=== PATIENT | male | born 1930 | race Caucasian/White ===

== ENCOUNTER 2018-03-14 07:44 | Inpatient (IN) | payer MEDICARE, BC ==
--- NOTE | 2018-03-14 07:56 | ED ---
Shortness of Breath - HPI Summary HPI Summary: Patient is a 88 y/o M presenting to ED via ambulance with complaints of SOB. PMHx of CHF, EMS reports that patient has been "feeling generally unwell" for a couple of weeks, with exacerbation of SOB last night. Upon arrival, patient had difficulty speaking secondary to SOB, patient was reported to be ~70% o2 sat on RA. EMS placed patient on bipap which improved o2 saturation to around 95%. EMS also reports pitting BLE edema, BP of ~200 systolic, rales in lungs. They also reported PMHx of diabetes, BG was ~300. In the room, patient states he is feeling much improved on bipap. Pt speaking full sentences. pt denies fever, chills. Pt denies chest pain. No nausea. Pt states he is on blood thinners but unsure what kind. (records support Coumadin in 2016). PMHx of CVA, [place] is denied. Patient is on a water pill, states he is not on home o2. He also notes that he has been coughing. lives with - bring meds to be reviewed . - History of Current Complaint Hx Obtained From: Patient, EMS, Medical Records - admitted 2016 Onset/Duration: Lasting Days - SOB exacerbation last night, Lasting Weeks - "generally feeling unwell", Still Present, Worse Since - SOB exacerbation last night Timing: Constant Current Severity: None - pain denied Aggrevating Factors: Nothing Alleviating Factors: EMS Tx, Oxygen Associated Signs & Symptoms: Edema - BLE - Allergy/Home Medications Allergies/Adverse Reactions: Allergies Allergy/AdvReac Type Severity Reaction Status Date / Time MS Cephalexin [From Keflex] Allergy Nausea And Verified 03/14/18 08:28 Vomiting MS Codeine [Codeine] Allergy Nausea And Verified 03/14/18 08:28 Vomiting PMH/Surg Hx/FS Hx/Imm Hx Previously Healthy: No Endocrine/Hematology History: Reports: Hx Anticoagulant Therapy, Hx Diabetes Cardiovascular History: Reports: Hx Hypercholesterolemia, Hx Hypertension, Hx Peripheral Vascular Disease, Other Cardiovascular Problems/Disorders - IDDM II Denies: Hx Valvular Heart Disease Respiratory History: Reports: Hx Seasonal Allergies, Hx Sleep Apnea Denies: Hx Pneumonia, Other Respiratory Problems/Disorders GI History: Reports: Hx Gastroesophageal Reflux Disease, Hx Irritable Bowel, Hx Ulcer, Other GI Disorders - polyps History: Reports: Hx Benign Prostatic Hyperplasia - Prostate CA, Other Problems/Disorders - CKD Stage 3 Musculoskeletal History: Reports: Hx Arthritis - HANDS, SHOULDERS, KNEES, ANKLES , Hx Gout - R hand Denies: Other Musculoskeletal History Sensory History: Reports: Hx Cataracts, Hx Contacts or Glasses Denies: Hx Hearing Aid Opthamlomology History: Reports: Hx Cataracts, Hx Contacts or Glasses Neurological History: Denies: Other Neuro Impairments/Disorders Psychiatric History: Reports: Hx Depression - Cancer History Cancer Type, Location and Year: prostate Hx Chemotherapy: No Hx Radiation Therapy: No - Surgical History Surgery Procedure, Year, and Place: prostatectomy, 1991, [facility]. TUMOR FROM BACK, 1987, [facility]. APPENDECTOMY, [facility]. 194. Lipoma off the neck Hx Anesthesia Reactions: No - Immunization History Date of Tetanus Vaccine: 2014 Date of Influenza Vaccine: 2014 Infectious Disease History: Denies: Hx Clostridium Difficile, Hx Hepatitis, Hx Human Immunodeficiency Virus (HIV), Hx of Known/Suspected MRSA, Hx Shingles, Hx Tuberculosis, Hx Known/ Suspected VRE, Hx Known/Suspected VRSA, History Other Infectious Disease - Family History Known Family History: Positive: Non-Contributory Family History: No FHx anesthesia reaction - Social History Lives: With Family Alcohol Amount: 2 bottles of beer or mix drink Substance Use Type: Reports: None Hx Tobacco Use: Yes Smoking Status (MU): Former Smoker Type: Cigarettes Amount Used/How Often: 2 PACKS A DAY Length of Time of Smoking/Using Tobacco: 20 Review of Systems Positive: Fatigue Positive: Shortness Of Breath, Cough, Other - leg edema Positive: Edema - BLE edema All Other Systems Reviewed And Are Negative: Yes Physical Exam - Summary Physical Exam Summary: Vital Signs Reviewed: Yes A+Ox3, on cpap - speaking full sentences Eyes: Conjunctiva Clear, WILLIE. EOM intact and full ENT: Hearing grossly normal TM x 2 clear, mmoist, uvula midline, no exudate, no erythema Neck: Positive: Supple Respiratory: Positive: scattered wheeze, decreased BS at bases Cardiovascular: irregular, distant second to wheeze, + edema b/l LE abd soft + BS nt/nd no guarding, no distension Musculoskeletal Exam: moved ext x 4 Neurological: Positive: Alert, appropriate Psychological: Positive: Normal Response To Family Skin: Positive: scabs to abdomen - no concern for cellulitis of these Triage Information Reviewed: Yes Diagnostics - Laboratory Result Diagrams: 03/14/18 07:55 03/14/18 07:55 Lab Statement: Any lab studies that have been ordered have been reviewed, and results considered in the medical decision making process. - Radiology CXR Radiology Interpretation Completed By: Radiologist Summary of Radiographic Findings: IMPRESSION: NO ACTIVE CARDIOPULMONARY DISEASE IS NOTED. THIS REPORT WAS REVIEWED BY ED PHYSICIAN. - EKG 0756 Cardiac Rate: Other Rate - afib with rate of 103 BPM EKG Rhythm: Atrial Fibrillation Summary of EKG Findings: EKG showed afib with rate of 103 BPM, no acute ST-T wave changes, no STEMI. Re-Evaluation - Re-Evaluation First Eval Re-Evaluation Time: 08:02 Comment: Review of medical records revealed that patient was on Warfarin in 2016. Second Eval Re-Evaluation Time: 08:16 Change: Improved Comment: Kate, daughter is present, notes has been coughing for a few weeks, productive of greenish-yellow sputum. Patient is on Zpack, started four days ago. Fever is denied at this time, reports infection at anthony a few weeks ago which was treated and improved. Patient is 100 o2 sat. Does not have inhaler, neublizer at home. No chest pain reported. No vomiting. Daughter reports decreased appetite. He reports improvement in breathing. Daughter reports he is on Eliquis for Afib, has been taking his water pill regularly. Had CA tumor removed from back, prostate surgery. Allergies discussed. Supposed to go to doctor today for catheter for urinary incontinence. This is reported to have gone on for quite some time. He reports no significant irritation of skin at groinal area. Patient did not take insulin this morning. Patient has been 68 years. Will continue to reassess Anticipate admission - pt aware and in agreement Third Eval Re-Evaluation Time: 08:44 Comment: Went into evaluate patient's lower extremities further. Fourth Eval Re-Evaluation Time: 08:58 Comment: Legs with bilateral edema, mild erythema anterior shins R>L no drainage suspect venous statis change. CXR reviewed. labs reviewed. Will d/ w Dr. Cuellar - regarding admission Course/Dx - Course Course Of Treatment: Patient's a 88 year old gentleman with a history of congestive heart failure, hypertension, diabetes. Patient presents to urgent emergency department by EMS. Patient reports feeling fatigued over the last few weeks particularly in the morning. Patient with increasing shortness of breath since last night. Patient was found by EMS with sats the 70s. Patient with pitting edema to lower legs bilaterally. Patient was placed on BiPAP by EMS. Patient now speaking full sentences stating he feels better. On exam patient's vitals revealed sats 98%. Patient's blood pressure had been elevated by EMS but is improved markedly still slightly elevated. Patient's blood sugar was high when checked by EMS and the 300s. Patient denies any chest pain. Patient with scattered rales and decreased breath sounds at the bases. We will check labs, chest x-ray, EKG which reveals A. fib, flu swab. Likely we'll give patient some Lasix. Anticipate patient will likely be related. Patient's daughter and jonh. Patient's MU score was 7. This was related to respiratory rate as well as heart rate. Patient is afebrile. We'll check a lactic as well as blood cultures. At this time no clear infection. We'll wait for chest x-ray and urine. We'll start antibiotics immediately if positive or concern for infection after further eval. - Diagnoses Provider Diagnoses: CHF (congestive heart failure), Hypoxia - Physician Notifications Discussed Care of Patient With: Jessica Cuellar Time Discussed With Above Provider: 09:09 Instructed by Provider To: Admit As Inpatient - Patient's case was discussed with Dr. Cuellar at 0909, Dr. Cuellar accepts for admission. Discharge - Sign-Out/Discharge Documenting (check all that apply): Patient Departure - admit - Discharge Plan Condition: Stable Disposition: ADMITTED TO [facility] Referrals: Yassine Kimball DO [Primary Care Provider] - - Billing Disposition and Condition Condition: STABLE Disposition: Admitted to [facility] - Attestation Statements Document Initiated by Scribe: Yes Documenting Scribe: HAILEY SERRANO Provider For Whom Padmini is Documenting (Include Credential): KEILY POWELL MD Scribe Attestation: HAILEY Zamora , scribed for KEILY POWELL MD on 03/14/18 at 0913. Scribe Documentation Reviewed: Yes Provider Attestation: The documentation as recorded by the HAILEY hathaway accurately reflects the service I personally performed and the decisions made by me, KEILY POWELL MD Status of Scribe Document: Viewed
[2018-03-14] MEDS ORDERED: Albuterol/Ipratropium NEB.SOL* Albuterol 2.5 MG/Ipratropium 0.5 MG 3 ML INH ONE (08:11)
[2018-03-14] MEDS ORDERED: Albuterol 2.5 MG/3 ML NEB.SOL* (0.083%) INH ONE (08:14)
[2018-03-14] MEDS ORDERED: Ipratropium 0.5MG/2.5ML NEB* 0.5 MG/2.5 ML NEB.SOLN ONE (08:14)
[2018-03-14 08:18] LABS: ABS Basophils 0.1 10^3/ul (0-0.2); ABS Eosinophils 0.1 10^3/ul (0-0.6); ABS Lymphocytes 0.8 10^3/ul (1.0-4.8); ABS Monocytes 0.9 10^3/ul (0-0.8); ABS Neutrophils 6.4 10^3/ul (1.5-7.7); ABS Nucleated RBC 0 10^3/ul; Eosinophil % 1.4 %; Hematocrit 29 % (42-52); Hemoglobin 8.4 g/dl (14.0-18.0); Lymphocyte % 9.2 %; Mean Corpuscular HGB Conc 29 g/dl (31-36); Mean Corpuscular Hemoglobin 21 pg (27-31); Mean Corpuscular Volume 71 fL (80-94); Mean Platelet Volume 7.8 fL (7.4-10.4); Nucleated Red Blood Cells % 0; Platelet Count 392 10^3/ul (150-450); Red Blood Count 4.04 10^6/ul (4.00-5.40); Red Cell Distribution Width 19 % (10.5-15); White Blood Count 8.2 10^3/ul (3.5-10.8)
[2018-03-14 08:30] LABS: Albumin 3.1 g/dL (3.2-5.2); Albumin/Globulin Ratio 0.9 (1-3); Calcium 8.9 mg/dL (8.6-10.3); EGFR Non-African American 38.1 (>60); Globulin 3.5 g/dL (2-4); Potassium 4.9 mmol/L (3.5-5.0); Total Bilirubin 1.1 mg/dL (0.2-1.0); Total Protein 6.6 g/dL (6.4-8.9)
[2018-03-14 09:00] LABS: INR 1.4 (0.77-1.02)
[2018-03-14] MEDS ORDERED: Al Hydrox/Mg Hydrox/Simet LIQ* 30 ML UDC PO PRN (09:12)
[2018-03-14] MEDS ORDERED: Acetaminophen TAB* 325 MG PO PRN (09:12)
[2018-03-14] MEDS ORDERED: Insulin NPH(*) 1 UNITS UNIT SUBCUT ONE (12:07)
[2018-03-14] MEDS ORDERED: methylPREDNISolone SOD 40 MG* 1 ML VIAL IV ONE (12:09)
[2018-03-14] MEDS ORDERED: Furosemide IV* 10 MG/ML VIAL (40 MG) IV ONE (12:09)
[2018-03-14] MEDS ORDERED: Docusate CAP* 100 MG PO PRN (12:10)
[2018-03-14] MEDS ORDERED: Perflutren Lipid Microsphere* 3 ML VIAL ONE (14:43)
[2018-03-14] MEDS ORDERED: Lidocaine 2% JELLY* 6 ML JELLY TOPICAL ONE (14:49)
[2018-03-14] MEDS ORDERED: Dextrose 50% Syringe 50 ML* 25 GM/50 ML SYRINGE IV PUSH PRN ×3 (15:02→22:56)
[2018-03-14] MEDS: Apixaban* 2.5 MG TAB PO SCH ×2 (15:12→20:36)
[2018-03-14] MEDS: Insulin LISPRO* 1 UNITS UNIT SUBCUT SCH ×3 (15:44→23:05)
[2018-03-14] MEDS: Nystatin TOP POWDER* 15 GM BTL TOPICAL SCH ×2 (15:45→23:04)
[2018-03-14] MEDS: Mupirocin 2% OINT* TUBE TOPICAL SCH ×2 (15:45→20:37)
--- NOTE | 2018-03-14 15:57 | ECHO ---
Patient: KEISHA LYONS [facility] Rec#: [id number] : 1930 Date: 03/14/2018 Age: 88y Height: 177.8 cm / 70.0 in Weight: 138.35 kg / 304.9 lbs Sex: M BSA: 2.5 Room#: 110 Admit Date#: 03/14/2018 Type: Inpatient Referring: JOSEE HIDALGO Reading: Yogi Bennett MD Resource Technician: Brigette Carey,RDCS,RDMS CC: Yassine Titus Transthoracic Echocardiogram Indication: CHF BP: 127/100 Rhythm: A-Fib Findings History: CHF, CVA, AFIB, HTN, HLD, DM, PVD, former smoker. Technical Comments: The study is technically difficult. Left Ventricle: The left ventricular chamber size is normal. Mild concentric left ventricular hypertrophy is observed. The left ventricle appears hyperdynamic. The estimated ejection fraction is greater than 65%. The assessment of diastolic function is non-diagnostic. Left Atrium: The left atrium is mild to moderately dilated. Right Ventricle: The right ventricular cavity size is normal. The right ventricular global systolic function is low normal. Right Atrium: The right atrium is mild to moderately dilated. Aortic Valve: The aortic valve leaflets are mildly thickened. There is a trace of aortic regurgitation. There is no evidence of aortic stenosis. Mitral Valve: The mitral valve leaflets appear normal. There is no evidence of mitral regurgitation. There is no evidence of mitral stenosis. Tricuspid Valve: The tricuspid valve leaflets are normal. There is mild tricuspid regurgitation. There is evidence of mild to moderate pulmonary hypertension. Pulmonic Valve: The pulmonic valve structure is not well visualized. There is no evidence of pulmonic regurgitation. Pericardium: There is no significant pericardial effusion. Aorta: The aortic root appears normal. There is no dilatation of the aortic arch. Pulmonary Artery: The main pulmonary artery is not well visualized. Venous: The inferior vena cava appears normal in size. There is a greater than 50% respiratory change in the inferior vena cava dimension. Contrast: Definity was used to optimize study. A total of 3 ml was used. Summary: There was not any prior study for comparison. Conclusions Mild concentric left ventricular hypertrophy is observed. The left ventricle appears hyperdynamic. The estimated ejection fraction is greater than 65%. The right ventricular global systolic function is low normal. There is a trace of aortic regurgitation. There is no evidence of aortic stenosis. There is no evidence of mitral regurgitation. There is mild tricuspid regurgitation. There is evidence of mild to moderate pulmonary hypertension. There is no significant pericardial effusion. Measurements Name Value Normal Range RVIDd (AP) 2D 3 cm (0.9 - 2.6) RVDdMajor (2D) 3.7 cm (2.2 - 4.4) RAd ISD 4CH 6.9 cm (3.4 - 4.9) RA (A4C)W 4.3 cm (2.9 - 4.6) IVSd (2D) 1.3 cm (0.6 - 1) LVPWd (2D) 1.1 cm (0.6 - 1) LVIDd (2D) 4.1 cm (3.6 - 5.4) LVIDs (2D) 3.1 cm - LV FS (2D) 25 % (25 - 45) Aortic Annulus 2 cm (1.4 - 2.6) Ao root diameter (2D) 3 cm (2.1 - 3.5) Ascending Ao 2.5 cm (2.1 - 3.4) Aortic arch 3.3 cm (1.8 - 3.4) LA dimension (AP) 2D 4.1 cm (2.3 - 3.8) LAd ISD 4CH 6.9 cm (2.9 - 5.3) LA ISD 4CH W 5.1 cm (2.5 - 4.5) Name Value Normal Range LA ESV SP 4CH (A/L) 93.88 ml - LA ESV SP 2CH (A/L) 85.62 ml - LA ESV BP (A/L) 91.24 ml - LA ESV BP (A/L) index 36.5 ml/m2 - LA ESV SP 4CH (MOD) 90.32 ml - LA ESV SP 2CH (MOD) 82.29 ml - Name Value Normal Range MV E-wave Vmax 1.6 m/sec - MV deceleration time 187 msec - LV lateral e' Vmax 0.08 m/sec - LV E:e' lateral ratio 20 ratio - Name Value Normal Range AV Vmax 1.2 m/sec - AV peak gradient 6 mmHg - LVOT Vmax 1 m/sec - LVOT peak gradient 4 mmHg - ELIGIO Vmax 1.3 m/sec - Name Value Normal Range MV Vmax 1.8 m/sec - MV VTI 38 cm - MV peak gradient 13 mmHg - MV mean gradient 4.8 mmHg - MV PHT 83 msec - MVA (PHT) 2.7 cm2 - Name Value Normal Range TR Vmax 3 m/sec - TR peak gradient 36 mmHg - RAP 8 mmHg - RVSP 44 mmHg - IVC diameter 1.9 cm - Name Value Normal Range PV Vmax 0.7 m/sec - PV peak gradient 1.72 mmHg -
[2018-03-14 16:03] LABS: Urine Appearance Clear; Urine Bacteria 1+ (Absent); Urine Bilirubin Negative (Negative); Urine Blood 2+ (Negative); Urine Color Yellow; Urine Glucose 3+(>=500 mg/dL) (Negative); Urine Ketones Negative (Negative); Urine Nitrite Positive (Negative); Urine Protein Negative (Negative); Urine Red Blood Cell 2+(6-10/hpf) (Absent); Urine Specific Gravity 1.008 (1.010-1.030); Urine Urobilinogen Negative (Negative); Urine White Blood Cell Trace(0-5/hpf) (Absent)
--- NOTE | 2018-03-14 17:04 | HP ---
CC: Dr. Kimball * HISTORY AND PHYSICAL: DATE OF ADMISSION: 03/14/18 PROVIDER: Marie Hidalgo NP. ATTENDING PHYSICIAN: Dr. Cuellar * (dictated by Marie Hidalgo NP). PRIMARY CARE PHYSICIAN: Dr. Kimball. CHIEF COMPLAINT: Shortness of breath and hypoxia. HISTORY OF PRESENT ILLNESS: Mr. Chavez is an 88-year-old male with a past medical history significant for CHF; hypertension; diabetes; AFib, on Eliquis; and CKD stage 3, who presented to the the ED after feeling generally unwell for a few weeks as well as having a productive cough. The patient denied any fever , chills, chest pain, nausea, or vomiting. The patient has been feeling unwell for a month; however, last night he had increased shortness of breath and he decided to come to the ED. When EMS arrived, they found him to be hypoxic, satting 70% on room air with a BP of greater than 200 systolically and rales. The patient was started on BiPAP and his oxygen saturation improved with that. In the ED, he was afebrile. He was less hypertensive, less tachypneic, and satting well on BiPAP with 40% FiO2. Of note, on physical exam, he demonstrated bilateral pitting edema, up to his knees, which he reports has been worsening. He also reports orthopnea with a need to use more pillows at night in order to breathe comfortably. His labs were notable for no leukocytosis and no elevated lactic acid and negative troponins; however, he did have BNP of 365 and ABG with pH of 7.27 and PCO2 of 65 as well as glucose of 419. The patient is a diabetic and reports not taking any of his medications today. Also of note, the patient's spoke to their doctor when she was having a visit last week, and he prescribed Z-Shayne for the patient based on her description of his symptoms and a discussion with the patient on the phone and he started taking the Z-Shayne last Tuesday which is 03/08/18. Also of note, the patient was recently treated for an infection on his right anthony, involved area is still erythematous. The patient and his report that it is far improved. The patient had a chest x-ray which showed no active cardiopulmonary disease. At the time of my exam, the patient denies shortness of breath on BiPAP. He denied chest pain or palpitations, dizziness, lightheadedness, abdominal pain, or dysuria. He does endorse some numbness and tingling in his feet which he says is similar to his baseline neuropathy. He denies nausea, vomiting, and abdominal pain. The hospitalist team was asked to admit this patient for acute hypoxic respiratory failure secondary to CAP versus acute heart failure exacerbation versus COPD exacerbation. He was admitted to the ICU for BiPAP. PAST MEDICAL HISTORY: 1. CHF. 2. Hypertension. 3. AFib, on Eliquis. 4. Diabetes, on insulin. 5. CKD stage 3. PAST SURGICAL HISTORY: 1. Prostatectomy in 1991. 2. Tumor removed from his back in 1987. 3. Appendectomy in 1945. 4. Lipoma removal off of his neck. HOME MEDICATIONS: 1. Nystatin topical powder 1 application topical t.i.d. 2. Multivitamin 1 tab p.o. daily. 3. Metoprolol succinate XL tab 100 mg p.o. b.i.d. 4. Lantus 60 units subcutaneously q.p.m. 5. Acetaminophen 500 mg p.o. q.i.d. p.r.n. 6. Simvastatin 20 mg p.o. daily. 7. Lispro 30 units at breakfast and lunch, then 15 units with dinner. 8. Bactroban 2% ointment 1 application topical t.i.d. 9. Eliquis 2.5 mg p.o. b.i.d. 10. Furosemide 40 mg daily. 11. Colace 1 tab daily p.r.n. ALLERGIES: CEPHALEXIN and CODEINE. FAMILY HISTORY: The patient's sister has had an [place]. He has no history of diabetes or cancer in his family. SOCIAL HISTORY: The patient is not a current smoker; however, he did smoke 3 packs of cigarettes a day for 30 years but quit about 40 years ago. The patient endorses infrequent alcohol use about once a month. The patient denies illicit drug use. The patient would like to be full code and his medical decision maker is his Sue. REVIEW OF SYSTEMS: I performed a 14-point review of systems. All the pertinent positives and negatives are mentioned in the history of present illness. The remaining review of systems is negative. PHYSICAL EXAMINATION GENERAL: The patient is alert, pleasant, and appears to be in no acute distress while on BiPAP. VITAL SIGNS: Temperature 97.6, heart rate 94, respiratory rate 29, O2 sat 93% on BiPAP, blood pressure 158/58. HEENT: Normocephalic, atraumatic. Pupils are equal, round, and reactive to light and accommodation. EOMs are intact. NECK: Supple. No lymphadenopathy noted. RESPIRATORY: The patient does have wheezes audible bilaterally posteriorly as well as some soft rales. No accessory muscle use and normal work of breathing. CARDIAC: Irregularly irregular. S1 and S2 present. No murmurs, rubs, or gallops heard. ABDOMEN: Soft, nontender, nondistended. There are hypoactive bowel sounds. EXTREMITIES: There is 2+ pitting edema bilaterally as well as chronic venous stasis changes and some erythema on the anterior aspect of both ankles, right worse than left. No drainage. The patient also does have a skin tear on his left great toe that occurred during the bed transfer and will be addressed. MUSCULOSKELETAL: No clubbing or cyanosis noted. NEURO: The patient is alert and oriented x3. PSYCH: The patient is calm and cooperative. SKIN: There are no rashes or abnormalities seen. DIAGNOSTIC STUDIES/LAB DATA: Sodium 137, potassium 4.9, chloride 100, carbon dioxide 31, anion gap 6, BUN 24, creatinine 1.71, glucose 419, lactic acid 1.5, calcium 8.9, magnesium 2.0, total bili 1.10, AST 13, ALT 9, alk phos 93, total CK 57, CK-MB 4.2, troponin 0.01 twice. BNP 365. Total protein 6.6, albumin 3.1 , globulin 3.5. Albumin to globulin ratio 0.9. White blood cell count 8.2, RBC 4.04, hemoglobin 8.4, hematocrit 29, MCV 71, MCH 21, MCHC 29, RDW 19, platelet count 392. INR 1.4. ABG; pH 7.27, PCO2 is 65, PO2 169, bicarb 26.7, O2 sat 99.3. Serology flu A and B negative. Reports: Chest x-ray with no active cardiopulmonary disease. EKG with AFib with a rate of [address] changes. ASSESSMENT: Mr. Chavez is an 88-year-old male with past medical history significant for congestive heart failure; hypertension; diabetes; atrial fibrillation, on Eliquis; chronic kidney disease stage 3; and history of tobacco abuse who presented to the ED with shortness of breath and will be admitted to the hospitalist service for acute hypoxic respiratory failure. PLAN: 1. Acute hypoxic respiratory failure. Differentials include pneumonia versus CHF exacerbation versus COPD exacerbation. The patient was initially hypoxic to the 70s on room air and was then placed on BiPAP. He has been sating in the 90s on BiPAP and in his ABG. As the patient has had a cough for a month, was treated with a Z-SHAYNE since last week, has no infiltrate on his chest x-ray, is afebrile and no leukocytosis, I feel that further antibiotic therapy is not warranted at the moment. I suspect that the patient perhaps did have a pneumonia which was adequately treated with antibiotics; however, this could have triggered a CHF exacerbation as well as a COPD exacerbation. The patient does not have a documented history of COPD; however, he is a former smoker who used to smoke 3 packs a day for 30 years. He did have an ABG, which showed respiratory acidosis with PCO2 of 65 and wheezing on exam, so I will treat him with steroids. I will give him 1 dose of IV steroids followed by a 40 mg of prednisone p.o. daily. The patient's presentation of increasing shortness of breath accompanied by increasing lower extremity edema and worsening orthopnea places CHF exacerbation high on the differential. I will give him 60 mg of IV Lasix today and reevaluate the need for further Lasix tomorrow. I will also order an echo to evaluate his systolic function as I do not see one in the computer and his records suggest that he is due for one. 2. History of congestive heart failure. We will continue the patient's metoprolol. As stated above, I will give him 60 mg of IV Lasix today and can reevaluate the need for further IV Lasix tomorrow. The patient does take 40 mg of Lasix p.o. daily. I will also follow up on the echo to evaluate his systolic function. 3. Paroxysmal atrial fibrillation. Continue rate control with metoprolol b.i.d. Continue anticoagulation with Eliquis b.i.d. 4. Diabetes with hyperglycemia. The patient was hyperglycemic up to 444. I have given him 10 units of NPH. I will continue fingersticks q.6 hours as the patient is n.p.o. for the BiPAP. I will continue his home Lantus at 60 units this evening. The patient does normally take lispro at mealtime 30 units for breakfast and lunch and 15 units with dinner. I will hold this for the time being as the patient is currently n.p.o., however, can resume once he is eating again. 5. Chronic kidney disease stage 3. The patient's creatinine of 1.71 appears to be his baseline compared to previous visits. 6. Anemia, microcytic, hypochromic. The patient has an H and H of 8.4 and 29. No signs of active bleeding; however, I will order an iron panel to follow up. 7. Lower extremity wounds. The patient was treated for cellulitis previously and these wounds appear to be healing; however, I would like to keep a close eye on them and I have continued his home Bactroban. 8. NPO: The patient is n.p.o. until he can be off BiPAP. 9. DVT prophylaxis: Continue Eliquis. 10. Code status: The patient is full code. 11. Disposition: Inpatient. Anticipate discharge home when medically stable. TIME SPENT: Time spent for this admission was 60 minutes, and 35 minutes was spent with the patient discussing medications, past medical history, and events leading up to the arrival today and performing a physical exam. The case has been reviewed with the attending Dr. Cuellar, who agrees with the plan of care. MARIE HIDALGO, TUNDE [id number]/CPS #: [id number] JENNIFER
[2018-03-14] MEDS ORDERED: Insulin GLARGINE(*) 1 UNITS UNIT SUBCUT SCH (18:00)
[2018-03-14] MEDS: Atorvastatin* 10 MG TAB PO SCH (18:36)
[2018-03-14] MEDS ORDERED: Insulin LISPRO* 1 UNITS UNIT SUBCUT ONE ×4 (18:48→22:56)
--- NOTE | 2018-03-14 20:09 | CONS ---
CC: Dr. Kimball; Jemal Sibley MD UROLOGY CONSULTATION: DATE OF CONSULT: 03/14/18 REQUESTING PHYSICIAN: Dr. Lemus in the ICU. DIAGNOSES: 1. Urethral - bladder neck stricture. 2. Urinary retention. HISTORY OF PRESENT ILLNESS: Adam Chavez is an 88-year-old gentleman, who had been admitted to [facility] ICU for shortness of breath and CHF. PAST MEDICAL HISTORY: His past medical history is pretty extensive and is significant for hypertensi on, diabetes, atrial fibrillation, and chronic kidney disease. His past urologic history is significant for what appears to have been a radical prostatectomy done m ore than 20 years ago in [place] for prostate cancer. He does describe some additional procedures do ne after that, which I suspect may have been a bladder neck incision due to a postoperative stricture . PAST SURGICAL HISTORY: Significant for prostatectomy in 1991, appendectomy in 1945, removal of tumor from his back in 1987, and removal of a lipoma. MEDICATIONS ON ADMISSION: Include: 1. Metoprolol 100 mg twice a day. 2. Lantus 60 units subcutaneously q.p.m. 3. Simvastatin 20 mg daily. 4. Lispro 30 units at breakfast and lunch and 15 units with dinner. 5. Eliquis 2.5 mg twice a day. 6. Furosemide 40 mg daily. ALLERGIES: CEPHALEXIN AND CODEINE. PHYSICAL EXAM: On examination, he is a pleasant elderly gentleman, who is sitting in bed and is shor t of breath. Abdomen is soft with mild tenderness over the bladder area. Genitalia appeared normal. PROCEDURE: Under sterile condition, initially a 10-Serbian dilating catheter was introduced. A stric ture was noted at the level of what I suspect is the bladder neck (anastomotic stricture). This was carefully dilated with a 10-Serbian catheter and subsequently 12, 14, and 16-Serbian catheters. Once t he urethral dilation had been successfully accomplished, a 14-Serbian coude catheter was introduced wi thout difficulty and more than 500 cc of clear urine were drained. PLAN/RECOMMENDATIONS: I discussed the situation in detail with Dr. Lemus and with the patient and h is . I explained the findings of bladder neck stricture and successful dilation. The plan is to leave the catheter in for the next few days and I will follow him as an outpatient to check his post void residual once the catheter has been removed. [id number]/[facility] #: [id number]
[2018-03-14] MEDS: Metoprolol Succinate XL TAB* 100 MG PO SCH (20:36)
[2018-03-15 06:55] LABS: BUN/Creatinine Ratio 16.9 (8-20); Calcium 8.9 mg/dL (8.6-10.3); EGFR Non-African American 41.2 (>60); Potassium 4.9 mmol/L (3.5-5.0)
[2018-03-15 06:58] LABS: ABS Basophils 0.1 10^3/ul (0-0.2); ABS Eosinophils 0 10^3/ul (0-0.6); ABS Lymphocytes 0.4 10^3/ul (1.0-4.8); ABS Monocytes 0.9 10^3/ul (0-0.8); ABS Neutrophils 11.5 10^3/ul (1.5-7.7); ABS Nucleated RBC 0 10^3/ul; Eosinophil % 0 %; Hematocrit 28 % (42-52); Hemoglobin 8.4 g/dl (14.0-18.0); Mean Corpuscular HGB Conc 30 g/dl (31-36); Mean Corpuscular Hemoglobin 21 pg (27-31); Mean Corpuscular Volume 70 fL (80-94); Mean Platelet Volume 7.9 fL (7.4-10.4); Nucleated Red Blood Cells % 0.2; Platelet Count 418 10^3/ul (150-450); Red Blood Count 4.04 10^6/ul (4.00-5.40); Red Cell Distribution Width 19 % (10.5-15); White Blood Count 12.8 10^3/ul (3.5-10.8)
[2018-03-15] MEDS: Mupirocin 2% OINT* TUBE TOPICAL SCH ×3 (07:43→22:43)
[2018-03-15] MEDS: Nystatin TOP POWDER* 15 GM BTL TOPICAL SCH ×3 (07:43→22:43)
[2018-03-15] MEDS: Metoprolol Succinate XL TAB* 100 MG PO SCH (07:44)
[2018-03-15] MEDS: Multivitamins/Minerals TAB PO SCH (07:44)
[2018-03-15] MEDS: predniSONE TAB* 20 MG PO SCH (07:44)
[2018-03-15] MEDS: Apixaban* 2.5 MG TAB PO SCH (07:44)
--- NOTE | 2018-03-15 08:38 | PN ---
Subjective Date of Service: 03/15/18 Interval History: Mr. Chavez reports that he feels better than on arrival though nursing staff note that he is very wheezy when getting up to go to the bathroom. He is not on home O2, he denies any previous hospitalization for SOB. He denies chest pain. He is short of breath with any exertion. He denies nausea or abdominal pain. Objective Active Medications: Acetaminophen (Tylenol Tab*) 650 mg PO Q4H PRN Al Hydrox/Mg Hydrox/Simethicone (Maalox Plus*) 30 ml PO Q6H PRN Albuterol/Ipratropium (Duoneb (Albuterol 2.5 Mg/Ipratropium 0.5 Mg)) 1 neb INH [id number] AWAKE PRN Apixaban (Eliquis*) 2.5 mg PO BID REJI Atorvastatin Calcium (Lipitor*) 10 mg PO QPM REJI Dextrose (D50w Syringe 50 Ml*) 12.5 gm IV PUSH .FOR FS < 60 - SS PRN Docusate Sodium (Colace Cap*) 100 mg PO DAILY PRN Insulin Glargine (Lantus(*)) 60 units SUBCUT QPM REJI Insulin Human Lispro (Humalog*) 0 units SUBCUT ACHS REJI; Protocol Metoprolol Succinate (Toprol Xl Tab*) 100 mg PO BID REJI Multivitamins/Minerals (Theragran/Minerals Tab*) 1 tab PO DAILY REJI Mupirocin (Bactroban 2 % Oint*) 1 applic TOPICAL TID REJI Nystatin (Nystatin Top Powder*) 1 applic TOPICAL TID REJI Prednisone (Deltasone Tab*) 40 mg PO DAILY [facility] Vital Signs: Temp Pulse Resp BP Pulse Ox 98.0 F 92 32 142/74 94 03/15/18 01:56 03/15/18 01:56 03/15/18 00:01 03/15/18 01:56 03/15/18 01:56 Oxygen Devices in Use Now: Nasal Cannula Appearance: Male lying in bed in NAD, short of breath with any exertion Eyes: No Scleral Icterus Ears/Nose/Mouth/Throat: Mucous Membranes Moist Neck: Trachea Midline Respiratory: Symmetrical Chest Expansion and Respiratory Effort, Clear to Auscultation, - - Auscultation inhibited by body habitus Cardiovascular: NL Sounds; No Murmurs; No JVD, - - trace edema Abdominal: NL Sounds; No Tenderness; No Distention Skin: No Rash or Ulcers Neurological: Alert and Oriented x 3, NL Muscle Strength and Tone Nutrition: Taking PO's Result Diagrams: 03/15/18 06:20 03/15/18 06:20 Microbiology and Other Data: . Assess/Plan/Problems-Billing Assessment: Mr. Chavez is an 88 yo M with a PMH of chronic diastolic CHF, COPD, afib, CKD and DM who was admitted on 03/14/18 with suspected COPD exacerbation and urinary retention due to urethral stricture requiring padilla catheter placement by Dr. Sibley, + UTI. 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 - Patient Problems (1) COPD (chronic obstructive pulmonary disease) Comment: - Slow improvement - Continue prednisone and albuterol nebs prn - Titrate O2 as tolerated (2) CHF (congestive heart failure) Comment: - Echo with intact EF and no valvular abnormalities, suspect diastolic HF - Do not suspect a significant component of CHF, given lasix in ED, no further lasix for today planned (3) Sinus pause Comment: - Metoprolol held (but had already been given this AM) - Cardiology consult appreciated, plan for pacemaker on Tuesday, hold eliquis (4) Afib Comment: - Hold metoprolol with sinus pause today, stop eliquis. 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 (5) Urinary retention Comment: - Appreciate consultation, dilatation and padilla placement from Dr. Sibley - Patient should be discharged with padilla to follow up with Dr. Sibley outpatient (6) UTI (urinary tract infection) Comment: - Ecoli > 100K colonies - Plan for ceftriaxone x 1, awaiting sensitivities (7) Diabetes Comment: - BGs 260-400, partly related to steroids - Increase dose lantus to 70 units q PM, increase SSI coverage for meals (8) CKD (chronic kidney disease) Comment: - Stage 3b, at baseline (9) HTN (hypertension) Comment: - BP well controlled - Hold metoprolol due to tachy-luis a syndrome, start amlodipine (10) DVT prophylaxis Comment: - Stop eliquis, start heparin sq. (11) Full code status Comment: Status and Disposition: Inpatient. Anticipate discharge to home when medically stable, lives with .
[2018-03-15] MEDS: Insulin LISPRO* 1 UNITS UNIT SUBCUT SCH ×5 (09:40→22:38)
--- NOTE | 2018-03-15 12:33 | PN ---
Cardiology Progress Note Date of Service: 03/15/18 - CC: urinary retention, afib with pauses and hx syncope Full consult note to be dictated. Pt admitted following difficult padilla insertion. Hx chronic afib on coumodin, followed in past by Dr Smith. Monitor here (even after padilla inserted) showed intermittent pauses up to 4.5 seconds. Per patient hx intermittent dizziness and hx syncope. Pacer indicated and I discussed with the patient, he want me to discuss with his , but amenable. Acetaminophen (Tylenol Tab*) 650 mg PO Q4H PRN PRN Reason: FEVER/PAIN Al Hydrox/Mg Hydrox/Simethicone (Maalox Plus*) 30 ml PO Q6H PRN PRN Reason: INDIGESTION Albuterol/Ipratropium (Duoneb (Albuterol 2.5 Mg/Ipratropium 0.5 Mg)) 1 neb INH [id number] AWAKE PRN PRN Reason: sob/wheexing Apixaban (Eliquis*) 2.5 mg PO BID [facility] Last Admin: 03/15/18 07:44 Dose: 2.5 mg Atorvastatin Calcium (Lipitor*) 10 mg PO QPM [facility] Last Admin: 03/14/18 18:36 Dose: 10 mg Dextrose (D50w Syringe 50 Ml*) 12.5 gm IV PUSH .FOR FS < 60 - SS PRN PRN Reason: FS < 60 Docusate Sodium (Colace Cap*) 100 mg PO DAILY PRN PRN Reason: CONSTIPATION Insulin Glargine (Lantus(*)) 70 units SUBCUT QPM [facility] Insulin Human Lispro (Humalog*) 0 units SUBCUT ACHS [facility]; Protocol Last Admin: 03/15/18 09:40 Dose: 15 units Multivitamins/Minerals (Theragran/Minerals Tab*) 1 tab PO DAILY [facility] Last Admin: 03/15/18 07:44 Dose: 1 tab Mupirocin (Bactroban 2 % Oint*) 1 applic TOPICAL TID [facility] Last Admin: 03/15/18 07:43 Dose: 1 applic Nystatin (Nystatin Top Powder*) 1 applic TOPICAL TID [facility] Last Admin: 03/15/18 07:43 Dose: 1 applic Prednisone (Deltasone Tab*) 40 mg PO DAILY [facility] Last Admin: 03/15/18 07:44 Dose: 40 mg Laboratory Results - last 24 hr 03/14/18 03/15/18 03/15/18 21:40 06:20 06:20 WBC 12.8 H RBC 4.04 Hgb 8.4 L Hct 28 L MCV 70 L MCH 21 L MCHC 30 L RDW 19 H Plt Count 418 MPV 7.9 Neut % (Auto) 89.6 Lymph % (Auto) 3.0 Cass % (Auto) 6.8 Eos % (Auto) 0 Baso % (Auto) 0.6 Absolute Neuts (auto) 11.5 H Absolute Lymphs (auto) 0.4 L Absolute Monos (auto) 0.9 H Absolute Eos (auto) 0 Absolute Basos (auto) 0.1 Absolute Nucleated RBC 0 Nucleated RBC % 0.2 Sodium 138 Potassium 4.9 Chloride 101 Carbon Dioxide 32 Anion Gap 5 BUN 27 H Creatinine 1.60 H Est GFR ( Amer) 49.8 Est GFR (Non-Af Amer) 41.2 BUN/Creatinine Ratio 16.9 Glucose 421 H 268 H POC Glucose (mg/dL) Glucose Meter Confirm Calcium 8.9 Troponin I 0.00 Urine Color Urine Appearance Urine pH Ur Specific [place] Urine Protein Urine Ketones Urine Blood Urine Nitrate Urine Bilirubin Urine Urobilinogen Ur Leukocyte Esterase Urine WBC (Auto) Urine RBC (Auto) Urine Bacteria Hyaline Casts Urine Glucose Vital Signs: Temp Pulse Resp BP Pulse Ox 98.0 F 92 32 142/74 94 03/15/18 01:56 03/15/18 01:56 03/15/18 00:01 03/15/18 01:56 03/15/18 01:56 A/P Chronic afib, tachy luis a, needs single chamber pacer. Hold Eliquis and metoprolol in the interim.
[2018-03-15] MEDS: cefTRIAXone(*) 1 GM in NS 0.9% 50 ML* 50 ML IVPB SCH (16:55)
[2018-03-15] MEDS: Atorvastatin* 10 MG TAB PO SCH (18:25)
[2018-03-15] MEDS: Insulin GLARGINE(*) 1 UNITS UNIT SUBCUT SCH (18:25)
[2018-03-15] MEDS: Heparin VIAL(*) 5000 UNITS/ML VIAL (FIVE THOUSAND) SUBCUT SCH (22:39)
[2018-03-16] MEDS: Heparin VIAL(*) 5000 UNITS/ML VIAL (FIVE THOUSAND) SUBCUT SCH ×3 (06:28→21:20)
--- NOTE | 2018-03-16 06:36 | CONS ---
CC: Dr. Yassine Kimball; Dr. Titus; Hospitalist Service * CARDIOLOGY CONSULTATION: DATE OF CONSULT: 03/15/18 REASON FOR CONSULTATION: Bradycardia. CHIEF COMPLAINT: Difficulty urinating. HISTORY OF PRESENT ILLNESS: The patient states that he had come to the hospital to get a [place] catheter because he was soaking his Depends. This did not work, so he ended up in the emergency department and states with difficulty ended up with a Lua catheter. The admission notes state that he presented via the ambulance because of increased shortness of breath and hypoxia with oxygen saturations of 70% on room air. I suspect the patient does not recall the details of his arrival due to his hypoxemia at the time. Currently, the patient says he is feeling better. PAST MEDICAL HISTORY: 1. Chronic atrial fibrillation, on Eliquis. 2. Hypertension. 3. Congestive heart failure. 4. Diabetes, on insulin. 5. Chronic kidney disease. 6. Prostate cancer. PAST SURGICAL HISTORY: Includes prostatectomy in 1991, back tumor removal in 1987, appendectomy in 1945, lipoma removal, radical prostatectomy for prostate cancer. Stricture of the bladder neck treated with Lua catheter insertion by Dr. Sibley on this admission. MEDICATIONS: Current inpatient medications include: 1. Tylenol p.r.n. 2. Simethicone p.r.n. 3. DuoNeb. 4. Norvasc 5 mg a day. 5. Lipitor 10 mg a day. 6. Ceftriaxone IV. 7. Colace 100 mg a day. 8. Subcutaneous heparin. 9. Lantus insulin. 10. Humalog insulin. 11. MultiVites with minerals. 12. Bactroban ointment. 13. Nystatin swish and swallow. 14. Deltasone 40 mg a day. 15. Eliquis 2.5 mg b.i.d. 16. Metoprolol succinate 100 mg b.i.d. has been just recently discontinued. ALLERGIES: Include KEFLEX and CODEINE. FAMILY HISTORY: Positive for sister with a history of myocardial infarction. SOCIAL HISTORY: The patient did smoke 3 packs a day for 30 years but quit 40 years ago. Monthly alcohol. No history of recreational drugs. He is . REVIEW OF SYSTEMS: See history of present illness about the patient's urinary retention issues. Negative for chest pain, pressure, heaviness. He admits to dizziness. He is unaware of racing or palpitations of the heart and he admits to fainting but could not provide specific details. PHYSICAL EXAM: On exam, the patient is 5 feet 10 inches, weight is 310 pounds with a BMI of 45. Vitals: Blood pressure 122/55, pulse of 77, respiratory rate 20, oxygen saturation 93% on room air, and T-max 98.4. General Appearance : Obese, older gentleman, lying about 40 degrees, appears reasonably comfortable. Psychologically, pleasant and cooperative. Neurologically, awake, alert, and oriented to person and place. Did not evaluate for time. Historical ability seemed good at the time, but in reviewing other notes, it appears there may be some confusion. Skin: Warm and dry. There is some excoriation in the left shoulder, he says he itches and the rest of the skin has age appropriate changes and no cyanosis. HEENT: Pupils are equal and round. Mucous membranes moist. Neck: Thick from obesity. No thyromegaly or lymphadenopathy. Breath sounds diminished and rhonchorous. Coronary: S1, S2, irregularly irregular. Abdomen: Rotund and overweight. Lower Extremities: Warm. DIAGNOSTIC STUDIES/LAB DATA: White count 12.8, hematocrit 28, mean cell volume low at 70. INR 1.4. ABG on arrival 03/14/18, pH 7.27, pCO2 of 65, pO2 of 169. Sodium 138, potassium 4.9, chloride 101, bicarb 32, BUN 27, creatinine 1.6, glucose 268. Troponin 0.00. BNP 365. AST 13, ALT 9. Chest x-ray from 03/14/18 , no active pulmonary disease. A 12-lead ECG on arrival shows atrial fibrillation with a ventricular rate of 103 beats per minute, QRS axis of 0, normal intraventricular conduction times, motion artifact. Echocardiogram shows mild left ventricular hypertrophy, ejection fraction 65%, low normal right ventricular systolic function, trace aortic insufficiency, mild tricuspid insufficiency. Telemetry strips reviewed showing AFib with up to 4.5 second pauses. IMPRESSION AND PLAN: In summary, Adam Chavez is an 88-year-old gentleman with chronic atrial fibrillation, who presented to the hospital with acute shortness of breath and hypoxia and hypercarbia on O2 and has been responding to management for chronic obstructive pulmonary disease exacerbation. 1. For the patient's chronic obstructive pulmonary disease, ongoing treatment is leading to symptomatic relief. 2. For the patient's atrial fibrillation with tachybrady, I recommended a pacemaker implantation. I do agree with holding the beta renard now. In the future if he does get a pacemaker implanted, with his COPD and his current presentation, he may do better with a calcium channel renard being resumed for rate control. It should be noted that he was admitted to the hospital with a syncopal episode in 2016, and at that time, it was in the setting of nausea and vomiting and it is possible that on this admission the increased vagal tone from his prostate problems and Lua insertion could be contributing, but I feel it is for the patient's benefit to get a pacemaker implanted to allow for optimal management of his atrial fibrillation and prevent recurrent symptomatic bradycardia including syncope. 3. For the patient's history of congestive heart failure, this is likely multifactorial with renal insufficiency contributing and he is at risk for diastolic congestive heart failure as well. Based on his hyperdynamic ventricle , once safe, as above rate lowering agents I think will help prevent diastolic congestive heart failure. On preliminary discussions with the patient, he was amenable to pacemaker implantation; however when our cardiac nurses talked with the patient's she stated she did not want a pacer implanted, she wanted to patient to follow up with Dr Smith. We will need to do some followup education. The patient knows that he has an option of getting the pacemaker here or going to [place] or another outside medical center with EP capability as well, he had earlier expressed his preference to getting the implantation here. CC: Dr Smith [id number]/[facility] #: [id number] MTDKira
[2018-03-16] MEDS: Insulin LISPRO* 1 UNITS UNIT SUBCUT SCH ×4 (07:49→21:18)
[2018-03-16] MEDS: Albuterol/Ipratropium NEB.SOL* Albuterol 2.5 MG/Ipratropium 0.5 MG 3 ML INH PRN (08:07)
[2018-03-16] MEDS: Multivitamins/Minerals TAB PO SCH (09:20)
[2018-03-16] MEDS: amLODIPine TAB* 5 MG PO SCH (09:20)
[2018-03-16] MEDS: predniSONE TAB* 20 MG PO SCH (09:20)
[2018-03-16] MEDS: Mupirocin 2% OINT* TUBE TOPICAL SCH ×3 (09:21→21:19)
[2018-03-16] MEDS: Nystatin TOP POWDER* 15 GM BTL TOPICAL SCH ×3 (09:22→21:20)
--- NOTE | 2018-03-16 10:25 | PN ---
Subjective Date of Service: 03/16/18 Interval History: Mr. Chavez is feeling better today. His is at bedside on my exam. He was SOB this morning upon waking, but that improved after a nebulizer treatment. He has an occasional cough which is nonproductive. He and his are agreeable for pacemaker placement tomorrow morning. The states that she spoke with his cardiology yesterday to get his opinion. She is concerned about his COPD exacerbation and the effect that may have on the procedure. The patient denies CP, N/V/D, dizziness. Good appetite. Family History: Unchanged from Admission Social History: Unchanged from Admission Past Medical History: Unchanged from Admission Objective Active Medications: Acetaminophen (Tylenol Tab*) 650 mg PO Q4H PRN FEVER/PAIN Al Hydrox/Mg Hydrox/Simethicone (Maalox Plus*) 30 ml PO Q6H PRN INDIGESTION Albuterol/Ipratropium (Duoneb (Albuterol 2.5 Mg/Ipratropium 0.5 Mg)) 1 neb INH [id number] AWAKE PRN sob/wheexing Amlodipine Besylate (Norvasc Tab*) 5 mg PO DAILY REJI Atorvastatin Calcium (Lipitor*) 10 mg PO QPM REJI Dextrose (D50w Syringe 50 Ml*) 12.5 gm IV PUSH .FOR FS < 60 - SS PRN FS < 60 Docusate Sodium (Colace Cap*) 100 mg PO DAILY PRN CONSTIPATION Heparin Sodium (Porcine) (Heparin Vial(*)) 5,000 units SUBCUT Q8HR REJI Ceftriaxone Sodium 1 gm/ (Sodium Chloride) 50 mls @ 200 mls/hr IVPB Q24H REJI Insulin Glargine (Lantus(*)) 70 units SUBCUT QPM REJI Insulin Human Lispro (Humalog*) 0 units SUBCUT ACHS REJI; Protocol Multivitamins/Minerals (Theragran/Minerals Tab*) 1 tab PO DAILY REJI Mupirocin (Bactroban 2 % Oint*) 1 applic TOPICAL TID REJI Nystatin (Nystatin Top Powder*) 1 applic TOPICAL TID REJI Prednisone (Deltasone Tab*) 40 mg PO DAILY REJI Vital Signs - 8 hr 03/16/18 03/16/18 03/16/18 03:35 07:48 08:00 Temperature 97.2 F 97.7 F Pulse Rate 81 88 Respiratory 16 17 18 Rate Blood Pressure 135/71 126/51 (mmHg) O2 Sat by Pulse 97 100 Oximetry 03/16/18 08:08 Temperature Pulse Rate 80 Respiratory 16 Rate Blood Pressure (mmHg) O2 Sat by Pulse 98 Oximetry Oxygen Devices in Use Now: Nasal Cannula - 2L Appearance: Elderly male laying in bed in NAD Eyes: No Scleral Icterus Ears/Nose/Mouth/Throat: Mucous Membranes Moist Neck: NL Appearance and Movements; NL JVP, Trachea Midline Respiratory: Symmetrical Chest Expansion and Respiratory Effort, - - Scattered wheezing and rhonchi Cardiovascular: NL Sounds; No Murmurs; No JVD, - - Irregular rhythm Extremities: No Edema Skin: No Rash or Ulcers Neurological: Alert and Oriented x 3, NL Sensation Lines/Tubes/Other Access: Clean, Dry and Intact Peripheral IV Nutrition: Taking PO's Result Diagrams: 03/16/18 14:50 03/16/18 14:50 Assess/Plan/Problems-Billing Assessment: Mr. Chavez is an 88 yo M with a PMH of chronic diastolic CHF, COPD, afib, CKD and DM who was admitted on 03/14/18 with suspected COPD exacerbation and urinary retention due to urethral stricture requiring padilla catheter placement by Dr. Sibley, + UTI. 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 SNOMED Code(s): 63383919 Comment: - With pauses up to 4 seconds, asymptomatic - Possibly exacerbated by metoprolol - Appreciate cardiology consult'; hold Eliquis, plan for pacer - Continue to monitor on tele (2) Acute respiratory failure with hypoxia Code(s): J96.01 - ACUTE RESPIRATORY FAILURE WITH HYPOXIA SNOMED Code(s): 48849915 Comment: - 2/2 COPD vs CHF - COPD likely d/t smoking history, though he will need formal diagnosis with PFTs as an outpt - Slow improvement - Titrate O2 - Continue nebs and prednisone - Give lasix x1 tonight then resume home lasix in the AM (3) UTI (urinary tract infection) Comment: - E. coli >100K colonies; pansensitive - Continue ceftriaxone (4) Urinary retention Code(s): R33.9 - RETENTION OF URINE, UNSPECIFIED SNOMED Code(s): 480695278 Comment: - Appreciate urology consultation; dilatation and padilla placement from Dr. Sibley - Patient should be discharged with padilla to follow up with Dr. Sibley outpatient (5) Afib Code(s): I48.91 - UNSPECIFIED ATRIAL FIBRILLATION SNOMED Code(s): 73707961 Comment: - Follows with Dr. Titus at [facility] - Stop metoprolol - Eliquis on hold pending pacer placement (6) CHF (congestive heart failure) Code(s): I50.9 - HEART FAILURE, UNSPECIFIED SNOMED Code(s): 23140745 Comment: - Echo with intact EF and no valvular abnormalities, suspect diastolic HF - Continue amlodipine (7) Diabetes Code(s): E11.9 - TYPE 2 DIABETES MELLITUS WITHOUT COMPLICATIONS SNOMED Code(s) : 71302216 Comment: - BGs 260-400, partly related to steroids; BG improved this morning - Continue lantus 70 units, lispro SS (8) HTN (hypertension) Code(s): I10 - ESSENTIAL (PRIMARY) HYPERTENSION SNOMED Code(s): 24039406 Comment: - Normotensive - Continue amlodipine (9) CKD (chronic kidney disease) Code(s): N18.9 - CHRONIC KIDNEY DISEASE, UNSPECIFIED SNOMED Code(s): 077523736 Comment: - Stage 3b, at baseline (10) DVT prophylaxis Code(s): CGG5957 - SNOMED Code(s): 466135391 Comment: - Heparin SQ - Eliquis on hold (11) Full code status Code(s): Z78.9 - OTHER SPECIFIED HEALTH STATUS SNOMED Code(s): 501964816 Status and Disposition: Inpatient. Pacemaker placement in the AM. Anticipate discharge to home with when medically stable. Attending: Charles Dawn
--- NOTE | 2018-03-16 10:43 | PN ---
Subjective Date of Service: 03/16/18 - bradycardia, UTI Interval History: no events last night, patient states he did not sleep well. Denies chest pain, reports sob and coughing. no dizziness currently. family is at bedside currently. Medications Active Medications: Acetaminophen (Tylenol Tab*) 650 mg PO Q4H PRN PRN Reason: FEVER/PAIN Al Hydrox/Mg Hydrox/Simethicone (Maalox Plus*) 30 ml PO Q6H PRN PRN Reason: INDIGESTION Albuterol/Ipratropium (Duoneb (Albuterol 2.5 Mg/Ipratropium 0.5 Mg)) 1 neb INH [id number] AWAKE PRN PRN Reason: sob/wheexing Last Admin: 03/16/18 08:07 Dose: 1 neb Amlodipine Besylate (Norvasc Tab*) 5 mg PO DAILY [facility] Last Admin: 03/16/18 09:20 Dose: 5 mg Atorvastatin Calcium (Lipitor*) 10 mg PO QPM [facility] Last Admin: 03/15/18 18:25 Dose: 10 mg Dextrose (D50w Syringe 50 Ml*) 12.5 gm IV PUSH .FOR FS < 60 - SS PRN PRN Reason: FS < 60 Docusate Sodium (Colace Cap*) 100 mg PO DAILY PRN PRN Reason: CONSTIPATION Heparin Sodium (Porcine) (Heparin Vial(*)) 5,000 units SUBCUT Q8HR [facility] Last Admin: 03/16/18 06:28 Dose: 5,000 units Ceftriaxone Sodium 1 gm/ (Sodium Chloride) 50 mls @ 200 mls/hr IVPB Q24H [facility] Last Admin: 03/15/18 16:55 Dose: 200 mls/hr Insulin Glargine (Lantus(*)) 70 units SUBCUT QPM [facility] Last Admin: 03/15/18 18:25 Dose: 70 units Insulin Human Lispro (Humalog*) 0 units SUBCUT ACHS [facility]; Protocol Last Admin: 03/16/18 07:49 Dose: Not Given Multivitamins/Minerals (Theragran/Minerals Tab*) 1 tab PO DAILY [facility] Last Admin: 03/16/18 09:20 Dose: 1 tab Mupirocin (Bactroban 2 % Oint*) 1 applic TOPICAL TID [facility] Last Admin: 03/16/18 09:21 Dose: 1 applic Nystatin (Nystatin Top Powder*) 1 applic TOPICAL TID [facility] Last Admin: 03/16/18 09:22 Dose: 1 applic Prednisone (Deltasone Tab*) 40 mg PO DAILY [facility] Last Admin: 03/16/18 09:20 Dose: 40 mg Objective Vital Signs: Temp Pulse Resp BP Pulse Ox 97.7 F 80 16 126/51 98 03/16/18 07:48 03/16/18 08:08 03/16/18 08:08 03/16/18 07:48 03/16/18 08:08 Oxygen Devices in Use Now: Nasal Cannula - 2L Appearance: oriented, cooperative with exam, he is sob with conversation with audible wheezing. A+o x3 Eyes: No Scleral Icterus, PERRLA Ears/Nose/Mouth/Throat: NL Teeth, Lips, Gums, Mucous Membranes Moist Neck: NL Appearance and Movements; NL JVP Respiratory: Symmetrical Chest Expansion and Respiratory Effort, - - + inspiratory wheezing noted in all lung cullen but most notably in left upper field. Cardiovascular: NL Sounds; No Murmurs; No JVD, - - trace pretibial edema Abdominal: - - distended, firm. normoactive bsx4 Extremities: - - + trace pretibial edema Neurological: Alert and Oriented x 3 Lines/Tubes/Other Access: Clean, Dry and Intact Lua, Clean, Dry and Intact PICC Line Laboratory Results: 03/15/18 06:20 03/15/18 06:20 INR (Anticoag Therapy) 1.40 (0.77-1.02) H 03/14/18 08:29 Total Bilirubin 1.10 mg/dL (0.2-1.0) H 03/14/18 07:55 AST 13 U/L (13-39) 03/14/18 07:55 ALT 9 U/L (7-52) 03/14/18 07:55 Alkaline Phosphatase 93 U/L (34-104) 03/14/18 07:55 CK-MB (CK-2) 4.2 ng/mL (0.6-6.3) 03/14/18 07:55 B-Natriuretic Peptide 365 pg/mL (<=100) H 03/14/18 07:55 Total Protein 6.6 g/dL (6.4-8.9) 03/14/18 07:55 Albumin 3.1 g/dL (3.2-5.2) L 03/14/18 07:55 Globulin 3.5 g/dL (2-4) 03/14/18 07:55 Albumin/Globulin Ratio 0.9 (1-3) L 03/14/18 07:55 03/14/18 03/14/18 03/14/18 07:55 09:25 14:17 Troponin I 0.01 0.01 0.01 03/14/18 21:40 Troponin I 0.00 Laboratory Results - last 24 hr 03/15/18 03/15/18 03/15/18 07:43 12:38 17:19 POC Glucose (mg/dL) 311 H 346 H > 444 H* Glucose Meter Confirm 03/15/18 03/15/18 03/15/18 17:35 21:51 22:03 POC Glucose (mg/dL) 431 H* Glucose Meter Confirm 367 H 337 H 03/16/18 07:36 POC Glucose (mg/dL) 83 Glucose Meter Confirm Diagnostic Imaging: echo 03/14/2018; LVEF 65%, trace AI, mild LVH Telemetry; Afib rate 80's, patient had a 2 second pause today at 0500 he was bradycardic. Last sinus pause > 3 seconds was yesterday. EKG Data: none to review for today. Assessment/Plan #1 Symptomatic bradycardia with 4 second pause on telemetry yesterday. toprol has been held. Currently he is in Afib rates 80's. He had bradycardia at 0500 today with 2 second pause. Will continue to wash out Bblocker, monitor on Tele. Family is agreeable to PPM however he is currently being treated for UTI( E.Coli ) blood cultures have been negative for growth. Although he has no h/o COPD he is a former heavy tobacco user and presented with hypoxia. I discussed with Dr. Morgan optimizing him another day. She is to see him and determine if he is stable for PPM 03/17/2018 or to wait another day. #2 Hypoxia; presumably COPD exacerbation although he has no documented h/o COPD per Dr. Kimball office who I personally spoke with today. Continue Steriod therapy. Family reports patient still coughing. #3 h/o Afib; Chads Vasc >2 on eliquis. Last dose was 03/15/2018 at 0700. If he does not have PPM tomorrow would start IV heparin for CVA prevention. #4 Urinary Retention; folwy in situ defer to hospitalist. #5 UTI culture grew E. Coli. On IV antibiotics. Will update CBC #6 CKD. Creat 1.6 yesterday unclear what baseline renal function is. will follow. #7 Disposition pending course. will follow.
[2018-03-16] MEDS ORDERED: Clindamycin 900 MG IVPREMIX(* 900 MG/50 ML SDV IV SCH (14:00)
[2018-03-16 15:26] LABS: ABS Basophils 0 10^3/ul (0-0.2); ABS Eosinophils 0 10^3/ul (0-0.6); ABS Lymphocytes 0.3 10^3/ul (1.0-4.8); ABS Monocytes 0.2 10^3/ul (0-0.8); ABS Neutrophils 12.1 10^3/ul (1.5-7.7); ABS Nucleated RBC 0 10^3/ul; Eosinophil % 0.2 %; Hematocrit 28 % (42-52); Lymphocyte % 2.2 %; Mean Corpuscular HGB Conc 29 g/dl (31-36); Mean Corpuscular Hemoglobin 21 pg (27-31); Mean Corpuscular Volume 71 fL (80-94); Mean Platelet Volume 7.6 fL (7.4-10.4); Nucleated Red Blood Cells % 0; Platelet Count 380 10^3/ul (150-450); Red Blood Count 3.88 10^6/ul (4.00-5.40); Red Cell Distribution Width 19 % (10.5-15); White Blood Count 12.6 10^3/ul (3.5-10.8)
[2018-03-16 15:43] LABS: BUN/Creatinine Ratio 21.3 (8-20); Calcium 8.8 mg/dL (8.6-10.3); EGFR Non-African American 42.7 (>60); Potassium 4.7 mmol/L (3.5-5.0)
[2018-03-16] MEDS: Atorvastatin* 10 MG TAB PO SCH (16:39)
[2018-03-16] MEDS: cefTRIAXone(*) 1 GM in NS 0.9% 50 ML* 50 ML IVPB SCH (16:39)
[2018-03-16] MEDS ORDERED: Furosemide IV* 10 MG/ML 2 ML VIAL (20 MG) IV ONE (17:11)
[2018-03-16] MEDS: Insulin GLARGINE(*) 1 UNITS UNIT SUBCUT SCH (17:41)
--- NOTE | 2018-03-17 | PN ---
Cardiology Progress Note Date of Service: 03/16/18 - CC: SOB, dizzy I personally examined the patient and spoke to him an his . See Selena Mcgovern's note. The patient was able to lie flat. Breathing has much improved. Discussion with the patient and regarding indications, risks and benefits of pacer. Lungs few rhonchi, occ cough. Cor: S1 S2 irreg. irreg. Abd rotund LE: chronic vensous stasis signs, mild but tense edema. A/p Pt with chronic afib, tachy luis a, recent dizziness for single chamber pacer in Eliis held, to continue. On good antibiotics for COPD and E. coli UTI, BC negative.
[2018-03-17] MEDS ORDERED: NS 0.9% 1000 ML* 1,000 ML IV SCH (01:00)
[2018-03-17 03:39] LABS: INR 1.06 (0.77-1.02)
[2018-03-17 03:51] LABS: BUN/Creatinine Ratio 23.8 (8-20); Calcium 8.8 mg/dL (8.6-10.3); Potassium 4.3 mmol/L (3.5-5.0)
[2018-03-17] MEDS ORDERED: Clindamycin 900 MG IVPREMIX(* 900 MG/50 ML SDV IV SCH (07:00)
[2018-03-17] MEDS ORDERED: Diazepam TAB(*) 5 MG PO ONE (07:00)
[2018-03-17] MEDS: Furosemide TAB* 40 MG PO SCH (07:06)
[2018-03-17] MEDS ORDERED: Lidocaine 1% INJ* 10 MG/ML 30 ML SDV ONE ×2 (07:11→07:28)
[2018-03-17] MEDS ORDERED: Midazolam* 1 MG/ML 5 ML VIAL (5 MG) ONE (07:28)
[2018-03-17] MEDS ORDERED: Iohexol 300* (CONTRAST) 10 ML SDV ONE (07:28)
[2018-03-17] MEDS ORDERED: Naloxone* 0.4 MG/ML 1 ML VIAL ONE (07:28)
[2018-03-17] MEDS ORDERED: fentaNYL* 50 MCG/ML 2 ML VIAL (100 MCG VIAL) ONE (07:28)
[2018-03-17] MEDS ORDERED: Flumazenil* 0.1 MG/ML 5 ML MDV ONE (07:28)
[2018-03-17] MEDS ORDERED: diPHENhydraMINE IV* 50 MG/ML 1 ml VIAL (BENADRYL) ONE (08:00)
[2018-03-17] MEDS ORDERED: Metoprolol Tartrate IV* 1 MG/ML 5 ML VIAL ONE (08:07)
--- NOTE | 2018-03-17 08:49 | PN ---
Subjective Date of Service: 03/17/18 - CC: SOB and Dizzy Interval History: No new c/o pre op. Now s/p pacer implant. Medications Active Medications: Acetaminophen (Tylenol Tab*) 650 mg PO Q4H PRN PRN Reason: FEVER/PAIN Al Hydrox/Mg Hydrox/Simethicone (Maalox Plus*) 30 ml PO Q6H PRN PRN Reason: INDIGESTION Albuterol/Ipratropium (Duoneb (Albuterol 2.5 Mg/Ipratropium 0.5 Mg)) 1 neb INH [id number] AWAKE PRN PRN Reason: sob/wheexing Last Admin: 03/16/18 08:07 Dose: 1 neb Amlodipine Besylate (Norvasc Tab*) 5 mg PO DAILY [facility] Last Admin: 03/16/18 09:20 Dose: 5 mg Atorvastatin Calcium (Lipitor*) 10 mg PO QPM [facility] Last Admin: 03/16/18 16:39 Dose: 10 mg Clindamycin HCl (Cleocin 300 Mg Cap(Nf)) 300 mg PO TID [facility] Stop: 03/19/18 07:00 Dextrose (D50w Syringe 50 Ml*) 12.5 gm IV PUSH .FOR FS < 60 - SS PRN PRN Reason: FS < 60 Diltiazem HCl (Cardizem Cd Cap*) 120 mg PO DAILY [facility] Docusate Sodium (Colace Cap*) 100 mg PO DAILY PRN PRN Reason: CONSTIPATION Furosemide (Lasix Tab*) 40 mg PO DAILY [facility] Last Admin: 03/17/18 07:06 Dose: 40 mg Heparin Sodium (Porcine) (Heparin Flush Picc/Ml/Cvc(*)) 1 ml FLUSH 0600,1800 [facility]; Protocol Last Admin: 03/17/18 06:27 Dose: Not Given Ceftriaxone Sodium 1 gm/ (Sodium Chloride) 50 mls @ 200 mls/hr IVPB Q24H [facility] Last Admin: 03/16/18 16:39 Dose: 200 mls/hr Sodium Chloride (Ns 0.9% 1000 Ml*) 1,000 mls @ 75 mls/hr IV PER RATE [facility] Last Admin: 03/17/18 02:34 Dose: 75 mls/hr Clindamycin HCl/Dextrose (Cleocin 900 Mg Ivpremix (*) Sdv) 900 mg in 50 mls @ 100 mls/hr IV ONCE [facility] Stop: 03/17/18 23:59 Last Admin: 03/17/18 07:15 Dose: 100 mls/hr Insulin Glargine (Lantus(*)) 70 units SUBCUT QPM [facility] Last Admin: 03/16/18 17:41 Dose: 70 units Insulin Human Lispro (Humalog*) 0 units SUBCUT ACHS [facility]; Protocol Last Admin: 03/16/18 21:18 Dose: 15 units Multivitamins/Minerals (Theragran/Minerals Tab*) 1 tab PO DAILY [facility] Last Admin: 03/16/18 09:20 Dose: 1 tab Mupirocin (Bactroban 2 % Oint*) 1 applic TOPICAL TID [facility] Last Admin: 03/16/18 21:19 Dose: 1 applic Nystatin (Nystatin Top Powder*) 1 applic TOPICAL TID [facility] Last Admin: 03/16/18 21:20 Dose: 1 applic Prednisone (Deltasone Tab*) 40 mg PO DAILY [facility] Last Admin: 03/16/18 09:20 Dose: 40 mg Objective Vital Signs: Temp Pulse Resp BP Pulse Ox 98.1 F 90 24 131/45 93 03/17/18 03:42 03/17/18 03:42 03/17/18 03:42 03/17/18 03:42 03/17/18 03:42 Oxygen Devices in Use Now: Nasal Cannula Appearance: post op sedated, arousable Eyes: No Scleral Icterus, PERRLA Ears/Nose/Mouth/Throat: NL Teeth, Lips, Gums, Mucous Membranes Moist Neck: No Thyroid Enlargement, Masses - thick, - Respiratory: Symmetrical Chest Expansion and Respiratory Effort, - - mild coughing, no wheezing this AM. Cardiovascular: NL Sounds; No Murmurs; No JVD, - - Irregular, fast Abdominal: - - distended, firm. normoactive bsx4, obese. Extremities: - - chronic venous stasis changes, mild edema Lines/Tubes/Other Access: Clean, Dry and Intact Padilla, Clean, Dry and Intact Peripheral IV, Clean, Dry and Intact PICC Line Laboratory Results: 03/16/18 14:50 03/17/18 03:15 INR (Anticoag Therapy) 1.06 (0.77-1.02) H 03/17/18 03:15 Total Bilirubin 1.10 mg/dL (0.2-1.0) H 03/14/18 07:55 AST 13 U/L (13-39) 03/14/18 07:55 ALT 9 U/L (7-52) 03/14/18 07:55 Alkaline Phosphatase 93 U/L (34-104) 03/14/18 07:55 CK-MB (CK-2) 4.2 ng/mL (0.6-6.3) 03/14/18 07:55 B-Natriuretic Peptide 271 pg/mL (<=100) H 03/17/18 04:30 Total Protein 6.6 g/dL (6.4-8.9) 03/14/18 07:55 Albumin 3.1 g/dL (3.2-5.2) L 03/14/18 07:55 Globulin 3.5 g/dL (2-4) 03/14/18 07:55 Albumin/Globulin Ratio 0.9 (1-3) L 03/14/18 07:55 03/14/18 03/14/18 03/14/18 07:55 09:25 14:17 Troponin I 0.01 0.01 0.01 03/14/18 21:40 Troponin I 0.00 Diagnostic Imaging: echo 03/14/2018; LVEF 65%, trace AI, mild LVH Telemetry; Afib rate 90's (off metoprolol x 48 hours) Assessment/Plan 88 yo male with longstanding chronic atrial fibrillation on aggressive rate control with BB admitted with respiratory failure, also noted to have intermittent pauses, hx dizziness and hx past syncope. 1. Tachybrady: S/p pacer implant today (single chamber). Added Cardizem instead of BB for rate control. #2 Hypoxia; presumably COPD exacerbation improving. #3 h/o Afib; Chads Vasc >2 on eliquis. Last dose was 03/15/2018 at 0700. Resume in AM 03/18/18 if pocket looks OK. #5 : padilla, UTI being treated. #6 CKD.Stable. #7 May need assistance @ home, d/c planners asked to review.
[2018-03-17] MEDS ORDERED: Clindamycin CAP* 150 MG PO SCH (09:00)
[2018-03-17] MEDS: Insulin LISPRO* 1 UNITS UNIT SUBCUT SCH ×4 (09:10→21:44)
[2018-03-17] MEDS: predniSONE TAB* 20 MG PO SCH (11:26)
[2018-03-17] MEDS: Multivitamins/Minerals TAB PO SCH (11:26)
[2018-03-17] MEDS: Diltiazem CD CAP* 120 MG PO SCH (11:26)
[2018-03-17] MEDS: Nystatin TOP POWDER* 15 GM BTL TOPICAL SCH ×3 (11:26→21:46)
[2018-03-17] MEDS: amLODIPine TAB* 5 MG PO SCH (11:26)
[2018-03-17] MEDS: Mupirocin 2% OINT* TUBE TOPICAL SCH ×3 (11:27→21:41)
--- NOTE | 2018-03-17 12:16 | PN ---
Subjective Date of Service: 03/17/18 Interval History: Mr. Chavez is s/p pacemaker placement this morning. Per nursing, he was quite agitated when he arrived back on the floor. On my exam he is drowsy, but calm. His and daughter are at the bedside. He reports feeling "loopy" but denies SOB or CP. Family reports that his respiratory status appears to be improved from yesterday. is concerned that she will not be able to manage at home because of his post-pacer restrictions. She is not interested in rehab. Family History: Unchanged from Admission Social History: Unchanged from Admission Past Medical History: Unchanged from Admission Objective Active Medications: Acetaminophen (Tylenol Tab*) 650 mg PO Q4H PRN FEVER/PAIN Al Hydrox/Mg Hydrox/Simethicone (Maalox Plus*) 30 ml PO Q6H PRN INDIGESTION Albuterol/Ipratropium (Duoneb (Albuterol 2.5 Mg/Ipratropium 0.5 Mg)) 1 neb INH [id number] AWAKE PRN sob/wheexing Atorvastatin Calcium (Lipitor*) 10 mg PO QPM [facility] Clindamycin HCl (Cleocin Cap*) 300 mg PO TID [facility] Dextrose (D50w Syringe 50 Ml*) 12.5 gm IV PUSH .FOR FS < 60 - SS PRN FS < 60 Diltiazem HCl (Cardizem Cd Cap*) 120 mg PO DAILY [facility] Docusate Sodium (Colace Cap*) 100 mg PO DAILY PRN CONSTIPATION Furosemide (Lasix Tab*) 40 mg PO DAILY [facility] Heparin Sodium (Porcine) (Heparin Flush Picc/Ml/Cvc(*)) 1 ml FLUSH 0600,1800 [facility]; Protocol Ceftriaxone Sodium 1 gm/ (Sodium Chloride) 50 mls @ 200 mls/hr IVPB Q24H [facility] Sodium Chloride (Ns 0.9% 1000 Ml*) 1,000 mls @ 75 mls/hr IV PER RATE [facility] Clindamycin HCl/Dextrose (Cleocin 900 Mg Ivpremix (*) Sdv) 900 mg in 50 mls @ 100 mls/hr IV ONCE [facility] Insulin Glargine (Lantus(*)) 70 units SUBCUT QPM [facility] Insulin Human Lispro (Humalog*) 0 units SUBCUT ACHS [facility]; Protocol Multivitamins/Minerals (Theragran/Minerals Tab*) 1 tab PO DAILY [facility] Mupirocin (Bactroban 2 % Oint*) 1 applic TOPICAL TID [facility] Nystatin (Nystatin Top Powder*) 1 applic TOPICAL TID [facility] Prednisone (Deltasone Tab*) 40 mg PO DAILY [facility] Vital Signs - 8 hr 03/17/18 03/17/18 03/17/18 08:00 09:15 09:16 Temperature 98.9 F Pulse Rate 104 Respiratory 17 16 Rate Blood Pressure 144/78 161/84 (mmHg) O2 Sat by Pulse 92 Oximetry 03/17/18 03/17/18 09:31 10:22 Temperature 97.2 F Pulse Rate 142 Respiratory 16 Rate Blood Pressure 155/100 118/73 (mmHg) O2 Sat by Pulse 96 Oximetry Oxygen Devices in Use Now: Nasal Cannula - 2L Appearance: Elderly male laying in bed in NAD; Drowsy Eyes: No Scleral Icterus Ears/Nose/Mouth/Throat: Mucous Membranes Moist Neck: NL Appearance and Movements; NL JVP, Trachea Midline Respiratory: Symmetrical Chest Expansion and Respiratory Effort, Clear to Auscultation, - - Diminished throughout Cardiovascular: NL Sounds; No Murmurs; No JVD, - - Irregular rhythm Abdominal: NL Sounds; No Tenderness; No Distention Extremities: No Edema Skin: No Rash or Ulcers Neurological: - - Oriented to self and place Lines/Tubes/Other Access: Clean, Dry and Intact Peripheral IV Nutrition: Taking PO's Result Diagrams: 03/16/18 14:50 03/17/18 03:15 Assess/Plan/Problems-Billing Assessment: Mr. Chavez is an 88 yo M with a PMH of chronic diastolic CHF, COPD, afib, CKD and DM who was admitted on 03/14/18 with suspected COPD exacerbation and urinary retention due to urethral stricture requiring padilla catheter placement by Dr. Sibley, + UTI. 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 SNOMED Code(s): 11760208 Comment: - With pauses up to 4 seconds, asymptomatic - Possibly exacerbated by metoprolol - Appreciate cardiology consult; single chamber pacer placed this morning - Continue to monitor on tele - Continue diltiazem per cardiology (2) Acute respiratory failure with hypoxia Code(s): J96.01 - ACUTE RESPIRATORY FAILURE WITH HYPOXIA SNOMED Code(s): 95577949 Comment: - 2/2 COPD vs CHF - COPD likely d/t smoking history, though he will need formal diagnosis with PFTs as an outpt - Slow improvement - Titrate O2 - Continue nebs and prednisone (3) UTI (urinary tract infection) Comment: - E. coli >100K colonies; pansensitive - Continue ceftriaxone (4) Urinary retention Code(s): R33.9 - RETENTION OF URINE, UNSPECIFIED SNOMED Code(s): 880728479 Comment: - Appreciate urology consultation; dilatation and padilla placement from Dr. Sibley - Patient should be discharged with padilla to follow up with Dr. Sibley outpatient (5) Afib Code(s): I48.91 - UNSPECIFIED ATRIAL FIBRILLATION SNOMED Code(s): 85843118 Comment: - Follows with Dr. Titus at [place] - Metoprolol stopped d/t bradycardia - Restart Eliquis in the AM if no bleeding from pacer site - Continue diltiazem (6) CHF (congestive heart failure) Code(s): I50.9 - HEART FAILURE, UNSPECIFIED SNOMED Code(s): 48275524 Comment: - Echo with intact EF and no valvular abnormalities, suspect diastolic HF - Continue diltiazem, furosemide (7) Diabetes Code(s): E11.9 - TYPE 2 DIABETES MELLITUS WITHOUT COMPLICATIONS SNOMED Code(s) : 21662015 Comment: - BGs 110-340s, partly related to steroids - Continue lispro SS - Increase lantus to 73 units (8) HTN (hypertension) Code(s): I10 - ESSENTIAL (PRIMARY) HYPERTENSION Comment: - Hypertensive overnight and this morning post pacer - Continue diltiazem per cardiology (9) CKD (chronic kidney disease) Code(s): N18.9 - CHRONIC KIDNEY DISEASE, UNSPECIFIED Comment: - Stage 3b, at baseline (10) DVT prophylaxis Code(s): QKO1073 - Comment: - SCDs; restart Eliquis tomorrow if no bleeding from pacer site (11) Full code status Code(s): Z78.9 - OTHER SPECIFIED HEALTH STATUS Status and Disposition: Inpatient. Anticipate discharge to home with when medically stable. Attending: Charles Dawn
[2018-03-17] MEDS: Clindamycin CAP* 150 MG PO SCH ×2 (13:24→21:46)
[2018-03-17] MEDS ORDERED: Furosemide IV* 10 MG/ML VIAL (40 MG) IV ONE (14:00)
[2018-03-17 14:10] LABS: Hematocrit 27 % (42-52); Hemoglobin 7.9 g/dl (14.0-18.0); Mean Corpuscular HGB Conc 29 g/dl (31-36); Mean Corpuscular Hemoglobin 21 pg (27-31); Mean Corpuscular Volume 71 fL (80-94); Mean Platelet Volume 7.9 fL (7.4-10.4); Platelet Count 354 10^3/ul (150-450); Red Blood Count 3.76 10^6/ul (4.00-5.40); Red Cell Distribution Width 19 % (10.5-15); White Blood Count 12.8 10^3/ul (3.5-10.8)
[2018-03-17 14:28] LABS: ABS Basophils 0.1 10^3/ul (0-0.2); ABS Eosinophils 0.1 10^3/ul (0-0.6); ABS Lymphocytes 0.6 10^3/ul (1.0-4.8); ABS Monocytes 1.1 10^3/ul (0-0.8); ABS Nucleated RBC 0 10^3/ul; Eosinophil % 0.8 %; Lymphocyte % 4.4 %; Microcytosis 2+; Nucleated Red Blood Cells % 0.1; Polychromasia 1+
[2018-03-17] MEDS ORDERED: Albuterol/Ipratropium NEB.SOL* Albuterol 2.5 MG/Ipratropium 0.5 MG 3 ML INH SCH ×2 (15:00→19:00)
[2018-03-17] MEDS: cefTRIAXone(*) 1 GM in NS 0.9% 50 ML* 50 ML IVPB SCH (16:44)
[2018-03-17] MEDS: Atorvastatin* 10 MG TAB PO SCH (17:32)
[2018-03-17] MEDS ORDERED: Albuterol 2.5 MG/3 ML NEB.SOL* (0.083%) INH PRN (17:40)
[2018-03-17] MEDS ORDERED: Insulin GLARGINE(*) 1 UNITS UNIT SUBCUT SCH (18:00)
[2018-03-17] MEDS: Albuterol/Ipratropium NEB.SOL* Albuterol 2.5 MG/Ipratropium 0.5 MG 3 ML INH SCH ×2 (21:46→22:56)
[2018-03-17] MEDS: guaiFENesin ER TAB 600 MG PO SCH (21:47)
[2018-03-18] MEDS: Albuterol/Ipratropium NEB.SOL* Albuterol 2.5 MG/Ipratropium 0.5 MG 3 ML INH SCH ×4 (02:48→19:31)
[2018-03-18 05:41] LABS: ABS Basophils 0 10^3/ul (0-0.2); ABS Eosinophils 0 10^3/ul (0-0.6); ABS Lymphocytes 0.7 10^3/ul (1.0-4.8); ABS Monocytes 1.3 10^3/ul (0-0.8); ABS Neutrophils 9.6 10^3/ul (1.5-7.7); ABS Nucleated RBC 0 10^3/ul; Eosinophil % 0.3 %; Hematocrit 27 % (42-52); Hemoglobin 7.7 g/dl (14.0-18.0); Lymphocyte % 5.9 %; Mean Corpuscular HGB Conc 29 g/dl (31-36); Mean Corpuscular Hemoglobin 20 pg (27-31); Mean Corpuscular Volume 70 fL (80-94); Nucleated Red Blood Cells % 0.1; Platelet Count 326 10^3/ul (150-450); Red Blood Count 3.79 10^6/ul (4.00-5.40); Red Cell Distribution Width 19 % (10.5-15); White Blood Count 11.7 10^3/ul (3.5-10.8)
[2018-03-18] MEDS: Albuterol/Ipratropium NEB.SOL* Albuterol 2.5 MG/Ipratropium 0.5 MG 3 ML INH PRN (07:38)
--- NOTE | 2018-03-18 09:05 | OP ---
CC: Dr. Titus; Dr. Yassine Kimball. OPERATIVE REPORT: DATE OF OPERATION: 03/17/18. DATE OF : 34. SURGEON: Dr. Yue Morgan. ANESTHESIA: MAC. PRE-OP DIAGNOSIS: Atrial fibrillation with tachybrady syndrome. POST-OP DIAGNOSIS: OPERATIVE PROCEDURE: Single chamber pacemaker implantation. ESTIMATED BLOOD LOSS: Less than 5 cc. COMPLICATIONS: None. INDICATIONS: The indications, risks and benefits of the procedure have been discussed with the patient and his and they were amenable to proceeding. DESCRIPTION OF THE PROCEDURE: The patient is right-handed and the left subclavian fossa was prepped and draped in the usual sterile fashion. A time- out was called. Throughout the procedure, the patient received a total of 2 mg of Versed and 25 mcg of fentanyl, 50 mg Benadryl and local anesthesia of 26 cc. A 10 cc of radiopaque dye was injected in the left upper extremity outlining the left axillary and left subclavian vein. Following this, lidocaine was infused locally over the left subclavian fossa and using Bovie and blunt dissection, the incision was extended to the level of the pectoralis muscle. Additional lidocaine was infused inferiorly and medially and a small pocket was fashioned using blunt dissection. Using a modified Seldinger technique, the left subclavian vein was cannulated and a guidewire inserted. Using an introducer technique, the right ventricular lead was guided to the right ventricular apex and actively fixed in place, the patient had a lot of ventricular ectopy but this settled once the lead was fixed. Pacing and sensing thresholds were good and they improved to excellent quickly. The lead was then sutured to pocket using 0 silk suture. The pocket was copiously irrigated. The device was placed in the pocket and the pocket was closed using two layers of resorbable suture, 2-0 followed by 4-0 followed by clarence and an external dressing. The patient was mildy agitated, moving until benadryl and second 12.5 mg fentanyl given. O2 sats maintained at 88-90%, BP and HR stable. FINDINGS: The system is a [employer] compatible system. Pacemaker [employer] MRI model 1272 serial number [id number], RV lead [employer] Tendril LPA 1200M/58 cm, serial number [id number]. Programming was VVI at 60 beats a minute R waves sensed at 7 mV and ventricular pacing threshold was 0.7 volts at 0.5 milliseconds. CONCLUSION: Successful pacemaker implantation without complications. [id number]/[facility] #: [id number] F [facility] HOSPITALKira
[2018-03-18] MEDS: Insulin LISPRO* 1 UNITS UNIT SUBCUT SCH ×4 (09:20→21:48)
[2018-03-18] MEDS: predniSONE TAB* 20 MG PO SCH (09:22)
[2018-03-18] MEDS: Diltiazem CD CAP* 120 MG PO SCH (09:22)
[2018-03-18] MEDS: Clindamycin CAP* 150 MG PO SCH ×3 (09:22→21:46)
[2018-03-18] MEDS: guaiFENesin ER TAB 600 MG PO SCH ×2 (09:22→21:45)
[2018-03-18] MEDS: Multivitamins/Minerals TAB PO SCH (09:22)
[2018-03-18] MEDS: Furosemide TAB* 40 MG PO SCH (09:22)
[2018-03-18] MEDS: Mupirocin 2% OINT* TUBE TOPICAL SCH ×3 (09:23→21:49)
[2018-03-18] MEDS: Nystatin TOP POWDER* 15 GM BTL TOPICAL SCH ×3 (09:23→21:50)
--- NOTE | 2018-03-18 09:54 | PN ---
Subjective Date of Service: 03/18/18 Interval History: Mr. Dela Cruz is feeling better today. He remembers being disoriented yesterday after his pacer placement. He is still SOB. Denies CP, N/V/D. Up to the chair this morning. He is anxious to return home, but is concerned about his not being able to care for him. Family History: Unchanged from Admission Social History: Unchanged from Admission Past Medical History: Unchanged from Admission Objective Active Medications: Acetaminophen (Tylenol Tab*) 650 mg PO Q4H PRN FEVER/PAIN Al Hydrox/Mg Hydrox/Simethicone (Maalox Plus*) 30 ml PO Q6H PRN INDIGESTION Albuterol (Ventolin 2.5 Mg/3 Ml Neb.Teresa*) 2.5 mg INH Q4H PRN SOB/WHEEZING Albuterol/Ipratropium (Duoneb (Albuterol 2.5 Mg/Ipratropium 0.5 Mg)) 1 neb INH [id number] AWAKE REJI Atorvastatin Calcium (Lipitor*) 10 mg PO QPM [facility]I Clindamycin HCl (Cleocin Cap*) 300 mg PO TID [facility] Dextrose (D50w Syringe 50 Ml*) 12.5 gm IV PUSH .FOR FS < 60 - SS PRN FS < 60 Diltiazem HCl (Cardizem Cd Cap*) 120 mg PO DAILY REJI Docusate Sodium (Colace Cap*) 100 mg PO DAILY PRN CONSTIPATION Furosemide (Lasix Tab*) 40 mg PO DAILY [facility] Furosemide (Lasix Iv*) 40 mg IV ONCE ONE Guaifenesin (Mucinex*) 1,200 mg PO BID REJI Heparin Sodium (Porcine) (Heparin Flush Picc/Ml/Cvc(*)) 1 ml FLUSH 0600,1800 REJI; Protocol Ceftriaxone Sodium 1 gm/ (Sodium Chloride) 50 mls @ 200 mls/hr IVPB Q24H RE[facility]I Sodium Chloride (Ns 0.9% 1000 Ml*) 1,000 mls @ 75 mls/hr IV PER RATE REJI Insulin Glargine (Lantus(*)) 75 units SUBCUT QPM [facility] Insulin Human Lispro (Humalog*) 0 units SUBCUT ACHS REJI; Protocol Multivitamins/Minerals (Theragran/Minerals Tab*) 1 tab PO DAILY [facility] Mupirocin (Bactroban 2 % Oint*) 1 applic TOPICAL TID RE[facility]I Nystatin (Nystatin Top Powder*) 1 applic TOPICAL TID REJI Prednisone (Deltasone Tab*) 40 mg PO DAILY REJI Vital Signs - 8 hr 03/18/18 03/18/18 03/18/18 03:47 04:00 07:34 Temperature 97.4 F Pulse Rate 109 98 98 Respiratory 20 24 Rate Blood Pressure 141/40 (mmHg) O2 Sat by Pulse 95 95 96 Oximetry Oxygen Devices in Use Now: Nasal Cannula - 3L Appearance: Elderly male sitting in chair in NAD Eyes: No Scleral Icterus Ears/Nose/Mouth/Throat: Mucous Membranes Moist Neck: NL Appearance and Movements; NL JVP, Trachea Midline Respiratory: Symmetrical Chest Expansion and Respiratory Effort, Clear to Auscultation, - - Diminished throughout Cardiovascular: NL Sounds; No Murmurs; No JVD, RRR Abdominal: NL Sounds; No Tenderness; No Distention Extremities: - - +1 pitting to BLE Skin: No Rash or Ulcers Neurological: Alert and Oriented x 3, NL Sensation Lines/Tubes/Other Access: Clean, Dry and Intact Peripheral IV Nutrition: Taking PO's Result Diagrams: 03/18/18 05:16 03/17/18 03:15 Assess/Plan/Problems-Billing Assessment: Mr. Chavez is an 88 yo M with a PMH of chronic diastolic CHF, COPD, afib, CKD and DM who was admitted on 03/14/18 with suspected COPD exacerbation and urinary retention due to urethral stricture requiring padilla catheter placement by Dr. Sibley, + UTI. 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 Comment: - With pauses up to 4 seconds, asymptomatic; possibly exacerbated by metoprolol - Appreciate cardiology consult; single chamber pacer placed yesterday - Continue to monitor on tele - Continue diltiazem (2) Acute respiratory failure with hypoxia Code(s): J96.01 - ACUTE RESPIRATORY FAILURE WITH HYPOXIA Comment: - 2/2 combination of COPD and CHF - Slow improvement - Titrate O2 - Continue nebs and prednisone (3) COPD exacerbation Code(s): J44.1 - CHRONIC OBSTRUCTIVE PULMONARY DISEASE W (ACUTE) EXACERBATION Comment: - COPD likely d/t smoking history, though he will need formal diagnosis with PFTs as an outpt - Lung sounds severely diminished - Continue prednisone and nebs (4) CHF exacerbation Code(s): I50.9 - HEART FAILURE, UNSPECIFIED Comment: - Echo with intact EF and no valvular abnormalities, suspect diastolic HF with mild fluid overload - Continue diltiazem, furosemide - Will give an additional dose of IV lasix at 1200 (5) Microcytic anemia Code(s): D50.9 - IRON DEFICIENCY ANEMIA, UNSPECIFIED Comment: - Gradually worsening since January - No obvious source of bleeding, but pacer placed yesterday - Check stool occult and iron studies (6) UTI (urinary tract infection) Comment: - E. coli >100K colonies; pansensitive - Continue ceftriaxone (day 07/02) (7) Urinary retention Code(s): R33.9 - RETENTION OF URINE, UNSPECIFIED Comment: - Appreciate urology consultation; dilatation and padilla placement from Dr. Sibley - Patient should be discharged with padilla to follow up with Dr. Sibley outpatient (8) Afib Code(s): I48.91 - UNSPECIFIED ATRIAL FIBRILLATION Comment: - Follows with Dr. Titus at [place] - Metoprolol stopped d/t bradycardia - Restart Eliquis this morning - Continue diltiazem (9) HTN (hypertension) Code(s): I10 - ESSENTIAL (PRIMARY) HYPERTENSION Comment: - BP improving - Increase diltiazem to 240mg (10) Diabetes Code(s): E11.9 - TYPE 2 DIABETES MELLITUS WITHOUT COMPLICATIONS Comment: - BGs 110-370s, partly related to steroids - Continue lispro SS - Increase lantus to 75 units (11) CKD (chronic kidney disease) Code(s): N18.9 - CHRONIC KIDNEY DISEASE, UNSPECIFIED Comment: - Stage 3b, at baseline (12) DVT prophylaxis Code(s): [id number] - Comment: - Eliquis (13) Full code status Code(s): Z78.9 - OTHER SPECIFIED HEALTH STATUS Status and Disposition: Inpatient. Unclear if will be able to care for him at home, but she is opposed to [facility]. Attending: Marcela Valdes
[2018-03-18 11:06] LABS: Iron 21 ug/dL (50-212); Total Iron Binding Capacity 503 mcg/dL (250-450); Transferrin 359 mg/dL (203-362)
[2018-03-18] MEDS ORDERED: Furosemide IV* 10 MG/ML VIAL (40 MG) IV ONE (12:00)
[2018-03-18] MEDS: Apixaban* 2.5 MG TAB PO SCH ×2 (13:01→21:45)
[2018-03-18 13:35] LABS: Ferritin 12.5 ng/mL (24-336)
[2018-03-18] MEDS: cefTRIAXone(*) 1 GM in NS 0.9% 50 ML* 50 ML IVPB SCH (16:59)
[2018-03-18] MEDS: Atorvastatin* 10 MG TAB PO SCH (17:26)
[2018-03-18] MEDS ORDERED: Insulin GLARGINE(*) 1 UNITS UNIT SUBCUT SCH (18:00)
[2018-03-18] MEDS: Docusate CAP* 100 MG PO SCH (21:45)
[2018-03-18] MEDS: Ferrous Sulfate TAB* 325 MG PO SCH (21:46)
[2018-03-19] MEDS: Albuterol/Ipratropium NEB.SOL* Albuterol 2.5 MG/Ipratropium 0.5 MG 3 ML INH SCH ×2 (02:33→07:30)
[2018-03-19 06:02] LABS: ABS Basophils 0 10^3/ul (0-0.2); ABS Eosinophils 0 10^3/ul (0-0.6); ABS Lymphocytes 0.6 10^3/ul (1.0-4.8); ABS Monocytes 1.2 10^3/ul (0-0.8); ABS Neutrophils 10.7 10^3/ul (1.5-7.7); ABS Nucleated RBC 0 10^3/ul; Eosinophil % 0.4 %; Hematocrit 27 % (42-52); Hemoglobin 7.8 g/dl (14.0-18.0); Lymphocyte % 4.9 %; Mean Corpuscular HGB Conc 29 g/dl (31-36); Mean Corpuscular Hemoglobin 20 pg (27-31); Mean Corpuscular Volume 70 fL (80-94); Mean Platelet Volume 7.9 fL (7.4-10.4); Nucleated Red Blood Cells % 0.1; Platelet Count 330 10^3/ul (150-450); Red Cell Distribution Width 19 % (10.5-15); White Blood Count 12.6 10^3/ul (3.5-10.8)
[2018-03-19 06:12] LABS: BUN/Creatinine Ratio 26.4 (8-20); Calcium 8.8 mg/dL (8.6-10.3); EGFR Non-African American 48.1 (>60)
[2018-03-19] MEDS ORDERED: Furosemide IV* 10 MG/ML 2 ML VIAL (20 MG) IV ONE (07:26)
[2018-03-19] MEDS ORDERED: Albuterol HFA INHALER* 8 gm MDI INH PRN (08:32)
--- NOTE | 2018-03-19 08:39 | PN ---
Subjective Date of Service: 03/19/18 Interval History: Mr. Chavez is feeling better today. He is still slightly SOB, but thinks this is improved. He has an occasional productive cough, worse after nebulizer treatments. He is not sure how he feels about returning home. He is not interested in rehab, but understands that he is weaker now than usual and is not sure if his will be able to care for him. Denies CP, N/V/D. Has been up ambulating to the bathroom, but not any further. Left arm immobilizer in place. Family History: Unchanged from Admission Social History: Unchanged from Admission Past Medical History: Unchanged from Admission Objective Active Medications: Acetaminophen (Tylenol Tab*) 650 mg PO Q4H PRN FEVER/PAIN Al Hydrox/Mg Hydrox/Simethicone (Maalox Plus*) 30 ml PO Q6H PRN INDIGESTION Albuterol (Ventolin 2.5 Mg/3 Ml Neb.Teresa*) 2.5 mg INH Q4H PRN SOB/WHEEZING Albuterol (Ventolin Hfa Inhaler*) 2 puff INH Q4H PRN SOB/WHEEZING Apixaban (Eliquis*) 2.5 mg PO BID REJI Atorvastatin Calcium (Lipitor*) 10 mg PO QPM RE[facility]I Device (Tiotropium Inhaler Device*) 1 each INH .USE w/ SPIRIVA CAPS REJI Dextrose (D50w Syringe 50 Ml*) 12.5 gm IV PUSH .FOR FS < 60 - SS PRN FS < 60 Diltiazem HCl (Cardizem Cd Cap*) 240 mg PO DAILY RE[facility]I Docusate Sodium (Colace Cap*) 100 mg PO BID REJI Ferrous Sulfate (Ferrous Sulfate Tab*) 325 mg PO BID RE[facility]I Furosemide (Lasix Tab*) 40 mg PO DAILY RE[facility]I Guaifenesin (Mucinex*) 1,200 mg PO BID RE[facility]I Heparin Sodium (Porcine) (Heparin Flush Picc/Ml/Cvc(*)) 1 ml FLUSH 0600,1800 REJI; Protocol Ceftriaxone Sodium 1 gm/ (Sodium Chloride) 50 mls @ 200 mls/hr IVPB Q24H RE[facility]I Sodium Chloride (Ns 0.9% 1000 Ml*) 1,000 mls @ 75 mls/hr IV PER RATE RE[facility]I Insulin Glargine (Lantus(*)) 75 units SUBCUT QPM [facility] Insulin Human Lispro (Humalog*) 0 units SUBCUT ACHS REJI; Protocol Mometasone Furoate/Formoterol Fumar (Dulera 200/5 Mdi*) 2 puff INH BID REJI Multivitamins/Minerals (Theragran/Minerals Tab*) 1 tab PO DAILY RE[facility] Mupirocin (Bactroban 2 % Oint*) 1 applic TOPICAL TID RE[facility]I Nystatin (Nystatin Top Powder*) 1 applic TOPICAL TID REJI Prednisone (Deltasone Tab*) 40 mg PO DAILY RE[facility]I Tiotropium [place] (Spiriva Cap.Inh*) 1 cap INH DAILY REJI Vital Signs - 8 hr 03/19/18 03/19/18 03/19/18 02:33 04:07 07:30 Temperature 97.7 F 97.3 F Pulse Rate 88 108 103 Respiratory 20 20 24 Rate Blood Pressure 160/61 154/53 (mmHg) O2 Sat by Pulse 92 95 97 Oximetry Oxygen Devices in Use Now: Nasal Cannula - 3L Appearance: Elderly male sitting in chair in NAD Eyes: No Scleral Icterus Ears/Nose/Mouth/Throat: Mucous Membranes Moist Neck: NL Appearance and Movements; NL JVP, Trachea Midline Respiratory: Symmetrical Chest Expansion and Respiratory Effort, Clear to Auscultation, - - Diminished throughout Cardiovascular: NL Sounds; No Murmurs; No JVD, - - Irregular rhythm Abdominal: NL Sounds; No Tenderness; No Distention Extremities: No Edema Skin: No Rash or Ulcers Neurological: Alert and Oriented x 3, NL Sensation Lines/Tubes/Other Access: Clean, Dry and Intact Peripheral IV Nutrition: Taking PO's Result Diagrams: 03/19/18 05:41 03/19/18 05:41 Assess/Plan/Problems-Billing Assessment: Mr. Chavez is an 88 yo M with a PMH of chronic diastolic CHF, COPD, afib, CKD and DM who was admitted on 03/14/18 with suspected COPD exacerbation and urinary retention due to urethral stricture requiring padilla catheter placement by Dr. Sibley, + UTI. 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 - Patient Problems (1) Acute respiratory failure with hypoxia Code(s): J96.01 - ACUTE RESPIRATORY FAILURE WITH HYPOXIA Comment: - 2/2 combination of COPD and CHF exacerbations - Slow improvement - Titrate O2 (2) COPD exacerbation Code(s): J44.1 - CHRONIC OBSTRUCTIVE PULMONARY DISEASE W (ACUTE) EXACERBATION Comment: - COPD likely d/t smoking history, though he will need formal diagnosis with PFTs as an outpt - Lung sounds severely diminished - Continue prednisone and nebs - Add Dulera, Spiriva for maintenance (3) CHF exacerbation Code(s): I50.9 - HEART FAILURE, UNSPECIFIED Comment: - Echo with intact EF and no valvular abnormalities, suspect diastolic HF with mild fluid overload - Down approx 10lb during this stay - Continue diltiazem, furosemide - Will give an additional dose of IV lasix this morning (4) Tachy-luis a syndrome Code(s): I49.5 - SICK SINUS SYNDROME Comment: - With pauses up to 4 seconds, asymptomatic; possibly exacerbated by metoprolol - Appreciate cardiology consult; single chamber pacer placed yesterday - Continue to monitor on tele - Continue diltiazem (5) Iron deficiency anemia Code(s): D50.9 - IRON DEFICIENCY ANEMIA, UNSPECIFIED Comment: - Gradually worsening since January - No obvious source of bleeding; stool occult negative - Iron studies reveal profound iron deficiency with low iron, low % saturation, and low ferritin - Continue ferrous sulfate BID along with docusate BID (6) UTI (urinary tract infection) Comment: - E. coli >100K colonies; pansensitive - Continue ceftriaxone (day 5/7) (7) Urinary retention Code(s): R33.9 - RETENTION OF URINE, UNSPECIFIED Comment: - Appreciate urology consultation; dilatation and padilla placement by Dr. Sibley - Patient should be discharged with padilla to follow up with Dr. Sibley outpatient (8) Afib Code(s): I48.91 - UNSPECIFIED ATRIAL FIBRILLATION Comment: - Follows with Dr. Titus at [place] - Metoprolol stopped d/t bradycardia - Continue Eliquis - Will increase diltiazem to 360mg daily d/t continued tachycardia and hypertension; spoke with cardiology who recommended to add a beta renard if tachycardia is not resolved after dose increase (9) HTN (hypertension) Code(s): I10 - ESSENTIAL (PRIMARY) HYPERTENSION Comment: - BP improving - Continue diltiazem (10) Diabetes Code(s): E11.9 - TYPE 2 DIABETES MELLITUS WITHOUT COMPLICATIONS Comment: - BGs 130-380s, partly related to steroids - Continue lispro SS - Increase lantus to 78 units (11) CKD (chronic kidney disease) Code(s): N18.9 - CHRONIC KIDNEY DISEASE, UNSPECIFIED Comment: - Stage 3b, at baseline (12) DVT prophylaxis Code(s): [id number] - Comment: - Eliquis, renal dosing (13) Full code status Code(s): Z78.9 - OTHER SPECIFIED HEALTH STATUS Status and Disposition: Inpatient. Unclear if will be able to care for him at home, but they are opposed to [facility]. Attending: Charles Dawn
[2018-03-19] MEDS ORDERED: Spiriva Inhaler DEVICE* 1 EACH DEVICE INH SCH (09:00)
[2018-03-19] MEDS ORDERED: Diltiazem CD CAP* 240 MG PO SCH (09:00)
[2018-03-19] MEDS: Furosemide TAB* 40 MG PO SCH (09:22)
[2018-03-19] MEDS: predniSONE TAB* 20 MG PO SCH (09:23)
[2018-03-19] MEDS: Insulin LISPRO* 1 UNITS UNIT SUBCUT SCH ×5 (09:24→21:48)
[2018-03-19] MEDS: Docusate CAP* 100 MG PO SCH ×2 (09:25→19:57)
[2018-03-19] MEDS: Ferrous Sulfate TAB* 325 MG PO SCH ×2 (09:26→19:57)
[2018-03-19] MEDS: Apixaban* 2.5 MG TAB PO SCH ×2 (09:26→19:57)
[2018-03-19] MEDS: Multivitamins/Minerals TAB PO SCH (09:27)
[2018-03-19] MEDS: guaiFENesin ER TAB 600 MG PO SCH ×2 (09:27→19:57)
[2018-03-19] MEDS: Nystatin TOP POWDER* 15 GM BTL TOPICAL SCH ×3 (09:33→20:07)
[2018-03-19] MEDS: Mupirocin 2% OINT* TUBE TOPICAL SCH ×3 (09:34→20:06)
[2018-03-19] MEDS ORDERED: Diltiazem CD CAP* 120 MG PO ONE (11:44)
[2018-03-19] MEDS: Tiotropium CAP.INH* CAP.INH/18 MCG (USE ORDER SET !) INH SCH (13:39)
[2018-03-19] MEDS: Mometasone/Formoter 200/5 MDI INH SCH ×2 (13:40→19:36)
[2018-03-19] MEDS: cefTRIAXone(*) 1 GM in NS 0.9% 50 ML* 50 ML IVPB SCH (16:31)
[2018-03-19] MEDS: Atorvastatin* 10 MG TAB PO SCH (17:35)
[2018-03-19] MEDS: Insulin GLARGINE(*) 1 UNITS UNIT SUBCUT SCH (17:35)
[2018-03-19] MEDS ORDERED: Insulin LISPRO* 1 UNITS UNIT SUBCUT ONE (21:45)
[2018-03-20 06:59] LABS: ABS Basophils 0 10^3/ul (0-0.2); ABS Eosinophils 0.1 10^3/ul (0-0.6); ABS Lymphocytes 0.9 10^3/ul (1.0-4.8); ABS Monocytes 1.5 10^3/ul (0-0.8); ABS Neutrophils 11.8 10^3/ul (1.5-7.7); ABS Nucleated RBC 0 10^3/ul; Eosinophil % 0.5 %; Hematocrit 29 % (42-52); Hemoglobin 8.5 g/dl (14.0-18.0); Lymphocyte % 6.2 %; Mean Corpuscular HGB Conc 29 g/dl (31-36); Mean Corpuscular Hemoglobin 20 pg (27-31); Mean Corpuscular Volume 69 fL (80-94); Nucleated Red Blood Cells % 0.3; Platelet Count 377 10^3/ul (150-450); Red Cell Distribution Width 19 % (10.5-15); White Blood Count 14.3 10^3/ul (3.5-10.8)
[2018-03-20] MEDS: Tiotropium CAP.INH* CAP.INH/18 MCG (USE ORDER SET !) INH SCH (07:31)
[2018-03-20] MEDS: Mometasone/Formoter 200/5 MDI INH SCH ×2 (07:31→19:23)
[2018-03-20] MEDS: Insulin LISPRO* 1 UNITS UNIT SUBCUT SCH ×4 (08:03→22:30)
[2018-03-20] MEDS: predniSONE TAB* 20 MG PO SCH (09:12)
[2018-03-20] MEDS: Multivitamins/Minerals TAB PO SCH (09:12)
[2018-03-20] MEDS: Nystatin TOP POWDER* 15 GM BTL TOPICAL SCH ×3 (09:13→21:34)
[2018-03-20] MEDS: Mupirocin 2% OINT* TUBE TOPICAL SCH ×3 (09:13→21:34)
[2018-03-20] MEDS: Ferrous Sulfate TAB* 325 MG PO SCH ×2 (09:13→21:33)
[2018-03-20] MEDS: guaiFENesin ER TAB 600 MG PO SCH ×2 (09:13→21:33)
[2018-03-20] MEDS: Docusate CAP* 100 MG PO SCH ×2 (09:13→21:33)
[2018-03-20] MEDS: Furosemide TAB* 40 MG PO SCH (09:13)
[2018-03-20] MEDS: Apixaban* 2.5 MG TAB PO SCH ×2 (09:13→21:32)
[2018-03-20] MEDS: Diltiazem CD CAP* 180 MG PO SCH (09:13)
[2018-03-20] MEDS ORDERED: Metoprolol Succinate XL TAB* 25 MG PO SCH (11:00)
[2018-03-20] MEDS: Metoprolol Succinate XL TAB* 25 MG PO SCH (11:21)
--- NOTE | 2018-03-20 12:09 | PN ---
Subjective Date of Service: 03/20/18 Interval History: Mr. Chavez is feeling ok this morning. He is still SOB with exertion, but feels much better than a few days ago. Feeling stronger every day. He is unsure if he and his will be able to manage at home as he may require oxygen and will go home with a padilla. He and his , however, are opposed to rehab. He denies CP, N/V/D, dizziness. Family History: Unchanged from Admission Social History: Unchanged from Admission Past Medical History: Unchanged from Admission Objective Active Medications: Acetaminophen (Tylenol Tab*) 650 mg PO Q4H PRN FEVER/PAIN Al Hydrox/Mg Hydrox/Simethicone (Maalox Plus*) 30 ml PO Q6H PRN INDIGESTION Albuterol (Ventolin 2.5 Mg/3 Ml Neb.Teresa*) 2.5 mg INH Q4H PRN SOB/WHEEZING Albuterol (Ventolin Hfa Inhaler*) 2 puff INH Q4H PRN SOB/WHEEZING Apixaban (Eliquis*) 2.5 mg PO BID REJI Atorvastatin Calcium (Lipitor*) 10 mg PO QPM REJI Device (Tiotropium Inhaler Device*) 1 each INH .USE w/ SPIRIVA CAPS RE[facility]I Dextrose (D50w Syringe 50 Ml*) 12.5 gm IV PUSH .FOR FS < 60 - SS PRN FS < 60 Diltiazem HCl (Cardizem Cd Cap*) 360 mg PO DAILY [facility] Docusate Sodium (Colace Cap*) 100 mg PO BID REJI Ferrous Sulfate (Ferrous Sulfate Tab*) 325 mg PO BID REJI Furosemide (Lasix Tab*) 40 mg PO DAILY [facility] Guaifenesin (Mucinex*) 1,200 mg PO BID [facility] Ceftriaxone Sodium 1 gm/ (Sodium Chloride) 50 mls @ 200 mls/hr IVPB Q24H [facility] Insulin Glargine (Lantus(*)) 78 units SUBCUT QPM [facility] Insulin Human Lispro (Humalog*) 0 units SUBCUT ACHS REJI; Protocol Metoprolol Succinate (Toprol Xl Tab*) 12.5 mg PO DAILY [facility] Mometasone Furoate/Formoterol Fumar (Dulera 200/5 Mdi*) 2 puff INH BID RE[facility]I Multivitamins/Minerals (Theragran/Minerals Tab*) 1 tab PO DAILY [facility] Mupirocin (Bactroban 2 % Oint*) 1 applic TOPICAL TID RE[facility]I Nystatin (Nystatin Top Powder*) 1 applic TOPICAL TID REJI Prednisone (Deltasone Tab*) 40 mg PO DAILY RE[facility]I Tiotropium [place] (Spiriva Cap.Inh*) 1 cap INH DAILY RE[facility]I Vital Signs - 8 hr 03/20/18 03/20/18 03/20/18 07:25 07:33 07:34 Temperature 97.6 F Pulse Rate 102 80 80 Respiratory 16 14 14 Rate Blood Pressure 157/52 (mmHg) O2 Sat by Pulse 96 97 97 Oximetry 03/20/18 03/20/18 07:40 11:10 Temperature 96.7 F Pulse Rate 96 Respiratory 20 16 Rate Blood Pressure 106/49 (mmHg) O2 Sat by Pulse 100 Oximetry Oxygen Devices in Use Now: Nasal Cannula - 3L Appearance: Elderly male sitting in chair in NAD Eyes: No Scleral Icterus Ears/Nose/Mouth/Throat: Mucous Membranes Moist Neck: NL Appearance and Movements; NL JVP, Trachea Midline Respiratory: Symmetrical Chest Expansion and Respiratory Effort, Clear to Auscultation - Diminished throughout Cardiovascular: NL Sounds; No Murmurs; No JVD, - - Irregular rhythm, tachycardic Abdominal: NL Sounds; No Tenderness; No Distention Extremities: No Edema Skin: No Rash or Ulcers Neurological: Alert and Oriented x 3 Lines/Tubes/Other Access: Clean, Dry and Intact Peripheral IV Nutrition: Taking PO's Result Diagrams: 03/20/18 06:14 03/19/18 05:41 Assess/Plan/Problems-Billing Assessment: Mr. Chavez is an 88 yo M with a PMH of chronic diastolic CHF, COPD, afib, CKD and DM who was admitted on 03/14/18 with suspected COPD and CHF exacerbations and urinary retention due to urethral stricture requiring padilla catheter placement by Dr. Sibley, + UTI. 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 - Patient Problems (1) Acute respiratory failure with hypoxia Code(s): J96.01 - ACUTE RESPIRATORY FAILURE WITH HYPOXIA Comment: - 2/2 combination of COPD and CHF exacerbations - Appreciate Pulmonology consult d/t slow improvement and possible need for BiPAP at HS - Titrate O2 (2) COPD exacerbation Code(s): J44.1 - CHRONIC OBSTRUCTIVE PULMONARY DISEASE W (ACUTE) EXACERBATION Comment: - COPD likely d/t smoking history, though he will need formal diagnosis with PFTs as an outpt - Lung sounds severely diminished - Continue nebs, Dulera, Spiriva - Will decrease prednison to 30mg starting tomorrow (3) CHF exacerbation Code(s): I50.9 - HEART FAILURE, UNSPECIFIED Comment: - Echo with intact EF and no valvular abnormalities, suspect diastolic HF with mild fluid overload - Down approx 10lb during this stay - Continue diltiazem, furosemide (4) Tachy-luis a syndrome Code(s): I49.5 - SICK SINUS SYNDROME Comment: - With pauses up to 4 seconds, asymptomatic; possibly exacerbated by metoprolol - Appreciate cardiology consult; single chamber pacer placed yesterday - Continue to monitor on tele - Continue diltiazem (5) Iron deficiency anemia Code(s): D50.9 - IRON DEFICIENCY ANEMIA, UNSPECIFIED Comment: - Gradually worsening since January - No obvious source of bleeding; stool occult negative - Iron studies reveal profound iron deficiency with low iron, low % saturation, and low ferritin - Continue ferrous sulfate BID along with docusate BID (6) UTI (urinary tract infection) Comment: - E. coli >100K colonies; pansensitive - Continue ceftriaxone (day 6/7) (7) Urinary retention Code(s): R33.9 - RETENTION OF URINE, UNSPECIFIED Comment: - Appreciate urology consultation; dilatation and padilla placement by Dr. Sibley - Patient should be discharged with padilla to follow up with Dr. Sibley outpatient (8) Afib Code(s): I48.91 - UNSPECIFIED ATRIAL FIBRILLATION Comment: - Follows with Dr. Titus at [place] - Metoprolol previously stopped d/t bradycardia - Continue Eliquis, diltiazem - Start metoprolol d/t persistent tachycardia (9) HTN (hypertension) Code(s): I10 - ESSENTIAL (PRIMARY) HYPERTENSION Comment: - BP improving - Continue diltiazem (10) Diabetes Code(s): E11.9 - TYPE 2 DIABETES MELLITUS WITHOUT COMPLICATIONS Comment: - BGs 90-400s, partly related to steroids - Continue lispro SS, lantus 78 units (11) CKD (chronic kidney disease) Code(s): N18.9 - CHRONIC KIDNEY DISEASE, UNSPECIFIED Comment: - Stage 3b, at baseline (12) DVT prophylaxis Code(s): [id number] - Comment: - Eliquis, renal dosing (13) Full code status Code(s): Z78.9 - OTHER SPECIFIED HEALTH STATUS Status and Disposition: Inpatient. Unclear if will be able to care for him at home, but they are opposed to [facility]. Attending: Marcela Valdes
[2018-03-20] MEDS: cefTRIAXone(*) 1 GM in NS 0.9% 50 ML* 50 ML IVPB SCH (15:32)
[2018-03-20] MEDS ORDERED: Magnesium Hydroxide LIQ* 30 ML UDC PO PRN (15:55)
[2018-03-20] MEDS: Atorvastatin* 10 MG TAB PO SCH (17:05)
[2018-03-20] MEDS: Insulin GLARGINE(*) 1 UNITS UNIT SUBCUT SCH (17:06)
[2018-03-20] MEDS ORDERED: Insulin GLARGINE(*) 1 UNITS UNIT SUBCUT ONE (17:23)
[2018-03-20] MEDS ORDERED: Insulin GLARGINE(*) 1 UNITS UNIT SUBCUT SCH (18:00)
--- NOTE | 2018-03-20 18:59 | CONS ---
PULMONARY CONSULTATION REPORT: DATE OF CONSULT: 03/20/18 CONSULTATION REQUESTED BY: Talia Dodge NP REASON FOR CONSULT: Evaluation of hypoxemia. HISTORY OF PRESENT ILLNESS: The patient is an 88-year-old morbidly obese male with history of CHF; COPD; former smoker with hypertension; diabetes; AFib, on Eliquis; chronic kidney disease. The patient came in for evaluation of worsening shortness of breath and hypoxemia. The patient has been feeling unwell for few weeks prior to the presentation. Also had productive cough. He denied fevers, chills, chest pain, nausea, vomiting. He had worsening shortness of breath and decided to come into the ED for further evaluation. He was found to be hypoxemic with O2 sat 70% on room air with blood pressure 200 systolic when he came in. He was initiated on BiPAP with improvement in oxygen saturation. The patient also found to be orthopneic requiring more pillows while sleeping. He was found to have elevated BNP of 365. Blood gas analysis on admission showed respiratory acidosis with pH of 7.27, pCO2 of 65. His sugars were also elevated with glucose of 419. He was being treated as an outpatient with [facility] for possible bronchitis. He was recently treated for infection in the right anthony and denied diarrhea or abdominal pain. He has been constipated since he was admitted. He was admitted for management of CHF exacerbation and COPD exacerbation. He was briefly in the ICU for BiPAP and was then transferred to the floor. The patient continued to improve; however, still needing O2 supplementation. He was found to be desaturating while ambulating and requiring O2 supplementation at 3 L. The patient is in no apparent distress, sitting up in bed. His family is at bedside. He reports history of COPD because of his smoking history, has not seen prison psychiatrist in the past. The patient reported that he was recommended to use CPAP or BiPAP at home and he decided not to use it. PAST MEDICAL HISTORY: CHF; hypertension; AFib; diabetes, on insulin; chronic kidney disease stage 3. PAST SURGICAL HISTORY: Prostatectomy, tumor removal in the back, appendectomy, lipoma removal. MEDICATIONS AT HOME: 1. Nystatin. 2. Multivitamin. 3. Metoprolol. 4. Lantus. 5. Acetaminophen. 6. Simvastatin. 7. Lispro. 8. Bactroban. 9. Eliquis. 10. Furosemide. 11. Colace. ALLERGIES: CEPHALEXIN, CODEINE. FAMILY HISTORY: Sister has NM. No history of diabetes or cancer in the family. SOCIAL HISTORY: He did smoke 3 packs for 30 years, quit 40 years ago. Does not have alcohol abuse or drug abuse. REVIEW OF SYSTEMS: All 14 systems reviewed and as per HPI. PHYSICAL EXAM: The patient is sitting up in chair, in no apparent distress. Vital Signs: Temperature 97.8, pulse 78 beats per minute, respiratory rate 16 per minute, O2 sat 95% on room air, blood pressure 130/58. HEENT: Pupils equal , reactive to light. JVD mildly distended. Lungs: Diminished air entry bilaterally. No wheeze on auscultation. Cardiovascular: S1, S2 present, regular. No murmurs, gallops, or rubs. Abdomen: Obese. Bowel sounds present. Nondistended, nontender. Extremities: Normal range of motion. No significant edema. Skin: No rash or bruises. Neuro: Alert, awake, oriented x3. No focal deficits. DIAGNOSTIC STUDIES/LAB DATA: WBC 14.3, hemoglobin 8.5, hematocrit 29, platelet count 377. Sodium 140, potassium 4.0, chloride 99, bicarb 37, BUN 37, creatinine 1.40. Influenza A and B negative. Urine culture showed E. coil. Chest x-ray was personally reviewed by me - no acute airspace opacities, evidence of hyperinflation. IMPRESSION AND RECOMMENDATIONS: 88-year-old morbidly obese male with concern for obstructive sleep apnea/obesity hypoventilation syndrome, chronic obstructive pulmonary disease, congestive heart failure, atrial fibrillation, chronic kidney disease, diabetes, admitted with worsening shortness of breath, being treated for acute chronic obstructive pulmonary disease and congestive heart failure exacerbation. Hospital course was complicated with tachybrady syndrome and status post pacemaker placement. The patient continues to be hypoxemic in spite of management of chronic obstructive pulmonary disease and congestive heart failure exacerbation. The patient needing 3 L O2. O2 requirements increasing while ambulating. Will get overnight oximetry tonight. He is having elevated bicarb, also noted to have hypercapnia on ABG. Given suspicion for obstructive sleep apnea/obesity hypoventilation syndrome and also chronic obstructive pulmonary disease with chronic respiratory failure, he would benefit from BiPAP at home. The patient is agreeable to trying BiPAP here and could tolerate, he wants to be discharged on BiPAP then. He will need PFTs as an outpatient. For now, he is on Dulera and Spiriva and would agree with that. He is on Solu-Medrol. He has been diuresed and appears to be dry with decreasing 10 pounds weight since hospitalization. Hypoxemia could also be contributed by low hemoglobin. His hemoglobin is around 8. Unclear if it is from chronic kidney disease. Ordered flutter device. Out of bed ambulate as tolerated. Rest of management as per primary team. Thank you for allowing me to participate in the care of your patient. Will follow up with you. [id number]/CPS #: [id number] JENNIFER
[2018-03-21 05:57] LABS: ABS Basophils 0.1 10^3/ul (0-0.2); ABS Eosinophils 0 10^3/ul (0-0.6); ABS Lymphocytes 0.7 10^3/ul (1.0-4.8); ABS Monocytes 1.8 10^3/ul (0-0.8); ABS Neutrophils 13.8 10^3/ul (1.5-7.7); ABS Nucleated RBC 0 10^3/ul; Eosinophil % 0.2 %; Hematocrit 31 % (42-52); Lymphocyte % 4.2 %; Mean Corpuscular HGB Conc 29 g/dl (31-36); Mean Corpuscular Hemoglobin 20 pg (27-31); Mean Corpuscular Volume 71 fL (80-94); Mean Platelet Volume 8.3 fL (7.4-10.4); Nucleated Red Blood Cells % 0.1; Platelet Count 388 10^3/ul (150-450); Red Blood Count 4.43 10^6/ul (4.00-5.40); Red Cell Distribution Width 19 % (10.5-15); White Blood Count 16.5 10^3/ul (3.5-10.8)
[2018-03-21 06:04] LABS: Calcium 9.2 mg/dL (8.6-10.3); Potassium 3.9 mmol/L (3.5-5.0)
[2018-03-21] MEDS: Mometasone/Formoter 200/5 MDI INH SCH ×2 (08:13→19:24)
[2018-03-21] MEDS: Tiotropium CAP.INH* CAP.INH/18 MCG (USE ORDER SET !) INH SCH (08:13)
[2018-03-21] MEDS ORDERED: Polyethylene Glycol 3350* 17 GM PACKET PO PRN (08:17)
[2018-03-21] MEDS: Mupirocin 2% OINT* TUBE TOPICAL SCH ×3 (08:42→21:10)
[2018-03-21] MEDS: Insulin LISPRO* 1 UNITS UNIT SUBCUT SCH ×5 (08:42→21:38)
[2018-03-21] MEDS: predniSONE TAB* 10 MG PO SCH (08:43)
[2018-03-21] MEDS: Apixaban* 2.5 MG TAB PO SCH ×2 (08:43→21:09)
[2018-03-21] MEDS: Metoprolol Succinate XL TAB* 25 MG PO SCH (08:43)
[2018-03-21] MEDS: Nystatin TOP POWDER* 15 GM BTL TOPICAL SCH ×3 (08:43→21:10)
[2018-03-21] MEDS: Multivitamins/Minerals TAB PO SCH (08:43)
[2018-03-21] MEDS: Docusate CAP* 100 MG PO SCH ×2 (08:43→21:09)
[2018-03-21] MEDS: Ferrous Sulfate TAB* 325 MG PO SCH ×2 (08:44→21:09)
[2018-03-21] MEDS: Diltiazem CD CAP* 180 MG PO SCH (08:44)
[2018-03-21] MEDS: guaiFENesin ER TAB 600 MG PO SCH ×2 (08:44→21:09)
[2018-03-21] MEDS: Furosemide TAB* 40 MG PO SCH (08:44)
--- NOTE | 2018-03-21 08:58 | PN ---
Subjective Date of Service: 03/21/18 Interval History: Patient seen and examined. States he is feeling a little better today, remains oxygen dependent. Denies acute SOB, mild cough, no fevers. States he feels his sugar is out of control. Discussed his labile sugars, states he is always like this at home but he can "feel it" when it's fluctuating. Family History: Unchanged from Admission Social History: Unchanged from Admission Past Medical History: Unchanged from Admission Objective Active Medications: Acetaminophen (Tylenol Tab*) 650 mg PO Q4H PRN PRN Reason: FEVER/PAIN Al Hydrox/Mg Hydrox/Simethicone (Maalox Plus*) 30 ml PO Q6H PRN PRN Reason: INDIGESTION Albuterol (Ventolin 2.5 Mg/3 Ml Neb.Teresa*) 2.5 mg INH Q4H PRN PRN Reason: SOB/WHEEZING Albuterol (Ventolin Hfa Inhaler*) 2 puff INH Q4H PRN PRN Reason: SOB/WHEEZING Apixaban (Eliquis*) 2.5 mg PO BID [facility] Last Admin: 03/21/18 08:43 Dose: 2.5 mg Atorvastatin Calcium (Lipitor*) 10 mg PO QPM [facility] Last Admin: 03/20/18 17:05 Dose: 10 mg Device (Tiotropium Inhaler Device*) 1 each INH .USE w/ SPIRIVA CAPS [facility] Dextrose (D50w Syringe 50 Ml*) 12.5 gm IV PUSH .FOR FS < 60 - SS PRN PRN Reason: FS < 60 Diltiazem HCl (Cardizem Cd Cap*) 360 mg PO DAILY [facility] Last Admin: 03/21/18 08:44 Dose: 360 mg Docusate Sodium (Colace Cap*) 100 mg PO BID [facility] Last Admin: 03/21/18 08:43 Dose: 100 mg Ferrous Sulfate (Ferrous Sulfate Tab*) 325 mg PO BID [facility] Last Admin: 03/21/18 08:44 Dose: 325 mg Furosemide (Lasix Tab*) 40 mg PO DAILY [facility] Last Admin: 03/21/18 08:44 Dose: 40 mg Guaifenesin (Mucinex*) 1,200 mg PO BID [facility] Last Admin: 03/21/18 08:44 Dose: 1,200 mg Ceftriaxone Sodium 1 gm/ (Sodium Chloride) 50 mls @ 200 mls/hr IVPB Q24H [facility] Last Admin: 03/20/18 15:32 Dose: 200 mls/hr Insulin Glargine (Lantus(*)) 80 units SUBCUT QPM [facility] Last Admin: 03/20/18 17:31 Dose: Not Given Insulin Human Lispro (Humalog*) 0 units SUBCUT ACHS [facility]; Protocol Last Admin: 03/21/18 08:42 Dose: 5 units Insulin Human Lispro (Humalog*) 0 units SUBCUT AC [facility]; Protocol Magnesium Hydroxide (Milk Of Magnesia Liq*) 30 ml PO Q6H PRN PRN Reason: CONSTIPATION Last Admin: 03/20/18 16:15 Dose: 30 ml Metoprolol Succinate (Toprol Xl Tab*) 12.5 mg PO DAILY [facility] Last Admin: 03/21/18 08:43 Dose: 12.5 mg Mometasone Furoate/Formoterol Fumar (Dulera 200/5 Mdi*) 2 puff INH BID [facility] Last Admin: 03/21/18 08:13 Dose: 2 puff Multivitamins/Minerals (Theragran/Minerals Tab*) 1 tab PO DAILY [facility] Last Admin: 03/21/18 08:43 Dose: 1 tab Mupirocin (Bactroban 2 % Oint*) 1 applic TOPICAL TID [facility] Last Admin: 03/21/18 08:42 Dose: 1 applic Nystatin (Nystatin Top Powder*) 1 applic TOPICAL TID [facility] Last Admin: 03/21/18 08:43 Dose: 1 applic Polyethylene Glycol/Electrolytes (Miralax*) 17 gm PO DAILY PRN PRN Reason: CONSTIPATION Last Admin: 03/21/18 08:41 Dose: 17 gm Prednisone (Deltasone Tab*) 30 mg PO DAILY [facility] Last Admin: 03/21/18 08:43 Dose: 30 mg Tiotropium Molino (Spiriva Cap.Inh*) 1 cap INH DAILY [facility] Last Admin: 03/21/18 08:13 Dose: 1 cap Vital Signs - 8 hr 03/21/18 03/21/18 03/21/18 02:51 06:43 08:16 Temperature 97.5 F 97.4 F Pulse Rate 96 91 97 Respiratory 20 22 16 Rate Blood Pressure 130/50 125/36 (mmHg) O2 Sat by Pulse 99 90 96 Oximetry Oxygen Devices in Use Now: Nasal Cannula Appearance: alert, ill-appearing , NAD Eyes: No Scleral Icterus, PERRLA Ears/Nose/Mouth/Throat: Mucous Membranes Moist, - - poor dentition Neck: NL Appearance and Movements; NL JVP, Trachea Midline Respiratory: - - diminished throughout lung cullen, overall poor air entry, no rales or rhinchi noted Abdominal: NL Sounds; No Tenderness; No Distention Extremities: - - bilateral LE edema with discoloration Skin: No Rash or Ulcers Neurological: Alert and Oriented x 3 Nutrition: Taking PO's Result Diagrams: 03/21/18 05:07 03/21/18 05:07 Microbiology and Other Data: . Assess/Plan/Problems-Billing Assessment: This is an 88 yo M with a PMH of chronic diastolic CHF, COPD, afib, CKD and DM who was admitted on 03/14/18 with suspected COPD and CHF exacerbations and urinary retention due to urethral stricture requiring padilla catheter placement by Dr. Sibley, + UTI. 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 - Patient Problems (1) Acute respiratory failure with hypoxia Code(s): J96.01 - ACUTE RESPIRATORY FAILURE WITH HYPOXIA SNOMED Code(s): 91668712 Comment: - Multifactorial, 2/2 combination of COPD and CHF exacerbations, obesity and deconditioning - Overnight pulse-oximetry tonight - Consult with Dr. Torres appreciated, will likely benefit from BiPap at discharge - Continue to wean O2 as tolerated - Walking sats today (2) CHF exacerbation Code(s): I50.9 - HEART FAILURE, UNSPECIFIED SNOMED Code(s): 36825154 Comment: - Echo with intact EF and no valvular abnormalities, suspect diastolic HF with mild fluid overload - Down approx 10lb during this stay - Continue diltiazem, furosemide, low sodium diet (3) CKD (chronic kidney disease) Code(s): N18.9 - CHRONIC KIDNEY DISEASE, UNSPECIFIED SNOMED Code(s): 673878408 Comment: - Stage 3b, at baseline, monitor (4) COPD exacerbation Code(s): J44.1 - CHRONIC OBSTRUCTIVE PULMONARY DISEASE W (ACUTE) EXACERBATION SNOMED Code(s): 456636045 Comment: - COPD likely d/t smoking history, though he will need formal diagnosis with PFTs as an outpt - Lung sounds poor but discussed with Dr. Torres who states there is some slight improvment today from yesterday - Continue nebs, Dulera, Spiriva. 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 coli >100K colonies; pansensitive - Continue ceftriaxone (day 10/01), no fevers - Mild bump in WBCs, however, is more likely 2/2 steroids rather than continued infection; remains afebrile (8) Urinary retention Code(s): R33.9 - RETENTION OF URINE, UNSPECIFIED SNOMED Code(s): 662370330 Comment: - Appreciate urology consultation; dilatation and padilla placement by Dr. Sibley - Patient should be discharged with padilla to follow up with Dr. Sibley outpatient (9) Afib Code(s): I48.91 - UNSPECIFIED ATRIAL FIBRILLATION SNOMED Code(s): 92149869 Comment: - Follows with Dr. Titus at [place] - Metoprolol previously stopped d/t bradycardia, but restarted for persistent tachycardia this admission - Continue Eliquis, diltiazem and metoiprolol at current dose, HR WNL on tele today (10) Diabetes Code(s): E11.9 - TYPE 2 DIABETES MELLITUS WITHOUT COMPLICATIONS SNOMED Code(s) : 18502009 Comment: - Labile sugars, lantus was increased last night and had some low sugar this AM - Culprit may be steroids and acute illness - Continue lispro SS, lantus back to 75 units - will consult Dr. Garzon tomorrow (11) DVT prophylaxis Current Visit: No Status: Acute Code(s): RSN1142 - SNOMED Code(s): 246640887 Comment: - Eliquis, renal dosing (12) Full code status Code(s): Z78.9 - OTHER SPECIFIED HEALTH STATUS SNOMED Code(s): 031875306 Status and Disposition: Inpatient. Unclear if will be able to care for him at home, but they are opposed to [facility]. continue to follow closely
--- NOTE | 2018-03-21 09:26 | PN ---
Progress Note - Progress Note Date of Service: 03/21/18 - Pulm f/u note Note: Pt seen and examined at bedside. Pt reports feeling slightly better, able to cough up secretions. Incentive spirometry is helpful. Denies any issues last night Active Medications Generic Name Dose Route Start Last Admin Trade Name Freq PRN Reason Stop Dose Admin Acetaminophen 650 mg 03/14/18 09:12 Tylenol Tab* PO Q4H PRN FEVER/PAIN Al Hydrox/Mg Hydrox/Simethicone 30 ml 03/14/18 09:12 Maalox Plus* PO Q6H PRN INDIGESTION Albuterol 2.5 mg 03/17/18 17:40 Ventolin 2.5 Mg/3 Ml Neb.Teresa* INH Q4H PRN SOB/WHEEZING Albuterol 2 puff 03/19/18 08:32 Ventolin Hfa Inhaler* INH Q4H PRN SOB/WHEEZING Apixaban 2.5 mg 03/18/18 11:00 03/21/18 08:43 Eliquis* PO 2.5 mg BID [facility] Administration Atorvastatin Calcium 10 mg 03/14/18 18:00 03/20/18 17:05 Lipitor* PO 10 mg QPM [facility] Administration Device 1 each 03/19/18 09:00 Tiotropium Inhaler Device* INH .USE w/ SPIRIVA CAPS [facility] Dextrose 12.5 gm 03/14/18 15:02 D50w Syringe 50 Ml* IV PUSH .FOR FS < 60 - SS PRN FS < 60 Diltiazem HCl 360 mg 03/20/18 09:00 03/21/18 08:44 Cardizem Cd Cap* PO 360 mg DAILY [facility] Administration Docusate Sodium 100 mg 03/18/18 21:00 03/21/18 08:43 Colace Cap* PO 100 mg BID [facility] Administration Ferrous Sulfate 325 mg 03/18/18 21:00 03/21/18 08:44 Ferrous Sulfate Tab* PO 325 mg BID [facility] Administration Furosemide 40 mg 03/17/18 09:00 03/21/18 08:44 Lasix Tab* PO 40 mg DAILY [facility] Administration Guaifenesin 1,200 mg 03/17/18 21:00 03/21/18 08:44 Mucinex* PO 1,200 mg BID [facility] Administration Ceftriaxone Sodium 1 gm/ 50 mls @ 200 mls/hr 03/15/18 16:00 03/20/18 15:32 Sodium Chloride IVPB 200 mls/hr Q24H [facility] Administration Insulin Glargine 80 units 03/20/18 18:00 03/20/18 17:31 Lantus(*) SUBCUT Not Given QPM [facility] Insulin Human Lispro 0 units 03/15/18 08:42 03/21/18 08:42 Humalog* SUBCUT 5 units ACHS [facility] Administration Protocol Insulin Human Lispro 0 units 03/21/18 17:24 Humalog* SUBCUT AC [facility] Protocol Magnesium Hydroxide 30 ml 03/20/18 15:55 03/20/18 16:15 Milk Of Magnesdras Liq* PO 30 ml Q6H PRN Administration CONSTIPATION Metoprolol Succinate 12.5 mg 03/20/18 12:00 03/21/18 08:43 Toprol Xl Tab* PO 12.5 mg DAILY [facility] Administration Mometasone Furoate/Formoterol Fumar 2 puff 03/19/18 09:00 03/21/18 08:13 Dulera 200/5 Mdi* INH 2 puff BID [facility] Administration Multivitamins/Minerals 1 tab 03/15/18 09:00 03/21/18 08:43 Theragran/Minerals Tab* PO 1 tab DAILY [facility] Administration Mupirocin 1 applic 03/14/18 14:00 03/21/18 08:42 Bactroban 2 % Oint* TOPICAL 1 applic TID [facility] Administration Nystatin 1 applic 03/14/18 14:00 03/21/18 08:43 Nystatin Top Powder* TOPICAL 1 applic TID [facility] Administration Polyethylene Glycol/Electrolytes 17 gm 03/21/18 08:17 03/21/18 08:41 Miralax* PO 17 gm DAILY PRN Administration CONSTIPATION Prednisone 30 mg 03/21/18 09:00 03/21/18 08:43 Deltasone Tab* PO 30 mg DAILY [facility] Administration Tiotropium Anderson 1 cap 03/19/18 09:00 03/21/18 08:13 Spiriva Cap.Inh* INH 1 cap DAILY [facility] Administration Vital Signs Temp Pulse Resp BP Pulse Ox 97.4 F 97 16 125/36 96 03/21/18 06:43 03/21/18 08:16 03/21/18 08:16 03/21/18 06:43 03/21/18 08:16 O/E: Pt in NAD HEENT: PERRLA, no JVD Lungs: Distant breath sounds, mild exp wheeze CVS: S1, S2+, regular Abd: Obese, BS+ Ext: Normal ROM Neuro: No focal deficits Skin: No rash Laboratory Results - last 24 hr 03/20/18 03/20/18 03/20/18 11:25 16:15 21:32 WBC RBC Hgb Hct MCV MCH MCHC RDW Plt Count MPV Neut % (Auto) Lymph % (Auto) Gallia % (Auto) Eos % (Auto) Baso % (Auto) Absolute Neuts (auto) Absolute Lymphs (auto) Absolute Monos (auto) Absolute Eos (auto) Absolute Basos (auto) Absolute Nucleated RBC Nucleated RBC % Sodium Potassium Chloride Carbon Dioxide Anion Gap BUN Creatinine Est GFR ( Amer) Est GFR (Non-Af Amer) BUN/Creatinine Ratio Glucose POC Glucose (mg/dL) 272 H 260 H 303 H Calcium 03/21/18 03/21/18 03/21/18 02:46 03:08 03:22 WBC RBC Hgb Hct MCV MCH MCHC RDW Plt Count MPV Neut % (Auto) Lymph % (Auto) Gallia % (Auto) Eos % (Auto) Baso % (Auto) Absolute Neuts (auto) Absolute Lymphs (auto) Absolute Monos (auto) Absolute Eos (auto) Absolute Basos (auto) Absolute Nucleated RBC Nucleated RBC % Sodium Potassium Chloride Carbon Dioxide Anion Gap BUN Creatinine Est GFR ( Amer) Est GFR (Non-Af Amer) BUN/Creatinine Ratio Glucose POC Glucose (mg/dL) 58 L 64 L 72 Calcium 03/21/18 03/21/18 03/21/18 05:07 05:07 07:28 WBC 16.5 H RBC 4.43 Hgb 9.0 L Hct 31 L MCV 71 L MCH 20 L MCHC 29 L RDW 19 H Plt Count 388 MPV 8.3 Neut % (Auto) 83.5 Lymph % (Auto) 4.2 Gallia % (Auto) 11.2 Eos % (Auto) 0.2 Baso % (Auto) 0.9 Absolute Neuts (auto) 13.8 H Absolute Lymphs (auto) 0.7 L Absolute Monos (auto) 1.8 H Absolute Eos (auto) 0 Absolute Basos (auto) 0.1 Absolute Nucleated RBC 0 Nucleated RBC % 0.1 Sodium 140 Potassium 3.9 Chloride 100 L Carbon Dioxide 34 H Anion Gap 6 BUN 40 H Creatinine 1.54 H Est GFR ( Amer) 52.1 Est GFR (Non-Af Amer) 43.0 BUN/Creatinine Ratio 26.0 H Glucose 135 H POC Glucose (mg/dL) 193 H Calcium 9.2 I/R: 88 yo obese M with chronic diastolic CHF, COPD, afib, CKD and DM who was admitted on 03/14/18 with suspected COPD and CHF exacerbations and urinary retention due to urethral stricture requiring padilla catheter placement by urology, + UTI. 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
[2018-03-21] MEDS: cefTRIAXone(*) 1 GM in NS 0.9% 50 ML* 50 ML IVPB SCH (16:17)
[2018-03-21] MEDS ORDERED: Insulin LISPRO* 1 UNITS UNIT SUBCUT SCH (17:24)
[2018-03-21] MEDS: Atorvastatin* 10 MG TAB PO SCH (17:44)
[2018-03-21] MEDS: Insulin GLARGINE(*) 1 UNITS UNIT SUBCUT SCH (21:39)
[2018-03-22] MEDS: Insulin LISPRO* 1 UNITS UNIT SUBCUT SCH ×7 (07:32→20:32)
[2018-03-22] MEDS: Mupirocin 2% OINT* TUBE TOPICAL SCH ×3 (08:05→20:34)
[2018-03-22] MEDS: guaiFENesin ER TAB 600 MG PO SCH ×2 (08:05→20:33)
[2018-03-22] MEDS: Multivitamins/Minerals TAB PO SCH (08:05)
[2018-03-22] MEDS: Furosemide TAB* 40 MG PO SCH (08:05)
[2018-03-22] MEDS: Nystatin TOP POWDER* 15 GM BTL TOPICAL SCH ×3 (08:05→20:32)
[2018-03-22] MEDS: predniSONE TAB* 10 MG PO SCH (08:05)
[2018-03-22] MEDS: Diltiazem CD CAP* 180 MG PO SCH (08:05)
[2018-03-22] MEDS: Metoprolol Succinate XL TAB* 25 MG PO SCH (08:05)
[2018-03-22] MEDS: Apixaban* 2.5 MG TAB PO SCH ×2 (08:07→20:33)
[2018-03-22] MEDS: Ferrous Sulfate TAB* 325 MG PO SCH ×2 (08:07→20:33)
[2018-03-22] MEDS: Docusate CAP* 100 MG PO SCH ×2 (08:07→20:33)
[2018-03-22] MEDS: Tiotropium CAP.INH* CAP.INH/18 MCG (USE ORDER SET !) INH SCH (08:08)
[2018-03-22] MEDS: Mometasone/Formoter 200/5 MDI INH SCH ×2 (08:08→19:34)
--- NOTE | 2018-03-22 15:57 | PN ---
Subjective Date of Service: 03/22/18 Interval History: Patient seen and examined. Per RN, patient had acute confusion overnight which has now resolved. Patient states he's unsure when he became confused, but he is currently feeling better. States he feels like breathing is improving, denies chest pain, no further complaints. Family History: Unchanged from Admission Social History: Unchanged from Admission Past Medical History: Unchanged from Admission Objective Active Medications: Acetaminophen (Tylenol Tab*) 650 mg PO Q4H PRN PRN Reason: FEVER/PAIN Al Hydrox/Mg Hydrox/Simethicone (Maalox Plus*) 30 ml PO Q6H PRN PRN Reason: INDIGESTION Albuterol (Ventolin 2.5 Mg/3 Ml Neb.Teresa*) 2.5 mg INH Q4H PRN PRN Reason: SOB/WHEEZING Albuterol (Ventolin Hfa Inhaler*) 2 puff INH Q4H PRN PRN Reason: SOB/WHEEZING Apixaban (Eliquis*) 2.5 mg PO BID [facility] Last Admin: 03/22/18 08:07 Dose: 2.5 mg Atorvastatin Calcium (Lipitor*) 10 mg PO QPM [facility] Last Admin: 03/21/18 17:44 Dose: 10 mg Device (Tiotropium Inhaler Device*) 1 each INH .USE w/ SPIRIVA CAPS [facility] Dextrose (D50w Syringe 50 Ml*) 12.5 gm IV PUSH .FOR FS < 60 - SS PRN PRN Reason: FS < 60 Diltiazem HCl (Cardizem Cd Cap*) 360 mg PO DAILY [facility] Last Admin: 03/22/18 08:05 Dose: 360 mg Docusate Sodium (Colace Cap*) 100 mg PO BID [facility] Last Admin: 03/22/18 08:07 Dose: 100 mg Ferrous Sulfate (Ferrous Sulfate Tab*) 325 mg PO BID [facility] Last Admin: 03/22/18 08:07 Dose: 325 mg Furosemide (Lasix Tab*) 40 mg PO DAILY [facility] Last Admin: 03/22/18 08:05 Dose: 40 mg Guaifenesin (Mucinex*) 1,200 mg PO BID [facility] Last Admin: 03/22/18 08:05 Dose: 1,200 mg Ceftriaxone Sodium 1 gm/ (Sodium Chloride) 50 mls @ 200 mls/hr IVPB Q24H [facility] Last Admin: 03/21/18 16:17 Dose: 200 mls/hr Insulin Glargine (Lantus(*)) 75 units SUBCUT BEDTIME [facility] Last Admin: 03/21/18 21:39 Dose: 75 unit Insulin Human Lispro (Humalog*) 0 units SUBCUT ACHS [facility]; Protocol Last Admin: 03/22/18 13:12 Dose: 5 units Insulin Human Lispro (Humalog*) 0 units SUBCUT AC [facility]; Protocol Last Admin: 03/22/18 13:12 Dose: 7 units Magnesium Hydroxide (Milk Of Magnesia Liq*) 30 ml PO Q6H PRN PRN Reason: CONSTIPATION Last Admin: 03/20/18 16:15 Dose: 30 ml Metoprolol Succinate (Toprol Xl Tab*) 12.5 mg PO DAILY [facility] Last Admin: 03/22/18 08:05 Dose: 12.5 mg Mometasone Furoate/Formoterol Fumar (Dulera 200/5 Mdi*) 2 puff INH BID [facility] Last Admin: 03/22/18 08:08 Dose: 2 puff Multivitamins/Minerals (Theragran/Minerals Tab*) 1 tab PO DAILY [facility] Last Admin: 03/22/18 08:05 Dose: 1 tab Mupirocin (Bactroban 2 % Oint*) 1 applic TOPICAL TID [facility] Last Admin: 03/22/18 13:13 Dose: 1 applic Nystatin (Nystatin Top Powder*) 1 applic TOPICAL TID [facility] Last Admin: 03/22/18 13:13 Dose: 1 applic Polyethylene Glycol/Electrolytes (Miralax*) 17 gm PO DAILY PRN PRN Reason: CONSTIPATION Last Admin: 03/21/18 08:41 Dose: 17 gm Prednisone (Deltasone Tab*) 30 mg PO DAILY [facility] Last Admin: 03/22/18 08:05 Dose: 30 mg Tiotropium Ceres (Spiriva Cap.Inh*) 1 cap INH DAILY [facility] Last Admin: 03/22/18 08:08 Dose: 1 cap Vital Signs - 8 hr 03/22/18 03/22/18 03/22/18 08:00 08:10 11:17 Temperature 98.3 F Pulse Rate 85 75 Respiratory 20 20 18 Rate Blood Pressure 130/56 (mmHg) O2 Sat by Pulse 98 99 Oximetry Oxygen Devices in Use Now: Nasal Cannula Appearance: alert, NAD Eyes: No Scleral Icterus, PERRLA Ears/Nose/Mouth/Throat: NL Teeth, Lips, Gums, Mucous Membranes Moist Neck: NL Appearance and Movements; NL JVP, Trachea Midline Respiratory: - - diminished throughout lung cullen, no wheeze Abdominal: NL Sounds; No Tenderness; No Distention Extremities: No Edema Skin: No Rash or Ulcers Neurological: Alert and Oriented x 3 Nutrition: Taking PO's Result Diagrams: 03/21/18 05:07 03/21/18 05:07 Microbiology and Other Data: . Assess/Plan/Problems-Billing Assessment: This is an 88 yo M with a PMH of chronic diastolic CHF, COPD, afib, CKD and DM who was admitted on 03/14/18 with suspected COPD and CHF exacerbations and urinary retention due to urethral stricture requiring padilla catheter placement by Dr. Sibley, + UTI. 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 - Patient Problems (1) Acute respiratory failure with hypoxia Code(s): J96.01 - ACUTE RESPIRATORY FAILURE WITH HYPOXIA SNOMED Code(s): 48489655 Comment: - Multifactorial, 2/2 combination of COPD and CHF exacerbations, obesity and deconditioning - Consult with Dr. Torres appreciated, will likely benefit from BiPap at discharge - Continue to wean O2 as tolerated - Walking sats and PT eval (2) CHF exacerbation Code(s): I50.9 - HEART FAILURE, UNSPECIFIED SNOMED Code(s): 46697918 Comment: - Echo with intact EF and no valvular abnormalities, suspect diastolic HF with mild fluid overload - Continue diltiazem, furosemide, low sodium diet - improving (3) CKD (chronic kidney disease) Code(s): N18.9 - CHRONIC KIDNEY DISEASE, UNSPECIFIED SNOMED Code(s): 951151463 Comment: - Stage 3b, at baseline, monitor (4) COPD exacerbation Code(s): J44.1 - CHRONIC OBSTRUCTIVE PULMONARY DISEASE W (ACUTE) EXACERBATION SNOMED Code(s): 744426433 Comment: - COPD likely d/t smoking history, though he will need formal diagnosis with PFTs as an outpt - Continue nebs, Dulera, Spiriva, IS and flutter valve - Taper prednisone, 30mg x 2 more days then drop by 10mg Q3days (5) Iron deficiency anemia Code(s): D50.9 - IRON DEFICIENCY ANEMIA, UNSPECIFIED SNOMED Code(s): 13607279 Comment: - Gradually worsening since January - No obvious source of bleeding; stool occult negative - Iron studies reveal profound iron deficiency with low iron, low % saturation , and low ferritin all likely related to anemia of chronic disease - Continue ferrous sulfate BID along with docusate BID (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 coli >100K colonies; pansensitive - Ceftriaxone completed - Mild bump in WBCs, however, is more likely 2/2 steroids rather than continued infection; remains afebrile (8) Urinary retention Code(s): R33.9 - RETENTION OF URINE, UNSPECIFIED SNOMED Code(s): 798846386 Comment: - Appreciate urology consultation; dilatation and padilla placement by Dr. Sibley - Patient should be discharged with padilla to follow up with Dr. Sibley outpatient (9) Afib Code(s): I48.91 - UNSPECIFIED ATRIAL FIBRILLATION SNOMED Code(s): 93377604 Comment: - Follows with Dr. Titus at [place] - Metoprolol previously stopped d/t bradycardia, but restarted for persistent tachycardia this admission - Continue Eliquis, diltiazem and metoiprolol at current dose, HR WNL on tele today and pacing (10) Diabetes Code(s): E11.9 - TYPE 2 DIABETES MELLITUS WITHOUT COMPLICATIONS SNOMED Code(s) : 95866933 Comment: - Lantus titrated, sugars slowly improving - Culprit may be steroids and acute illness - Will hold off on endocrine consultation for now (11) DVT prophylaxis Current Visit: No Status: Acute Code(s): ZVD6414 - SNOMED Code(s): 975637150 Comment: - Eliquis, renal dosing (12) Full code status Code(s): Z78.9 - OTHER SPECIFIED HEALTH STATUS SNOMED Code(s): 496288015 Status and Disposition: Inpatient. Pending PT eval and likely STR placement, discussed with patient, he is agreeable to STR
[2018-03-22] MEDS: cefTRIAXone(*) 1 GM in NS 0.9% 50 ML* 50 ML IVPB SCH (16:33)
--- NOTE | 2018-03-22 16:39 | PN ---
Progress Note - Progress Note Date of Service: 03/22/18 - Pulm f/u Note: Pt seen and examined at bedside. Pt reprots improvement in breathing. Episode of confusion last night as per RN, no mental status changes this am Active Medications Generic Name Dose Route Start Last Admin Trade Name Freq PRN Reason Stop Dose Admin Acetaminophen 650 mg 03/14/18 09:12 Tylenol Tab* PO Q4H PRN FEVER/PAIN Al Hydrox/Mg Hydrox/Simethicone 30 ml 03/14/18 09:12 Maalox Plus* PO Q6H PRN INDIGESTION Albuterol 2.5 mg 03/17/18 17:40 Ventolin 2.5 Mg/3 Ml Neb.Teresa* INH Q4H PRN SOB/WHEEZING Albuterol 2 puff 03/19/18 08:32 Ventolin Hfa Inhaler* INH Q4H PRN SOB/WHEEZING Apixaban 2.5 mg 03/18/18 11:00 03/22/18 08:07 Eliquis* PO 2.5 mg BID REJI Administration Atorvastatin Calcium 10 mg 03/14/18 18:00 03/21/18 17:44 Lipitor* PO 10 mg QPM REJI Administration Device 1 each 03/19/18 09:00 Tiotropium Inhaler Device* INH .USE w/ SPIRIVA CAPS REJI Dextrose 12.5 gm 03/14/18 15:02 D50w Syringe 50 Ml* IV PUSH .FOR FS < 60 - SS PRN FS < 60 Diltiazem HCl 360 mg 03/20/18 09:00 03/22/18 08:05 Cardizem Cd Cap* PO 360 mg DAILY REJI Administration Docusate Sodium 100 mg 03/18/18 21:00 03/22/18 08:07 Colace Cap* PO 100 mg BID REJI Administration Ferrous Sulfate 325 mg 03/18/18 21:00 03/22/18 08:07 Ferrous Sulfate Tab* PO 325 mg BID REJI Administration Furosemide 40 mg 03/17/18 09:00 03/22/18 08:05 Lasix Tab* PO 40 mg DAILY REJI Administration Guaifenesin 1,200 mg 03/17/18 21:00 03/22/18 08:05 Mucinex* PO 1,200 mg BID REJI Administration Ceftriaxone Sodium 1 gm/ 50 mls @ 200 mls/hr 03/15/18 16:00 03/22/18 16:33 Sodium Chloride IVPB 200 mls/hr Q24H REJI Administration Insulin Glargine 75 units 03/21/18 21:00 03/21/18 21:39 Lantus(*) SUBCUT 75 unit BEDTIME REJI Administration Insulin Human Lispro 0 units 03/15/18 08:42 03/22/18 13:12 Humalog* SUBCUT 5 units ACHS REJI Administration Protocol Insulin Human Lispro 0 units 03/21/18 17:24 03/22/18 13:12 Humalog* SUBCUT 7 units AC REJI Administration Protocol Magnesium Hydroxide 30 ml 03/20/18 15:55 03/20/18 16:15 Milk Of Magnesia Liq* PO 30 ml Q6H PRN Administration CONSTIPATION Metoprolol Succinate 12.5 mg 03/20/18 12:00 03/22/18 08:05 Toprol Xl Tab* PO 12.5 mg DAILY REJI Administration Mometasone Furoate/Formoterol Fumar 2 puff 03/19/18 09:00 03/22/18 08:08 Dulera 200/5 Mdi* INH 2 puff BID REJI Administration Multivitamins/Minerals 1 tab 03/15/18 09:00 03/22/18 08:05 Theragran/Minerals Tab* PO 1 tab DAILY REJI Administration Mupirocin 1 applic 03/14/18 14:00 03/22/18 13:13 Bactroban 2 % Oint* TOPICAL 1 applic TID REJI Administration Nystatin 1 applic 03/14/18 14:00 03/22/18 13:13 Nystatin Top Powder* TOPICAL 1 applic TID REJI Administration Polyethylene Glycol/Electrolytes 17 gm 03/21/18 08:17 03/21/18 08:41 Miralax* PO 17 gm DAILY PRN Administration CONSTIPATION Prednisone 30 mg 03/21/18 09:00 03/22/18 08:05 Deltasone Tab* PO 30 mg DAILY REJI Administration Tiotropium [place] 1 cap 03/19/18 09:00 03/22/18 08:08 Spiriva Cap.Inh* INH 1 cap DAILY REJI Administration Vital Signs Temp Pulse Resp BP Pulse Ox 97.8 F 65 16 121/43 91 03/22/18 15:20 03/22/18 15:20 03/22/18 15:20 03/22/18 15:20 03/22/18 15:20 O/E: Pt in NAD, lying in bed HEENT: PERRLA, no JVD Lungs: Distant breath sounds, mild exp wheeze, improved aeration CVS: S1, S2+, regular Abd: Obese, BS+ Ext: Normal ROM Neuro: Alert, awake, No focal deficits Skin: No rash Laboratory Results - last 24 hr 03/21/18 03/22/18 03/22/18 21:08 00:31 07:20 POC Glucose (mg/dL) 251 H 108 H 82 03/22/18 11:55 POC Glucose (mg/dL) 186 H I/R: 88 yo obese M with chronic diastolic CHF, COPD, afib, CKD and DM who was admitted on 03/14/18 with suspected COPD and CHF exacerbations and urinary retention due to urethral stricture requiring padilla catheter placement by urology, + UTI. 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
[2018-03-22] MEDS: Atorvastatin* 10 MG TAB PO SCH (17:40)
[2018-03-22] MEDS: Insulin GLARGINE(*) 1 UNITS UNIT SUBCUT SCH (20:33)
[2018-03-23] MEDS: Mometasone/Formoter 200/5 MDI INH SCH ×2 (07:36→19:44)
[2018-03-23] MEDS: Tiotropium CAP.INH* CAP.INH/18 MCG (USE ORDER SET !) INH SCH (07:37)
[2018-03-23] MEDS: Metoprolol Succinate XL TAB* 25 MG PO SCH (08:16)
[2018-03-23] MEDS: Diltiazem CD CAP* 180 MG PO SCH (08:17)
[2018-03-23] MEDS: predniSONE TAB* 10 MG PO SCH (08:17)
[2018-03-23] MEDS: Furosemide TAB* 40 MG PO SCH (08:18)
[2018-03-23] MEDS: Ferrous Sulfate TAB* 325 MG PO SCH ×2 (08:18→20:49)
[2018-03-23] MEDS: Multivitamins/Minerals TAB PO SCH (08:18)
[2018-03-23] MEDS: Apixaban* 2.5 MG TAB PO SCH ×2 (08:18→20:49)
[2018-03-23] MEDS: guaiFENesin ER TAB 600 MG PO SCH ×2 (08:18→20:48)
[2018-03-23] MEDS: Docusate CAP* 100 MG PO SCH ×2 (08:18→20:49)
[2018-03-23] MEDS: Mupirocin 2% OINT* TUBE TOPICAL SCH ×3 (08:19→20:48)
[2018-03-23] MEDS: Nystatin TOP POWDER* 15 GM BTL TOPICAL SCH ×3 (08:19→22:19)
[2018-03-23] MEDS: Insulin LISPRO* 1 UNITS UNIT SUBCUT SCH ×7 (09:47→20:49)
--- NOTE | 2018-03-23 11:05 | PN ---
Progress Note - Progress Note Date of Service: 03/23/18 - Pulm f/u note Note: Pt seen and examined at bedside, pt reports feeling better this am. Episode of confusion last night when he woke up from sleep. Pt also c/o SOB, O2 sat was 98% . Active Medications Generic Name Dose Route Start Last Admin Trade Name Freq PRN Reason Stop Dose Admin Acetaminophen 650 mg 03/14/18 09:12 Tylenol Tab* PO Q4H PRN FEVER/PAIN Al Hydrox/Mg Hydrox/Simethicone 30 ml 03/14/18 09:12 Maalox Plus* PO Q6H PRN INDIGESTION Albuterol 2.5 mg 03/17/18 17:40 Ventolin 2.5 Mg/3 Ml Neb.Teresa* INH Q4H PRN SOB/WHEEZING Albuterol 2 puff 03/19/18 08:32 Ventolin Hfa Inhaler* INH Q4H PRN SOB/WHEEZING Apixaban 2.5 mg 03/18/18 11:00 03/23/18 08:18 Eliquis* PO 2.5 mg BID REJI Administration Atorvastatin Calcium 10 mg 03/14/18 18:00 03/22/18 17:40 Lipitor* PO 10 mg QPM REJI Administration Device 1 each 03/19/18 09:00 Tiotropium Inhaler Device* INH .USE w/ SPIRIVA CAPS REJI Dextrose 12.5 gm 03/14/18 15:02 D50w Syringe 50 Ml* IV PUSH .FOR FS < 60 - SS PRN FS < 60 Diltiazem HCl 360 mg 03/20/18 09:00 03/23/18 08:17 Cardizem Cd Cap* PO 360 mg DAILY REJI Administration Docusate Sodium 100 mg 03/18/18 21:00 03/23/18 08:18 Colace Cap* PO 100 mg BID REJI Administration Ferrous Sulfate 325 mg 03/18/18 21:00 03/23/18 08:18 Ferrous Sulfate Tab* PO 325 mg BID REJI Administration Furosemide 40 mg 03/17/18 09:00 03/23/18 08:18 Lasix Tab* PO 40 mg DAILY REJI Administration Guaifenesin 1,200 mg 03/17/18 21:00 03/23/18 08:18 Mucinex* PO 1,200 mg BID REJI Administration Ceftriaxone Sodium 1 gm/ 50 mls @ 200 mls/hr 03/15/18 16:00 03/22/18 16:33 Sodium Chloride IVPB 200 mls/hr Q24H REJI Administration Insulin Glargine 75 units 03/21/18 21:00 03/22/18 20:33 Lantus(*) SUBCUT 75 unit BEDTIME REJI Administration Insulin Human Lispro 0 units 03/15/18 08:42 03/23/18 09:47 Humalog* SUBCUT Not Given ACHS REJI Protocol Insulin Human Lispro 0 units 03/21/18 17:24 03/23/18 09:50 Humalog* SUBCUT 7 units AC REJI Administration Protocol Magnesium Hydroxide 30 ml 03/20/18 15:55 03/20/18 16:15 Milk Of Magnesdras Liq* PO 30 ml Q6H PRN Administration CONSTIPATION Metoprolol Succinate 12.5 mg 03/20/18 12:00 03/23/18 08:16 Toprol Xl Tab* PO 12.5 mg DAILY REJI Administration Mometasone Furoate/Formoterol Fumar 2 puff 03/19/18 09:00 03/23/18 07:36 Dulera 200/5 Mdi* INH 2 puff BID REJI Administration Multivitamins/Minerals 1 tab 03/15/18 09:00 03/23/18 08:18 Theragran/Minerals Tab* PO 1 tab DAILY REJI Administration Mupirocin 1 applic 03/14/18 14:00 03/23/18 08:19 Bactroban 2 % Oint* TOPICAL 1 applic TID REJI Administration Nystatin 1 applic 03/14/18 14:00 03/23/18 08:19 Nystatin Top Powder* TOPICAL 1 applic TID REJI Administration Polyethylene Glycol/Electrolytes 17 gm 03/21/18 08:17 03/21/18 08:41 Miralax* PO 17 gm DAILY PRN Administration CONSTIPATION Prednisone 30 mg 03/21/18 09:00 03/23/18 08:17 Deltasone Tab* PO 30 mg DAILY REJI Administration Tiotropium [place] 1 cap 03/19/18 09:00 03/23/18 07:37 Spiriva Cap.Inh* INH 1 cap DAILY REJI Administration Vital Signs Temp Pulse Resp BP Pulse Ox 97.5 F 84 17 142/49 99 03/23/18 07:45 03/23/18 07:45 03/23/18 08:00 03/23/18 07:45 03/23/18 07:45 O/E: Pt in NAD HEENT: PERRLA, No JVD Lungs: Scaterred wheeze+ CVS: S1, S2+, regular Abd: Obese, BS+ Ext: Normal ROM Skin: No rash Neuro: Alert, awake, no focal deficits Laboratory Results - last 24 hr 03/22/18 03/22/18 03/22/18 11:55 16:31 19:17 POC Glucose (mg/dL) 186 H 345 H 355 H 03/23/18 07:16 POC Glucose (mg/dL) 73 I/R: 88 yo obese M with chronic diastolic CHF, COPD, afib, CKD and DM who was admitted on 03/14/18 with suspected COPD and CHF exacerbations and urinary retention due to urethral stricture requiring padilla catheter placement by urology, + UTI. 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
--- NOTE | 2018-03-23 13:08 | PN ---
Subjective Date of Service: 03/23/18 Interval History: Pt states that he is feeling well today, although he admits to difficulty sleeping, as he is unable to find a comfortable position. He is continuing to wean off of his oxygen, and is comfortably at 1L NC. He states that he was supposed to have his clarence from his pacemaker removed yesterday; removed clarence today. Pt was advised that he must remain in arm sling for 2-3 more weeks. Tele last night shows atrial fibrillation with rate control around 70- 80. Family History: Unchanged from Admission Social History: Unchanged from Admission Past Medical History: Unchanged from Admission Objective Active Medications: Acetaminophen (Tylenol Tab*) 650 mg PO Q4H PRN Al Hydrox/Mg Hydrox/Simethicone (Maalox Plus*) 30 ml PO Q6H PRN Albuterol (Ventolin 2.5 Mg/3 Ml Neb.Teresa*) 2.5 mg INH Q4H PRN Albuterol (Ventolin Hfa Inhaler*) 2 puff INH Q4H PRN Apixaban (Eliquis*) 2.5 mg PO BID REJI Atorvastatin Calcium (Lipitor*) 10 mg PO QPM REJI Device (Tiotropium Inhaler Device*) 1 each INH .USE w/ SPIRIVA CAPS REJI Dextrose (D50w Syringe 50 Ml*) 12.5 gm IV PUSH .FOR FS < 60 - SS PRN Diltiazem HCl (Cardizem Cd Cap*) 360 mg PO DAILY REJI Docusate Sodium (Colace Cap*) 100 mg PO BID REJI Ferrous Sulfate (Ferrous Sulfate Tab*) 325 mg PO BID REJI Furosemide (Lasix Tab*) 40 mg PO DAILY REJI Guaifenesin (Mucinex*) 1,200 mg PO BID [facility] Ceftriaxone Sodium 1 gm/ (Sodium Chloride) 50 mls @ 200 mls/hr IVPB Q24H REJI Insulin Glargine (Lantus(*)) 75 units SUBCUT BEDTIME REJI Insulin Human Lispro (Humalog*) 0 units SUBCUT ACHS REJI; Protocol Insulin Human Lispro (Humalog*) 0 units SUBCUT AC REJI; Protocol Magnesium Hydroxide (Milk Of Magnesia Liq*) 30 ml PO Q6H PRN Metoprolol Succinate (Toprol Xl Tab*) 12.5 mg PO DAILY [facility] Mometasone Furoate/Formoterol Fumar (Dulera 200/5 Mdi*) 2 puff INH BID REJI Multivitamins/Minerals (Theragran/Minerals Tab*) 1 tab PO DAILY REJI Mupirocin (Bactroban 2 % Oint*) 1 applic TOPICAL TID REJI Nystatin (Nystatin Top Powder*) 1 applic TOPICAL TID REJI Polyethylene Glycol/Electrolytes (Miralax*) 17 gm PO DAILY PRN Prednisone (Deltasone Tab*) 30 mg PO DAILY REJI Tiotropium [place] (Spiriva Cap.Inh*) 1 cap INH DAILY REJI Vital Signs: Temp Pulse Resp BP Pulse Ox 98.4 F 92 18 144/56 95 03/23/18 11:23 03/23/18 11:23 03/23/18 11:23 03/23/18 11:23 03/23/18 11:23 Oxygen Devices in Use Now: Nasal Cannula Appearance: Pt is upright in chair resting; in no acute distress. Eyes: No Scleral Icterus Ears/Nose/Mouth/Throat: NL Teeth, Lips, Gums, Mucous Membranes Moist Neck: Trachea Midline Respiratory: Symmetrical Chest Expansion and Respiratory Effort, - - Clear to ausculation b/l without wheeze, rhonchi, rales. Cardiovascular: NL Sounds; No Murmurs; No JVD - Regular rate, irregular rhythm. Abdominal: NL Sounds; No Tenderness; No Distention Extremities: No Clubbing, Cyanosis, - - 1+ pitting edema Neurological: Alert and Oriented x 3 Result Diagrams: 03/21/18 05:07 03/21/18 05:07 Microbiology and Other Data: . Assess/Plan/Problems-Billing Assessment: This is an 88 yo M with a PMH of chronic diastolic CHF, COPD, afib, CKD and DM who was admitted on 03/14/18 with suspected COPD and CHF exacerbations and urinary retention due to urethral stricture requiring padilla catheter placement by Dr. Sibley, + UTI. 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 - Patient Problems (1) COPD exacerbation Comment: - COPD likely d/t smoking history, though he will need formal diagnosis with PFTs as an outpt - Continue nebs, Dulera, Spiriva, IS and flutter valve - Taper prednisone, 30mg x 1 more days then drop by 10mg Q3days (2) Acute respiratory failure with hypoxia Comment: - Multifactorial, 2/2 combination of COPD and CHF exacerbations, obesity and deconditioning - Consult with Dr. Torres appreciated, will likely benefit from BiPap at discharge - Continue to wean O2 as tolerated - Walking sats and PT eval (3) CHF exacerbation Comment: - Echo with intact EF and no valvular abnormalities, suspect diastolic HF with mild fluid overload - Continue diltiazem, furosemide, low sodium diet - improving (4) Iron deficiency anemia Comment: - Gradually worsening since January - No obvious source of bleeding; stool occult negative - Iron studies reveal profound iron deficiency with low iron, low % saturation , and low ferritin all likely related to anemia of chronic disease - Continue ferrous sulfate BID along with docusate BID (5) 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 Titus at [place] - Rate control with diltiazem and metoprolol - Continue Eliquis, diltiazem and metoprolol at current dose, HR WNL on tele today and pacing (7) Tachy-luis a syndrome Comment: - s/p pacemaker insertion on 03/17 - Underlying rhythm is afib with intermittent pacing on tele - Stable - PT evaluation (8) Urinary retention Comment: - Appreciate urology consultation; dilatation and padilla placement by Dr. Sibley - Patient should be discharged with padilla to follow up with Dr. Sibley outpatient (9) Diabetes Comment: - Lantus titrated, sugars slowly improving; HA1C from 02/13/2018 was 9.4 - Culprit may be steroids and acute illness - Will hold off on endocrine consultation for now (10) DVT prophylaxis Comment: - Eliquis, renal dosing Status and Disposition: Inpatient. Pending PT eval and likely STR placement, discussed with patient, he is agreeable to STR
[2018-03-23] MEDS: Atorvastatin* 10 MG TAB PO SCH (16:39)
[2018-03-23] MEDS: cefTRIAXone(*) 1 GM in NS 0.9% 50 ML* 50 ML IVPB SCH (16:39)
[2018-03-23] MEDS: Insulin GLARGINE(*) 1 UNITS UNIT SUBCUT SCH (20:49)
[2018-03-24] MEDS: Tiotropium CAP.INH* CAP.INH/18 MCG (USE ORDER SET !) INH SCH (07:14)
[2018-03-24] MEDS: Mometasone/Formoter 200/5 MDI INH SCH (07:15)
[2018-03-24] MEDS: Insulin LISPRO* 1 UNITS UNIT SUBCUT SCH ×4 (08:20→13:02)
[2018-03-24] MEDS: Ferrous Sulfate TAB* 325 MG PO SCH (09:09)
[2018-03-24] MEDS: guaiFENesin ER TAB 600 MG PO SCH (09:09)
[2018-03-24] MEDS: Docusate CAP* 100 MG PO SCH (09:09)
[2018-03-24] MEDS: predniSONE TAB* 10 MG PO SCH (09:09)
[2018-03-24] MEDS: Apixaban* 2.5 MG TAB PO SCH (09:10)
[2018-03-24] MEDS: Multivitamins/Minerals TAB PO SCH (09:10)
[2018-03-24] MEDS: Furosemide TAB* 40 MG PO SCH (09:10)
[2018-03-24] MEDS: Diltiazem CD CAP* 180 MG PO SCH (09:10)
[2018-03-24] MEDS: Nystatin TOP POWDER* 15 GM BTL TOPICAL SCH (09:11)
[2018-03-24] MEDS: Metoprolol Succinate XL TAB* 25 MG PO SCH (09:11)
[2018-03-24] MEDS: Mupirocin 2% OINT* TUBE TOPICAL SCH (09:11)
[2018-03-24 11:16] VITALS: BP 139/50
--- NOTE | 2018-03-24 12:24 | PN ---
Progress Note - Progress Note Date of Service: 03/24/18 - Pulm f/u note Note: Pt seen and examined at bedside. No acute events o/n. Pt for d/c today. No new complaints Active Medications Generic Name Dose Route Start Last Admin Trade Name Freq PRN Reason Stop Dose Admin Acetaminophen 650 mg 03/14/18 09:12 Tylenol Tab* PO Q4H PRN FEVER/PAIN Al Hydrox/Mg Hydrox/Simethicone 30 ml 03/14/18 09:12 Maalox Plus* PO Q6H PRN INDIGESTION Albuterol 2.5 mg 03/17/18 17:40 Ventolin 2.5 Mg/3 Ml Neb.Teresa* INH Q4H PRN SOB/WHEEZING Albuterol 2 puff 03/19/18 08:32 Ventolin Hfa Inhaler* INH Q4H PRN SOB/WHEEZING Apixaban 2.5 mg 03/18/18 11:00 03/24/18 09:10 Eliquis* PO 2.5 mg BID REJI Administration Atorvastatin Calcium 10 mg 03/14/18 18:00 03/23/18 16:39 Lipitor* PO 10 mg QPM REJI Administration Device 1 each 03/19/18 09:00 Tiotropium Inhaler Device* INH .USE w/ SPIRIVA CAPS REJI Dextrose 12.5 gm 03/14/18 15:02 D50w Syringe 50 Ml* IV PUSH .FOR FS < 60 - SS PRN FS < 60 Diltiazem HCl 360 mg 03/20/18 09:00 03/24/18 09:10 Cardizem Cd Cap* PO 360 mg DAILY REJI Administration Docusate Sodium 100 mg 03/18/18 21:00 03/24/18 09:09 Colace Cap* PO 100 mg BID REJI Administration Ferrous Sulfate 325 mg 03/18/18 21:00 03/24/18 09:09 Ferrous Sulfate Tab* PO 325 mg BID REJI Administration Furosemide 40 mg 03/17/18 09:00 03/24/18 09:10 Lasix Tab* PO 40 mg DAILY REJI Administration Guaifenesin 1,200 mg 03/17/18 21:00 03/24/18 09:09 Mucinex* PO 1,200 mg BID REJI Administration Ceftriaxone Sodium 1 gm/ 50 mls @ 200 mls/hr 03/15/18 16:00 03/23/18 16:39 Sodium Chloride IVPB 200 mls/hr Q24H REJI Administration Insulin Glargine 75 units 03/21/18 21:00 03/23/18 20:49 Lantus(*) SUBCUT 75 unit BEDTIME REJI Administration Insulin Human Lispro 0 units 03/15/18 08:42 03/24/18 08:20 Humalog* SUBCUT Not Given ACHS REJI Protocol Insulin Human Lispro 0 units 03/21/18 17:24 03/24/18 09:12 Humalog* SUBCUT 2 units AC REJI Administration Protocol Magnesium Hydroxide 30 ml 03/20/18 15:55 03/20/18 16:15 Milk Of Magnesia Liq* PO 30 ml Q6H PRN Administration CONSTIPATION Metoprolol Succinate 12.5 mg 03/20/18 12:00 03/24/18 09:11 Toprol Xl Tab* PO 12.5 mg DAILY REJI Administration Mometasone Furoate/Formoterol Fumar 2 puff 03/19/18 09:00 03/24/18 07:15 Dulera 200/5 Mdi* INH 2 puff BID REJI Administration Multivitamins/Minerals 1 tab 03/15/18 09:00 03/24/18 09:10 Theragran/Minerals Tab* PO 1 tab DAILY REJI Administration Mupirocin 1 applic 03/14/18 14:00 03/24/18 09:11 Bactroban 2 % Oint* TOPICAL 1 applic TID REJI Administration Nystatin 1 applic 03/14/18 14:00 03/24/18 09:11 Nystatin Top Powder* TOPICAL 1 applic TID REJI Administration Polyethylene Glycol/Electrolytes 17 gm 03/21/18 08:17 03/21/18 08:41 Miralax* PO 17 gm DAILY PRN Administration CONSTIPATION Prednisone 30 mg 03/21/18 09:00 03/24/18 09:09 Deltasone Tab* PO 30 mg DAILY REJI Administration Tiotropium [place] 1 cap 03/19/18 09:00 03/24/18 07:14 Spiriva Cap.Inh* INH 1 cap DAILY REJI Administration Vital Signs Temp Pulse Resp BP Pulse Ox 97.8 F 81 16 139/50 94 03/24/18 10:55 03/24/18 10:55 03/24/18 10:55 03/24/18 10:55 03/24/18 10:55 O/E: Pt in NAD HEENT: PERRLA, No JVD Lungs: Clear to auscultation b/l CVS: S1, S2+, regular Abd: Obese, BS+ Ext: Normal ROM Skin: No rash Neuro: Alert, awake, orientedx3 Laboratory Results - last 24 hr 03/23/18 03/23/18 03/24/18 16:12 19:12 07:11 POC Glucose (mg/dL) 296 H 374 H 79 03/24/18 11:24 POC Glucose (mg/dL) 132 H I/R: 88 yo obese M with chronic diastolic CHF, COPD, afib, CKD and DM who was admitted on 03/14/18 with suspected COPD and CHF exacerbations and urinary retention due to urethral stricture requiring padilla catheter placement by urology, + UTI. 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 Pt also with hypoxia, likely sec to COPD and CHF exacerbation Resp status improved Not needing O2 at rest O/n oximetry showed hypoxia that is significant also suggestive of sleep apnea Pt to start with BiPAP at night c/w flutter device c/w prednisone 30mg Monitor BS closely c/w Neb treatments OOB to chair Ambulate as tolerated Pt to be d/tammy to rehab at [place] Would benefit from Trilogy for hypercapnic resp failure DVT px
--- NOTE | 2018-03-24 15:10 | DS ---
DATE OF ADMISSION: 03/14/2018. DATE OF DISCHARGE: 03/24/2018. ATTENDING PHYSICIAN: Dr. Jessica Cuellar* (dictated by ARIANA Starkey). PRIMARY CARE PHYSICIAN: Dr. Yassine Kimball. PRIMARY DIAGNOSES: 1. COPD. 2. CHF exacerbation. 3. Urinary retention. SECONDARY DIAGNOSES: 1. Atrial fibrillation. 2. Chronic kidney disease. 3. Diabetes mellitus. 4. Hypertension. 5. Chronic kidney disease, stage 3. STUDIES WHILE IN THE HOSPITAL: 1. Echocardiogram on 03/14/2018: Conclusions: Mild concentric left ventricular hypertrophy is observed. The left ventricle appears hyperdynamic. The estimated ejection fraction is greater than 65 percent. The right ventricular global systolic function is low normal. There is a trace of aortic regurgitation. There is no evidence of aortic stenosis. There is no evidence of mitral regurgitation. There is mild tricuspid regurgitation. There is evidence of mild to moderate pulmonary hypertension. There is no significant pericardial effusion. 2. Cardiac catheterization, 03/17/2018. 3. Insertion of pacemaker due to A-fib/acute hypoxic respiratory failure, 03/17. DISCHARGE MEDICATIONS: Home medications: 1. Nystatin topical powder one application topical t.i.d. 2. Multivitamins/minerals tab one tab p.o. daily. 3. Metoprolol Succinate XL tab 100 mg p.o. daily. 4. Lantus 60 units subcu every evening. 5. Acetaminophen extra strength 500 mg p.o. q.i.d. prn. 6. Simvastatin 20 mg p.o. daily. 7. Humalog 15 to 30 units subcu t.i.d. 8. Bactroban 2% ointment one application topical t.i.d. 9. Apixaban 2.5 mg p.o. daily. 10. Furosemide one tab daily. 11. Docusate sodium one tab daily prn. New medications: 1. Prednisone 20 mg p.o. daily times 2, 10 mg daily times 2 days, then DC. 2. Guaifenesin ER tab 1200 mg p.o. b.i.d. 3. Spiriva one cap inhalation daily. 4. MiraLax 17 gm p.o. daily prn. 5. Dulera 200/5 two puffs b.i.d. 6. Metoprolol Succinate XR 12.5 mg p.o. daily. 7. Humalog subcu hour of sleep, Humalog subcu before meals. 8. Ferrous Sulfate 325 mg p.o. b.i.d. 9. Diltiazem CD 360 mg p.o. daily. 10. Albuterol HFA inhaler two puffs q.4 hours prn. 11. Ventolin 2.5 mg/3 ml neb inhalation q.4 hours prn. 12. Maalox 30 ml p.o. q.6 hours prn. 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 He was admitted to the hospital after arriving to the ER with complaints of feeling unwell for 1 month, shortness of breath, and productive cough. Upon admission, he was noted to have acute hypoxic respiratory failure. Throughout the hospital course, his COPD improved with Prednisone and nebulizer treatments. The patient was on oxygen throughout his hospital stay and BiPAP was recommended upon discharge. He will be on BiPAP at [facility]. CHF exacerbation was treated with continued Diltiazem and Furosemide. Echo showed intact ejection fraction and no valvular abnormalities leading to suspicion for diastolic heart failure and the patient had mild fluid overload which was treated with Lasix. The patient experienced sinus pause while in the hospital, for which cardiology was consulted. 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 Pacemaker insertion was completed while the patient was in the hospital. Staple removal was completed prior to patient's discharge. The patient remains on Eliquis and Metoprolol for atrial fibrillation. Urinary catheter was inserted at the beginning of the hospital stay, as the patient has a bladder neck stricture that was successfully dilated by urology. The patient was sent home with urinary catheter upon recommendations by urology, who will follow him outpatient. While in the hospital, the patient was evaluated by Physical Therapy who found that it would be beneficial if the patient went to a short-term rehab facility. This is a summarized report of a complex medical history and hospital stay. For further details, please see the entire medical record. PHYSICAL EXAMINATION: General: Mr. Chavez is an obese, white male who is sitting up in a chair in no acute distress. He appears his stated age. Vital Signs: Temperature 97.8, heart rate 81, respiratory rate 16, oxygen saturation 94 percent on room air, blood pressure 139/50. HEENT: Extraocular movements intact. Sclerae without icterus. Hearing is grossly intact. Oral mucosa is moist. Neck: Trachea midline. Respiratory: Symmetrical chest expansion, no accessory muscle use. Diminished breath sounds bilaterally. No rhonchi, wheezes , or rubs. Cardiovascular: Regular rate and rhythm. No murmurs, rubs, clicks or gallops. Abdomen: Soft, nontender to palpation. Bowel sounds in all four quadrants. Extremities: No clubbing or cyanosis with 1+ pitting edema. Neuro: Alert and oriented times three. DISCHARGE PLAN: Mr. Chavez will be discharged to [facility]. Medications as above. EDUCATION: -Continue Prednisone 20 mg daily times two days, taper down to 10 mg daily times two days, then discontinue. -Continue to monitor blood sugars closely. -Continue BiPAP as recommended. -Follow up with urology for urinary catheter, stricture -Return to the ER or the nearest hospital if you experience any worsening of symptoms, shortness of breath, lightheadedness, dizziness, chest discomfort, high fevers, chills, night sweats, loss of consciousness, or any other worrisome signs or symptoms. ACTIVITY: As tolerated. DIET: Heart-healthy, ADA. TIME SPENT: Approximately 45 minutes were spent on this discharge, greater than half of that time was spent [id number] with the patient discussing discharge plans and instructions. ARIANA ARIAS [id number]/[facility] #: [id number] JENNIFER
== END 2018-03-24 13:42 | disposition swing bed (61) | DRG 981 ==
LOC: ED 07:44 → ICU 09:12 → MED 03-15 01:37 → MEDTELE 03-16 11:04
PROVIDERS: ADMIT Internal Medicine; ATTEND Student in an Organized Health Care Education/Training Program
PROC: 0T7D7ZZ Dilation of Urethra, Via Natural or Artificial Opening (ICD-10-PCS; 2018-03-14)
PROC: 0T7C7ZZ Dilation of Bladder Neck, Via Natural or Artificial Opening (ICD-10-PCS; 2018-03-14)
PROC: 5A09357 Assistance with Respiratory Ventilation, Less than 24 Consecutive Hours, Continuous Positive Airway Pressure (ICD-10-PCS; 2018-03-14)
PROC: 02HK3JZ Insertion of Pacemaker Lead into Right Ventricle, Percutaneous Approach (ICD-10-PCS; 2018-03-17)
PROC: 0JH604Z Insertion of Pacemaker, Single Chamber into Chest Subcutaneous Tissue and Fascia, Open Approach (ICD-10-PCS; principal; 2018-03-17 07:00)
DX: J96.01 Acute respiratory failure with hypoxia (principal); I50.33 Acute on chronic diastolic (congestive) heart failure; J44.1 Chronic obstructive pulmonary disease with (acute) exacerbation; I13.0 Hypertensive heart and chronic kidney disease with heart failure and stage 1 through stage 4 chronic kidney disease, or unspecified chronic kidney disease; E87.2 Acidosis; N39.0 Urinary tract infection, site not specified; Z68.41 Body mass index [BMI] 40.0-44.9, adult; I49.5 Sick sinus syndrome; N18.3 Chronic kidney disease, stage 3 (moderate); E11.40 Type 2 diabetes mellitus with diabetic neuropathy, unspecified; E11.22 Type 2 diabetes mellitus with diabetic chronic kidney disease; I48.0 Paroxysmal atrial fibrillation; E11.65 Type 2 diabetes mellitus with hyperglycemia; D50.9 Iron deficiency anemia, unspecified; S91.105A Unspecified open wound of left lesser toe(s) without damage to nail, initial encounter; E78.00 Pure hypercholesterolemia, unspecified; E11.51 Type 2 diabetes mellitus with diabetic peripheral angiopathy without gangrene; G47.30 Sleep apnea, unspecified; J30.2 Other seasonal allergic rhinitis; K21.9 Gastro-esophageal reflux disease without esophagitis; K58.9 Irritable bowel syndrome, unspecified; M19.042 Primary osteoarthritis, left hand; M19.041 Primary osteoarthritis, right hand; M19.012 Primary osteoarthritis, left shoulder; M19.011 Primary osteoarthritis, right shoulder; M17.0 Bilateral primary osteoarthritis of knee; M19.072 Primary osteoarthritis, left ankle and foot; M19.071 Primary osteoarthritis, right ankle and foot; M10.9 Gout, unspecified; E11.36 Type 2 diabetes mellitus with diabetic cataract; E66.01 Morbid (severe) obesity due to excess calories; I48.2 Chronic atrial fibrillation; R33.9 Retention of urine, unspecified; N35.919 Unspecified urethral stricture, male, unspecified site; N32.0 Bladder-neck obstruction; I08.2 Rheumatic disorders of both aortic and tricuspid valves; B96.20 Unspecified Escherichia coli [E. coli] as the cause of diseases classified elsewhere; Z79.4 Long term (current) use of insulin; Z90.79 Acquired absence of other genital organ(s); Z82.49 Family history of ischemic heart disease and other diseases of the circulatory system; Z87.891 Personal history of nicotine dependence; Z86.73 Personal history of transient ischemic attack (TIA), and cerebral infarction without residual deficits; Z88.1 Allergy status to other antibiotic agents; Z88.5 Allergy status to narcotic agent; Z85.46 Personal history of malignant neoplasm of prostate; Z72.89 Other problems related to lifestyle; Z99.81 Dependence on supplemental oxygen; Z79.51 Long term (current) use of inhaled steroids
CPT/HCPCS: 33207; 36415; 71045; 71046; 80048; 80053; 81003; 81015; 82272; 82550; 82553; 82728; 82803; 82947; 83540; 83550; 83605; 83735; 83880; 84484; 85025; 85610; 87040; 87070; 87077; 87086; 87186; 87205; 87641; 93005; 93306; 94640; 94762; 99156; 99157; 99284; A9270-GY; C1786; C1898; C8929; G8978-GP-CK; G8979-GP-CI; J0696; J1200; J1644; J1940; J2250; J2310; J2920; J3010; J3490; J7512

== ENCOUNTER 2018-04-02 12:32 | Inpatient (IN) | payer MEDICARE, BC ==
--- NOTE | 2018-04-02 17:08 | HP ---
History of Present Illness - History of Present Illness Reason for Visit: Shortness of breath History of Present Illness: 88 yo M recently admitted at [facility] from 03/14/2018 to 2017 with COPD, acute on chronic diastolic CHF and Atrial fibrillation. He presented at that time with malaise, cough, shortness of fatigue x 1 month. He was admitted with acute hypoxic respiratory failure secondary to COPD exacerbation. Symptoms improved with bronchodilators and steriods. His CHF exacerbation improved on Furosemide and Diltiazem. TTE was done and showed intact ejection fraction. During his hospitalization he developed a sick sinus syndrome with prolonged sinus pause; PPM placed. Bladder neck stricture dilated successfully by urology during hospitalization, with continued Padilla at discharge and outpatient followup by Urology At discharge (Swing status at [facility]) recommended for continued BiPAP. 03/28: While at [facility], Lasix held for decreasing renal function. requiring oxygen therapy but not BiPAP 04/01: increased cough. CXR done 03/31 with CHF exacerbation. Started on Lasix 40 mg IV and Spironolactone 25 mg PO. Poor urine output. Evening pH 7.14, pCO2 90 , pO2 64. Placed on BiPAP overnight 04/02: Maintained on BiPAP overnight. Repeat ABG with pH 7.22, pCo2 69, pO2 64. Mental status improved but still lethargic. AM CXR with increased pulmonary edema. Transferred to [place] for possible advanced airway needs. 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 Endocrine: Diabetes - Past Surgical History Past Surgical History: Other - pace maker placement - Past Family History Family History: CAD - Past Social History Smoke: Quit Alcohol: None Drugs: None Lives: With Family - - Health Maintenance Health Maintenance: Influenza Vaccine Review of Systems - Review of Systems Constitutional: Negative: Fever, Chills, Sweats, Weakness, Malaise, Other Eyes: Negative: Pain, Vision Change, Conjunctivae Inflammation, Eyelid Inflammation, Redness, Other ENT: Negative: Ear Pain, Ear Discharge, Nose Pain, Nose Discharge, Nose Congestion, Mouth Pain, Mouth Swelling, Throat Pain, Throat Swelling, Other Respiratory: Positive: Cough, Dry, Shortness of Breath Cardiovascular: Positive: Paroxysmal Noc. Dyspnea Gastrointestinal: Positive: Diarrhea, Constipation Genitourinary: Positive: Retention Musculoskeletal: Negative: Neck Pain, Shoulder Pain, Arm Pain, Back Pain, Hand Pain, Leg Pain, Foot Pain, Other Skin: Negative: Rash, Lesions, Juan, Bruising, Other Neurological: Negative: Weakness, Numbness, Incoordination, Change in Speech, Confusion, Seizures, Other - Medications/Allergies Allergies/Adverse Reactions: Allergies Allergy/AdvReac Type Severity Reaction Status Date / Time cephalexin [From Keflex] AdvReac Nausea And Verified 03/14/18 10:22 Vomiting codeine AdvReac Nausea And Verified 03/14/18 10:22 Vomiting Exam - Exam Vital Signs: Vital Signs (72 hours) 04/02/18 16:33 Temperature 97.2 F Pulse Rate 60 Respiratory 22 Rate Blood Pressure 89/65 (mmHg) O2 Sat by Pulse 100 Oximetry General: Alert, Oriented x3, Cooperative, No acute distress HEENT: Atraumatic, PERRLA, EOMI Lungs: Clear to auscultation, Other - distant and hyperresonant bilaterally Cardiovascular: Regular rate, Other - ventricularly paced on tele Abdomen: Soft, No tenderness, Other - Obese Extremities: Other - chronic venous skin changes bilaterally L>R. Bilateral edema x 4. Dopplerable DP pulses bilaterally Neurological: Normal speech - as able to assess through bipap mask Psych/Mental Status: Mental status NL, Mood NL Assessment/Plan - Assessment/Plan Assessment: 88 yo M with COPD, CHF, Sick sinus syndrome readmitted from [facility] with acute on chronic hypoxic and hypercapneic respiratory failure secondary to CHF exacerbation and pulmonary edema Plan: Cardiovascular: (1) Acute on chronic diastolic CHF; (2) Sick sinus syndrome s/ p pacer placement, 02/2018; (3) Hypotension -- HR 60, paced -- SBP 89, follow trend, asymptomatic -- Telemetry -- Resume home eliquis -- Lasix 40 mg IV daily, including a dose tonight -- home diltiazem and metoprolol secondary to hypotension -- resume home Zocor Home meds: eliquis, diltiazem, lasix, lisinopril, metoprolol, zocor, spironolactone Pulmonary: (1) COPD; (2) Pulmonary edema cardiac cause; (3) Acute on chronic hypoxic and hypercapneic respiratory failure -- RR 21-22 -- sats 100% -- continue BiPAP, wean as able to keep sats > 88% -- CXR: increasing pulmonary edema, new finding of fluid in right fissure as compared to CXR from 03/31 -- ABG: pH 7.22; pCO2 69; pO2 64; HCO3 23.7; BE -1.2; %O2 Sat 87.1. at [facility] on biPAP. 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 follow trend. expect this will improve with repeat dose of Lasix Ca 8.8 -- IVF: HLIVF due to volume overload -- Lasix 40 mg IV daily -- Will call urology in AM regarding disposition of Padilla catheter (he has an outpatient visit scheduled for tomorrow -- Will consider Nephrology consult if creatinine continues to rise Home meds: lasix, spironolactone Infectious disease: (1) Leukocytosis -- Tmax 97.2 -- WBC 13.91 -- Micro 04/02 UA sent flu negative -- ABX None, currently afebrile. CXR without infiltrate. monitor trend. Home meds: topical nystatin Neurologic: No acute issues -- PT OT Home meds: tylenol Hematological: (1) Chronic anemia -- Hgb 9.2, follow trend -- Plt 335 -- DVT prophylaxis: resume home eliquis Home meds: eliquis, ferrous sulfate Metabolic: No acute issues Home meds: None Other: No acute issues Home meds: MVI Deep vein thrombosis prophylaxis: Eliquis Dietary: Pepcid Condition: Critical Prognosis: Good Code status: FULL Disposition: continue ICU Care Cumulative time spent in the care of this patient (excluding any procedure time) : at least 70 minutes. Patient care included clinical interview (with patient and/or family), bedside exam of the patient, review of labs, x-rays, and other ancillary data, coordination of (respiratory, nursing care, review of patient's records, discussion regarding patients management with involved consultants, primary physician, pharmacists, and other healthcare personnel (dietary, case management , physical/occupational therapy etc.)
[2018-04-02] MEDS ORDERED: Docusate CAP* 100 MG PO PRN (17:55)
[2018-04-02] MEDS ORDERED: Dextrose 50% Syringe 50 ML* 25 GM/50 ML SYRINGE IV PUSH PRN (17:56)
[2018-04-02] MEDS ORDERED: Polyethylene Glycol 3350* 17 GM PACKET PO PRN (17:59)
[2018-04-02] MEDS ORDERED: Furosemide IV* 10 MG/ML VIAL (40 MG) IV SCH (18:00)
[2018-04-02] MEDS ORDERED: Spiriva Inhaler DEVICE* 1 EACH DEVICE SCH (19:00)
[2018-04-02] MEDS ORDERED: Spiriva Inhaler DEVICE* 1 EACH DEVICE INH SCH (19:00)
[2018-04-02] MEDS: Insulin GLARGINE(*) 1 UNITS UNIT SUBCUT SCH (19:48)
[2018-04-02] MEDS: Insulin LISPRO* 1 UNITS UNIT SUBCUT SCH (21:03)
[2018-04-02] MEDS: Famotidine TAB* 20 MG PO SCH (21:03)
[2018-04-02] MEDS: Apixaban* 2.5 MG TAB PO SCH (21:29)
[2018-04-02] MEDS: GuaiFENesin DM* 5 ML UDC PO PRN (21:29)
[2018-04-02 22:24] LABS: ABS Basophils 0 10^3/ul (0-0.2); ABS Eosinophils 0 10^3/ul (0-0.6); ABS Lymphocytes 0.2 10^3/ul (1.0-4.8); ABS Monocytes 0.3 10^3/ul (0-0.8); ABS Neutrophils 12.5 10^3/ul (1.5-7.7); ABS Nucleated RBC 0 10^3/ul; Eosinophil % 0.2 %; Hematocrit 30 % (42-52); Hemoglobin 8.5 g/dl (14.0-18.0); Lymphocyte % 1.5 %; Mean Corpuscular HGB Conc 29 g/dl (31-36); Mean Corpuscular Hemoglobin 22 pg (27-31); Mean Corpuscular Volume 76 fL (80-94); Mean Platelet Volume 8.5 fL (7.4-10.4); Nucleated Red Blood Cells % 0.1; Platelet Count 289 10^3/ul (150-450); Red Blood Count 3.91 10^6/ul (4.00-5.40); Red Cell Distribution Width 23 % (10.5-15)
[2018-04-02 22:39] LABS: BUN/Creatinine Ratio 20.9 (8-20); Calcium 8.5 mg/dL (8.6-10.3); EGFR Non-African American 26.6 (>60)
[2018-04-02 22:41] LABS: Potassium 5.2 mmol/L (3.5-5.0)
[2018-04-02] MEDS ORDERED: NS 0.9% 1000 ML* 1,000 ML IV SCH (23:30)
[2018-04-03] MEDS ORDERED: NS 0.9% 500 ML* 500 ML IV ONE (02:53)
[2018-04-03] MEDS: NS 0.9% 1000 ML* 1,000 ML IV SCH ×2 (03:22→11:15)
[2018-04-03 05:08] LABS: Hematocrit 29 % (42-52); Hemoglobin 8.1 g/dl (14.0-18.0); Mean Corpuscular HGB Conc 28 g/dl (31-36); Mean Corpuscular Hemoglobin 21 pg (27-31); Mean Corpuscular Volume 75 fL (80-94); Mean Platelet Volume 8.7 fL (7.4-10.4); Platelet Count 278 10^3/ul (150-450); Red Blood Count 3.83 10^6/ul (4.00-5.40); White Blood Count 14.3 10^3/ul (3.5-10.8)
[2018-04-03 05:35] LABS: Calcium 8.1 mg/dL (8.6-10.3); Magnesium 2.9 mg/dL (1.9-2.7)
[2018-04-03 05:36] LABS: Potassium 5.5 mmol/L (3.5-5.0)
[2018-04-03 05:39] LABS: ABS Basophils 0.1 10^3/ul (0-0.2); ABS Eosinophils 0 10^3/ul (0-0.6); ABS Lymphocytes 0.2 10^3/ul (1.0-4.8); ABS Monocytes 0.4 10^3/ul (0-0.8); ABS Neutrophils 13.6 10^3/ul (1.5-7.7); ABS Nucleated RBC 0 10^3/ul; Eosinophil % 0 %; Lymphocyte % 1.2 %; Nucleated Red Blood Cells % 0; Red Cell Distribution Width 23 % (10.5-15)
[2018-04-03 05:41] LABS: BUN/Creatinine Ratio 21.7 (8-20); EGFR Non-African American 22.8 (>60)
[2018-04-03] MEDS: Insulin GLARGINE(*) 1 UNITS UNIT SUBCUT SCH ×2 (06:14→17:46)
[2018-04-03] MEDS: Tiotropium CAP.INH* CAP.INH/18 MCG (USE ORDER SET !) INH SCH (07:41)
[2018-04-03] MEDS ORDERED: Perflutren Lipid Microsphere* 3 ML VIAL ONE (08:27)
[2018-04-03] MEDS: Apixaban* 2.5 MG TAB PO SCH ×2 (09:07→21:25)
[2018-04-03] MEDS: Atorvastatin* 10 MG TAB PO SCH (09:08)
[2018-04-03] MEDS: predniSONE TAB* 20 MG PO SCH (09:08)
[2018-04-03] MEDS: Insulin LISPRO* 1 UNITS UNIT SUBCUT SCH ×4 (09:09→22:34)
--- NOTE | 2018-04-03 09:34 | PN ---
Date of Service: 04/03/18 - HD 2 Critical Care Services: 88 yo M recently admitted at [facility] from 03/14/2018 to 2017 with COPD, acute on chronic diastolic CHF and Atrial fibrillation. He presented at that time with malaise, cough, shortness of fatigue x 1 month. He was admitted with acute hypoxic respiratory failure secondary to COPD exacerbation. Symptoms improved with bronchodilators and steriods. His CHF exacerbation improved on Furosemide and Diltiazem. TTE was done and showed intact ejection fraction. During his hospitalization he developed a sick sinus syndrome with prolonged sinus pause; PPM placed. Bladder neck stricture dilated successfully by urology during hospitalization, with continued Padilla at discharge and outpatient followup by Urology At discharge (Swing status at [facility]) recommended for continued BiPAP. 03/28: While at [facility], Lasix held for decreasing renal function. requiring oxygen therapy but not BiPAP 04/01: increased cough. CXR done 03/31 with CHF exacerbation. Started on Lasix 40 mg IV and Spironolactone 25 mg PO. Poor urine output. Evening pH 7.14, pCO2 90 , pO2 64. Placed on BiPAP overnight 04/02: Maintained on BiPAP overnight. Repeat ABG with pH 7.22, pCo2 69, pO2 64. Mental status improved but still lethargic. AM CXR with increased pulmonary edema. Transferred to [facility] for possible advanced airway needs. 04/03: ABG on arrival improved. Tolerated BiPAP overnight. Vital Signs: Temp Pulse Resp BP SpO2 FiO2 96.0 F 60 12 120/51 100 45 04/03/18 07:30 04/03/18 07:01 04/03/18 07:01 04/03/18 07:01 04/03/18 07:01 04/03 04:00 Physical Exam: Gen: sitting up in chair, conversant HEENT: NC in place Lungs: coarse bilaterally Cardiac: RRR Abdomen: soft, obese, nontender Extremities: warm, dry, pitting edema bilaterally Neuro: alert and oriented Fluid Balance (Past 24 Hours): I= O= Net Intake & Output 04/01/18 04/02/18 04/03/18 04/04/18 06:59 06:59 06:59 06:59 Intake Total 2226 100 Output Total 75 80 Balance 2151 20 Weight 304 lb 10.861 oz Intake: IV Fluids 1336 NS (0.9%) 1336 Oral 890 100 Output: Padilla 75 80 Other: Date of Last Bowel t Movement # Bowel Movements 2 Estimated Stool Amount Large ADLs: Meal Record Start: 04/02/18 16: 33 Freq: 09,13,18 Status: Active Protocol: Created 04/02/18 16:33 System (Rec: 04/02/18 16:33 System [id number]) Document 04/02/18 21:51 [id number] (Rec: 04/02/18 21:51 [id number] ICU-C06) Document 04/03/18 09:00 [id number] (Rec: 04/03/18 09:22 [id number] ICU-C06) Intake and Output Start: 04/02/18 16: 33 Freq: Q1HR Status: Active Protocol: Created 04/02/18 16:33 System (Rec: 04/02/18 16:33 System [id number]) Document 04/02/18 19:00 [id number] (Rec: 04/02/18 19:47 [id number] ICU-M25) Document 04/02/18 20:00 [id number] (Rec: 04/02/18 21:27 [id number] ICU-C06) Document 04/02/18 21:00 [id number] (Rec: 04/02/18 21:27 [id number] ICU-C06) Document 04/02/18 22:00 [id number] (Rec: 04/02/18 22:26 [id number] ICU-C06) Document 04/02/18 23:00 [id number] (Rec: 04/02/18 23:12 [id number] ICU-C06) Document 04/03/18 00:00 [id number] (Rec: 04/03/18 00:38 [id number] ICU-C06) Document 04/03/18 01:00 [id number] (Rec: 04/03/18 01:23 [id number] ICU-C06) Document 04/03/18 02:00 [id number] (Rec: 04/03/18 02:14 [id number] ICU-C06) Document 04/03/18 03:00 [id number] (Rec: 04/03/18 03:16 [id number] ICU-C06) Document 04/03/18 05:00 [id number] (Rec: 04/03/18 05:15 [id number] ICU-C06) Document 04/03/18 06:00 [id number] (Rec: 04/03/18 06:18 [id number] ICU-C06) Document 04/03/18 07:00 [id number] (Rec: 04/03/18 07:29 [id number] ICU-C06) Document 04/03/18 08:00 [id number] (Rec: 04/03/18 09:21 [id number] ICU-C06) Document 04/03/18 09:00 [id number] (Rec: 04/03/18 09:21 [id number] ICU-C06) Labs: Laboratory Results - last 24 hr 04/02/18 04/02/18 04/02/18 18:05 19:20 19:51 WBC RBC Hgb Hct MCV MCH MCHC RDW Plt Count MPV Neut % (Auto) Lymph % (Auto) Turner % (Auto) Eos % (Auto) Baso % (Auto) Absolute Neuts (auto) Absolute Lymphs (auto) Absolute Monos (auto) Absolute Eos (auto) Absolute Basos (auto) Absolute Nucleated RBC Nucleated RBC % Patient Temperature Not Reportable ABG pH 7.35 ABG pH (Temp Correct) Not Reportable ABG pCO2 53 H ABG pCO2 (Temp Corrct Not Reportable ABG pO2 92 ABG pO2 (Temp Correct Not Reportable ABG HCO3 26.8 ABG O2 Saturation 98.7 H ABG Base Excess 2.5 H Respiration Rate 12 O2 Delivery Device Bipap Ventilator Type Not Reportable Vent Mode st FiO2 45 Inspiratory Time Not Reportable PEEP Not Reportable Pressure Support Not Reportable Pressure Control Not Reportable EPAP 5 IPAP 18 BiPAP Not Reportable Sodium Potassium Chloride Carbon Dioxide Anion Gap BUN Creatinine Est GFR ( Amer) Est GFR (Non-Af Amer) BUN/Creatinine Ratio Glucose POC Glucose (mg/dL) 266 H Calcium Magnesium B-Natriuretic Peptide Influenza A (Rapid) Negative Influenza B (Rapid) Negative 04/02/18 04/02/18 04/02/18 20:56 22:16 22:16 WBC 13.0 H RBC 3.91 L Hgb 8.5 L Hct 30 L MCV 76 L MCH 22 L MCHC 29 L RDW 23 H Plt Count 289 MPV 8.5 Neut % (Auto) 96.0 Lymph % (Auto) 1.5 Turner % (Auto) 2.2 Eos % (Auto) 0.2 Baso % (Auto) 0.1 Absolute Neuts (auto) 12.5 H Absolute Lymphs (auto) 0.2 L Absolute Monos (auto) 0.3 Absolute Eos (auto) 0 Absolute Basos (auto) 0 Absolute Nucleated RBC 0 Nucleated RBC % 0.1 Patient Temperature ABG pH ABG pH (Temp Correct) ABG pCO2 ABG pCO2 (Temp Corrct ABG pO2 ABG pO2 (Temp Correct ABG HCO3 ABG O2 Saturation ABG Base Excess Respiration Rate O2 Delivery Device Ventilator Type Vent Mode FiO2 Inspiratory Time PEEP Pressure Support Pressure Control EPAP IPAP BiPAP Sodium 132 L Potassium 5.2 H Chloride 99 L Carbon Dioxide 26 Anion Gap 7 BUN 49 H Creatinine 2.34 H Est GFR ( Amer) 32.1 Est GFR (Non-Af Amer) 26.6 BUN/Creatinine Ratio 20.9 H Glucose 274 H POC Glucose (mg/dL) 261 H Calcium 8.5 L Magnesium B-Natriuretic Peptide Influenza A (Rapid) Influenza B (Rapid) 04/03/18 04/03/18 04/03/18 04:52 04:52 04:52 WBC 14.3 H RBC 3.83 L Hgb 8.1 L Hct 29 L MCV 75 L MCH 21 L MCHC 28 L RDW 23 H Plt Count 278 MPV 8.7 Neut % (Auto) 95.0 Lymph % (Auto) 1.2 Turner % (Auto) 2.8 Eos % (Auto) 0 Baso % (Auto) 1.0 Absolute Neuts (auto) 13.6 H Absolute Lymphs (auto) 0.2 L Absolute Monos (auto) 0.4 Absolute Eos (auto) 0 Absolute Basos (auto) 0.1 Absolute Nucleated RBC 0 Nucleated RBC % 0 Patient Temperature ABG pH ABG pH (Temp Correct) ABG pCO2 ABG pCO2 (Temp Corrct ABG pO2 ABG pO2 (Temp Correct ABG HCO3 ABG O2 Saturation ABG Base Excess Respiration Rate O2 Delivery Device Ventilator Type Vent Mode FiO2 Inspiratory Time PEEP Pressure Support Pressure Control EPAP IPAP BiPAP Sodium 133 L Potassium 5.5 H Chloride 100 L Carbon Dioxide 28 Anion Gap 5 BUN 58 H Creatinine 2.67 H Est GFR ( Amer) 27.6 Est GFR (Non-Af Amer) 22.8 BUN/Creatinine Ratio 21.7 H Glucose 244 H POC Glucose (mg/dL) Calcium 8.1 L Magnesium 2.9 H B-Natriuretic Peptide 335 H Influenza A (Rapid) Influenza B (Rapid) 04/03/18 04/03/18 07:52 09:01 WBC RBC Hgb Hct MCV MCH MCHC RDW Plt Count MPV Neut % (Auto) Lymph % (Auto) Turner % (Auto) Eos % (Auto) Baso % (Auto) Absolute Neuts (auto) Absolute Lymphs (auto) Absolute Monos (auto) Absolute Eos (auto) Absolute Basos (auto) Absolute Nucleated RBC Nucleated RBC % Patient Temperature Not Reportable ABG pH 7.27 L ABG pH (Temp Correct) Not Reportable ABG pCO2 53 H ABG pCO2 (Temp Corrct Not Reportable ABG pO2 77 L ABG pO2 (Temp Correct Not Reportable ABG HCO3 22.3 ABG O2 Saturation 96.4 ABG Base Excess -3.3 L Respiration Rate Not Reportable O2 Delivery Device n/c Ventilator Type Not Reportable Vent Mode Not Reportable FiO2 2 Inspiratory Time Not Reportable PEEP Not Reportable Pressure Support Not Reportable Pressure Control Not Reportable EPAP Not Reportable IPAP Not Reportable BiPAP Not Reportable Sodium Potassium Chloride Carbon Dioxide Anion Gap BUN Creatinine Est GFR ( Amer) Est GFR (Non-Af Amer) BUN/Creatinine Ratio Glucose POC Glucose (mg/dL) 309 H Calcium Magnesium B-Natriuretic Peptide Influenza A (Rapid) Influenza B (Rapid) Studies: 04/03 CXR - pulmonary edema with interval improvement 04/03 TTE ordered Nutrition: cardiac diet Impression: 88 yo M with COPD, CHF, Sick sinus syndrome readmitted from [facility] with acute on chronic hypoxic and hypercapneic respiratory failure secondary to CHF exacerbation and pulmonary edema. Now with worsening acute kidney injury vs acute renal failure. Plan: Cardiovascular:(1) Acute on chronic diastolic CHF; (2) Sick sinus syndrome s/p pacer placement, 02/2018; (3) Hypotension -- HR 59-66, paced -- SBP 78-152 -- Telemetry -- TTE, 04/03: ordered -- BNP 335, follow trend. Continue diuresis as renal failure allows ( nephrology consulted) -- Eliquis -- Atorvastatin -- home diltiazem and metoprolol held secondary to hypotension, continue to hold at this time Home meds: eliquis, diltiazem, lasix, lisinopril, metoprolol, zocor, spironolactone Pulmonary: (1) COPD; (2) Pulmonary edema, cardiac cause; (3) Acute on chronic hypoxic and hypercapneic respiratory failure -- RR 12-27 -- sats 93-100 -- BiPAP overnight. -- CXR: decreased fluid in fissue, improvement in pulmonary edema -- ABG: pH 7.27; pCO2 53; pO2 77; HCO3 223; BE -3.3; %O2 Sat 96.4. - acidosis mostly metabolic as pH was 7.35 with pCO2 53 last night but BE 2.5. Follow trend -- Duonebs as needed -- Tiotropium -- Robitussin as needed Home meds: albuterol, guaifenesin, duonebs, mometasone furoate-formoterol, prednisone, spiriva Gastrointestinal: No acute issues -- diet: Cardiac -- bowel regimen: Colace, Miralax -- ulcer prophylaxis: Pepcid while on BiPAP -- PRN Zofran for nausea Home meds: mylanta-maalox, colace, zofran, miralax Endocrine: (1) Diabetes mellitus -- monitor BGs -- Lantus and SSI -- Prednisone Home meds:lantus, lispro, prednisone Renal: (1) Acute kidney injury vs acute renal failure; (2) Possible cardiorenal syndrome -- UOP: inaccurate; padilla leaking -- I/O:2226/75 -- Cr 2.67 from 2.34, follow trend [baseline 1.6 on 03/31] -- Lytes Na 133 from 132 K 5.5, asymptomatic. Ca 8.1, replace Mag 2.9, follow trend Phos ordered -- IVF: HL due to volume overload -- Urology consulted for follow up of bladder neck stricture dilation and leaking padilla which had been placed by Urology initially -- Nephrology consulted for acute renal failure and possible renal acidosis Home meds: lasix, spironolactone Infectious disease: (1) Leukocytosis -- Tmax 97.5 -- WBC 13.0 from 14.3, likely hemoconcentration given improvement in symptoms after diuresis. follow trend. panculture if temp spikes -- Micro 1/6 flu negative -- ABX None, currently afebrile. CXR without infiltrate. monitor trend. Home meds: topical nystatin Neurologic: No acute issues -- PT OT Home meds: tylenol Hematological: (1) Chronic anemia -- Hgb 8.1 from 8.5, follow trend -- Plt 278 from 289 -- DVT prophylaxis: Eliquis Home meds: eliquis, ferrous sulfat Metabolic: No acute issues Home meds: None Other: No acute issues Home meds: MVI Deep vein thrombosis prophylaxis: Eliquis Dietary: Pepcid Condition: Critical Prognosis: Good Code status: FULL Disposition: continue ICU Care Cumulative time spent in the care of this patient (excluding any procedure time) : at least 45 minutes. Patient care included clinical interview (with patient and/or family), bedside exam of the patient, review of labs, x-rays, and other ancillary data, coordination of (respiratory, nursing care, review of patient's records, discussion regarding patients management with involved consultants, primary physician, pharmacists, and other healthcare personnel (dietary, case management , physical/occupational therapy etc.) Critical Care Time: 45 min
--- NOTE | 2018-04-03 10:58 | ECHO ---
Patient: KEISHA LYONS [place] Rec#: [id number] : 1930 Date: 04/03/2018 Age: 88y Height: 178 cm / 70.1 in Weight: 141 kg / 310.8 lbs Sex: M BSA: 2.52 Room#: ICU 10 Admit Date#: 04/02/2018 Type: Inpatient Referring: Nita Salinas Reading: Yogi Bennett MD Computer Tech: Brigette Carey,JJCS,RDMS CC: Yassine Kimball DO Transthoracic Echocardiogram Indication: CHF BP: 96/47 HR: 61 Rhythm: A-Fib Findings History: CHF, COPD, AFIB, PACEMAKER, CVA, HTN, HLD, PVD Technical Comments: The study quality is fair. The study is technically limited due to the patient's history of COPD. Left Ventricle: The left ventricular chamber size is normal. Mild concentric left ventricular hypertrophy is observed. Global left ventricular wall motion and contractility are within normal limits. The left ventricle appears hyperdynamic. The estimated ejection fraction is greater than 65%. The assessment of diastolic function is non-diagnostic. Left Atrium: The left atrium is moderately dilated. Right Ventricle: The right ventricle wall thickness is mildly increased. The right ventricle is slightly dilated. The right ventricular global systolic function is low normal. Right Atrium: The right atrium is moderately dilated. Aortic Valve: The aortic valve is trileaflet. The aortic valve leaflets are mildly thickened. There is a trace of aortic regurgitation. There is no evidence of aortic stenosis. Mitral Valve: There is mitral annular calcification. The mitral valve leaflets are mildly thickened. There is no evidence of mitral regurgitation. There is no evidence of mitral stenosis. Tricuspid Valve: The tricuspid valve leaflets are normal. There is trace tricuspid regurgitation. Unable to estimate the right ventricular systolic pressure. Pulmonic Valve: The pulmonic valve structure is not well visualized. There is no evidence of pulmonic regurgitation. Pericardium: There is no significant pericardial effusion. Aorta: The aortic root appears normal. There is no dilatation of the aortic arch. Pulmonary Artery: The main pulmonary artery is not well visualized. Venous: The inferior vena cava is not visualized. Contrast: Definity was used to optimize study. A total of 2 ml was used. Summary: There are no significant changes when compared to the previous study done on 03/14/18 Conclusions Mild concentric left ventricular hypertrophy is observed. Global left ventricular wall motion and contractility are within normal limits. The estimated ejection fraction is greater than 65%. The right ventricular global systolic function is low normal. The aortic valve leaflets are mildly thickened. There is a trace of aortic regurgitation. There is no evidence of aortic stenosis. There is no evidence of mitral regurgitation. There is trace tricuspid regurgitation. Unable to estimate the right ventricular systolic pressure. There is no significant pericardial effusion. There are no significant changes when compared to the previous study done on 03/14/18 Measurements Name Value Normal Range RVIDd (AP) 2D 2.6 cm (0.9 - 2.6) RVDdMajor (2D) 3.2 cm (2.2 - 4.4) RAd ISD 4CH 6.3 cm (3.4 - 4.9) RA (A4C)W 5.5 cm (2.9 - 4.6) IVSd (2D) 1.3 cm (0.6 - 1) LVPWd (2D) 1.1 cm (0.6 - 1) LVIDd (2D) 4.2 cm (3.6 - 5.4) LVIDs (2D) 2 cm - LV FS (2D) 53 % (25 - 45) Aortic Annulus 2 cm (1.4 - 2.6) Ao root diameter (2D) 2.9 cm (2.1 - 3.5) Ascending Ao 3 cm (2.1 - 3.4) Aortic arch 3 cm (1.8 - 3.4) LA dimension (AP) 2D 4.9 cm (2.3 - 3.8) LAd ISD 4CH 6.8 cm (2.9 - 5.3) LA ISD 4CH W 5.3 cm (2.5 - 4.5) Name Value Normal Range MV E-wave Vmax 1.3 m/sec - MV deceleration time 167 msec - LV lateral e' Vmax 0.06 m/sec - LV E:e' lateral ratio 21 ratio - Name Value Normal Range AV Vmax 1.5 m/sec - AV peak gradient 9 mmHg - LVOT Vmax 1.1 m/sec - LVOT peak gradient 5 mmHg - Name Value Normal Range MV Vmax 1.4 m/sec - MV VTI 37 cm - MV peak gradient 8 mmHg - MV mean gradient 3 mmHg - MV PHT 86 msec - MVA (PHT) 2.6 cm2 - Name Value Normal Range RAP 8 mmHg - Name Value Normal Range PV Vmax 0.6 m/sec - PV peak gradient 1.4 mmHg -
[2018-04-03] MEDS: Sodium Bicarbonate (ANTACID)* 650 MG TAB PO SCH ×3 (12:05→23:45)
--- NOTE | 2018-04-03 15:18 | PN ---
Progress Note - Progress Note Date of Service: 04/03/18 - interval update Note: Spoke with Dr. Morgan. She will see patient later this week. Continue current management for now. Use sling for upper arm if patient moving it too much, otherwise PRN. Will need eval at 30 days from pacer placement to check functioning
[2018-04-03] MEDS: Iron Sucrose* 200 MG in NS 0.9% 100 ML* 100 ML IVPB SCH (17:05)
--- NOTE | 2018-04-03 19:11 | CONS ---
NEPHROLOGY CONSULTATION: DATE OF CONSULT: 04/03/18 HISTORY OF PRESENT ILLNESS: Mr. Chavez is an 88-year-old gentleman who was transferred over from [facility] because of worsening renal function in the face of diuretics. He had been admitted because of an episode of worsening of COPD and shortness of breath. He was noted to be quite edematous. He was thought to have some worsening of diastolic congestive heart failure. He says he is breathing much better than he had been in the past. He has been noted to have some significant edema, but he thinks he is baseline right now. PAST MEDICAL HISTORY: His previous medical history is significant for recent onset of sick sinus syndrome with a prolonged sinus pause. He has had a pacemaker placed. He has bladder neck stricture and required a Lua catheter which is presently leaking. He has a history of COPD and is felt to have primary pulmonary hypoventilation syndrome secondary to morbid obesity. MEDICATIONS: At home have included: 1. Metoprolol. 2. Lantus insulin. 3. Acetaminophen. 4. Simvastatin. 5. Lispro. 6. Multivitamins. 7. Nystatin. 8. He also takes Bactroban topically. 9. Eliquis. 10. Furosemide. He had been getting 20 mg and that was recently pushed to 40 mg and it was that that produced a slightly elevated serum creatinine. ALLERGIES: CEPHALEXIN and CODEINE. SOCIAL HISTORY: He previously was a smoker, but quit many years ago. He does not use alcohol or recreational drugs. REVIEW OF SYSTEMS: No visual disturbances. No hearing problems. No swallowing difficulties. No chest pain. No nausea, no vomiting. No change in his bowel habits. PHYSICAL EXAM: He is a grossly obese white gentleman who appears to be quite comfortable at the present time. His blood pressure is 118/43 with a pulse of 67, respirations are 31, O2 saturation 94%. He is anicteric. His extraocular muscles are intact. Mucous membranes are moist. His neck is very thick and I could not see his neck veins. He had very distant breath sounds but I heard no rales or rhonchi. The heart revealed an irregular rhythm. I did not hear any murmurs. The abdomen is grossly obese. He had some fingerprinting on the anterior abdominal wall. Bones, joints, extremities; he had 2+ edema all the way up above the inguinal ligament. There is minor acrocyanosis to his toes. DIAGNOSTIC STUDIES/LAB DATA: A review of his laboratory studies reveals white count of 14.3, hemoglobin of 8.1, hematocrit of 29. He has recently had a blood gas, which revealed a pH of 7.27, pCO2 of 53, pO2 of 27. Sodium 133, potassium 5.5, chloride 100, CO2 of 28. BUN 50; creatinine of 2.67, his creatinine in the middle of February was approximately 1.5. He did get a contrast load in February with some Omnipaque for cardiac catheterization, calcium of 8.1 with an albumin of 3.1. He has had markedly diminished iron studies. IMPRESSION: 1. Acute on chronic renal insufficiency. 2. Total body fluid overload. 3. Primary pulmonary hypoventilation syndrome. 4. Gross obesity. 5. Iron deficiency. PLAN: At the present time, I think it would not be a bad idea to go ahead and replace his iron intravenously with some Venofer. He probably stools for occult blood done that had been accomplished in the middle of February and was negative, but we do not have a good reason for iron deficiency at present. At the present time, I would allow his respiratory status to dictate the continued use of diuretics. [id number]/[facility] #: [id number] M[facility] HOSPITALKira
[2018-04-03] MEDS ORDERED: Furosemide IV* 10 MG/ML VIAL (40 MG) IV ONE (20:06)
[2018-04-03] MEDS: Famotidine TAB* 20 MG PO SCH (21:25)
[2018-04-04] MEDS ORDERED: Artificial Tears* 15 ML BTL BOTH EYES PRN (02:46)
[2018-04-04] MEDS ORDERED: Morphine INJ* 2 MG/ML 1 ML SYRINGE (TWO MG - NEW SYRINGE VERSION) IV PRN (04:40)
[2018-04-04] MEDS ORDERED: Morphine VIAL* 4 MG/ML VIAL (1 ml vial) ONE (04:48)
[2018-04-04 05:12] LABS: ABS Basophils 0 10^3/ul (0-0.2); ABS Eosinophils 0 10^3/ul (0-0.6); ABS Lymphocytes 0.1 10^3/ul (1.0-4.8); ABS Neutrophils 14.9 10^3/ul (1.5-7.7); ABS Nucleated RBC 0 10^3/ul; Eosinophil % 0 %; Hematocrit 30 % (42-52); Hemoglobin 8.5 g/dl (14.0-18.0); Lymphocyte % 0.9 %; Mean Corpuscular HGB Conc 28 g/dl (31-36); Mean Corpuscular Hemoglobin 21 pg (27-31); Mean Corpuscular Volume 75 fL (80-94); Mean Platelet Volume 8.5 fL (7.4-10.4); Nucleated Red Blood Cells % 0.1; Platelet Count 279 10^3/ul (150-450); Red Blood Count 4.01 10^6/ul (4.00-5.40); Red Cell Distribution Width 24 % (10.5-15); White Blood Count 16.1 10^3/ul (3.5-10.8)
[2018-04-04 05:26] LABS: Calcium 8.2 mg/dL (8.6-10.3); EGFR Non-African American 21.5 (>60)
[2018-04-04] MEDS: Insulin GLARGINE(*) 1 UNITS UNIT SUBCUT SCH ×2 (06:00→21:05)
[2018-04-04] MEDS: Atorvastatin* 10 MG TAB PO SCH (09:25)
[2018-04-04] MEDS: predniSONE TAB* 20 MG PO SCH (09:25)
[2018-04-04] MEDS: Sodium Bicarbonate (ANTACID)* 650 MG TAB PO SCH ×3 (09:25→17:40)
[2018-04-04] MEDS: Insulin LISPRO* 1 UNITS UNIT SUBCUT SCH ×4 (09:25→21:04)
[2018-04-04] MEDS: Apixaban* 2.5 MG TAB PO SCH ×2 (09:26→21:03)
[2018-04-04] MEDS ORDERED: TOLVAPTAN 15 MG PO ONE (09:30)
[2018-04-04] MEDS: Tiotropium CAP.INH* CAP.INH/18 MCG (USE ORDER SET !) INH SCH (09:38)
--- NOTE | 2018-04-04 09:41 | PN ---
Date of Service: 04/04/18 - HD 3 Critical Care Services: 88 yo M recently admitted at [facility] from 03/14/2018 to 2017 with COPD, acute on chronic diastolic CHF and Atrial fibrillation. He presented at that time with malaise, cough, shortness of fatigue x 1 month. He was admitted with acute hypoxic respiratory failure secondary to COPD exacerbation. Symptoms improved with bronchodilators and steriods. His CHF exacerbation improved on Furosemide and Diltiazem. TTE was done and showed intact ejection fraction. During his hospitalization he developed a sick sinus syndrome with prolonged sinus pause; PPM placed. Bladder neck stricture dilated successfully by urology during hospitalization, with continued Padilla at discharge and outpatient followup by Urology At discharge (Swing status at [facility]) recommended for continued BiPAP. 03/28: While at [place], Lasix held for decreasing renal function. requiring oxygen therapy but not BiPAP 04/01: increased cough. CXR done 03/31 with CHF exacerbation. Started on Lasix 40 mg IV and Spironolactone 25 mg PO. Poor urine output. Evening pH 7.14, pCO2 90 , pO2 64. Placed on BiPAP overnight 04/02: Maintained on BiPAP overnight. Repeat ABG with pH 7.22, pCo2 69, pO2 64. Mental status improved but still lethargic. AM CXR with increased pulmonary edema. Transferred to [place] for possible advanced airway needs. 04/03: ABG on arrival improved. Tolerated BiPAP overnight. Nephrology and Urology consulted 04/04: No overnight events Vital Signs: Temp Pulse Resp BP SpO2 FiO2 97.1 F 73 26 133/61 99 45 04/04/18 07:41 04/04/18 09:01 04/04/18 09:01 04/04/18 09:00 04/04/18 09:01 04/04 00:13 Physical Exam: Gen: alert, conversant HEENT: NC in place Lungs: Scattered exhalatory wheeze on left, scattered rhonci bilaterally. Cardiac: RRR Abdomen: soft, nontender Extremities: warm, dry, stable edema and chronic skin changes Neuro: alert, oriented Fluid Balance (Past 24 Hours): I= O= Net Intake & Output 04/02/18 04/03/18 04/04/18 04/05/18 06:59 06:59 06:59 06:59 Intake Total 2226 2019 Output Total 75 747 260 Balance 2151 1273 -260 Weight 304 lb 10.861 oz 305 lb 8.971 oz Intake: IV Fluids 1336 980 NS (0.9%) 1336 980 IVPB 110 Iron 110 Oral 890 930 Output: Padilla 75 747 260 Other: Date of Last Bowel t 04/03/18 Movement # Bowel Movements 2 1 Estimated Stool Amount Large Medium ADLs: Meal Record Start: 04/02/18 16: 33 Freq: 09,13,18 Status: Active Protocol: Created 04/02/18 16:33 System (Rec: 04/02/18 16:33 System RESP-C01) Document 04/02/18 21:51 [id number] (Rec: 04/02/18 21:51 [id number] ICU-C06) Document 04/03/18 09:00 [id number] (Rec: 04/03/18 09:22 [id number] ICU-C06) Document 04/03/18 13:30 [id number] (Rec: 04/03/18 13:56 [id number] ICU-C06) Document 04/03/18 18:00 [id number] (Rec: 04/03/18 20:00 [id number] ICU-C07) Intake and Output Start: 04/02/18 16: 33 Freq: Q1HR Status: Active Protocol: Created 04/02/18 16:33 System (Rec: 04/02/18 16:33 System RESP-C01) Document 04/02/18 19:00 [id number] (Rec: 04/02/18 19:47 [id number] ICU-M25) Document 04/02/18 20:00 [id number] (Rec: 04/02/18 21:27 [id number] ICU-C06) Document 04/02/18 21:00 [id number] (Rec: 04/02/18 21:27 [id number] ICU-C06) Document 04/02/18 22:00 [id number] (Rec: 04/02/18 22:26 [id number] ICU-C06) Document 04/02/18 23:00 [id number] (Rec: 04/02/18 23:12 [id number] ICU-C06) Document 04/03/18 00:00 [id number] (Rec: 04/03/18 00:38 [id number] ICU-C06) Document 04/03/18 01:00 [id number] (Rec: 04/03/18 01:23 [id number] ICU-C06) Document 04/03/18 02:00 [id number] (Rec: 04/03/18 02:14 [id number] ICU-C06) Document 04/03/18 03:00 [id number] (Rec: 04/03/18 03:16 [id number] ICU-C06) Document 04/03/18 05:00 [id number] (Rec: 04/03/18 05:15 [id number] ICU-C06) Document 04/03/18 06:00 [id number] (Rec: 04/03/18 06:18 [id number] ICU-C06) Document 04/03/18 07:00 [id number] (Rec: 04/03/18 07:29 [id number] ICU-C06) Document 04/03/18 08:00 [id number] (Rec: 04/03/18 09:21 [id number] ICU-C06) Document 04/03/18 09:00 [id number] (Rec: 04/03/18 09:21 [id number] ICU-C06) Document 04/03/18 10:00 [id number] (Rec: 04/03/18 11:55 [id number] ICU-C07) Document 04/03/18 11:00 [id number] (Rec: 04/03/18 11:55 [id number] ICU-C07) Document 04/03/18 12:00 [id number] (Rec: 04/03/18 12:02 [id number] ICU-M25) Document 04/03/18 13:30 [id number] (Rec: 04/03/18 13:56 [id number] ICU-C06) Document 04/03/18 14:00 [id number] (Rec: 04/03/18 15:10 [id number] ICU-C06) Document 04/03/18 15:00 [id number] (Rec: 04/03/18 15:14 [id number] ICU-C06) Document 04/03/18 16:00 [id number] (Rec: 04/03/18 16:22 [id number] ICU-C06) Document 04/03/18 17:00 [id number] (Rec: 04/03/18 17:07 [id number] ICU-M25) Document 04/03/18 17:52 [id number] (Rec: 04/03/18 17:52 [id number] ICU-C06) Document 04/03/18 20:00 [id number] (Rec: 04/03/18 20:01 [id number] ICU-C07) Document 04/03/18 21:00 [id number] (Rec: 04/03/18 23:08 [id number] ICU-C07) Document 04/03/18 22:00 [id number] (Rec: 04/03/18 23:08 [id number] ICU-C07) Document 04/03/18 23:07 [id number] (Rec: 04/03/18 23:08 [id number] ICU-C07) Document 04/04/18 00:00 [id number] (Rec: 04/04/18 00:13 [id number] ICU-C07) Document 04/04/18 01:00 [id number] (Rec: 04/04/18 01:14 [id number] ICU-C07) Document 04/04/18 02:00 [id number] (Rec: 04/04/18 02:04 [id number] ICU-C07) Document 04/04/18 03:00 [id number] (Rec: 04/04/18 04:32 [id number] ICU-C07) Document 04/04/18 04:00 [id number] (Rec: 04/04/18 04:32 [id number] ICU-C07) Document 04/04/18 05:00 [id number] (Rec: 04/04/18 05:27 [id number] ICU-C07) Document 04/04/18 06:00 [id number] (Rec: 04/04/18 06:13 [id number] ICU-C07) Document 04/04/18 08:00 [id number] (Rec: 04/04/18 08:51 [id number] ICU-C07) Document 04/04/18 09:00 [id number] (Rec: 04/04/18 09:04 [id number] ICU-C07) Labs: Laboratory Results - last 24 hr 04/03/18 04/03/18 04/03/18 04:52 11:40 15:42 WBC RBC Hgb Hct MCV MCH MCHC RDW Plt Count MPV Neut % (Auto) Lymph % (Auto) [place] % (Auto) Eos % (Auto) Baso % (Auto) Absolute Neuts (auto) Absolute Lymphs (auto) Absolute Monos (auto) Absolute Eos (auto) Absolute Basos (auto) Absolute Nucleated RBC Nucleated RBC % Hem Pathologist Commnt Sodium Potassium Chloride Carbon Dioxide Anion Gap BUN Creatinine Est GFR ( Amer) Est GFR (Non-Af Amer) BUN/Creatinine Ratio Glucose POC Glucose (mg/dL) 375 H Uric Acid 12.2 H Calcium B-Natriuretic Peptide 04/03/18 04/03/18 04/04/18 16:56 21:31 05:00 WBC RBC Hgb Hct MCV MCH MCHC RDW Plt Count MPV Neut % (Auto) Lymph % (Auto) [place] % (Auto) Eos % (Auto) Baso % (Auto) Absolute Neuts (auto) Absolute Lymphs (auto) Absolute Monos (auto) Absolute Eos (auto) Absolute Basos (auto) Absolute Nucleated RBC Nucleated RBC % Hem Pathologist Commnt Sodium 132 L Potassium 5.0 Chloride 102 Carbon Dioxide 25 Anion Gap 5 BUN 76 H Creatinine 2.81 H Est GFR ( Amer) 26.0 Est GFR (Non-Af Amer) 21.5 BUN/Creatinine Ratio 27.0 H Glucose 143 H POC Glucose (mg/dL) 314 H 223 H Uric Acid Calcium 8.2 L B-Natriuretic Peptide 04/04/18 04/04/18 05:00 05:50 WBC 16.1 H RBC 4.01 Hgb 8.5 L Hct 30 L MCV 75 L MCH 21 L MCHC 28 L RDW 24 H Plt Count 279 MPV 8.5 Neut % (Auto) 92.4 Lymph % (Auto) 0.9 [place] % (Auto) 6.4 Eos % (Auto) 0 Baso % (Auto) 0.3 Absolute Neuts (auto) 14.9 H Absolute Lymphs (auto) 0.1 L Absolute Monos (auto) 1.0 H Absolute Eos (auto) 0 Absolute Basos (auto) 0 Absolute Nucleated RBC 0 Nucleated RBC % 0.1 Hem Pathologist Commnt Sodium Potassium Chloride Carbon Dioxide Anion Gap BUN Creatinine Est GFR ( Amer) Est GFR (Non-Af Amer) BUN/Creatinine Ratio Glucose POC Glucose (mg/dL) Uric Acid Calcium B-Natriuretic Peptide 341 H Studies: 04/03 CXR - pulmonary edema with interval improvement 04/03 TTE - LVEF 65%. Unable to assess diastolic funcion Nutrition: cardiac diet Impression: 88 yo M with COPD, CHF, Sick sinus syndrome readmitted from [facility] with acute on chronic hypoxic and hypercapneic respiratory failure secondary to CHF exacerbation and pulmonary edema. Seen by Nephrology for CKD. Plan: Cardiovascular:(1) Acute on chronic diastolic CHF; (2) Sick sinus syndrome s/p pacer placement, 02/2018; (3) Hypotension -- HR 62-82 -- SBP 85-159 -- Telemetry -- TTE, 04/03: LVEF within normal limits. unable to assess diastolic function -- BNP 341 from 335, follow trend. Continue diuresis as needed based on respiratory function -- Eliquis -- Atorvastatin -- home diltiazem and metoprolol held secondary to hypotension, continue to hold at this time Home meds: eliquis, diltiazem, lasix, lisinopril, metoprolol, zocor, spironolactone Pulmonary: (1) COPD; (2) Pulmonary edema, cardiac cause; (3) Acute on chronic hypoxic and hypercapneic respiratory failure -- RR 17-32 -- sats 84-100 on 4L NC -- BiPAP PRN -- Duonebs as needed -- Tiotropium -- Robitussin as needed Home meds: albuterol, guaifenesin, duonebs, mometasone furoate-formoterol, prednisone, spiriva Gastrointestinal: No acute issues -- diet: Cardiac -- bowel regimen: Colace, Miralax -- ulcer prophylaxis: Pepcid while on BiPAP -- PRN Zofran for nausea Home meds: mylanta-maalox, colace, zofran, miralax Endocrine: (1) Diabetes mellitus -- monitor BGs -- Lantus and SSI; Lantus dose increased for better glycemic control -- Prednisone Home meds:lantus, lispro, prednisone Renal: (1) Acute kidney injury on CKD -- UOP: 31+ml/hr; padilla leaking -- I/O: -- Cr 2.81 from 2.67, follow trend [baseline 1.6 on 03/31] -- Lytes Na 132 from 133, no tolvaptan available K 5.0, asymptomatic. Ca 8.2, replace -- IVF: HL due to volume overload -- sodium bicarbonate -- Urology consulted for follow up of bladder neck stricture dilation and leaking padilla which had been placed by Urology initially -- Nephrology consulted for CKD; recommending use Lasix as needed for respiratory difficulties Home meds: lasix, spironolactone Infectious disease: (1) Leukocytosis -- Tmax 97.9 -- WBC 16.1 from 13.0, likely hemoconcentration given improvement in symptoms after diuresis. follow trend. panculture if temp spikes -- Micro 04/02 flu negative -- ABX None, currently afebrile. CXR without infiltrate. monitor trend. Home meds: topical nystatin Neurologic: No acute issues -- PT OT -- PRN Morphine as needed for pain Home meds: tylenol Hematological: (1) Chronic anemia -- Hgb 8.5 from 8.1, follow trend -- Plt 279 from 278 -- DVT prophylaxis: Eliquis -- Venofer Home meds: eliquis, ferrous sulfat Metabolic: (1) Elevated uric acid\hyperuricemia; (2) Metabolic acidosis -- Uric acid 12.2 -- start allopurinol based on increased risk for development of gout given renal acidosis and ongoing diuresis -- check lipid panel with AM labs -- sodium bicarbonate Home meds: None Other: No acute issues Home meds: MVI Deep vein thrombosis prophylaxis: Eliquis Dietary: Pepcid Condition: Critical Prognosis: Good Code status: FULL Disposition: continue ICU Care Patient and daughter updated at bedside regarding clinical progress and plan of care Cumulative time spent in the care of this patient (excluding any procedure time) : at least 40 minutes. Patient care included clinical interview (with patient and/or family), bedside exam of the patient, review of labs, x-rays, and other ancillary data, coordination of (respiratory, nursing care, review of patient's records, discussion regarding patients management with involved consultants, primary physician, pharmacists, and other healthcare personnel (dietary, case management , physical/occupational therapy etc.) Critical Care Time: 40
[2018-04-04] MEDS ORDERED: Insulin GLARGINE(*) 1 UNITS UNIT SUBCUT SCH (10:00)
[2018-04-04] MEDS ORDERED: Melatonin 3 MG TAB PO SCH (21:00)
[2018-04-04] MEDS: Calcium Carbonate CHEW TAB* 500 MG (TUMS) PO SCH (21:03)
[2018-04-04] MEDS: Famotidine TAB* 20 MG PO SCH (21:04)
[2018-04-05] MEDS: Sodium Bicarbonate (ANTACID)* 650 MG TAB PO SCH ×5 (00:12→23:55)
[2018-04-05] MEDS: Albuterol/Ipratropium NEB.SOL* Albuterol 2.5 MG/Ipratropium 0.5 MG 3 ML INH PRN (05:00)
[2018-04-05] MEDS: Tiotropium CAP.INH* CAP.INH/18 MCG (USE ORDER SET !) INH SCH ×2 (05:14→09:52)
[2018-04-05 06:04] LABS: Hematocrit 31 % (42-52); Hemoglobin 9.1 g/dl (14.0-18.0); Mean Corpuscular HGB Conc 29 g/dl (31-36); Mean Corpuscular Hemoglobin 22 pg (27-31); Mean Corpuscular Volume 74 fL (80-94); Mean Platelet Volume 8.1 fL (7.4-10.4); Platelet Count 266 10^3/ul (150-450); Red Cell Distribution Width 24 % (10.5-15); White Blood Count 11.5 10^3/ul (3.5-10.8)
[2018-04-05 06:25] LABS: BUN/Creatinine Ratio 35.2 (8-20); EGFR Non-African American 30.1 (>60); HDL Cholesterol 25.6 mg/dL; Phosphorus 4.5 mg/dL (2.5-5.0); Potassium 4.9 mmol/L (3.5-5.0)
[2018-04-05 06:31] LABS: ABS Basophils 0.1 10^3/ul (0-0.2); ABS Eosinophils 0 10^3/ul (0-0.6); ABS Lymphocytes 0.3 10^3/ul (1.0-4.8); ABS Monocytes 1.3 10^3/ul (0-0.8); ABS Neutrophils 9.9 10^3/ul (1.5-7.7); ABS Nucleated RBC 0 10^3/ul; Eosinophil % 0.1 %; Lymphocyte % 2.3 %; Nucleated Red Blood Cells % 0.1
[2018-04-05] MEDS: Insulin LISPRO* 1 UNITS UNIT SUBCUT SCH ×4 (08:37→21:53)
[2018-04-05] MEDS: Insulin GLARGINE(*) 1 UNITS UNIT SUBCUT SCH ×2 (08:55→21:54)
[2018-04-05] MEDS: Atorvastatin* 10 MG TAB PO SCH (08:57)
[2018-04-05] MEDS: predniSONE TAB* 20 MG PO SCH (08:57)
[2018-04-05] MEDS: Calcium Carbonate CHEW TAB* 500 MG (TUMS) PO SCH ×2 (08:58→21:12)
[2018-04-05] MEDS: Allopurinol TAB* 100 MG PO SCH (08:58)
[2018-04-05] MEDS: Apixaban* 2.5 MG TAB PO SCH ×2 (08:58→21:12)
[2018-04-05] MEDS: Iron Sucrose* 200 MG in NS 0.9% 100 ML* 100 ML IVPB SCH (09:42)
[2018-04-05] MEDS: Furosemide TAB* 40 MG PO SCH (12:59)
--- NOTE | 2018-04-05 14:02 | PN ---
Date of Service: 04/05/18 - HD 3 Critical Care Services: 88 yo M recently admitted at [facility] from 03/14/2018 to 2017 with COPD, acute on chronic diastolic CHF and Atrial fibrillation. He presented at that time with malaise, cough, shortness of fatigue x 1 month. He was admitted with acute hypoxic respiratory failure secondary to COPD exacerbation. Symptoms improved with bronchodilators and steriods. His CHF exacerbation improved on Furosemide and Diltiazem. TTE was done and showed intact ejection fraction. During his hospitalization he developed a sick sinus syndrome with prolonged sinus pause; PPM placed. Bladder neck stricture dilated successfully by urology during hospitalization, with continued Padilla at discharge and outpatient followup by Urology At discharge (Swing status at [place]) recommended for continued BiPAP. 03/28: While at [place], Lasix held for decreasing renal function. requiring oxygen therapy but not BiPAP 04/01: increased cough. CXR done 03/31 with CHF exacerbation. Started on Lasix 40 mg IV and Spironolactone 25 mg PO. Poor urine output. Evening pH 7.14, pCO2 90 , pO2 64. Placed on BiPAP overnight 04/02: Maintained on BiPAP overnight. Repeat ABG with pH 7.22, pCo2 69, pO2 64. Mental status improved but still lethargic. AM CXR with increased pulmonary edema. Transferred to [place] for possible advanced airway needs. 04/03: ABG on arrival improved. Tolerated BiPAP overnight. Nephrology and Urology consulted 04/05: No overnight events. Urology planning to exchange padilla today. Seen by cardiology, with adjustments made to meds Vital Signs: Temp Pulse Resp BP SpO2 FiO2 97.6 F 94 25 140/69 94 35 04/05/18 12:00 04/05/18 13:00 04/05/18 13:41 04/05/18 12:54 04/05/18 13:00 04/05 11:40 Physical Exam: Gen: Alert, conversant, a bit brighter than yesterday HEENT: NC in place Lungs: scattered expiratory wheezes. better air movement today Cardiac: RRR Abdomen: soft, obese, nontender Extremities: warm, dry, pitting edema unchanged. ecchymosis over left elbow Neuro: alert, oriented Fluid Balance (Past 24 Hours): I= O= Net Intake & Output 04/03/18 04/04/18 04/05/18 04/06/18 06:59 06:59 06:59 06:59 Intake Total 2226 2020 420 280 Output Total 75 747 1805 500 Balance 2151 1273 -1385 -220 Weight 304 lb 10.861 oz 306 lb 3.923 oz Intake: IV Fluids 1336 980 110 Iron 110 NS (0.9%) 1336 980 IVPB 110 Iron 110 Oral 890 930 420 170 Output: Padilla 75 747 1805 500 Other: Date of Last Bowel t 04/03/18 04/05/18 Movement # Bowel Movements 2 1 1 1 Estimated Stool Amount Large Medium Small Medium ADLs: Meal Record Start: 04/02/18 16: 33 Freq: 09,,18 Status: Active Protocol: Created 04/02/18 16:33 System (Rec: 04/02/18 16:33 System RESP-C01) Document 04/02/18 21:51 [id number] (Rec: 04/02/18 21:51 [id number] ICU-C06) Document 04/03/18 09:00 [id number] (Rec: 04/03/18 09:22 [id number] ICU-C06) Document 04/03/18 13:30 [id number] (Rec: 04/03/18 13:56 [id number] ICU-C06) Document 04/03/18 18:00 IKT5688 (Rec: 04/03/18 20:00 [id number] ICU-C07) Document 04/04/18 09:28 WUI5609 (Rec: 04/04/18 09:28 KLV2234 ICU-M25) Document 04/04/18 13:30 WJL1357 (Rec: 04/04/18 13:40 CPM1274 ICU-C07) Document 04/05/18 09:00 OJY0723 (Rec: 04/05/18 09:30 [id number] ICU-M22) Document 04/05/18 13:41 PFD0112 (Rec: 04/05/18 13:41 GUO5243 ICU-M25) Intake and Output Start: 04/02/18 16: 33 Freq: Q1HR Status: Active Protocol: Created 04/02/18 16:33 System (Rec: 04/02/18 16:33 System RESP-C01) Document 04/02/18 19:00 [id number] (Rec: 04/02/18 19:47 RUJ1431 ICU-M25) Document 04/02/18 20:00 WTC6063 (Rec: 04/02/18 21:27 PIY7348 ICU-C06) Document 04/02/18 21:00 FAM7120 (Rec: 04/02/18 21:27 UXD0539 ICU-C06) Document 04/02/18 22:00 LVB7782 (Rec: 04/02/18 22:26 GTU5461 ICU-C06) Document 04/02/18 23:00 GPM8506 (Rec: 04/02/18 23:12 WQK4151 ICU-C06) Document 04/03/18 00:00 HTP1404 (Rec: 04/03/18 00:38 QOB5828 ICU-C06) Document 04/03/18 01:00 UYS0999 (Rec: 04/03/18 01:23 JKH5670 ICU-C06) Document 04/03/18 02:00 OQL1421 (Rec: 04/03/18 02:14 SAX8270 ICU-C06) Document 04/03/18 03:00 NDJ8502 (Rec: 04/03/18 03:16 HYX4789 ICU-C06) Document 04/03/18 05:00 OXC4564 (Rec: 04/03/18 05:15 LYA7699 ICU-C06) Document 04/03/18 06:00 QHK2334 (Rec: 04/03/18 06:18 QIN5003 ICU-C06) Document 04/03/18 07:00 DVD9056 (Rec: 04/03/18 07:29 XMD5806 ICU-C06) Document 04/03/18 08:00 REI3767 (Rec: 04/03/18 09:21 MNC2425 ICU-C06) Document 04/03/18 09:00 TVD9822 (Rec: 04/03/18 09:21 EWA2792 ICU-C06) Document 04/03/18 10:00 SCL7624 (Rec: 04/03/18 11:55 AZF0312 ICU-C07) Document 04/03/18 11:00 FHL4807 (Rec: 04/03/18 11:55 QSO2413 ICU-C07) Document 04/03/18 12:00 KMS0032 (Rec: 04/03/18 12:02 XPV8332 ICU-M25) Document 04/03/18 13:30 ITT6065 (Rec: 04/03/18 13:56 VGE4837 ICU-C06) Document 04/03/18 14:00 SFH0214 (Rec: 04/03/18 15:10 GEZ6176 ICU-C06) Document 04/03/18 15:00 LLC0688 (Rec: 04/03/18 15:14 KRC1300 ICU-C06) Document 04/03/18 16:00 PNK6272 (Rec: 04/03/18 16:22 QPP1261 ICU-C06) Document 04/03/18 17:00 AES9543 (Rec: 04/03/18 17:07 BUL5663 ICU-M25) Document 04/03/18 17:52 ATA1467 (Rec: 04/03/18 17:52 ZSV5001 ICU-C06) Document 04/03/18 20:00 TBI1760 (Rec: 04/03/18 20:01 PQQ1389 ICU-C07) Document 04/03/18 21:00 DIL6472 (Rec: 04/03/18 23:08 FFL2230 ICU-C07) Document 04/03/18 22:00 GTK9539 (Rec: 04/03/18 23:08 HTA7112 ICU-C07) Document 04/03/18 23:07 MWL0075 (Rec: 04/03/18 23:08 YUU5001 ICU-C07) Document 04/04/18 00:00 GTM1622 (Rec: 04/04/18 00:13 YDY1854 ICU-C07) Document 04/04/18 01:00 OBQ8616 (Rec: 04/04/18 01:14 YCQ3681 ICU-C07) Document 04/04/18 02:00 VSJ6648 (Rec: 04/04/18 02:04 FDQ8794 ICU-C07) Document 04/04/18 03:00 XTY4406 (Rec: 04/04/18 04:32 XTO9444 ICU-C07) Document 04/04/18 04:00 KLJ0973 (Rec: 04/04/18 04:32 XMA9192 ICU-C07) Document 04/04/18 05:00 DCN6627 (Rec: 04/04/18 05:27 TFD5068 ICU-C07) Document 04/04/18 06:00 AHI4042 (Rec: 04/04/18 06:13 VHP4752 ICU-C07) Document 04/04/18 08:00 BHB6760 (Rec: 04/04/18 08:51 WEN0103 ICU-C07) Document 04/04/18 09:00 UMA8332 (Rec: 04/04/18 09:04 OSD9566 ICU-C07) Document 04/04/18 10:00 GRK7457 (Rec: 04/04/18 11:10 STK2355 ICU-C07) Document 04/04/18 11:00 RAH1638 (Rec: 04/04/18 11:14 EMB3923 ICU-C07) Document 04/04/18 12:00 SCA3997 (Rec: 04/04/18 12:59 SKH5028 ICU-M25) Document 04/04/18 13:00 MSU2971 (Rec: 04/04/18 14:02 TWW6287 ICU-C07) Document 04/04/18 14:00 MTN1659 (Rec: 04/04/18 14:02 PZD1804 ICU-C07) Document 04/04/18 15:00 QSW0795 (Rec: 04/04/18 15:19 PKO3563 ICU-C06) Document 04/04/18 16:00 KNE1628 (Rec: 04/04/18 16:22 GLY7460 ICU-C06) Document 04/04/18 17:00 XCB3395 (Rec: 04/04/18 18:01 RCN0292 ICU-C06) Document 04/04/18 18:00 EHU4380 (Rec: 04/04/18 18:01 RHL6873 ICU-C06) Document 04/04/18 19:00 WKN9914 (Rec: 04/04/18 19:22 VNV8517 ICU-C07) Document 04/04/18 21:00 BWL5038 (Rec: 04/04/18 21:15 [id number] ICU-C07) Document 04/04/18 22:00 WYV9409 (Rec: 04/04/18 22:38 [id number] ICU-C07) Document 04/05/18 00:00 OAG5604 (Rec: 04/05/18 00:14 XEZ8676 ICU-M25) Document 04/05/18 01:00 IJY4777 (Rec: 04/05/18 01:14 YNU0002 ICU-C07) Document 04/05/18 03:00 EAP3732 (Rec: 04/05/18 03:02 UZR7408 ICU-C07) Document 04/05/18 03:30 FSE6069 (Rec: 04/05/18 06:27 CMY7360 ICU-C07) Document 04/05/18 04:00 KJY1673 (Rec: 04/05/18 04:19 CXQ3619 ICU-C07) Document 04/05/18 05:50 MPS2147 (Rec: 04/05/18 05:50 [id number] ICU-M25) Document 04/05/18 07:00 QHJ2582 (Rec: 04/05/18 08:06 [id number] ICU-C06) Document 04/05/18 08:00 DOF9711 (Rec: 04/05/18 08:06 KOD6138 ICU-C06) Document 04/05/18 09:00 FXR9959 (Rec: 04/05/18 09:08 JUP4115 ICU-M22) Document 04/05/18 10:00 TWH1414 (Rec: 04/05/18 10:03 COI8359 ICU-M22) Document 04/05/18 11:00 RPK7543 (Rec: 04/05/18 11:56 ZHD6927 ICU-M22) Document 04/05/18 11:56 UGY2052 (Rec: 04/05/18 11:57 [id number] ICU-M22) Document 04/05/18 13:00 BWW1987 (Rec: 04/05/18 13:02 RWZ2627 ICU-M25) Labs: Laboratory Results - last 24 hr 04/04/18 04/04/18 04/04/18 09:01 12:51 17:14 WBC RBC Hgb Hct MCV MCH MCHC RDW Plt Count MPV Neut % (Auto) Lymph % (Auto) Addison % (Auto) Eos % (Auto) Baso % (Auto) Absolute Neuts (auto) Absolute Lymphs (auto) Absolute Monos (auto) Absolute Eos (auto) Absolute Basos (auto) Absolute Nucleated RBC Nucleated RBC % Sodium Potassium Chloride Carbon Dioxide Anion Gap BUN Creatinine Est GFR ( Amer) Est GFR (Non-Af Amer) BUN/Creatinine Ratio Glucose POC Glucose (mg/dL) 150 H 202 H 294 H Calcium Phosphorus Magnesium B-Natriuretic Peptide Triglycerides Cholesterol LDL Cholesterol HDL Cholesterol 04/04/18 04/05/18 04/05/18 20:57 05:45 05:45 WBC 11.5 H RBC 4.20 Hgb 9.1 L Hct 31 L MCV 74 L MCH 22 L MCHC 29 L RDW 24 H Plt Count 266 MPV 8.1 Neut % (Auto) 86.1 Lymph % (Auto) 2.3 Addison % (Auto) 11.0 Eos % (Auto) 0.1 Baso % (Auto) 0.5 Absolute Neuts (auto) 9.9 H Absolute Lymphs (auto) 0.3 L Absolute Monos (auto) 1.3 H Absolute Eos (auto) 0 Absolute Basos (auto) 0.1 Absolute Nucleated RBC 0 Nucleated RBC % 0.1 Sodium 137 Potassium 4.9 Chloride 104 Carbon Dioxide 29 Anion Gap 4 BUN 74 H Creatinine 2.10 H Est GFR ( Amer) 36.4 Est GFR (Non-Af Amer) 30.1 BUN/Creatinine Ratio 35.2 H Glucose 108 H POC Glucose (mg/dL) 220 H Calcium 8.0 L Phosphorus 4.5 Magnesium 3.0 H B-Natriuretic Peptide Triglycerides 73 Cholesterol 81 LDL Cholesterol 41 HDL Cholesterol 25.6 04/05/18 04/05/18 04/05/18 05:45 07:59 11:33 WBC RBC Hgb Hct MCV MCH MCHC RDW Plt Count MPV Neut % (Auto) Lymph % (Auto) Addison % (Auto) Eos % (Auto) Baso % (Auto) Absolute Neuts (auto) Absolute Lymphs (auto) Absolute Monos (auto) Absolute Eos (auto) Absolute Basos (auto) Absolute Nucleated RBC Nucleated RBC % Sodium Potassium Chloride Carbon Dioxide Anion Gap BUN Creatinine Est GFR ( Amer) Est GFR (Non-Af Amer) BUN/Creatinine Ratio Glucose POC Glucose (mg/dL) 128 H 203 H Calcium Phosphorus Magnesium B-Natriuretic Peptide 316 H Triglycerides Cholesterol LDL Cholesterol HDL Cholesterol Studies: 04/03 CXR - pulmonary edema with interval improvement 04/03 TTE - LVEF 65%. Unable to assess diastolic funcion Nutrition: cardiac diet Impression: 88 yo M with COPD, CHF, Sick sinus syndrome readmitted from [place] with acute on chronic hypoxic and hypercapneic respiratory failure secondary to CHF exacerbation and pulmonary edema. Seen by Nephrology for CKD, Urology for recent urethral dilation and indwelling padilla and Cardiology for PPM Plan: Cardiovascular:(1) Acute on chronic diastolic CHF; (2) Sick sinus syndrome s/p pacer placement, 02/2018; (3) Hypotension, resolving -- HR 69-100 -- SBP 108-159 -- Telemetry -- TTE, 04/03: LVEF within normal limits. unable to assess diastolic function -- BNP 316 from 341 from 335, follow trend. Continue diuresis -- Eliquis -- Atorvastatin -- Lasix -- home diltiazem and metoprolol held secondary to hypotension, resume metoprolol -- Cardiology following Home meds: eliquis, diltiazem, lasix, lisinopril, metoprolol, zocor, spironolactone Pulmonary: (1) COPD; (2) Pulmonary edema, cardiac cause; (3) Acute on chronic hypoxic and hypercapneic respiratory failure, improving -- RR 9-36 -- sats 86-100 on 4L NC -- BiPAP PRN -- Duonebs as needed -- Tiotropium and mometasone inhalers -- Robitussin as needed Home meds: albuterol, guaifenesin, duonebs, mometasone furoate-formoterol, prednisone, spiriva Gastrointestinal: No acute issues -- diet: Cardiac -- bowel regimen: Colace, Miralax -- ulcer prophylaxis: Pepcid while on BiPAP -- PRN Zofran for nausea Home meds: mylanta-maalox, colace, zofran, miralax Endocrine: (1) Diabetes mellitus -- monitor BGs -- Lantus and SSI; Lantus dose increased 1/8 for better glycemic control -- Prednisone Home meds:lantus, lispro, prednisone Renal: (1) Acute kidney injury on CKD -- UOP: 75 ml/hr -- I/O:420/1805 -- Cr 2.10 from 2.81, follow trend [baseline 1.6 on 03/31] -- Lytes Na 137 from 132, no tolvaptan available K 4.9 Ca 8.0, on replacement -- IVF: HL due to volume overload -- sodium bicarbonate -- Lasix -- Urology consulted for follow up of bladder neck stricture dilation and leaking padilla which had been placed by Urology initially. Planned padilla exchange today -- Nephrology consulted for CKD; recommending use Lasix as needed for respiratory difficulties Home meds: lasix, spironolactone Infectious disease: (1) Leukocytosis, resolving -- Tmax 98.9 -- WBC 11.5 from 16.1. panculture if temp spikes -- Micro 04/02 flu negative -- ABX None, currently afebrile. CXR without infiltrate. monitor trend. Home meds: topical nystatin Neurologic: (1) Insomnia -- PT OT -- PRN Morphine as needed for pain -- Melatonin for sleep Home meds: tylenol Hematological: (1) Chronic anemia -- Hgb 9.1 from 8.5, follow trend -- Plt 266 from 279 -- DVT prophylaxis: Eliquis -- Venofer x 5 Home meds: eliquis, ferrous sulfate Metabolic: (1) Elevated uric acid\hyperuricemia; (2) Metabolic acidosis -- Uric acid 12.2 -- Allopurinol -- check lipid panel with AM labs -- sodium bicarbonate Home meds: None Other: No acute issues Home meds: MVI Deep vein thrombosis prophylaxis: Eliquis Dietary: Pepcid Condition: Critical Prognosis: Good Code status: FULL Disposition: continue ICU Care Patient and daughter updated at bedside regarding clinical progress and plan of care Cumulative time spent in the care of this patient (excluding any procedure time) : at least 40 minutes. Patient care included clinical interview (with patient and/or family), bedside exam of the patient, review of labs, x-rays, and other ancillary data, coordination of (respiratory, nursing care, review of patient's records, discussion regarding patients management with involved consultants, primary physician, pharmacists, and other healthcare personnel (dietary, case management , physical/occupational therapy etc.) Critical Care Time: 40
--- NOTE | 2018-04-05 15:28 | CONS ---
CONSULTATION REPORT: DATE OF CONSULT: 04/05/18 PRIMARY CARAMEL CANDY MAKER: Dr. Yue Morgan. PRIMARY PHYSICIAN: Dr. Kimball. REASON FOR CONSULT: Decompensated diastolic heart failure. CHIEF COMPLAINT: Shortness of breath with sputum production. HISTORY OF PRESENT ILLNESS: This is a pleasant 88-year-old gentleman with a notable history of permanent AFib, on Toprol and Eliquis therapy; in addition to insulin dependent diabetes mellitus; chronic kidney disease, stage 3; renal artery stenosis; diastolic heart failure; hypertension; sick-sinus syndrome, status post single chamber pacemaker implantation 03/18/18. The patient was recently admitted to [facility] [place] 03/14/18 due to complaints of shortness of breath with sputum production, bladder stricture. During hospitalization, he was noted to have sick-sinus syndrome with significant pauses, subsequently he underwent single-chamber pacemaker implantation by Dr. Yue Morgan 03/18/18. During that admission he was treated for E. coli urinary tract infection, decompensated diastolic heart failure and COPD exacerbation. He was discharged from our facility 03/24/18, and transferred to [facility] rehab. According to the notes on 03/28/18, Lasix was stopped. Renal function on 03/29/18, creatinine was 1.6. From 03/28/18 to 04/01/18, patient developed increased shortness of breath with clear sputum production. Apparently, a chest x-ray was ordered on 03/31/18, which showed congestive heart failure, subsequently on 04/01/18, Lasix IV 40 mg b.i.d., Aldactone 25 mg a day and lisinopril 5 mg a day were initiated. The next day on 04/02/18, creatinine went up from 1.6 to 1.9. Due to acute and chronic renal failure, decompensated diastolic heart failure and decreased urination, patient was transferred to [facility] [place] for further evaluation. ABG was evaluated in addition to application of BiPAP therapy. ABG at outlying facility reveals pH 7.14, pCO2 of 90, pO2 of 78, HCO3 was 24. Patient was admitted to the ICU here at [facility] [place], where we were asked to evaluate him due to decompensated diastolic heart failure. He has not received diuretic therapy since 04/03/18. Renal function continued to improve. He has had approximately 100 to 125 cc of urinary output via Lua catheter today according to his nurse Jacqueline, whom I personally spoke with. He denies chest pain, palpitations, sensation of heart racing, left anterior chest pain, fever, chills, nausea or vomiting. He does report chronic diarrhea, which is not new for him. His is at his bed side and is very useful in obtaining history of present illness. He had an echocardiogram on 09/13, which revealed LVEF 65%, trace aortic insufficiency, mild LVH. Blood cultures have not been repeated since 03/14/18, however, what is interesting is upon review of prior microbiology on 03/19/18, he had yeast positive sputum cultures, not clear if this was treated or thought to be colonization. Again, he continues to be afebrile, however, at [place] he did have an elevated WBC count of 14.9. Last echocardiogram as mentioned above 04/02/18, at that time LVEF was 65% mild LVH, moderate left atrial dilation, slight right ventricle dilation, trace aortic insufficiency, trace tricuspid regurgitation. PAST MEDICAL HISTORY: Includes: 1. Permanent AFib, on Eliquis and Toprol therapy. 2. Hypertension. 3. Insulin dependent diabetes mellitus. 4. Chronic kidney disease, stage 3, creatinine baseline is 1.4 to 1.5. 5. Prostate cancer. 6. Renal artery stenosis via duplex in 2004. 7. Bladder stricture. 8. Diastolic heart failure. 9. Anemia of likely chronic disease. PAST SURGICAL HISTORY: Includes: 1. Prostatectomy in 1981. 2. Back tumor removal in 1987. 3. Appendectomy in 1945. 4. Lipoma removal. 5. Radical prostatectomy. 6. Single chamber pacemaker implantation, 03/18/18. HOME MEDICATIONS: Per admission med rec, however, please note the Toprol and Lasix have been held since 04/03/18. ALLERGIES: Includes KEFLEX and CODEINE. FAMILY HISTORY: Noncontributory. SOCIAL HISTORY: The patient is a former tobacco user, smoked 3 packs per day for 30 years, quit 40 years ago. He is . Lives at home with his . He is retired. Denies recreational drug use. Denies alcohol abuse. PHYSICAL EXAM: Vital Signs: Weight today is 306 pounds, he is up 2 pounds since the 04/03/18, pulse was 92, respirations 32, oxygenation 93% on FiO2. Blood pressure 108/89. General: The patient is short of breath, cooperative with exam, alert and oriented x3, otherwise in on apparent distress. HEENT: Head is atraumatic, normocephalic. Oral mucosa is moist. Tongue is midline. Neck: Supple. Trachea midline. Positive JVD. No carotid bruits. Lungs: Auscultated posteriorly, positive rhonchi noted throughout. No retractions noted. Cardiac: Tachy, S1, S2, irregular rate and rhythm. No gallop or rub noted. Chest: Left anterior chest incisional site from single chamber pacemaker implantation was inspected, edges are well approximated. No discharge. No inflammation. No hematoma. Extremities: The patient has 3+ pitting edema extending to his abdomen, otherwise no clubbing, no cyanosis. Peripheral Vascular: 3+ brachial and dorsalis pedis pulse palpated bilaterally and symmetrically. Skin: Intact. No evidence of jaundice or ecchymosis or rashes appreciated. There is a surgical incision site noted over the left anterior chest, which is intact. DIAGNOSTIC STUDIES/LAB DATA: Blood work obtained 04/05/18, white count 11.5, hemoglobin 9.1, hematocrit 31, platelets 266. Absolute neutrophils are elevated at 9.9. Sodium 137, potassium 4.9, chloride 104, carbon dioxide 29, BUN 74, creatinine 2.1. Glucose 108. There are no culture data to review for this admission. EKG to review this admit, none. However, I did review telemetry , he is in a ventricular paced rhythm with underlying AFib rates 90 to 110. Chest x-ray obtained 04/03/18, reveals pulmonary edema with left greater than right pleural effusion. ASSESSMENT AND PLAN: 1. Decompensated diastolic heart failure, NYHA functional class 4, stage C. We would restart Lasix 40 mg a day. We will initiate cardioselective beta-renard (Lopressor 12.5 mg p.o. b.i.d.). We will up titrate as needed. No JONI or ARB due to chronic kidney disease and LVEF being greater than 40%. We would monitor daily BMP with diabetic therapy. Positive volume overload as evidenced by 3+ pitting edema extending to the abdomen with left greater than right pleural effusion and positive JVD in physical examination. 2. Sick-sinus syndrome, status post single chamber PPM placement, 03/18/18. He will be due for device check the week of 04/18/18. Device site was inspected , it is dry and intact. Wound edges are well approximated. No inflammation or hematoma noted. 3. History of permanent atrial fibrillation with now labile heart rate control given Toprol XL has been held since 04/03/18. He is no longer hypotensive, thus would initiate cardioselective beta-renard given history of advanced chronic obstructive pulmonary disease. We will start Lopressor 12.5 mg p.o. b.i.d. Continue renal dose Eliquis therapy. 4. History of chronic kidney disease with acute on chronic renal failure. He had a history of renal artery stenosis in 2005, on duplex. Dr. Mares is following case. Baseline renal function is 1.4 to 1.5 in February 2018 admission. Joni inhibitor, Aldactone therapy has been discontinued which we agree with. We will monitor daily BMP while patient is being diuresed. The patient has good urinary output according to the nurse 100 to 125 cc per hour. 5. History of positive sputum culture on 03/19/18, which grew yeast. I spoke to the computer applications engineer, I notified her that although this could be contamination given pacemaker implantation occured on 03/18/18 would worry about seeding of fresh device. He has afebrile. He does have an elevated white blood cell count. She is to consider obtaining blood cultures. Last blood culture was obtained on 03/14/18, prior to sputum culture being obtained on the 03/19/18. 6. Disposition. Pending course, we will follow closely. I personally discussed plan of care with Dr. Yue Morgan, who agrees the above assessment and plan. We will monitor on telemetry and follow closely. Please do not hesitate to contact our service for any future questions or concerns. NOHEMI SHORT, TUNDE [id number]/[facility] #: [id number] JENNIFER
[2018-04-05] MEDS: Mometasone/Formoter 200/5 MDI INH SCH (20:55)
[2018-04-05] MEDS ORDERED: Melatonin 3 MG TAB PO SCH (21:00)
[2018-04-05] MEDS ORDERED: Metoprolol Tartrate TAB* 25 MG PO SCH (21:00)
[2018-04-05] MEDS: Famotidine TAB* 20 MG PO SCH (21:12)
[2018-04-06] MEDS: Albuterol/Ipratropium NEB.SOL* Albuterol 2.5 MG/Ipratropium 0.5 MG 3 ML INH PRN (00:07)
[2018-04-06] MEDS: Morphine VIAL* 4 MG/ML VIAL (1 ml vial) IV PRN ×2 (01:04→03:07)
[2018-04-06] MEDS: Sodium Bicarbonate (ANTACID)* 650 MG TAB PO SCH ×3 (06:10→17:31)
[2018-04-06] MEDS ORDERED: cefTRIAXone(*) 1 GM in NS 0.9% 50 ML* 50 ML IVPB SCH (07:00)
[2018-04-06 07:23] LABS: ABS Basophils 0 10^3/ul (0-0.2); ABS Eosinophils 0.2 10^3/ul (0-0.6); ABS Lymphocytes 0.4 10^3/ul (1.0-4.8); ABS Monocytes 1.4 10^3/ul (0-0.8); ABS Neutrophils 6.6 10^3/ul (1.5-7.7); ABS Nucleated RBC 0 10^3/ul; Hematocrit 33 % (42-52); Hemoglobin 9.4 g/dl (14.0-18.0); Lymphocyte % 4.2 %; Mean Corpuscular HGB Conc 29 g/dl (31-36); Mean Corpuscular Hemoglobin 21 pg (27-31); Mean Corpuscular Volume 74 fL (80-94); Mean Platelet Volume 8.3 fL (7.4-10.4); Nucleated Red Blood Cells % 0.1; Platelet Count 221 10^3/ul (150-450); Red Cell Distribution Width 24 % (10.5-15); White Blood Count 8.5 10^3/ul (3.5-10.8)
[2018-04-06] MEDS: Mometasone/Formoter 200/5 MDI INH SCH ×2 (08:19→19:46)
[2018-04-06] MEDS: Tiotropium CAP.INH* CAP.INH/18 MCG (USE ORDER SET !) INH SCH (08:19)
[2018-04-06 08:30] LABS: Calcium 8.8 mg/dL (8.6-10.3); Potassium 4.5 mmol/L (3.5-5.0)
[2018-04-06 08:35] LABS: BUN/Creatinine Ratio 41.3 (8-20); EGFR Non-African American 44.4 (>60)
[2018-04-06] MEDS: Insulin LISPRO* 1 UNITS UNIT SUBCUT SCH ×4 (09:15→21:44)
[2018-04-06] MEDS: Metoprolol Tartrate TAB* 25 MG PO SCH ×2 (09:29→21:47)
[2018-04-06] MEDS: predniSONE TAB* 20 MG PO SCH (09:30)
[2018-04-06] MEDS: Atorvastatin* 10 MG TAB PO SCH (09:30)
[2018-04-06] MEDS: Insulin GLARGINE(*) 1 UNITS UNIT SUBCUT SCH ×2 (09:30→21:44)
[2018-04-06] MEDS: Apixaban* 2.5 MG TAB PO SCH ×2 (09:30→21:46)
[2018-04-06] MEDS: Allopurinol TAB* 100 MG PO SCH (09:30)
[2018-04-06] MEDS: Multivitamins/Minerals TAB PO SCH (09:30)
[2018-04-06] MEDS: Furosemide TAB* 40 MG PO SCH (09:30)
[2018-04-06] MEDS: Calcium Carbonate CHEW TAB* 500 MG (TUMS) PO SCH ×2 (09:30→21:46)
[2018-04-06 11:25] LABS: Magnesium 2.7 mg/dL (1.9-2.7); Phosphorus 3.1 mg/dL (2.5-5.0)
--- NOTE | 2018-04-06 11:41 | PN ---
Date of Service: 04/06/18 - HD 4 Critical Care Services: 88 yo M recently admitted at [facility] from 03/14/2018 to 2017 with COPD, acute on chronic diastolic CHF and Atrial fibrillation. He presented at that time with malaise, cough, shortness of fatigue x 1 month. He was admitted with acute hypoxic respiratory failure secondary to COPD exacerbation. Symptoms improved with bronchodilators and steriods. His CHF exacerbation improved on Furosemide and Diltiazem. TTE was done and showed intact ejection fraction. During his hospitalization he developed a sick sinus syndrome with prolonged sinus pause; PPM placed. Bladder neck stricture dilated successfully by urology during hospitalization, with continued Padilla at discharge and outpatient followup by Urology At discharge (Swing status at [facility]) recommended for continued BiPAP. 03/28: While at [facility], Lasix held for decreasing renal function. requiring oxygen therapy but not BiPAP 04/01: increased cough. CXR done 03/31 with CHF exacerbation. Started on Lasix 40 mg IV and Spironolactone 25 mg PO. Poor urine output. Evening pH 7.14, pCO2 90 , pO2 64. Placed on BiPAP overnight 04/02: Maintained on BiPAP overnight. Repeat ABG with pH 7.22, pCo2 69, pO2 64. Mental status improved but still lethargic. AM CXR with increased pulmonary edema. Transferred to [place] for possible advanced airway needs. 04/03: ABG on arrival improved. Tolerated BiPAP overnight. Nephrology and Urology consulted 04/05: No overnight events. Tolerating nasal cannula throughout the day with short periods on BiPAP for shortness of breath after coughing spell. BiPAP at night. Seen by cardiology, with adjustments made to meds 04/06: Pulling at BiPAP at night but otherwise tolerating well. Wore BiPAP throughout most of the night. Vital Signs: Temp Pulse Resp BP SpO2 FiO2 97 F 87 21 122/68 95 35 04/06/18 07:46 04/06/18 11:00 04/06/18 11:00 04/06/18 11:00 04/06/18 11:00 04/06 04:35 Physical Exam: Gen: HEENT: Lungs: Cardiac: Abdomen: Extremities: Neuro: Fluid Balance (Past 24 Hours): I= O= Net Intake & Output 01/11/1304/05/18 04/06/18 04/07/18 06:59 06:59 06:59 06:59 Intake Total 2020 420 830 Output Total 747 1805 3495 325 Balance 1273 -4965 -2665 -325 Weight 306 lb 3.923 oz 302 lb 0.533 oz Intake: IV Fluids 980 110 Iron 110 NS (0.9%) 980 IVPB 110 Iron 110 Oral 930 420 720 Output: Padilla 747 1805 3495 325 Other: Estimated Void Medium Date of Last Bowel 04/03/18 04/05/18 Movement # Bowel Movements 1 1 1 Estimated Stool Amount Medium Small Medium ADLs: Meal Record Start: 04/02/18 16: 33 Freq: 09,13,18 Status: Active Protocol: Created 04/02/18 16:33 System (Rec: 04/02/18 16:33 System RESP-C01) Document 04/02/18 21:51 [id number] (Rec: 04/02/18 21:51 [id number] ICU-C06) Document 04/03/18 09:00 [id number] (Rec: 04/03/18 09:22 [id number] ICU-C06) Document 04/03/18 13:30 [id number] (Rec: 04/03/18 13:56 [id number] ICU-C06) Document 04/03/18 18:00 AIY7669 (Rec: 04/03/18 20:00 YCL0521 ICU-C07) Document 04/04/18 09:28 DUQ4918 (Rec: 04/04/18 09:28 [id number] ICU-M25) Document 04/04/18 13:30 [id number] (Rec: 04/04/18 13:40 DZE1072 ICU-C07) Document 04/05/18 09:00 BLR0788 (Rec: 04/05/18 09:30 CRD9614 ICU-M22) Document 04/05/18 13:41 [id number] (Rec: 04/05/18 13:41 [id number] ICU-M25) Document 04/05/18 18:00 NOF4215 (Rec: 04/05/18 18:34 PFZ3176 ICU-C11) Intake and Output Start: 04/02/18 16: 33 Freq: Q1HR Status: Active Protocol: Created 04/02/18 16:33 System (Rec: 04/02/18 16:33 System RESP-C01) Document 04/02/18 19:00 [id number] (Rec: 04/02/18 19:47 [id number] ICU-M25) Document 04/02/18 20:00 PVG8895 (Rec: 04/02/18 21:27 ZPV0739 ICU-C06) Document 04/02/18 21:00 [id number] (Rec: 04/02/18 21:27 [id number] ICU-C06) Document 04/02/18 22:00 UMG6331 (Rec: 04/02/18 22:26 IOT9425 ICU-C06) Document 04/02/18 23:00 MJA7116 (Rec: 04/02/18 23:12 CYU2159 ICU-C06) Document 04/03/18 00:00 LRU3326 (Rec: 04/03/18 00:38 RBI6789 ICU-C06) Document 04/03/18 01:00 TOO5985 (Rec: 04/03/18 01:23 RBB4843 ICU-C06) Document 04/03/18 02:00 ENR2936 (Rec: 04/03/18 02:14 QDU7019 ICU-C06) Document 04/03/18 03:00 SEU0905 (Rec: 04/03/18 03:16 UGR1938 ICU-C06) Document 04/03/18 05:00 OUF2291 (Rec: 04/03/18 05:15 [id number] ICU-C06) Document 04/03/18 06:00 CAM0823 (Rec: 04/03/18 06:18 KRW2120 ICU-C06) Document 04/03/18 07:00 XZG4325 (Rec: 04/03/18 07:29 AQJ6777 ICU-C06) Document 04/03/18 08:00 YDH4351 (Rec: 04/03/18 09:21 TNJ0269 ICU-C06) Document 04/03/18 09:00 OTV4796 (Rec: 04/03/18 09:21 OFQ9041 ICU-C06) Document 04/03/18 10:00 YTD2717 (Rec: 04/03/18 11:55 QZE6104 ICU-C07) Document 04/03/18 11:00 SDN4565 (Rec: 04/03/18 11:55 RQP6173 ICU-C07) Document 04/03/18 12:00 XQL2560 (Rec: 04/03/18 12:02 MZH6153 ICU-M25) Document 04/03/18 13:30 CZQ3318 (Rec: 04/03/18 13:56 FWP3868 ICU-C06) Document 04/03/18 14:00 XSU4355 (Rec: 04/03/18 15:10 WEW7361 ICU-C06) Document 04/03/18 15:00 RDR4687 (Rec: 04/03/18 15:14 RXK0454 ICU-C06) Document 04/03/18 16:00 JTP8238 (Rec: 04/03/18 16:22 VCR5138 ICU-C06) Document 04/03/18 17:00 FWW6072 (Rec: 04/03/18 17:07 [id number] ICU-M25) Document 04/03/18 17:52 JKT6797 (Rec: 04/03/18 17:52 RQJ3656 ICU-C06) Document 04/03/18 20:00 OLG8903 (Rec: 04/03/18 20:01 VTE4625 ICU-C07) Document 04/03/18 21:00 QUX7398 (Rec: 04/03/18 23:08 IKY0246 ICU-C07) Document 04/03/18 22:00 XFI0859 (Rec: 04/03/18 23:08 PSM4379 ICU-C07) Document 04/03/18 23:07 TEE3783 (Rec: 04/03/18 23:08 [id number] ICU-C07) Document 04/04/18 00:00 XNH2577 (Rec: 04/04/18 00:13 IWX8593 ICU-C07) Document 04/04/18 01:00 SKB5250 (Rec: 04/04/18 01:14 ERJ4845 ICU-C07) Document 04/04/18 02:00 RIX0761 (Rec: 04/04/18 02:04 AIM2093 ICU-C07) Document 04/04/18 03:00 XOM7386 (Rec: 04/04/18 04:32 [id number] ICU-C07) Document 04/04/18 04:00 VCQ7245 (Rec: 04/04/18 04:32 CGP9218 ICU-C07) Document 04/04/18 05:00 UOE6562 (Rec: 04/04/18 05:27 JRC3885 ICU-C07) Document 04/04/18 06:00 BUJ4630 (Rec: 04/04/18 06:13 LJA4891 ICU-C07) Document 04/04/18 08:00 MTY0260 (Rec: 04/04/18 08:51 UTO7334 ICU-C07) Document 04/04/18 09:00 CIS1151 (Rec: 04/04/18 09:04 [id number] ICU-C07) Document 04/04/18 10:00 SYC5799 (Rec: 04/04/18 11:10 FTI6956 ICU-C07) Document 04/04/18 11:00 RWP3486 (Rec: 04/04/18 11:14 VZW0621 ICU-C07) Document 04/04/18 12:00 EOL0621 (Rec: 04/04/18 12:59 LYH2172 ICU-M25) Document 04/04/18 13:00 JXS1496 (Rec: 04/04/18 14:02 PKD6606 ICU-C07) Document 04/04/18 14:00 IBY3672 (Rec: 04/04/18 14:02 ZYX0949 ICU-C07) Document 04/04/18 15:00 MUV4917 (Rec: 04/04/18 15:19 IPG9655 ICU-C06) Document 04/04/18 16:00 HJV1809 (Rec: 04/04/18 16:22 TTB4274 ICU-C06) Document 04/04/18 17:00 SIH9272 (Rec: 04/04/18 18:01 EVG0772 ICU-C06) Document 04/04/18 18:00 YRR5504 (Rec: 04/04/18 18:01 KTE9081 ICU-C06) Document 04/04/18 19:00 EXC2797 (Rec: 04/04/18 19:22 WNU2279 ICU-C07) Document 04/04/18 21:00 YKT2454 (Rec: 04/04/18 21:15 STB0867 ICU-C07) Document 04/04/18 22:00 QQY2640 (Rec: 04/04/18 22:38 GVX0095 ICU-C07) Document 04/05/18 00:00 PJG2141 (Rec: 04/05/18 00:14 ZPQ4628 ICU-M25) Document 04/05/18 01:00 XOB2742 (Rec: 04/05/18 01:14 MCC6969 ICU-C07) Document 04/05/18 03:00 TAT5277 (Rec: 04/05/18 03:02 PDL9101 ICU-C07) Document 04/05/18 03:30 CBI6974 (Rec: 04/05/18 06:27 KNG3569 ICU-C07) Document 04/05/18 04:00 UAG4557 (Rec: 04/05/18 04:19 CWP5939 ICU-C07) Document 04/05/18 05:50 ULY4945 (Rec: 04/05/18 05:50 FME5569 ICU-M25) Document 04/05/18 07:00 YDB3341 (Rec: 04/05/18 08:06 [id number] ICU-C06) Document 04/05/18 08:00 FRO4639 (Rec: 04/05/18 08:06 DPO7961 ICU-C06) Document 04/05/18 09:00 YZK1280 (Rec: 04/05/18 09:08 VIF4354 ICU-M22) Document 04/05/18 10:00 LYC0178 (Rec: 04/05/18 10:03 RZF0873 ICU-M22) Document 04/05/18 11:00 CYC8994 (Rec: 04/05/18 11:56 NOX8068 ICU-M22) Document 04/05/18 11:56 CRW0583 (Rec: 04/05/18 11:57 ETY2627 ICU-M22) Document 04/05/18 13:00 FLC6632 (Rec: 04/05/18 13:02 GNN3280 ICU-M25) Document 04/05/18 15:18 AMX0986 (Rec: 04/05/18 15:18 NPE3949 ICU-C25) Document 04/05/18 16:31 SNO6530 (Rec: 04/05/18 16:31 [id number] ICU-M25) Document 04/05/18 17:00 ONM8661 (Rec: 04/05/18 17:30 [id number] ICU-C12) Document 04/05/18 18:08 FFZ0586 (Rec: 04/05/18 18:08 TIV1725 ICU-M25) Document 04/05/18 19:39 YHK4533 (Rec: 04/05/18 19:39 [id number] ICU-M25) Document 04/05/18 21:30 HTJ6860 (Rec: 04/05/18 21:30 MUI9849 ICU-M25) Document 04/05/18 23:37 LCS9825 (Rec: 04/05/18 23:37 UNU0569 ICU-C14) Document 04/06/18 00:01 ZHR7275 (Rec: 04/06/18 00:01 EPZ9499 ICU-C07) Document 04/06/18 02:35 FHM1322 (Rec: 04/06/18 02:36 SCQ0953 ICU-C07) Document 04/06/18 04:28 VWZ9010 (Rec: 04/06/18 04:29 GBN0210 ICU-C07) Document 04/06/18 05:00 HZI8673 (Rec: 04/06/18 05:43 ILO9421 ICU-C07) Document 04/06/18 06:37 ABP7677 (Rec: 04/06/18 06:37 LAK7315 ICU-C07) Document 04/06/18 09:00 CLY7612 (Rec: 04/06/18 09:09 DPY1981 ICU-C07) Labs: Laboratory Results - last 24 hr 04/05/18 04/05/18 04/05/18 11:33 16:29 21:20 WBC RBC Hgb Hct MCV MCH MCHC RDW Plt Count MPV Neut % (Auto) Lymph % (Auto) Charles % (Auto) Eos % (Auto) Baso % (Auto) Absolute Neuts (auto) Absolute Lymphs (auto) Absolute Monos (auto) Absolute Eos (auto) Absolute Basos (auto) Absolute Nucleated RBC Nucleated RBC % Sodium Potassium Chloride Carbon Dioxide Anion Gap BUN Creatinine Est GFR ( Amer) Est GFR (Non-Af Amer) BUN/Creatinine Ratio Glucose POC Glucose (mg/dL) 203 H 159 H 284 H Calcium Phosphorus Magnesium B-Natriuretic Peptide 04/06/18 04/06/18 04/06/18 06:46 06:46 10:40 WBC 8.5 RBC 4.40 Hgb 9.4 L Hct 33 L MCV 74 L MCH 21 L MCHC 29 L RDW 24 H Plt Count 221 MPV 8.3 Neut % (Auto) 77.0 Lymph % (Auto) 4.2 Charles % (Auto) 16.6 Eos % (Auto) 2.0 Baso % (Auto) 0.2 Absolute Neuts (auto) 6.6 Absolute Lymphs (auto) 0.4 L Absolute Monos (auto) 1.4 H Absolute Eos (auto) 0.2 Absolute Basos (auto) 0 Absolute Nucleated RBC 0 Nucleated RBC % 0.1 Sodium 142 Potassium 4.5 Chloride 108 Carbon Dioxide 29 Anion Gap 5 BUN 62 H Creatinine 1.50 H Est GFR ( Amer) 53.7 Est GFR (Non-Af Amer) 44.4 BUN/Creatinine Ratio 41.3 H Glucose 68 L POC Glucose (mg/dL) Calcium 8.8 Phosphorus Magnesium B-Natriuretic Peptide 157 H 04/06/18 10:40 WBC RBC Hgb Hct MCV MCH MCHC RDW Plt Count MPV Neut % (Auto) Lymph % (Auto) Charles % (Auto) Eos % (Auto) Baso % (Auto) Absolute Neuts (auto) Absolute Lymphs (auto) Absolute Monos (auto) Absolute Eos (auto) Absolute Basos (auto) Absolute Nucleated RBC Nucleated RBC % Sodium Potassium Chloride Carbon Dioxide Anion Gap BUN Creatinine Est GFR ( Amer) Est GFR (Non-Af Amer) BUN/Creatinine Ratio Glucose POC Glucose (mg/dL) Calcium Phosphorus 3.1 Magnesium 2.7 B-Natriuretic Peptide Studies: 04/05 CXR - mild pulmonary congestion, unchanged 04/03 CXR - pulmonary edema with interval improvement 04/03 TTE - LVEF 65%. Unable to assess diastolic funcion Nutrition: Cardiac diet Impression: 88 yo M with COPD, CHF, Sick sinus syndrome readmitted from [facility] with acute on chronic hypoxic and hypercapneic respiratory failure secondary to CHF exacerbation and pulmonary edema. Seen by Nephrology for CKD, Urology for recent urethral dilation and indwelling padilla and Cardiology for PPM Plan: Cardiovascular:(1) Acute on chronic diastolic CHF, improving; (2) Sick sinus syndrome s/p pacer placement, 02/2018; (3) Hypotension, resolving -- HR 85-107 -- SBP 108-152 -- Telemetry -- TTE, 04/03: LVEF within normal limits. unable to assess diastolic function -- BNP 157 from 316, follow trend. Continue diuresis -- Eliquis -- Atorvastatin -- Metoprolol -- Lasix -- Cardiology following Home meds: eliquis, diltiazem, lasix, lisinopril, metoprolol, zocor, spironolactone Pulmonary: (1) COPD; (2) Pulmonary edema, cardiac cause; (3) Acute on chronic hypoxic and hypercapneic respiratory failure, improving -- RR 12-36 -- sats 83-100 on 4L NC -- BiPAP PRN and nightly -- CXR 04/06: mild pulmonary congestion, unchanged -- Duonebs as needed -- Tiotropium and mometasone inhalers -- Robitussin as needed Home meds: albuterol, guaifenesin, duonebs, mometasone furoate-formoterol, prednisone, spiriva Gastrointestinal: No acute issues -- diet: Cardiac -- bowel regimen: Colace, Miralax -- ulcer prophylaxis: Pepcid while on BiPAP -- PRN Zofran for nausea Home meds: mylanta-maalox, colace, zofran, miralax Endocrine: (1) Diabetes mellitus -- monitor BGs -- Lantus and SSI -- Prednisone Home meds:lantus, lispro, prednisone Renal: (1) Acute kidney injury on CKD -- UOP: 146 ml/hr -- I/O:830/3495 -- Cr 2.10 from 2.81, follow trend [baseline 1.6 on 03/31] -- Lytes Na 142 from 137 K 4.5 Ca 8.8, on replacement -- IVF: HL due to volume overload -- sodium bicarbonate -- Lasix -- Urology consulted for follow up of bladder neck stricture dilation and leaking padilla which had been placed by Urology initially. Planned padilla exchange; will call and clarify timing -- Nephrology consulted for CKD; recommending use Lasix as needed for respiratory difficulties Home meds: lasix, spironolactone Infectious disease: (1) Leukocytosis, resolving -- Tmax 98.5 -- WBC 8.5 from 11.5. Panculture if temp spikes -- Micro 1/6 flu negative -- ABX None, currently afebrile. CXR without infiltrate. monitor trend. Home meds: topical nystatin Neurologic: (1) Insomnia -- PT OT -- PRN Morphine as needed for pain -- Melatonin for sleep, change to Ambien as not responding to Melatonin Home meds: tylenol Hematological: (1) Chronic anemia -- Hgb 9.4 from 9.1 -- Plt 221 from 266 -- DVT prophylaxis: Eliquis -- Venofer x 5 Home meds: eliquis, ferrous sulfate Metabolic: (1) Elevated uric acid\hyperuricemia; (2) Metabolic acidosis -- Uric acid 12.2 -- Allopurinol -- check lipid panel with AM labs -- sodium bicarbonate Home meds: None Other: No acute issues -- MVI Home meds: MVI Deep vein thrombosis prophylaxis: Eliquis Dietary: Pepcid Condition: Critical Prognosis: Good Code status: FULL Disposition: continue ICU Care Patient and updated at bedside regarding clinical progress and plan of care Cumulative time spent in the care of this patient (excluding any procedure time) : at least 40 minutes. Patient care included clinical interview (with patient and/or family), bedside exam of the patient, review of labs, x-rays, and other ancillary data, coordination of (respiratory, nursing care, review of patient's records, discussion regarding patients management with involved consultants, primary physician, pharmacists, and other healthcare personnel (dietary, case management , physical/occupational therapy etc.) Critical Care Time: 40
[2018-04-06] MEDS: Zolpidem TAB* 5 MG PO SCH (21:47)
[2018-04-06] MEDS: Famotidine TAB* 20 MG PO SCH (21:47)
[2018-04-07] MEDS: Sodium Bicarbonate (ANTACID)* 650 MG TAB PO SCH ×3 (00:56→12:28)
[2018-04-07] MEDS: Insulin LISPRO* 1 UNITS UNIT SUBCUT SCH ×4 (08:02→21:05)
[2018-04-07 08:45] LABS: Hematocrit 34 % (42-52); Mean Corpuscular HGB Conc 29 g/dl (31-36); Mean Corpuscular Hemoglobin 22 pg (27-31); Mean Corpuscular Volume 75 fL (80-94); Mean Platelet Volume 8.2 fL (7.4-10.4); Platelet Count 211 10^3/ul (150-450); Red Blood Count 4.54 10^6/ul (4.00-5.40); Red Cell Distribution Width 24 % (10.5-15); White Blood Count 7.7 10^3/ul (3.5-10.8)
[2018-04-07 08:55] LABS: BUN/Creatinine Ratio 38.6 (8-20); Calcium 8.7 mg/dL (8.6-10.3); EGFR Non-African American 60.9 (>60)
[2018-04-07] MEDS: Atorvastatin* 10 MG TAB PO SCH (09:56)
[2018-04-07] MEDS: Furosemide TAB* 40 MG PO SCH (09:56)
[2018-04-07] MEDS: Calcium Carbonate CHEW TAB* 500 MG (TUMS) PO SCH ×2 (09:56→21:05)
[2018-04-07] MEDS: Metoprolol Tartrate TAB* 25 MG PO SCH ×2 (09:56→21:04)
[2018-04-07] MEDS: Multivitamins/Minerals TAB PO SCH (09:57)
[2018-04-07] MEDS: Allopurinol TAB* 100 MG PO SCH (09:57)
[2018-04-07] MEDS: predniSONE TAB* 20 MG PO SCH (09:57)
[2018-04-07] MEDS: Apixaban* 2.5 MG TAB PO SCH ×2 (09:57→21:05)
[2018-04-07] MEDS: Tiotropium CAP.INH* CAP.INH/18 MCG (USE ORDER SET !) INH SCH (10:01)
[2018-04-07] MEDS: Mometasone/Formoter 200/5 MDI INH SCH ×2 (10:02→19:23)
[2018-04-07] MEDS: Iron Sucrose* 200 MG in NS 0.9% 100 ML* 100 ML IVPB SCH (10:22)
[2018-04-07 11:13] LABS: Magnesium 2.3 mg/dL (1.9-2.7); Phosphorus 2.3 mg/dL (2.5-5.0)
[2018-04-07] MEDS ORDERED: Furosemide IV* 10 MG/ML VIAL (40 MG) IV ONE (11:43)
--- NOTE | 2018-04-07 15:40 | PN ---
Subjective Date of Service: 04/07/18 Interval History: Pt was hypoglycemic this aM. Was lethargic, but after breakfast the symptoms resolved. still occasional cough. Gained a lot of weight during his stay at [facility] Objective Active Medications: Albuterol/Ipratropium (Duoneb (Albuterol 2.5 Mg/Ipratropium 0.5 Mg)) 1 neb INH Q4H PRN PRN Reason: SOB/WHEEZING Last Admin: 04/06/18 00:07 Dose: 1 neb Allopurinol (Zyloprim Tab*) 100 mg PO DAILY [facility] Last Admin: 04/07/18 09:57 Dose: 100 mg Apixaban (Eliquis*) 2.5 mg PO BID [facility] Last Admin: 04/07/18 09:57 Dose: 2.5 mg Atorvastatin Calcium (Lipitor*) 10 mg PO DAILY [facility] Last Admin: 04/07/18 09:56 Dose: 10 mg Calcium Carbonate (Tums*) 500 mg PO BID [facility] Last Admin: 04/07/18 09:56 Dose: 500 mg Device (Tiotropium Inhaler Device*) 1 each .SEE ORDER .USE w/ SPIRIVA CAPS [facility] Dextrose (D50w Syringe 50 Ml*) 12.5 gm IV PUSH .FOR FS < 60 - SS PRN PRN Reason: FS < 60 Last Admin: 04/07/18 07:59 Dose: 12.5 gm Docusate Sodium (Colace Cap*) 100 mg PO DAILY PRN PRN Reason: CONSTIPATION Famotidine (Pepcid Tab*) 20 mg PO DAILY@2100 [facility] Last Admin: 04/06/18 21:47 Dose: 20 mg Furosemide (Lasix Tab*) 40 mg PO DAILY [facility] Last Admin: 04/07/18 09:56 Dose: 40 mg Guaifenesin/Dextromethorphan (Robitussin Dm*) 5 ml PO Q4H PRN PRN Reason: COUGH Last Admin: 04/02/18 21:29 Dose: 5 ml Iron Sucrose 200 mg/ Sodium (Chloride) 110 mls @ 110 mls/hr IVPB EVERY OTHER DAY [facility] Stop: 04/15/18 15:59 Last Admin: 04/07/18 10:22 Dose: 110 mls/hr Insulin Glargine (Lantus(*)) 10 units SUBCUT Q12H [facility] Insulin Human Lispro (Humalog*) 0 units SUBCUT FS ACHS ICU [facility]; Protocol Last Admin: 04/07/18 12:29 Dose: 3 units Metoprolol Tartrate (Lopressor Tab*) 37.5 mg PO BID [facility] Mometasone Furoate/Formoterol Fumar (Dulera 200/5 Mdi*) 2 puff INH BID [facility] Last Admin: 04/07/18 10:02 Dose: 2 puff Morphine Sulfate (Morphine Vial*) 2 mg IV Q2H PRN PRN Reason: DISCOMFORT Last Admin: 04/06/18 03:07 Dose: 2 mg Multivitamins/Minerals (Theragran/Minerals Tab*) 1 tab PO DAILY [facility] Last Admin: 04/07/18 09:57 Dose: 1 tab Ondansetron HCl (Zofran Odt Tab*) 4 mg PO Q6H PRN PRN Reason: NAUSEA Polyethylene Glycol/Electrolytes (Miralax*) 17 gm PO DAILY PRN PRN Reason: CONSTIPATION Polyvinyl Alcohol (Polyvinyl Alcohol 1.4% Opth*) 1 drop BOTH EYES Q2H PRN PRN Reason: DRY EYE Prednisone (Deltasone Tab*) 20 mg PO DAILY [facility] Last Admin: 04/07/18 09:57 Dose: 20 mg Sodium Bicarbonate (Sodium Bicarbonate (Antacid)*) 650 mg PO Q6HR [facility] Last Admin: 04/07/18 12:28 Dose: 650 mg Tiotropium Boss (Spiriva Cap.Inh*) 1 cap INH DAILY [facility] Last Admin: 04/07/18 10:01 Dose: 1 cap Zolpidem Tartrate (Ambien Tab*) 5 mg PO BEDTIME [facility] Last Admin: 04/06/18 21:47 Dose: 5 mg Vital Signs - 8 hr 04/07/18 04/07/18 04/07/18 08:00 10:02 11:41 Temperature 98.1 F Pulse Rate 107 107 88 Respiratory 18 18 22 Rate Blood Pressure 125/49 (mmHg) O2 Sat by Pulse 97 97 99 Oximetry Oxygen Devices in Use Now: Nasal Cannula Appearance: 88 yo obese M in nAD, aAOx3 Eyes: No Scleral Icterus, PERRLA Ears/Nose/Mouth/Throat: NL Teeth, Lips, Gums, Mucous Membranes Moist Neck: NL Appearance and Movements; NL JVP, Trachea Midline Respiratory: Symmetrical Chest Expansion and Respiratory Effort, - - uper resp rhonchi b/l Cardiovascular: NL Sounds; No Murmurs; No JVD, RRR Abdominal: NL Sounds; No Tenderness; No Distention, No Hepatosplenomegaly Lymphatic: No Cervical Adenopathy Extremities: No Clubbing, Cyanosis, - - significant +2 pitting b/l LE's edema Skin: No Nodules or Sclerosis Neurological: Alert and Oriented x 3, NL Muscle Strength and Tone Result Diagrams: 04/07/18 08:08 04/07/18 08:08 Microbiology and Other Data: Microbiology 04/06/18 10:41 Aerobic Blood Culture - Preliminary Blood Venous No Growth Day 1 Anaerobic Blood Culture - Preliminary No Growth Day 1 04/02/18 19:37 Nasal Screen MRSA (PCR) - Final Nasal Mrsa Not Detected Influenza Types A,B Antigen - Final Specimen received for Influenza A/B Molecular testing Assess/Plan/Problems-Billing Assessment: 88 yo M recently admitted at [facility] from 03/14/2018 to 03/24/2018 with COPD, acute on chronic diastolic CHF and Atrial fibrillation. He presented at that time with malaise, cough, shortness of fatigue x 1 month. He was admitted with acute hypoxic respiratory failure secondary to COPD exacerbation. Symptoms improved with bronchodilators and steriods. His CHF exacerbation improved on Furosemide and Diltiazem. TTE was done and showed intact ejection fraction. During his hospitalization he developed a sick sinus syndrome with prolonged sinus pause; PPM placed. Bladder neck stricture dilated successfully by urology during hospitalization, with continued Padilla at discharge and outpatient followup by Urology At discharge (Swing status at [place]) recommended for continued BiPAP. 03/28: While at [place], Lasix held for decreasing renal function. requiring oxygen therapy but not BiPAP 04/01: increased cough. CXR done 03/31 with CHF exacerbation. Started on Lasix 40 mg IV and Spironolactone 25 mg PO. Poor urine output. Evening pH 7.14, pCO2 90 , pO2 64. Placed on BiPAP overnight 04/02: Maintained on BiPAP overnight. Repeat ABG with pH 7.22, pCo2 69, pO2 64. Mental status improved but still lethargic. AM CXR with increased pulmonary edema. Transferred to [place] for possible advanced airway needs. 04/03: ABG on arrival improved. Tolerated BiPAP . Nephrology and Urology consulted 04/04: No overnight events 04/06/18 transferred out of ICU. 04/07/18 Urology recommend d/c Padilla whenever feasible - Patient Problems (1) CHF (congestive heart failure) Code(s): I50.9 - HEART FAILURE, UNSPECIFIED Comment: -resulting in acute hypercapnic resp failure -treated with BIPAP in ICU - Echo with intact EF 04/02/18 and no sig. valvular abnormalities, -acute diastolic CHF -ACEI and Aldactone d/c'd, creat much better than baseline. 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 Titus at [place] - Rate control with metoprolol, on tleme with V paced rhythm and underlying a. fib - Continue Eliquis (5) Diabetes Comment: cont ISS and Lantus (6) Urinary retention Comment: - Appreciate urology consultation; dilatation and padilla placement by Dr. Sibley 03/14/18, OK to d/c Padilla from urology standpoint. will d/c later after IV diuretics completed. (7) Anemia Comment: started on IV iron per ICU attending. will cont (8) DVT prophylaxis Comment: - Eliquis, renal dosing
[2018-04-07] MEDS ORDERED: Spiriva Inhaler DEVICE* 1 EACH DEVICE INH SCH (16:00)
[2018-04-07] MEDS ORDERED: Magnesium Hydroxide LIQ* 30 ML UDC PO ONE (16:22)
[2018-04-07] MEDS: Zolpidem TAB* 5 MG PO SCH (21:04)
[2018-04-07] MEDS: Famotidine TAB* 20 MG PO SCH (21:05)
[2018-04-07] MEDS: Insulin GLARGINE(*) 1 UNITS UNIT SUBCUT SCH (21:05)
[2018-04-07] MEDS: GuaiFENesin DM* 5 ML UDC PO PRN (22:25)
[2018-04-08] MEDS ORDERED: Benzonatate CAP* 100 MG ONE (02:52)
[2018-04-08] MEDS: Benzonatate CAP* 100 MG PO PRN (02:54)
[2018-04-08] MEDS: Tiotropium CAP.INH* CAP.INH/18 MCG (USE ORDER SET !) INH SCH ×2 (07:53→07:55)
[2018-04-08] MEDS: Mometasone/Formoter 200/5 MDI INH SCH ×2 (07:55→19:25)
[2018-04-08] MEDS: Insulin GLARGINE(*) 1 UNITS UNIT SUBCUT SCH (08:39)
[2018-04-08] MEDS: Insulin LISPRO* 1 UNITS UNIT SUBCUT SCH ×4 (08:39→21:02)
[2018-04-08 08:40] LABS: ABS Basophils 0.1 10^3/ul (0-0.2); ABS Eosinophils 0.1 10^3/ul (0-0.6); ABS Lymphocytes 0.3 10^3/ul (1.0-4.8); ABS Monocytes 1.4 10^3/ul (0-0.8); ABS Neutrophils 7.3 10^3/ul (1.5-7.7); ABS Nucleated RBC 0 10^3/ul; Eosinophil % 1.5 %; Hematocrit 34 % (42-52); Lymphocyte % 3.2 %; Mean Corpuscular HGB Conc 30 g/dl (31-36); Mean Corpuscular Hemoglobin 22 pg (27-31); Mean Corpuscular Volume 74 fL (80-94); Mean Platelet Volume 8.5 fL (7.4-10.4); Nucleated Red Blood Cells % 0; Platelet Count 196 10^3/ul (150-450); Red Blood Count 4.52 10^6/ul (4.00-5.40); Red Cell Distribution Width 23 % (10.5-15); White Blood Count 9.3 10^3/ul (3.5-10.8)
[2018-04-08] MEDS: Metoprolol Tartrate TAB* 25 MG PO SCH ×2 (08:42→20:57)
[2018-04-08] MEDS: Calcium Carbonate CHEW TAB* 500 MG (TUMS) PO SCH ×2 (08:42→20:59)
[2018-04-08] MEDS: Allopurinol TAB* 100 MG PO SCH (08:43)
[2018-04-08] MEDS: Furosemide TAB* 40 MG PO SCH (08:43)
[2018-04-08] MEDS: Multivitamins/Minerals TAB PO SCH (08:43)
[2018-04-08] MEDS: Atorvastatin* 10 MG TAB PO SCH (08:43)
[2018-04-08] MEDS: Apixaban* 2.5 MG TAB PO SCH ×2 (08:43→21:00)
[2018-04-08] MEDS ORDERED: predniSONE TAB* 10 MG PO SCH (09:00)
[2018-04-08 09:10] LABS: BUN/Creatinine Ratio 29.4 (8-20); Calcium 9.1 mg/dL (8.6-10.3); EGFR Non-African American 64.1 (>60); Magnesium 2.1 mg/dL (1.9-2.7); Potassium 3.9 mmol/L (3.5-5.0)
--- NOTE | 2018-04-08 12:49 | PN ---
Subjective Date of Service: 04/08/18 Interval History: pt c/o cough and difficulty coughing up. Poor appetite, was constipated, but after MOM last night had a BM this AM. Objective Active Medications: Albuterol/Ipratropium (Duoneb (Albuterol 2.5 Mg/Ipratropium 0.5 Mg)) 1 neb INH Q4H PRN PRN Reason: SOB/WHEEZING Last Admin: 04/06/18 00:07 Dose: 1 neb Allopurinol (Zyloprim Tab*) 100 mg PO DAILY [facility] Last Admin: 04/08/18 08:43 Dose: 100 mg Apixaban (Eliquis*) 2.5 mg PO BID [facility] Last Admin: 04/08/18 08:43 Dose: 2.5 mg Atorvastatin Calcium (Lipitor*) 10 mg PO DAILY [facility] Last Admin: 04/08/18 08:43 Dose: 10 mg Calcium Carbonate (Tums*) 500 mg PO BID [facility] Last Admin: 04/08/18 08:42 Dose: 500 mg Device (Tiotropium Inhaler Device*) 1 each .SEE ORDER .USE w/ SPIRIV[employer] [facility] Device (Tiotropium Inhaler Device*) 1 each INH .USE w/ [employer] [facility] Dextrose (D50w Syringe 50 Ml*) 12.5 gm IV PUSH .FOR FS < 60 - SS PRN PRN Reason: FS < 60 Last Admin: 04/07/18 07:59 Dose: 12.5 gm Docusate Sodium (Colace Cap*) 100 mg PO DAILY PRN PRN Reason: CONSTIPATION Last Admin: 04/08/18 08:43 Dose: 100 mg Famotidine (Pepcid Tab*) 20 mg PO DAILY@2100 [facility] Last Admin: 04/07/18 21:05 Dose: 20 mg Furosemide (Lasix Tab*) 40 mg PO DAILY [facility] Last Admin: 04/08/18 08:43 Dose: 40 mg Guaifenesin/Dextromethorphan (Robitussin Dm*) 5 ml PO Q4H PRN PRN Reason: COUGH Last Admin: 04/07/18 22:25 Dose: 5 ml Iron Sucrose 200 mg/ Sodium (Chloride) 110 mls @ 110 mls/hr IVPB EVERY OTHER DAY [facility] Stop: 04/09/18 15:59 Last Admin: 04/07/18 10:22 Dose: 110 mls/hr Insulin Glargine (Lantus(*)) 10 units SUBCUT Q12H [facility] Last Admin: 04/08/18 08:39 Dose: Not Given Insulin Human Lispro (Humalog*) 0 units SUBCUT FS ACHS ICU [facility]; Protocol Last Admin: 04/08/18 08:39 Dose: Not Given Metoprolol Tartrate (Lopressor Tab*) 37.5 mg PO BID [facility] Last Admin: 04/08/18 08:42 Dose: 37.5 mg Mometasone Furoate/Formoterol Fumar (Dulera 200/5 Mdi*) 2 puff INH BID [facility] Last Admin: 04/08/18 07:55 Dose: 2 puff Morphine Sulfate (Morphine Vial*) 2 mg IV Q2H PRN PRN Reason: DISCOMFORT Last Admin: 04/06/18 03:07 Dose: 2 mg Multivitamins/Minerals (Theragran/Minerals Tab*) 1 tab PO DAILY [facility] Last Admin: 04/08/18 08:43 Dose: 1 tab Ondansetron HCl (Zofran Odt Tab*) 4 mg PO Q6H PRN PRN Reason: NAUSEA Polyethylene Glycol/Electrolytes (Miralax*) 17 gm PO DAILY PRN PRN Reason: CONSTIPATION Last Admin: 04/08/18 08:43 Dose: 17 gm Polyvinyl Alcohol (Polyvinyl Alcohol 1.4% Opth*) 1 drop BOTH EYES Q2H PRN PRN Reason: DRY EYE Prednisone (Deltasone Tab*) 10 mg PO DAILY [facility] Last Admin: 04/08/18 08:43 Dose: 10 mg Tiotropium [place] (Spiriva Cap.Inh*) 1 cap INH DAILY [facility] Last Admin: 04/08/18 07:55 Dose: 1 cap Tiotropium [place] (Spiriva Cap.Inh*) 1 cap INH DAILY [facility] Last Admin: 04/08/18 07:53 Dose: Not Given Zolpidem Tartrate (Ambien Tab*) 5 mg PO BEDTIME [facility] Last Admin: 04/07/18 21:04 Dose: 5 mg Vital Signs - 8 hr 04/08/18 04/08/18 04/08/18 07:35 07:58 07:59 Temperature 97.8 F Pulse Rate 103 101 101 Respiratory 19 18 18 Rate Blood Pressure 142/57 (mmHg) O2 Sat by Pulse 96 96 96 Oximetry 04/08/18 08:00 Temperature Pulse Rate Respiratory 18 Rate Blood Pressure (mmHg) O2 Sat by Pulse 96 Oximetry Oxygen Devices in Use Now: Nasal Cannula Appearance: 88 yo M, obese in nAD, AAOx3 Eyes: No Scleral Icterus, PERRLA Ears/Nose/Mouth/Throat: NL Teeth, Lips, Gums, Mucous Membranes Moist Neck: NL Appearance and Movements; NL JVP, Trachea Midline Respiratory: - - diffuse rhonchi posteriorly b/l Cardiovascular: NL Sounds; No Murmurs; No JVD, RRR Abdominal: - - tympanic, soft, NT BS+ Extremities: No Clubbing, Cyanosis, - - +2 piting pedal edema b/l Skin: No Nodules or Sclerosis Neurological: Alert and Oriented x 3, NL Muscle Strength and Tone Result Diagrams: 04/08/18 07:45 04/08/18 07:45 Microbiology and Other Data: Microbiology 04/06/18 10:41 Aerobic Blood Culture - Preliminary Blood Venous No Growth Day 1 Anaerobic Blood Culture - Preliminary No Growth Day 1 04/02/18 19:37 Nasal Screen MRSA (PCR) - Final Nasal Mrsa Not Detected Influenza Types A,B Antigen - Final Specimen received for Influenza A/B Molecular testing Assess/Plan/Problems-Billing Assessment: 88 yo M recently admitted at [facility] from 03/14/2018 to 03/24/2018 with COPD, acute on chronic diastolic CHF and Atrial fibrillation. He presented at that time with malaise, cough, shortness of fatigue x 1 month. He was admitted with acute hypoxic respiratory failure secondary to COPD exacerbation. Symptoms improved with bronchodilators and steriods. His CHF exacerbation improved on Furosemide and Diltiazem. TTE was done and showed intact ejection fraction. During his hospitalization he developed a sick sinus syndrome with prolonged sinus pause; PPM placed. Bladder neck stricture dilated successfully by urology during hospitalization, with continued Padilla at discharge and outpatient followup by Urology At discharge (Swing status at [facility]) recommended for continued BiPAP. 03/28: While at [place], Lasix held for decreasing renal function. requiring oxygen therapy but not BiPAP 04/01: increased cough. CXR done 03/31 with CHF exacerbation. Started on Lasix 40 mg IV and Spironolactone 25 mg PO. Poor urine output. Evening pH 7.14, pCO2 90 , pO2 64. Placed on BiPAP overnight 04/02: Maintained on BiPAP overnight. Repeat ABG with pH 7.22, pCo2 69, pO2 64. Mental status improved but still lethargic. AM CXR with increased pulmonary edema. Transferred to [place] for possible advanced airway needs. 04/03: ABG on arrival improved. Tolerated BiPAP . Nephrology and Urology consulted 04/04: No overnight events 04/06/18 transferred out of ICU. 04/07/18 Urology recommend d/c Padilla whenever feasible - Patient Problems (1) CHF (congestive heart failure) Code(s): I50.9 - HEART FAILURE, UNSPECIFIED Comment: -resulting in acute hypercapnic resp failure -treated with BIPAP in ICU - Echo with intact EF 04/02/18 and no sig. valvular abnormalities, -acute diastolic CHF -ACEI and Aldactone d/c'd, creat much better than baseline today. -Appreciate cardiology adding on Lasix IV to REJI dose PO on 04/07/18. Pt tolerated IV Lasix well, will increase it to BID, hold PO dose (2) CKD (chronic kidney disease) Comment: - Stage 3b, creat better then at baseline (3) COPD (chronic obstructive pulmonary disease) Comment: Not in exacerbation, ,hypoxemic since last admission in February, cont 02 suppplementation.On Prednisone-slow taper since 02/2018. 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 Titus at [place] - Rate control with metoprolol, on tleme with V paced rhythm and underlying a. fib - Continue Eliquis (5) Diabetes Comment: cont ISS , BG at 48 this aM, will hold Lantus (6) Urinary retention Comment: - Appreciate urology consultation; dilatation and padilla placement by Dr. Sibley 03/14/18, OK to d/c Padilla from urology standpoint. will d/c later after IV diuretics completed. (7) Anemia Comment: started on IV iron per ICU attending. will cont anemia is improving -likely due to diuresis (8) Thrush, oral Comment: veru mild. started nystatin . Cardiology service ordered fungal blood cx (due to recent pacer)-still pending (9) DVT prophylaxis Comment: - Eliquis, renal dosing Status and Disposition: inpatient
[2018-04-08] MEDS: Nystatin SUSPENSION* 100000 UNITS/ML 5 ML UDC PO SCH ×3 (15:09→21:01)
[2018-04-08] MEDS: Furosemide IV* 10 MG/ML VIAL (40 MG) IV SCH (18:06)
[2018-04-08] MEDS: Ondansetron ODT TAB* 4 MG PO PRN (20:39)
[2018-04-08] MEDS: Zolpidem TAB* 5 MG PO SCH ×2 (20:57→22:59)
[2018-04-08] MEDS: GuaiFENesin DM* 5 ML UDC PO PRN (21:00)
[2018-04-08] MEDS: Famotidine TAB* 20 MG PO SCH (21:02)
[2018-04-09] MEDS: Morphine VIAL* 4 MG/ML VIAL (1 ml vial) IV PRN (03:48)
[2018-04-09 07:01] LABS: BUN/Creatinine Ratio 25.9 (8-20); Calcium 8.9 mg/dL (8.6-10.3); EGFR Non-African American 62.2 (>60); Potassium 4.1 mmol/L (3.5-5.0)
[2018-04-09] MEDS: Tiotropium CAP.INH* CAP.INH/18 MCG (USE ORDER SET !) INH SCH (08:25)
[2018-04-09] MEDS: Mometasone/Formoter 200/5 MDI INH SCH ×2 (08:26→19:17)
[2018-04-09] MEDS: Nystatin SUSPENSION* 100000 UNITS/ML 5 ML UDC PO SCH ×4 (09:32→20:42)
[2018-04-09] MEDS: Multivitamins/Minerals TAB PO SCH (09:33)
[2018-04-09] MEDS: Allopurinol TAB* 100 MG PO SCH (09:33)
[2018-04-09] MEDS: Calcium Carbonate CHEW TAB* 500 MG (TUMS) PO SCH ×2 (09:33→20:43)
[2018-04-09] MEDS: predniSONE TAB* 5 MG PO SCH (09:33)
[2018-04-09] MEDS: Benzonatate CAP* 100 MG PO PRN (09:33)
[2018-04-09] MEDS: Apixaban* 2.5 MG TAB PO SCH ×2 (09:33→20:43)
[2018-04-09] MEDS: Metoprolol Tartrate TAB* 25 MG PO SCH ×2 (09:33→20:44)
[2018-04-09] MEDS: Furosemide IV* 10 MG/ML VIAL (40 MG) IV SCH ×2 (09:34→17:10)
[2018-04-09] MEDS: Iron Sucrose* 200 MG in NS 0.9% 100 ML* 100 ML IVPB SCH (09:34)
[2018-04-09] MEDS: Atorvastatin* 10 MG TAB PO SCH (09:34)
[2018-04-09] MEDS: Insulin LISPRO* 1 UNITS UNIT SUBCUT SCH ×4 (10:31→20:43)
[2018-04-09] MEDS: Acetaminophen TAB* 325 MG PO PRN (10:52)
--- NOTE | 2018-04-09 14:29 | PN ---
Subjective Date of Service: 04/09/18 Interval History: Pt still c/o "chest congestion". Leg edema improving Objective Active Medications: Acetaminophen (Tylenol Tab*) 650 mg PO Q4H PRN PRN Reason: FEVER/PAIN Last Admin: 04/09/18 10:52 Dose: 650 mg Albuterol/Ipratropium (Duoneb (Albuterol 2.5 Mg/Ipratropium 0.5 Mg)) 1 neb INH Q4H PRN PRN Reason: SOB/WHEEZING Last Admin: 04/06/18 00:07 Dose: 1 neb Allopurinol (Zyloprim Tab*) 100 mg PO DAILY [facility] Last Admin: 04/09/18 09:33 Dose: 100 mg Apixaban (Eliquis*) 2.5 mg PO BID [facility] Last Admin: 04/09/18 09:33 Dose: 2.5 mg Atorvastatin Calcium (Lipitor*) 10 mg PO DAILY [facility] Last Admin: 04/09/18 09:34 Dose: 10 mg Benzonatate (Tessalon Cap*) 200 mg PO Q8H PRN PRN Reason: COUGH Last Admin: 04/09/18 09:33 Dose: 200 mg Calcium Carbonate (Tums*) 500 mg PO BID [facility] Last Admin: 04/09/18 09:33 Dose: 500 mg Device (Tiotropium Inhaler Device*) 1 each .SEE ORDER .USE w/ [employer] [facility] Device (Tiotropium Inhaler Device*) 1 each INH .USE w/ [employer] [facility] Dextrose (D50w Syringe 50 Ml*) 12.5 gm IV PUSH .FOR FS < 60 - SS PRN PRN Reason: FS < 60 Last Admin: 04/07/18 07:59 Dose: 12.5 gm Docusate Sodium (Colace Cap*) 100 mg PO DAILY PRN PRN Reason: CONSTIPATION Last Admin: 04/08/18 08:43 Dose: 100 mg Famotidine (Pepcid Tab*) 20 mg PO DAILY@2100 [facility] Last Admin: 04/08/18 21:02 Dose: 20 mg Furosemide (Lasix Iv*) 40 mg IV 0800,1700 [facility] Last Admin: 04/09/18 09:34 Dose: 40 mg Guaifenesin/Dextromethorphan (Robitussin Dm*) 5 ml PO Q4H PRN PRN Reason: COUGH Last Admin: 04/08/18 21:00 Dose: 5 ml Iron Sucrose 200 mg/ Sodium (Chloride) 110 mls @ 110 mls/hr IVPB EVERY OTHER DAY [facility] Stop: 04/09/18 15:59 Last Admin: 04/09/18 09:34 Dose: 110 mls/hr Insulin Human Lispro (Humalog*) 0 units SUBCUT FS ACHS ICU [facility]; Protocol Last Admin: 04/09/18 13:33 Dose: 12 units Metoprolol Tartrate (Lopressor Tab*) 37.5 mg PO BID [facility] Last Admin: 04/09/18 09:33 Dose: 37.5 mg Mometasone Furoate/Formoterol Fumar (Dulera 200/5 Mdi*) 2 puff INH BID [facility] Last Admin: 04/09/18 08:26 Dose: 2 puff Morphine Sulfate (Morphine Vial*) 2 mg IV Q2H PRN PRN Reason: DISCOMFORT Last Admin: 04/09/18 03:48 Dose: 2 mg Multivitamins/Minerals (Theragran/Minerals Tab*) 1 tab PO DAILY [facility] Last Admin: 04/09/18 09:33 Dose: 1 tab Nystatin (Nystatin Suspension*) 200,000 units PO QID [facility] Last Admin: 04/09/18 13:33 Dose: 200,000 units Ondansetron HCl (Zofran Odt Tab*) 4 mg PO Q6H PRN PRN Reason: NAUSEA Last Admin: 04/08/18 20:39 Dose: 4 mg Polyethylene Glycol/Electrolytes (Miralax*) 17 gm PO DAILY PRN PRN Reason: CONSTIPATION Last Admin: 04/08/18 08:43 Dose: 17 gm Polyvinyl Alcohol (Polyvinyl Alcohol 1.4% Opth*) 1 drop BOTH EYES Q2H PRN PRN Reason: DRY EYE Prednisone (Deltasone Tab*) 5 mg PO DAILY [facility] Last Admin: 04/09/18 09:33 Dose: 5 mg Tiotropium [place] (Spiriva Cap.Inh*) 1 cap INH DAILY [facility] Last Admin: 04/09/18 08:25 Dose: 1 cap Zolpidem Tartrate (Ambien Tab*) 5 mg PO BEDTIME [facility] Last Admin: 04/08/18 22:59 Dose: 5 mg Vital Signs - 8 hr 04/09/18 04/09/18 04/09/18 07:38 08:00 08:27 Temperature Pulse Rate 119 111 113 Respiratory 20 20 18 Rate Blood Pressure 160/63 (mmHg) O2 Sat by Pulse 96 96 Oximetry 04/09/18 04/09/18 09:42 11:22 Temperature 98.4 F Pulse Rate 127 Respiratory 22 Rate Blood Pressure 126/84 (mmHg) O2 Sat by Pulse 93 98 Oximetry Oxygen Devices in Use Now: Nasal Cannula Appearance: 88 yo M in nAD, AAOx3 Eyes: No Scleral Icterus, PERRLA Ears/Nose/Mouth/Throat: NL Teeth, Lips, Gums, Mucous Membranes Moist Neck: NL Appearance and Movements; NL JVP, Trachea Midline Respiratory: Symmetrical Chest Expansion and Respiratory Effort, - - b/l upper resp. rhonchi Cardiovascular: NL Sounds; No Murmurs; No JVD, RRR Abdominal: NL Sounds; No Tenderness; No Distention, No Hepatosplenomegaly Lymphatic: No Cervical Adenopathy Extremities: No Clubbing, Cyanosis, - - b/l leg edema +2 improving Neurological: Alert and Oriented x 3, NL Muscle Strength and Tone Result Diagrams: 04/08/18 07:45 04/09/18 06:34 Microbiology and Other Data: Microbiology 04/06/18 10:41 Aerobic Blood Culture - Preliminary Blood Venous No Growth Day 1 Anaerobic Blood Culture - Preliminary No Growth Day 1 04/02/18 19:37 Nasal Screen MRSA (PCR) - Final Nasal Mrsa Not Detected Influenza Types A,B Antigen - Final Specimen received for Influenza A/B Molecular testing Assess/Plan/Problems-Billing Assessment: 88 yo M recently admitted at [facility] from 03/14/2018 to 03/24/2018 with COPD, acute on chronic diastolic CHF and Atrial fibrillation. He presented at that time with malaise, cough, shortness of fatigue x 1 month. He was admitted with acute hypoxic respiratory failure secondary to COPD exacerbation. Symptoms improved with bronchodilators and steriods. His CHF exacerbation improved on Furosemide and Diltiazem. TTE was done and showed intact ejection fraction. During his hospitalization he developed a sick sinus syndrome with prolonged sinus pause; PPM placed. Bladder neck stricture dilated successfully by urology during hospitalization, with continued Padilla at discharge and outpatient followup by Urology At discharge (Swing status at [facility]) recommended for continued BiPAP. 03/28: While at [facility], Lasix held for decreasing renal function. requiring oxygen therapy but not BiPAP 04/01: increased cough. CXR done 03/31 with CHF exacerbation. Started on Lasix 40 mg IV and Spironolactone 25 mg PO. Poor urine output. Evening pH 7.14, pCO2 90 , pO2 64. Placed on BiPAP overnight 04/02: Maintained on BiPAP overnight. Repeat ABG with pH 7.22, pCo2 69, pO2 64. Mental status improved but still lethargic. AM CXR with increased pulmonary edema. Transferred to [place] for possible advanced airway needs. 04/03: ABG on arrival improved. Tolerated BiPAP . Nephrology and Urology consulted 04/04: No overnight events 04/06/18 transferred out of ICU. 04/07/18 Urology recommend d/c Padilla whenever feasible - Patient Problems (1) CHF (congestive heart failure) Code(s): I50.9 - HEART FAILURE, UNSPECIFIED Comment: -resulting in acute hypercapnic resp failure -treated with BIPAP in ICU - Echo with intact EF 04/02/18 and no sig. valvular abnormalities, -acute diastolic CHF -ACEI and Aldactone d/c'd, creat much better than baseline today. 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 Titus at [place] - Rate control with metoprolol, on telem with V paced rhythm and underlying a. fib. today stil tachycardic. will increase lopressor to 50 mg BID - Continue Eliquis (5) Diabetes Comment: cont ISS , Lantus held due to hypoglycemia (6) Urinary retention Comment: - Appreciate urology consultation; dilatation and padilla placement by Dr. Sibley 03/14/18, OK to d/c Padilla from urology standpoint. will d/c later after IV diuretics completed. (7) Anemia Comment: started on IV iron per ICU attending. will cont anemia is improving -likely due to diuresis (8) Thrush, oral Comment: veru mild. started nystatin . Cardiology service ordered fungal blood cx (due to recent pacer)-still pending (9) DVT prophylaxis Comment: - Eliquis, renal dosing Status and Disposition: inpatient
[2018-04-09] MEDS: Zolpidem TAB* 5 MG PO SCH (20:43)
[2018-04-09] MEDS: Famotidine TAB* 20 MG PO SCH (20:44)
[2018-04-10] MEDS: Morphine VIAL* 4 MG/ML VIAL (1 ml vial) IV PRN (04:03)
[2018-04-10 06:00] LABS: BUN/Creatinine Ratio 26.6 (8-20); EGFR Non-African American 55.3 (>60); Magnesium 1.8 mg/dL (1.9-2.7)
[2018-04-10] MEDS: Mometasone/Formoter 200/5 MDI INH SCH ×2 (08:10→19:32)
[2018-04-10] MEDS: Tiotropium CAP.INH* CAP.INH/18 MCG (USE ORDER SET !) INH SCH (08:10)
[2018-04-10] MEDS: Furosemide IV* 10 MG/ML VIAL (40 MG) IV SCH (08:17)
[2018-04-10] MEDS: Insulin LISPRO* 1 UNITS UNIT SUBCUT SCH ×4 (08:19→20:08)
[2018-04-10] MEDS: Nystatin SUSPENSION* 100000 UNITS/ML 5 ML UDC PO SCH ×4 (08:20→20:08)
[2018-04-10] MEDS: Apixaban* 2.5 MG TAB PO SCH ×2 (08:21→20:15)
[2018-04-10] MEDS: predniSONE TAB* 5 MG PO SCH (08:21)
[2018-04-10] MEDS: Metoprolol Tartrate TAB* 25 MG PO SCH ×2 (08:22→20:15)
[2018-04-10] MEDS: Calcium Carbonate CHEW TAB* 500 MG (TUMS) PO SCH ×2 (08:22→20:08)
[2018-04-10] MEDS: Atorvastatin* 10 MG TAB PO SCH (08:22)
[2018-04-10] MEDS: Multivitamins/Minerals TAB PO SCH (08:22)
[2018-04-10] MEDS: Allopurinol TAB* 100 MG PO SCH (08:22)
--- NOTE | 2018-04-10 15:07 | PN ---
Subjective Date of Service: 04/10/18 Interval History: HD #9 ON 04/10/18 88 yo PMH Atrial fibrillation, SSS sp pacer 02/2018, HFpEF (03/2018 EF >65% in setting of acute exacerbation), COPD, AUBREY 2/2 to chronic urinary retention who presented on 04/02/18 with hypercarbic resp failure and CHF. VSS overnight, no acute events. Pt is seen in bed, he is comfortable and offers no complaints. He would like to walk with PT, he is tolerating Po intake and has good UOP reports he is trying to have a small BM for the last few hours. Objective Active Medications: Acetaminophen (Tylenol Tab*) 650 mg PO Q4H PRN PRN Reason: FEVER/PAIN Last Admin: 04/09/18 10:52 Dose: 650 mg Albuterol/Ipratropium (Duoneb (Albuterol 2.5 Mg/Ipratropium 0.5 Mg)) 1 neb INH Q4H PRN PRN Reason: SOB/WHEEZING Last Admin: 04/06/18 00:07 Dose: 1 neb Allopurinol (Zyloprim Tab*) 100 mg PO DAILY [facility] Last Admin: 04/10/18 08:22 Dose: 100 mg Apixaban (Eliquis*) 2.5 mg PO BID [facility] Last Admin: 04/10/18 08:21 Dose: 2.5 mg Atorvastatin Calcium (Lipitor*) 10 mg PO DAILY [facility] Last Admin: 04/10/18 08:22 Dose: 10 mg Benzonatate (Tessalon Cap*) 200 mg PO Q8H PRN PRN Reason: COUGH Last Admin: 04/09/18 09:33 Dose: 200 mg Calcium Carbonate (Tums*) 500 mg PO BID [facility] Last Admin: 04/10/18 08:22 Dose: 500 mg Device (Tiotropium Inhaler Device*) 1 each .SEE ORDER .USE w/ SPIRIVA CAPS [facility] Device (Tiotropium Inhaler Device*) 1 each INH .USE w/ SPIRIVA CAPS [facility] Dextrose (D50w Syringe 50 Ml*) 12.5 gm IV PUSH .FOR FS < 60 - SS PRN PRN Reason: FS < 60 Last Admin: 04/07/18 07:59 Dose: 12.5 gm Docusate Sodium (Colace Cap*) 100 mg PO DAILY PRN PRN Reason: CONSTIPATION Last Admin: 04/08/18 08:43 Dose: 100 mg Famotidine (Pepcid Tab*) 20 mg PO DAILY@2100 [facility] Last Admin: 04/09/18 20:44 Dose: 20 mg Furosemide (Lasix Iv*) 40 mg IV 0800,1700 [facility] Last Admin: 04/10/18 08:17 Dose: 40 mg Guaifenesin/Dextromethorphan (Robitussin Dm*) 5 ml PO Q4H PRN PRN Reason: COUGH Last Admin: 04/08/18 21:00 Dose: 5 ml Insulin Human Lispro (Humalog*) 0 units SUBCUT FS ACHS ICU [facility]; Protocol Last Admin: 04/10/18 11:54 Dose: 6 units Metoprolol Tartrate (Lopressor Tab*) 50 mg PO BID [facility] Last Admin: 04/10/18 08:22 Dose: 50 mg Mometasone Furoate/Formoterol Fumar (Dulera 200/5 Mdi*) 2 puff INH BID [facility] Last Admin: 04/10/18 08:10 Dose: 2 puff Morphine Sulfate (Morphine Vial*) 2 mg IV Q2H PRN PRN Reason: DISCOMFORT Last Admin: 04/10/18 04:03 Dose: 2 mg Multivitamins/Minerals (Theragran/Minerals Tab*) 1 tab PO DAILY [facility] Last Admin: 04/10/18 08:22 Dose: 1 tab Nystatin (Nystatin Suspension*) 200,000 units PO QID [facility] Last Admin: 04/10/18 11:53 Dose: 200,000 units Ondansetron HCl (Zofran Odt Tab*) 4 mg PO Q6H PRN PRN Reason: NAUSEA Last Admin: 04/08/18 20:39 Dose: 4 mg Polyethylene Glycol/Electrolytes (Miralax*) 17 gm PO DAILY PRN PRN Reason: CONSTIPATION Last Admin: 04/08/18 08:43 Dose: 17 gm Polyvinyl Alcohol (Polyvinyl Alcohol 1.4% Opth*) 1 drop BOTH EYES Q2H PRN PRN Reason: DRY EYE Prednisone (Deltasone Tab*) 5 mg PO DAILY [facility] Last Admin: 04/10/18 08:21 Dose: 5 mg Tiotropium [place] (Spiriva Cap.Inh*) 1 cap INH DAILY [facility] Last Admin: 04/10/18 08:10 Dose: 1 cap Vital Signs - 8 hr 04/10/18 04/10/18 04/10/18 07:55 08:00 08:12 Temperature 98.1 F Pulse Rate 104 105 Respiratory 22 22 18 Rate Blood Pressure 153/67 (mmHg) O2 Sat by Pulse 92 96 95 Oximetry 04/10/18 11:30 Temperature 97.2 F Pulse Rate 81 Respiratory 20 Rate Blood Pressure 116/42 (mmHg) O2 Sat by Pulse 96 Oximetry Oxygen Devices in Use Now: Nasal Cannula Appearance: Well appearing man laying naked in bed Eyes: No Scleral Icterus, PERRLA Ears/Nose/Mouth/Throat: NL Teeth, Lips, Gums Neck: NL Appearance and Movements; NL JVP Respiratory: Symmetrical Chest Expansion and Respiratory Effort, - - Rhonchorus upper airway sounds, mild crackles in very blt bases Cardiovascular: NL Sounds; No Murmurs; No JVD Abdominal: NL Sounds; No Tenderness; No Distention Lymphatic: No Cervical Adenopathy Skin: No Rash or Ulcers Neurological: Alert and Oriented x 3 Result Diagrams: 04/08/18 07:45 04/10/18 05:29 Microbiology and Other Data: Microbiology 04/06/18 10:41 Aerobic Blood Culture - Preliminary Blood Venous No Growth Day 1 Anaerobic Blood Culture - Preliminary No Growth Day 1 04/02/18 19:37 Nasal Screen MRSA (PCR) - Final Nasal Mrsa Not Detected Influenza Types A,B Antigen - Final Specimen received for Influenza A/B Molecular testing Assess/Plan/Problems-Billing Assessment: 88 yo M PMH COPD, HFpEF (last EF >65% in 03/2018) and atrial fibrillation, recently dx SSS with PPM placed 02/2018, urinary retention with bladder neck stricture with recent [facility] hospitalization 03/14/2018 to 03/24/2018 who was on swing status at [facility] on 03/28-04/02 and had worsening respiratory status xfed back to [facility] on 04/02 for hypercarbic resp failure, HFpEF exacerbation , and AMS. He was in the ICU until 04/06 and remains diuresing on the floor with nightly BiPAP. - Patient Problems (1) CHF (congestive heart failure) Current Visit: No Status: Acute Code(s): I50.9 - HEART FAILURE, UNSPECIFIED SNOMED Code(s): 82059985 Comment: - Resulting in acute hypercapnic resp failure - Echo with intact EF 04/02/18 and no sig. valvular abnormalities - Today with slight increase in Cr 1.24 from 1.12, improving edema, will trial daily IV Lasix 40mg. Home dose is 40mg PO, thus still double his home dose - Restart low dose Spironolactone 25mg (home dose 50mg) - Continue to hold RANDY I (2) Afib Current Visit: No Status: Acute Code(s): I48.91 - UNSPECIFIED ATRIAL FIBRILLATION SNOMED Code(s): 78478544 Comment: -Follows with Dr. Titus at [place] -Rate control with metoprolol, on telem with V paced rhythm and underlying a. fib. today still mildly tachycardic. Continue Metoprolol 50 BID -Consider restarting low dose home Dilt (home dose 360) as pt tolerates -Continue Eliquis (3) Acute respiratory failure with hypoxia Current Visit: No Status: Acute Code(s): J96.01 - ACUTE RESPIRATORY FAILURE WITH HYPOXIA SNOMED Code(s): 60853102 Comment: -Multifactorial, 2/2 combination of COPD and CHF exacerbations, obesity and deconditioning, remains on 4L NC, wean as tolerated -Continue QHS BiPAP 12/08 (4) Diabetes Current Visit: No Status: Acute Code(s): E11.9 - TYPE 2 DIABETES MELLITUS WITHOUT COMPLICATIONS SNOMED Code(s): 99118625 Comment: -cont ISS , Lantus restarted at 20U QHS given hyperglycemia today, home dose is ~60 U (5) COPD (chronic obstructive pulmonary disease) Current Visit: No Status: Acute Code(s): J44.9 - CHRONIC OBSTRUCTIVE PULMONARY DISEASE, UNSPECIFIED SNOMED Code(s): 30399911 Comment: Not in exacerbation, hypoxemic since last admission in February, cont 02 suppplementation.On Prednisone-slow taper since 02/2018. 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 but has difficulty tolerating BIPAP at night - Home inhalers (6) CKD (chronic kidney disease) Current Visit: No Status: Acute Code(s): N18.9 - CHRONIC KIDNEY DISEASE, UNSPECIFIED SNOMED Code(s): 991363566 Comment: -Stage 3b, at baseline (7) Gout Current Visit: No Status: Acute Code(s): M10.9 - GOUT, UNSPECIFIED SNOMED Code(s): 16654755 Comment: Continue home allopurinol (8) Anemia Current Visit: Yes Status: Acute Code(s): D64.9 - ANEMIA, UNSPECIFIED SNOMED Code(s): 237875160 Comment: Anemia improving as of 04/08 -CTM, did get IV iron in house (9) Urinary retention Current Visit: No Status: Acute Code(s): R33.9 - RETENTION OF URINE, UNSPECIFIED SNOMED Code(s): 245612215 Comment: -Appreciate urology consultation; dilatation and padilla placement by Dr. Sibley 03/14/18, OK to d/c Padilla from urology standpoint, has been d/c since 04/08. (10) Thrush, oral Current Visit: Yes Status: Acute Code(s): B37.0 - CANDIDAL STOMATITIS SNOMED Code(s): 38734743 Comment: very mild. started nystatin. Cardiology service ordered fungal blood cx (due to recent pacer)-still pending (11) DVT prophylaxis Current Visit: No Status: Acute Code(s): QMT6591 - SNOMED Code(s): 345981615 Comment: -Eliquis, resume normal dosing Status and Disposition: inpatient
[2018-04-10] MEDS ORDERED: Insulin GLARGINE(*) 1 UNITS UNIT SUBCUT SCH (19:00)
[2018-04-10] MEDS: Famotidine TAB* 20 MG PO SCH (20:08)
[2018-04-10] MEDS: Benzonatate CAP* 100 MG PO PRN (20:08)
[2018-04-10] MEDS: GuaiFENesin DM* 5 ML UDC PO PRN (20:09)
[2018-04-11] MEDS ORDERED: Zolpidem TAB* 5 MG PO ONE (01:47)
[2018-04-11 07:15] LABS: Albumin 2.8 g/dL (3.2-5.2); Albumin/Globulin Ratio 1.1 (1-3); BUN/Creatinine Ratio 27.6 (8-20); Calcium 9.2 mg/dL (8.6-10.3); EGFR Non-African American 55.8 (>60); Globulin 2.6 g/dL (2-4); Magnesium 1.9 mg/dL (1.9-2.7); Potassium 4.2 mmol/L (3.5-5.0); Total Bilirubin 1.1 mg/dL (0.2-1.0); Total Protein 5.4 g/dL (6.4-8.9)
[2018-04-11 07:20] LABS: ABS Basophils 0 10^3/ul (0-0.2); ABS Eosinophils 0.1 10^3/ul (0-0.6); ABS Lymphocytes 0.6 10^3/ul (1.0-4.8); ABS Neutrophils 4.8 10^3/ul (1.5-7.7); ABS Nucleated RBC 0 10^3/ul; Eosinophil % 2.1 %; Hematocrit 33 % (42-52); Hemoglobin 9.5 g/dl (14.0-18.0); Lymphocyte % 9.4 %; Mean Corpuscular HGB Conc 29 g/dl (31-36); Mean Corpuscular Hemoglobin 22 pg (27-31); Mean Corpuscular Volume 76 fL (80-94); Mean Platelet Volume 8.9 fL (7.4-10.4); Nucleated Red Blood Cells % 0.1; Platelet Count 134 10^3/ul (150-450); Red Blood Count 4.31 10^6/ul (4.00-5.40); Red Cell Distribution Width 23 % (10.5-15); White Blood Count 6.6 10^3/ul (3.5-10.8)
[2018-04-11] MEDS: GuaiFENesin DM* 5 ML UDC PO PRN (07:46)
[2018-04-11] MEDS: Mometasone/Formoter 200/5 MDI INH SCH ×2 (07:50→19:56)
[2018-04-11] MEDS: Tiotropium CAP.INH* CAP.INH/18 MCG (USE ORDER SET !) INH SCH (07:50)
[2018-04-11] MEDS: Insulin LISPRO* 1 UNITS UNIT SUBCUT SCH ×5 (07:52→22:13)
[2018-04-11] MEDS: Nystatin SUSPENSION* 100000 UNITS/ML 5 ML UDC PO SCH ×4 (08:11→22:12)
[2018-04-11] MEDS: Apixaban* 2.5 MG TAB PO SCH ×2 (08:14→22:13)
[2018-04-11] MEDS: Calcium Carbonate CHEW TAB* 500 MG (TUMS) PO SCH ×2 (08:14→19:50)
[2018-04-11] MEDS: Allopurinol TAB* 100 MG PO SCH (08:14)
[2018-04-11] MEDS: Atorvastatin* 10 MG TAB PO SCH (08:14)
[2018-04-11] MEDS: predniSONE TAB* 5 MG PO SCH (08:14)
[2018-04-11] MEDS: Metoprolol Tartrate TAB* 25 MG PO SCH ×2 (08:14→22:12)
[2018-04-11] MEDS: Spironolactone TAB* 25 MG PO SCH (08:14)
[2018-04-11] MEDS: Multivitamins/Minerals TAB PO SCH (08:15)
--- NOTE | 2018-04-11 08:31 | PN ---
Subjective Date of Service: 04/11/18 Interval History: HD #9 on 04/11/18 88 yo M with PMH afib and hx of SSS s/p recent PPM, COPD, HFpEF (EF>65 % on this hospitalization), DION on BiPAP, mild cognitive impairment at baseline, chronic urinary retention who presented for acute on chronic hypercarbic resp failure Overnight no acute events, did take 1 dose of Ambien after d/c of standing, pt was able to wear his BiPAP intermittently and wore soft mitts to try to keep him from removing, desats without 4L NC, rhonchourous. Upper bilateral pitting edema noted, he did have less lasix yesterday. VS: T max 98.7, HR 85-103 (fib) 100% on 4L BP 123-138/53-86 UOP 800cc (from 1450cc yesterday) Large BM. This morning: Seen with his at bedside. He has no complaints, frustrated with his SOB and cough still which is slow to resolve, but otherwise feeling like his fluid status is improving but still not back to baseline. Discussed goals of care with he and his . He does feel he would be willing to wear a mask at home and does want to comply with treatment, we broached to topic of palliative care but he nor felt this was appropriate. He was off all O2 prior to this hospitalization and goal is to return to that. Otherwise he has no acute issues and all questions are answered. Objective Active Medications: Acetaminophen (Tylenol Tab*) 650 mg PO Q4H PRN PRN Reason: FEVER/PAIN Last Admin: 04/09/18 10:52 Dose: 650 mg Albuterol/Ipratropium (Duoneb (Albuterol 2.5 Mg/Ipratropium 0.5 Mg)) 1 neb INH Q4H PRN PRN Reason: SOB/WHEEZING Last Admin: 04/06/18 00:07 Dose: 1 neb Allopurinol (Zyloprim Tab*) 100 mg PO DAILY [facility] Last Admin: 04/11/18 08:14 Dose: 100 mg Apixaban (Eliquis*) 2.5 mg PO BID [facility] Last Admin: 04/11/18 08:14 Dose: 2.5 mg Atorvastatin Calcium (Lipitor*) 10 mg PO DAILY [facility] Last Admin: 04/11/18 08:14 Dose: 10 mg Benzonatate (Tessalon Cap*) 200 mg PO Q8H PRN PRN Reason: COUGH Last Admin: 04/10/18 20:08 Dose: 200 mg Calcium Carbonate (Tums*) 500 mg PO BID [facility] Last Admin: 04/11/18 08:14 Dose: 500 mg Device (Tiotropium Inhaler Device*) 1 each .SEE ORDER .USE w/ SPIRIVA CAPS [facility] Device (Tiotropium Inhaler Device*) 1 each INH .USE w/ [employer] CAPS [facility] Dextrose (D50w Syringe 50 Ml*) 12.5 gm IV PUSH .FOR FS < 60 - SS PRN PRN Reason: FS < 60 Last Admin: 04/07/18 07:59 Dose: 12.5 gm Docusate Sodium (Colace Cap*) 100 mg PO DAILY PRN PRN Reason: CONSTIPATION Last Admin: 04/08/18 08:43 Dose: 100 mg Famotidine (Pepcid Tab*) 20 mg PO DAILY@2100 [facility] Last Admin: 04/10/18 20:08 Dose: 20 mg Furosemide (Lasix Iv*) 40 mg IV DAILY [facility] Last Admin: 04/11/18 08:11 Dose: 40 mg Guaifenesin/Dextromethorphan (Robitussin Dm*) 5 ml PO Q4H PRN PRN Reason: COUGH Last Admin: 04/11/18 07:46 Dose: 5 ml Insulin Glargine (Lantus(*)) 20 units SUBCUT Q24H [facility] Last Admin: 04/10/18 20:07 Dose: 20 units Insulin Human Lispro (Humalog*) 0 units SUBCUT FS ACHS ICU [facility]; Protocol Last Admin: 04/11/18 07:52 Dose: Not Given Metoprolol Tartrate (Lopressor Tab*) 50 mg PO BID [facility] Last Admin: 04/11/18 08:14 Dose: 50 mg Mometasone Furoate/Formoterol Fumar (Dulera 200/5 Mdi*) 2 puff INH BID [facility] Last Admin: 04/11/18 07:50 Dose: 2 puff Multivitamins/Minerals (Theragran/Minerals Tab*) 1 tab PO DAILY [facility] Last Admin: 04/11/18 08:15 Dose: 1 tab Nystatin (Nystatin Suspension*) 200,000 units PO QID [facility] Last Admin: 04/11/18 08:11 Dose: 200,000 units Ondansetron HCl (Zofran Odt Tab*) 4 mg PO Q6H PRN PRN Reason: NAUSEA Last Admin: 04/08/18 20:39 Dose: 4 mg Polyethylene Glycol/Electrolytes (Miralax*) 17 gm PO DAILY PRN PRN Reason: CONSTIPATION Last Admin: 04/08/18 08:43 Dose: 17 gm Polyvinyl Alcohol (Polyvinyl Alcohol 1.4% Opth*) 1 drop BOTH EYES Q2H PRN PRN Reason: DRY EYE Prednisone (Deltasone Tab*) 5 mg PO DAILY [facility] Last Admin: 04/11/18 08:14 Dose: 5 mg Spironolactone (Aldactone Tab*) 25 mg PO DAILY [facility] Last Admin: 04/11/18 08:14 Dose: 25 mg Tiotropium [place] (Spiriva Cap.Inh*) 1 cap INH DAILY [facility] Last Admin: 04/11/18 07:50 Dose: 1 cap Additional Medications: Did stop standing ambien QHS Vital Signs - 8 hr 04/11/18 04/11/18 03:39 07:26 Temperature 98.7 F 97.8 F Pulse Rate 101 103 Respiratory 19 20 Rate Blood Pressure 138/57 123/53 (mmHg) O2 Sat by Pulse 100 97 Oximetry Oxygen Devices in Use Now: Nasal Cannula Appearance: Obese man in no acute distress laying in bed Eyes: No Scleral Icterus, PERRLA Ears/Nose/Mouth/Throat: NL Teeth, Lips, Gums, Mucous Membranes Moist Neck: NL Appearance and Movements; NL JVP Respiratory: - - Diffuse rhonchi in upper airwars blt crackles in bases Cardiovascular: NL Sounds; No Murmurs; No JVD, RRR, - - Reg irreg Abdominal: NL Sounds; No Tenderness; No Distention Lymphatic: No Cervical Adenopathy Extremities: No Edema Skin: No Rash or Ulcers Neurological: Alert and Oriented x 3 Lines/Tubes/Other Access: Clean, Dry and Intact Padilla Result Diagrams: 04/11/18 06:48 04/11/18 06:48 Microbiology and Other Data: Microbiology 04/06/18 10:41 Aerobic Blood Culture - Preliminary Blood Venous No Growth Day 1 Anaerobic Blood Culture - Preliminary No Growth Day 1 04/02/18 19:37 Nasal Screen MRSA (PCR) - Final Nasal Mrsa Not Detected Influenza Types A,B Antigen - Final Specimen received for Influenza A/B Molecular testing Assess/Plan/Problems-Billing Assessment: 88 yo M PMH COPD, HFpEF (last EF >65% in 03/2018) and atrial fibrillation, recently dx SSS with PPM placed 02/2018, mild cognitive impariment at baseline, urinary retention with bladder neck stricture with recent [facility] [place] to 03/24/2018 who was on swing status at [facility] on 03/28-04/02 and had worsening respiratory status xfed back [place] [facility] [place] for hypercarbic resp failure, HFpEF exacerbation, and AMS. He was in the ICU until 04/06 and remains diuresing on the floor with nightly BiPAP. - Patient Problems (1) CHF (congestive heart failure) Current Visit: No Status: Acute Code(s): I50.9 - HEART FAILURE, UNSPECIFIED SNOMED Code(s): 18735399 Comment: - Resulting in acute hypercapnic resp failure - Echo with intact EF 04/02/18 and no sig. valvular abnormalities - Poor output to daily lasix, resume BID, Cr stable at 1.24, still hypoxic - Restart low dose Spironolactone 25mg (home dose 50mg) - Continue to hold RANDY I (2) Afib Current Visit: No Status: Acute Code(s): I48.91 - UNSPECIFIED ATRIAL FIBRILLATION SNOMED Code(s): 21336598 Comment: -Follows with Dr. Titus at [place] -Rate control with metoprolol, on telem with V paced rhythm and underlying a. fib. today -Continue Metoprolol 50 BID -Consider restarting low dose home Dilt (home dose 360) as pt tolerates -Continue Eliquis (3) Acute respiratory failure with hypoxia Current Visit: No Status: Acute Code(s): J96.01 - ACUTE RESPIRATORY FAILURE WITH HYPOXIA SNOMED Code(s): 71846545 Comment: -Multifactorial, 2/2 combination of COPD and CHF exacerbations, obesity and deconditioning, remains on 4L NC, wean as tolerated -Continue QHS BiPAP / -Remains on long pred taper, now at 5mg (4) Diabetes Current Visit: No Status: Acute Code(s): E11.9 - TYPE 2 DIABETES MELLITUS WITHOUT COMPLICATIONS SNOMED Code(s): 04439917 Comment: -cont ISS , Lantus restarted at 20U QHS given hyperglycemia, day 2 of this with some improvement, uptitrate PRN home dose is ~60 U (5) COPD (chronic obstructive pulmonary disease) Current Visit: No Status: Acute Code(s): J44.9 - CHRONIC OBSTRUCTIVE PULMONARY DISEASE, UNSPECIFIED SNOMED Code(s): 63408505 Comment: Not in exacerbation, hypoxemic since last admission in February, cont 02 suppplementation.On Prednisone-slow taper since 02/2018. 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 but has difficulty tolerating BIPAP at night, encouraged today - Did not carry formal dx of COPD before but does have smoking hx - Home inhalers (6) CKD (chronic kidney disease) Current Visit: No Status: Acute Code(s): N18.9 - CHRONIC KIDNEY DISEASE, UNSPECIFIED SNOMED Code(s): 805964355 Comment: -Stage 3b, at baseline (7) Gout Current Visit: No Status: Acute Code(s): M10.9 - GOUT, UNSPECIFIED SNOMED Code(s): 92538505 Comment: Continue home allopurinol, renally dosed (8) Anemia Current Visit: Yes Status: Acute Code(s): D64.9 - ANEMIA, UNSPECIFIED SNOMED Code(s): 210901272 Comment: Anemia improving as of 04/08 -CTM, did get IV iron in house (9) Urinary retention Current Visit: No Status: Acute Code(s): R33.9 - RETENTION OF URINE, UNSPECIFIED SNOMED Code(s): 869997908 Comment: -Appreciate urology consultation; dilatation and padilla placement by Dr. Sibley 03/14/18, OK to d/c Padilla from urology standpoint, though apparently failed voiding trial and remains in place, will continue during aggressive diuresis (10) Thrush, oral Current Visit: Yes Status: Acute Code(s): B37.0 - CANDIDAL STOMATITIS SNOMED Code(s): 95924004 Comment: very mild. started nystatin. Cardiology service ordered fungal blood cx (due to recent pacer)-still pending (11) DVT prophylaxis Current Visit: No Status: Acute Code(s): PDZ3123 - SNOMED Code(s): 254214058 Comment: -Eliquis, resume normal dosing (12) Cognitive impairment Current Visit: Yes Status: Acute Code(s): R41.89 - OTH SYMPTOMS AND SIGNS W COGNITIVE FUNCTIONS AND AWARENESS SNOMED Code(s): 762289632 Comment: At baseline per today, he does get confused in the afternoon and has had trouble with memory -Persistent retention as well Status and Disposition: inpatient, add PT OT
[2018-04-11] MEDS ORDERED: Furosemide IV* 10 MG/ML VIAL (40 MG) IV SCH (09:00)
[2018-04-11] MEDS: Insulin GLARGINE(*) 1 UNITS UNIT SUBCUT SCH (17:45)
[2018-04-11] MEDS: Furosemide IV* 10 MG/ML VIAL (40 MG) IV SCH (17:48)
[2018-04-11] MEDS: Ondansetron ODT TAB* 4 MG PO PRN (19:57)
[2018-04-11] MEDS: Famotidine TAB* 20 MG PO SCH (22:13)
[2018-04-11] MEDS: traZODone TAB* 50 MG TAB PO SCH (22:13)
[2018-04-11] MEDS: Benzonatate CAP* 100 MG PO PRN (23:20)
[2018-04-12 07:15] LABS: BUN/Creatinine Ratio 24.8 (8-20); Calcium 8.9 mg/dL (8.6-10.3); EGFR Non-African American 56.9 (>60); Potassium 3.5 mmol/L (3.5-5.0)
[2018-04-12] MEDS: Mometasone/Formoter 200/5 MDI INH SCH ×2 (07:20→20:43)
[2018-04-12] MEDS: Tiotropium CAP.INH* CAP.INH/18 MCG (USE ORDER SET !) INH SCH (07:21)
[2018-04-12 07:22] LABS: ABS Basophils 0 10^3/ul (0-0.2); ABS Eosinophils 0.1 10^3/ul (0-0.6); ABS Lymphocytes 0.7 10^3/ul (1.0-4.8); ABS Monocytes 0.8 10^3/ul (0-0.8); ABS Neutrophils 4.2 10^3/ul (1.5-7.7); ABS Nucleated RBC 0 10^3/ul; Eosinophil % 2.1 %; Hematocrit 30 % (42-52); Hemoglobin 9.1 g/dl (14.0-18.0); Lymphocyte % 12.6 %; Mean Corpuscular HGB Conc 30 g/dl (31-36); Mean Corpuscular Hemoglobin 23 pg (27-31); Mean Corpuscular Volume 75 fL (80-94); Mean Platelet Volume 9.1 fL (7.4-10.4); Nucleated Red Blood Cells % 0.1; Platelet Count 141 10^3/ul (150-450); Red Blood Count 4.05 10^6/ul (4.00-5.40); Red Cell Distribution Width 24 % (10.5-15); White Blood Count 5.9 10^3/ul (3.5-10.8)
[2018-04-12] MEDS: Metoprolol Tartrate TAB* 25 MG PO SCH ×2 (09:28→21:21)
[2018-04-12] MEDS: Spironolactone TAB* 25 MG PO SCH (09:28)
[2018-04-12] MEDS: Apixaban* 2.5 MG TAB PO SCH ×2 (09:29→21:22)
[2018-04-12] MEDS: Multivitamins/Minerals TAB PO SCH (09:29)
[2018-04-12] MEDS: Atorvastatin* 10 MG TAB PO SCH (09:29)
[2018-04-12] MEDS: predniSONE TAB* 5 MG PO SCH (09:30)
[2018-04-12] MEDS: Allopurinol TAB* 100 MG PO SCH (09:30)
[2018-04-12] MEDS: Nystatin SUSPENSION* 100000 UNITS/ML 5 ML UDC PO SCH ×4 (09:30→21:25)
[2018-04-12] MEDS: Furosemide IV* 10 MG/ML VIAL (40 MG) IV SCH ×2 (09:31→18:49)
[2018-04-12] MEDS: Insulin LISPRO* 1 UNITS UNIT SUBCUT SCH ×4 (09:31→21:24)
[2018-04-12] MEDS: Calcium Carbonate CHEW TAB* 500 MG (TUMS) PO SCH ×2 (09:32→21:23)
--- NOTE | 2018-04-12 11:02 | PN ---
Subjective Date of Service: 04/12/18 Interval History: HD #10 on 04/12/18 88 yo M with PMH afib and hx of SSS s/p recent PPM, COPD, HFpEF (EF>65 % on this hospitalization), DION on BiPAP, mild cognitive impairment at baseline, chronic urinary retention who presented for acute on chronic hypercarbic resp failure Overnight no acute events, did take Trazodone in place of ambien, pt was able to wear his BiPAP only for a few hours, per RN was taking off frequently and not letting them know. VS: T max 97.4, HR 92-105 (fib) 100% on 4L->weaned to 3L NC this AM BP 117-141/39-62 UOP 3025 (from 800cc yesterday), with the return to BID IV lasix, -1.7 L for the day, Large BM. This morning, sravan has no complaints, very limited insight to situation, frustrated with his SOB and cough still which is slow to resolve, but otherwise feeling like his fluid status is improving but still not back to baseline. He does feel he would be willing to wear a mask at home and does want to comply with treatment, we broached to topic of palliative careyesterday but he nor felt this was appropriate. He was off all O2 prior to this hospitalization and goal is to return to that. Otherwise he has no acute issues and all questions are answered. Objective Active Medications: Acetaminophen (Tylenol Tab*) 650 mg PO Q4H PRN PRN Reason: FEVER/PAIN Last Admin: 04/09/18 10:52 Dose: 650 mg Albuterol/Ipratropium (Duoneb (Albuterol 2.5 Mg/Ipratropium 0.5 Mg)) 1 neb INH Q4H PRN PRN Reason: SOB/WHEEZING Last Admin: 04/06/18 00:07 Dose: 1 neb Allopurinol (Zyloprim Tab*) 100 mg PO DAILY [facility] Last Admin: 04/12/18 09:30 Dose: 100 mg Apixaban (Eliquis*) 2.5 mg PO BID [facility] Last Admin: 04/12/18 09:29 Dose: 2.5 mg Atorvastatin Calcium (Lipitor*) 10 mg PO DAILY [facility] Last Admin: 04/12/18 09:29 Dose: 10 mg Benzonatate (Tessalon Cap*) 200 mg PO Q8H PRN PRN Reason: COUGH Last Admin: 04/11/18 23:20 Dose: 200 mg Calcium Carbonate (Tums*) 500 mg PO BID [facility] Last Admin: 04/12/18 09:32 Dose: 500 mg Device (Tiotropium Inhaler Device*) 1 each .SEE ORDER .USE w/ SPIRIVA CAPS [facility] Device (Tiotropium Inhaler Device*) 1 each INH .USE w/ SPIRIVA CAPS [facility] Dextrose (D50w Syringe 50 Ml*) 12.5 gm IV PUSH .FOR FS < 60 - SS PRN PRN Reason: FS < 60 Last Admin: 04/07/18 07:59 Dose: 12.5 gm Docusate Sodium (Colace Cap*) 100 mg PO DAILY PRN PRN Reason: CONSTIPATION Last Admin: 04/08/18 08:43 Dose: 100 mg Famotidine (Pepcid Tab*) 20 mg PO DAILY@2100 [facility] Last Admin: 04/11/18 22:13 Dose: 20 mg Furosemide (Lasix Iv*) 40 mg IV 0800,1700 [facility] Last Admin: 04/12/18 09:31 Dose: 40 mg Guaifenesin/Dextromethorphan (Robitussin Dm*) 5 ml PO Q4H PRN PRN Reason: COUGH Last Admin: 04/11/18 07:46 Dose: 5 ml Insulin Glargine (Lantus(*)) 24 units SUBCUT Q24H [facility] Last Admin: 04/11/18 17:45 Dose: 24 units Insulin Human Lispro (Humalog*) 0 units SUBCUT FS ACHS ICU [facility]; Protocol Last Admin: 04/12/18 09:31 Dose: 2 units Metoprolol Tartrate (Lopressor Tab*) 50 mg PO BID [facility] Last Admin: 04/12/18 09:28 Dose: 50 mg Mometasone Furoate/Formoterol Fumar (Dulera 200/5 Mdi*) 2 puff INH BID [facility] Last Admin: 04/12/18 07:20 Dose: 2 puff Multivitamins/Minerals (Theragran/Minerals Tab*) 1 tab PO DAILY [facility] Last Admin: 04/12/18 09:29 Dose: 1 tab Nystatin (Nystatin Suspension*) 200,000 units PO QID [facility] Last Admin: 04/12/18 09:30 Dose: 200,000 units Ondansetron HCl (Zofran Odt Tab*) 4 mg PO Q6H PRN PRN Reason: NAUSEA Last Admin: 04/11/18 19:57 Dose: 4 mg Polyethylene Glycol/Electrolytes (Miralax*) 17 gm PO DAILY PRN PRN Reason: CONSTIPATION Last Admin: 04/08/18 08:43 Dose: 17 gm Polyvinyl Alcohol (Polyvinyl Alcohol 1.4% Opth*) 1 drop BOTH EYES Q2H PRN PRN Reason: DRY EYE Potassium Chloride (Klor Con Er Tab*) 20 meq PO BID [facility] Stop: 04/13/18 21:01 Prednisone (Deltasone Tab*) 5 mg PO DAILY [facility] Last Admin: 04/12/18 09:30 Dose: 5 mg Spironolactone (Aldactone Tab*) 25 mg PO DAILY [facility] Last Admin: 04/12/18 09:28 Dose: 25 mg Tiotropium [place] (Spiriva Cap.Inh*) 1 cap INH DAILY [facility] Last Admin: 04/12/18 07:21 Dose: 1 cap Trazodone HCl (Desyrel Tab*) 50 mg PO BEDTIME [facility] Last Admin: 04/11/18 22:13 Dose: 50 mg Additional Medications: Did stop standing ambien QHS Vital Signs - 8 hr 04/12/18 04/12/18 07:20 07:29 Temperature 97.4 F Pulse Rate 92 93 Respiratory 18 24 Rate Blood Pressure 130/62 (mmHg) O2 Sat by Pulse 92 100 Oximetry Oxygen Devices in Use Now: Nasal Cannula Eyes: No Scleral Icterus, PERRLA Ears/Nose/Mouth/Throat: NL Teeth, Lips, Gums, Mucous Membranes Moist Neck: NL Appearance and Movements; NL JVP Respiratory: Symmetrical Chest Expansion and Respiratory Effort, - - Rhonchi in upper airway, slight E wheeze, scant crackles at blt lung bases Abdominal: NL Sounds; No Tenderness; No Distention Skin: No Rash or Ulcers Neurological: Alert and Oriented x 3, - - Poor health literacy Result Diagrams: 04/12/18 06:41 04/12/18 06:41 Microbiology and Other Data: Microbiology 04/06/18 10:41 Aerobic Blood Culture - Preliminary Blood Venous No Growth Day 1 Anaerobic Blood Culture - Preliminary No Growth Day 1 04/02/18 19:37 Nasal Screen MRSA (PCR) - Final Nasal Mrsa Not Detected Influenza Types A,B Antigen - Final Specimen received for Influenza A/B Molecular testing Assess/Plan/Problems-Billing Assessment: 88 yo M PMH COPD, HFpEF (last EF >65% in 03/2018) and atrial fibrillation, recently dx SSS with PPM placed 02/2018, mild cognitive impariment at baseline, urinary retention with bladder neck stricture with recent [facility] [place] to 03/24/2018 who was on swing status at [facility] on 03/28-04/02 and had worsening respiratory status xfed back to [facility] on 04/02 for hypercarbic resp failure, HFpEF exacerbation, and AMS. He was in the ICU until 04/06 and remains diuresing on the floor with nightly BiPAP that he wears intermittently, ongoing respiratory acidosis and metabolic compensation as evidence by HCO3 elevated in the 40s. - Patient Problems (1) CHF (congestive heart failure) Current Visit: No Status: Acute Code(s): I50.9 - HEART FAILURE, UNSPECIFIED SNOMED Code(s): 54967566 Comment: - Resulting in acute hypercapnic resp failure - Echo with intact EF 04/02/18 and no sig. valvular abnormalities - Continue BID, Cr stable at 1.24, still hypoxic - low dose Spironolactone 25mg (home dose 50mg) - Continue to hold RANDY I (2) Afib Current Visit: No Status: Acute Code(s): I48.91 - UNSPECIFIED ATRIAL FIBRILLATION SNOMED Code(s): 55392348 Comment: -Follows with Dr. Titus at [place] - Rate control with metoprolol, on telem with V paced rhythm and underlying a. fib. today - Continue Metoprolol 50 BID - Today 04/12, restart low dose dilt at 120 (home dose 360) given HR remains in 90s-100s - Continue Eliquis (3) Acute respiratory failure with hypoxia Current Visit: No Status: Acute Code(s): J96.01 - ACUTE RESPIRATORY FAILURE WITH HYPOXIA SNOMED Code(s): 75648474 Comment: - Multifactorial, 2/2 combination of COPD and CHF exacerbations - Hypercarbia concerning given increasing bicarb on daily BMP, will check ABG to determine if acute or chornic compensation based on pH - Continue QHS BiPAP 12/08, strong encouragement to wear - Remains on long pred taper, now at 5mg (4) Diabetes Current Visit: No Status: Acute Code(s): E11.9 - TYPE 2 DIABETES MELLITUS WITHOUT COMPLICATIONS SNOMED Code(s): 15124322 Comment: -cont ISS , Lantus restarted at 20U QHS given hyperglycemia, day 2 of this with some improvement, uptitrate PRN home dose is ~60 U (5) COPD (chronic obstructive pulmonary disease) Current Visit: No Status: Acute Code(s): J44.9 - CHRONIC OBSTRUCTIVE PULMONARY DISEASE, UNSPECIFIED SNOMED Code(s): 01515704 Comment: Not in exacerbation, hypoxemic since last admission in February, cont 02 suppplementation.On Prednisone-slow taper since 02/2018. 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 but has difficulty tolerating BIPAP at night, encouraged today - Did not carry formal dx of COPD before but does have smoking hx - Home inhalers (6) CKD (chronic kidney disease) Current Visit: No Status: Acute Code(s): N18.9 - CHRONIC KIDNEY DISEASE, UNSPECIFIED SNOMED Code(s): 901674796 Comment: -Stage 3b, at baseline (7) Gout Current Visit: No Status: Acute Code(s): M10.9 - GOUT, UNSPECIFIED SNOMED Code(s): 09047895 Comment: Continue home allopurinol, renally dosed (8) Anemia Current Visit: Yes Status: Acute Code(s): D64.9 - ANEMIA, UNSPECIFIED SNOMED Code(s): 168630327 Comment: Anemia improving as of 04/08 -CTM, did get IV iron in house (9) Urinary retention Current Visit: No Status: Acute Code(s): R33.9 - RETENTION OF URINE, UNSPECIFIED SNOMED Code(s): 511291743 Comment: -Appreciate urology consultation; dilatation and padilla placement by Dr. Sibley 03/14/18, OK to d/c Padilla from urology standpoint, though apparently failed voiding trial and remains in place, will continue during aggressive diuresis (10) Thrush, oral Current Visit: Yes Status: Acute Code(s): B37.0 - CANDIDAL STOMATITIS SNOMED Code(s): 40538691 Comment: very mild. started nystatin. Cardiology service ordered fungal blood cx (due to recent pacer)-still pending (11) DVT prophylaxis Current Visit: No Status: Acute Code(s): UMB2953 - SNOMED Code(s): 429766922 Comment: -Eliquis, resume normal dosing (12) Cognitive impairment Current Visit: Yes Status: Acute Code(s): R41.89 - OTH SYMPTOMS AND SIGNS W COGNITIVE FUNCTIONS AND AWARENESS SNOMED Code(s): 223338983 Comment: At baseline per today, he does get confused in the afternoon and has had trouble with memory -Persistent retention as well Status and Disposition: inpatient, add PT OT
[2018-04-12] MEDS: Diltiazem CD CAP* 120 MG PO SCH (12:12)
[2018-04-12] MEDS: Potassium Chlor TAB* 20 MEQ TAB.ER PO SCH ×2 (12:12→21:22)
[2018-04-12] MEDS: Benzonatate CAP* 100 MG PO PRN ×2 (12:13→23:27)
[2018-04-12] MEDS: Insulin GLARGINE(*) 1 UNITS UNIT SUBCUT SCH (15:29)
[2018-04-12] MEDS: Acetaminophen TAB* 325 MG PO PRN (18:44)
[2018-04-12] MEDS: GuaiFENesin DM* 5 ML UDC PO PRN (18:46)
[2018-04-12] MEDS ORDERED: Insulin GLARGINE(*) 1 UNITS UNIT SUBCUT SCH (19:00)
[2018-04-12] MEDS: traZODone TAB* 50 MG TAB PO SCH (21:23)
[2018-04-12] MEDS: Famotidine TAB* 20 MG PO SCH (21:23)
[2018-04-13] MEDS: Insulin LISPRO* 1 UNITS UNIT SUBCUT SCH ×4 (07:30→22:16)
[2018-04-13 07:46] LABS: Urine Appearance Cloudy; Urine Bacteria 1+ (Absent); Urine Bilirubin Negative (Negative); Urine Blood 2+ (Negative); Urine Color Yellow; Urine Glucose Negative (Negative); Urine Ketones Negative (Negative); Urine Nitrite Positive (Negative); Urine Protein 1+(30 mg/dL) (Negative); Urine Red Blood Cell 3+(>10/hpf) (Absent); Urine Specific Gravity 1.013 (1.010-1.030); Urine Urobilinogen Negative (Negative); Urine White Blood Cell 3+(>20/hpf) (Absent)
[2018-04-13] MEDS: Mometasone/Formoter 200/5 MDI INH SCH ×2 (07:57→19:29)
[2018-04-13] MEDS: Tiotropium CAP.INH* CAP.INH/18 MCG (USE ORDER SET !) INH SCH (07:57)
[2018-04-13 08:24] LABS: BUN/Creatinine Ratio 22.5 (8-20); Calcium 8.9 mg/dL (8.6-10.3); EGFR Non-African American 52.8 (>60); Potassium 4.2 mmol/L (3.5-5.0)
[2018-04-13] MEDS ORDERED: Furosemide IV* 10 MG/ML VIAL (40 MG) IV SCH (09:00)
[2018-04-13] MEDS: Nystatin SUSPENSION* 100000 UNITS/ML 5 ML UDC PO SCH ×4 (11:08→22:34)
[2018-04-13] MEDS: GuaiFENesin DM* 5 ML UDC PO PRN ×2 (11:08→20:16)
[2018-04-13] MEDS: Metoprolol Tartrate TAB* 25 MG PO SCH ×2 (11:09→22:16)
[2018-04-13] MEDS: Apixaban* 2.5 MG TAB PO SCH ×2 (11:09→22:15)
[2018-04-13] MEDS: Multivitamins/Minerals TAB PO SCH (11:10)
[2018-04-13] MEDS: Potassium Chlor TAB* 20 MEQ TAB.ER PO SCH ×2 (11:10→22:16)
[2018-04-13] MEDS: Allopurinol TAB* 100 MG PO SCH (11:10)
[2018-04-13] MEDS: Spironolactone TAB* 25 MG PO SCH (11:11)
[2018-04-13] MEDS: Diltiazem CD CAP* 120 MG PO SCH (11:11)
[2018-04-13] MEDS: Atorvastatin* 10 MG TAB PO SCH (11:11)
[2018-04-13] MEDS: Calcium Carbonate CHEW TAB* 500 MG (TUMS) PO SCH ×2 (11:12→22:16)
[2018-04-13] MEDS: Furosemide IV* 10 MG/ML VIAL (40 MG) IV SCH (11:34)
[2018-04-13] MEDS: predniSONE TAB* 5 MG PO SCH (12:40)
[2018-04-13] MEDS: acetaZOLAMIDE TAB* 250 MG PO SCH (14:56)
[2018-04-13] MEDS ORDERED: Insulin GLARGINE(*) 1 UNITS UNIT SUBCUT SCH (15:00)
[2018-04-13] MEDS: Benzonatate CAP* 100 MG PO PRN (18:21)
--- NOTE | 2018-04-13 20:01 | PN ---
Subjective Date of Service: 04/13/18 Interval History: Awake, alert. obese in bed. declining CPAP "I don't like it"! Taking po. no fever or chills. Past Medical History: Unchanged from Admission Objective Active Medications: Acetaminophen (Tylenol Tab*) 650 mg PO Q4H PRN PRN Reason: FEVER/PAIN Last Admin: 04/12/18 18:44 Dose: 650 mg Acetazolamide (Diamox Tab*) 250 mg PO 1400 [facility] Last Admin: 04/13/18 14:56 Dose: 250 mg Albuterol/Ipratropium (Duoneb (Albuterol 2.5 Mg/Ipratropium 0.5 Mg)) 1 neb INH Q4H PRN PRN Reason: SOB/WHEEZING Last Admin: 04/06/18 00:07 Dose: 1 neb Allopurinol (Zyloprim Tab*) 100 mg PO DAILY [facility] Last Admin: 04/13/18 11:10 Dose: 100 mg Apixaban (Eliquis*) 2.5 mg PO BID [facility] Last Admin: 04/13/18 11:09 Dose: 2.5 mg Atorvastatin Calcium (Lipitor*) 10 mg PO DAILY [facility] Last Admin: 04/13/18 11:11 Dose: 10 mg Benzonatate (Tessalon Cap*) 200 mg PO Q8H PRN PRN Reason: COUGH Last Admin: 04/13/18 18:21 Dose: 200 mg Calcium Carbonate (Tums*) 500 mg PO BID [facility] Last Admin: 04/13/18 11:12 Dose: 500 mg Device (Tiotropium Inhaler Device*) 1 each .SEE ORDER .USE w/ SPIRIVA CAPS [facility] Dextrose (D50w Syringe 50 Ml*) 12.5 gm IV PUSH .FOR FS < 60 - SS PRN PRN Reason: FS < 60 Last Admin: 04/07/18 07:59 Dose: 12.5 gm Diltiazem HCl (Cardizem Cd Cap*) 120 mg PO DAILY [facility] Last Admin: 04/13/18 11:11 Dose: 120 mg Docusate Sodium (Colace Cap*) 100 mg PO DAILY PRN PRN Reason: CONSTIPATION Last Admin: 04/08/18 08:43 Dose: 100 mg Famotidine (Pepcid Tab*) 20 mg PO DAILY@2100 [facility] Last Admin: 01/16/19 21:23 Dose: 20 mg Furosemide (Lasix Tab*) 40 mg PO DAILY [facility] Guaifenesin/Dextromethorphan (Robitussin Dm*) 5 ml PO Q4H PRN PRN Reason: COUGH Last Admin: 04/13/18 11:08 Dose: 5 ml Insulin Glargine (Lantus(*)) 34 units SUBCUT 1500 [facility] Insulin Human Lispro (Humalog*) 0 units SUBCUT FS ACHS ICU [facility]; Protocol Last Admin: 04/13/18 18:22 Dose: 15 units Metoprolol Tartrate (Lopressor Tab*) 50 mg PO BID [facility] Last Admin: 04/13/18 11:09 Dose: 50 mg Mometasone Furoate/Formoterol Fumar (Dulera 200/5 Mdi*) 2 puff INH BID [facility] Last Admin: 04/13/18 19:29 Dose: 2 puff Multivitamins/Minerals (Theragran/Minerals Tab*) 1 tab PO DAILY [facility] Last Admin: 04/13/18 11:10 Dose: 1 tab Nystatin (Nystatin Suspension*) 200,000 units PO QID [facility] Last Admin: 04/13/18 18:21 Dose: 200,000 units Ondansetron HCl (Zofran Odt Tab*) 4 mg PO Q6H PRN PRN Reason: NAUSEA Last Admin: 04/11/18 19:57 Dose: 4 mg Polyethylene Glycol/Electrolytes (Miralax*) 17 gm PO DAILY PRN PRN Reason: CONSTIPATION Last Admin: 04/08/18 08:43 Dose: 17 gm Polyvinyl Alcohol (Polyvinyl Alcohol 1.4% Opth*) 1 drop BOTH EYES Q2H PRN PRN Reason: DRY EYE Potassium Chloride (Klor Con Er Tab*) 20 meq PO BID [facility] Stop: 04/13/18 21:01 Last Admin: 04/13/18 11:10 Dose: 20 meq Prednisone (Deltasone Tab*) 5 mg PO DAILY [facility] Last Admin: 04/13/18 12:40 Dose: 5 mg Spironolactone (Aldactone Tab*) 25 mg PO DAILY [facility] Last Admin: 04/13/18 11:11 Dose: 25 mg Tiotropium [place] (Spiriva Cap.Inh*) 1 cap INH DAILY [facility] Last Admin: 04/13/18 07:57 Dose: 1 cap Trazodone HCl (Desyrel Tab*) 50 mg PO BEDTIME [facility] Last Admin: 04/12/18 21:23 Dose: 50 mg Additional Medications: Did stop standing ambien Q Vital Signs - 8 hr 04/13/18 04/13/18 15:19 19:29 Temperature 97.9 F Pulse Rate 79 88 Respiratory 20 16 Rate Blood Pressure 118/64 (mmHg) O2 Sat by Pulse 100 95 Oximetry Oxygen Devices in Use Now: Nasal Cannula Appearance: obese awake. in bed lying no distress Eyes: No Scleral Icterus Ears/Nose/Mouth/Throat: Mucous Membranes Moist Neck: NL Appearance and Movements; NL JVP Respiratory: - - scaterred wheezing. Cardiovascular: NL Sounds; No Murmurs; No JVD Extremities: - - edema bilateral Neurological: Alert and Oriented x 3 Result Diagrams: 04/12/18 06:41 04/13/18 07:40 Microbiology and Other Data: Microbiology 04/06/18 10:41 Aerobic Blood Culture - Preliminary Blood Venous No Growth Day 1 Anaerobic Blood Culture - Preliminary No Growth Day 1 04/02/18 19:37 Nasal Screen MRSA (PCR) - Final Nasal Mrsa Not Detected Influenza Types A,B Antigen - Final Specimen received for Influenza A/B Molecular testing Assess/Plan/Problems-Billing Assessment: 88 yo M PMH COPD, HFpEF (last EF >65% in 03/2018) and atrial fibrillation, recently dx SSS with PPM placed 02/2018, mild cognitive impariment at baseline, urinary retention with bladder neck stricture with recent [facility] hospitalization to 03/24/2018 who was on swing status at [facility] on 03/28-04/02 and had worsening respiratory status xfed back to [facility] on 04/02 for hypercarbic resp failure, HFpEF exacerbation, and AMS. He was in the ICU until 04/06 and remains diuresing on the floor with nightly BiPAP that he wears intermittently, ongoing respiratory acidosis and metabolic compensation as evidence by HCO3 elevated in the 40s. - Patient Problems (1) Acute respiratory failure with hypoxia Current Visit: No Status: Acute Code(s): J96.01 - ACUTE RESPIRATORY FAILURE WITH HYPOXIA SNOMED Code(s): 51646684 Comment: - Multifactorial, 2/2 combination of COPD and CHF exacerbations - Hypercarbia concerning given increasing bicarb on daily BMP, ABG revealed compensated respiratory acidosis with metabolic alkalosis compensatory. I will implement diamox 250 mg 2 pm and continue lasix 40 mg in am. It should help improve respiratory drive - Continue QHS BiPAP 18/, strong encouragement to wear - Remains on long pred taper, now at 5mg (2) Afib Current Visit: No Status: Acute Code(s): I48.91 - UNSPECIFIED ATRIAL FIBRILLATION SNOMED Code(s): 61785489 Comment: -Follows with Dr. Titus at [place] - Rate control with metoprolol, on telem with V paced rhythm and underlying a. fib. today - Continue Metoprolol 50 BID - 04/12, restart low dose dilt at 120 (home dose 360) given HR remains in 90s- 100s - Continue Eliquis (3) CHF (congestive heart failure) Current Visit: No Status: Acute Code(s): I50.9 - HEART FAILURE, UNSPECIFIED SNOMED Code(s): 49442857 Comment: - Resulting in acute hypercapnic resp failure - Echo with intact EF 04/02/18 and no sig. valvular abnormalities - change lasix to 40 ,mg daily and will place on diamox 250 mg daily Cr stable at 1.24, still hypoxic - low dose Spironolactone 25mg (home dose 50mg) - Continue to hold RANDY I (4) COPD (chronic obstructive pulmonary disease) Current Visit: No Status: Acute Code(s): J44.9 - CHRONIC OBSTRUCTIVE PULMONARY DISEASE, UNSPECIFIED SNOMED Code(s): 49701074 Comment: Not in exacerbation, hypoxemic since last admission in February, cont 02 suppplementation.On Prednisone-slow taper since 02/2018. 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 (6) DVT prophylaxis Current Visit: No Status: Acute Code(s): YHK7757 - SNOMED Code(s): 528685312 Comment: -Eliquis, resume normal dosing Status and Disposition: inpatient, add PT OT
[2018-04-13] MEDS: Famotidine TAB* 20 MG PO SCH (22:15)
[2018-04-13] MEDS: traZODone TAB* 50 MG TAB PO SCH (22:15)
[2018-04-14] MEDS: GuaiFENesin DM* 5 ML UDC PO PRN ×4 (00:26→23:03)
[2018-04-14] MEDS: Benzonatate CAP* 100 MG PO PRN ×3 (03:30→23:03)
[2018-04-14] MEDS: Tiotropium CAP.INH* CAP.INH/18 MCG (USE ORDER SET !) INH SCH (07:11)
[2018-04-14] MEDS: Mometasone/Formoter 200/5 MDI INH SCH ×2 (07:11→19:37)
[2018-04-14 08:29] LABS: BUN/Creatinine Ratio 18.8 (8-20); Calcium 9.1 mg/dL (8.6-10.3); Magnesium 1.8 mg/dL (1.9-2.7); Potassium 4.5 mmol/L (3.5-5.0)
[2018-04-14] MEDS: Nystatin SUSPENSION* 100000 UNITS/ML 5 ML UDC PO SCH ×4 (09:07→23:03)
[2018-04-14] MEDS: Insulin LISPRO* 1 UNITS UNIT SUBCUT SCH ×4 (09:08→23:04)
[2018-04-14] MEDS: predniSONE TAB* 5 MG PO SCH (09:09)
[2018-04-14] MEDS: Diltiazem CD CAP* 120 MG PO SCH (09:09)
[2018-04-14] MEDS: Spironolactone TAB* 25 MG PO SCH (09:10)
[2018-04-14] MEDS: Atorvastatin* 10 MG TAB PO SCH (09:10)
[2018-04-14] MEDS: Apixaban* 2.5 MG TAB PO SCH ×2 (09:10→23:02)
[2018-04-14] MEDS: Allopurinol TAB* 100 MG PO SCH (09:11)
[2018-04-14] MEDS: Multivitamins/Minerals TAB PO SCH (09:11)
[2018-04-14] MEDS: Furosemide TAB* 40 MG PO SCH (09:11)
[2018-04-14] MEDS: Metoprolol Tartrate TAB* 25 MG PO SCH ×2 (09:14→23:02)
[2018-04-14] MEDS: Calcium Carbonate CHEW TAB* 500 MG (TUMS) PO SCH ×2 (09:15→23:04)
[2018-04-14] MEDS: acetaZOLAMIDE TAB* 250 MG PO SCH (14:02)
[2018-04-14] MEDS: Insulin GLARGINE(*) 1 UNITS UNIT SUBCUT SCH (14:03)
--- NOTE | 2018-04-14 15:03 | PN ---
Subjective Date of Service: 04/14/18 Interval History: Patient seen today. Again he is not complying with the CPAP overnight. he did not keep it stating he can not breath with it. His urine culture came back positive for >100,000 E-coli. will start Levaquin today. I coached him at bedside to use the incentive spirometer and and flutter wave. tolerated diamox and now his Bicarb is down to 37 from 43! Social History: Unchanged from Admission Past Medical History: Unchanged from Admission Objective Active Medications: Acetaminophen (Tylenol Tab*) 650 mg PO Q4H PRN PRN Reason: FEVER/PAIN Last Admin: 04/12/18 18:44 Dose: 650 mg Acetazolamide (Diamox Tab*) 250 mg PO 1400 [facility] Last Admin: 04/14/18 14:02 Dose: 250 mg Albuterol/Ipratropium (Duoneb (Albuterol 2.5 Mg/Ipratropium 0.5 Mg)) 1 neb INH Q4H PRN PRN Reason: SOB/WHEEZING Last Admin: 04/06/18 00:07 Dose: 1 neb Allopurinol (Zyloprim Tab*) 100 mg PO DAILY [facility] Last Admin: 04/14/18 09:11 Dose: 100 mg Apixaban (Eliquis*) 2.5 mg PO BID [facility] Last Admin: 04/14/18 09:10 Dose: 2.5 mg Atorvastatin Calcium (Lipitor*) 10 mg PO DAILY [facility] Last Admin: 04/14/18 09:10 Dose: 10 mg Benzonatate (Tessalon Cap*) 200 mg PO Q8H PRN PRN Reason: COUGH Last Admin: 04/14/18 14:02 Dose: 200 mg Calcium Carbonate (Tums*) 500 mg PO BID [facility] Last Admin: 04/14/18 09:15 Dose: 500 mg Device (Tiotropium Inhaler Device*) 1 each .SEE ORDER .USE w/ SPIRIVA CAPS [facility] Dextrose (D50w Syringe 50 Ml*) 12.5 gm IV PUSH .FOR FS < 60 - SS PRN PRN Reason: FS < 60 Last Admin: 04/07/18 07:59 Dose: 12.5 gm Diltiazem HCl (Cardizem Cd Cap*) 120 mg PO DAILY [facility] Last Admin: 04/14/18 09:09 Dose: 120 mg Docusate Sodium (Colace Cap*) 100 mg PO DAILY PRN PRN Reason: CONSTIPATION Last Admin: 04/08/18 08:43 Dose: 100 mg Famotidine (Pepcid Tab*) 20 mg PO DAILY@2100 [facility] Last Admin: 04/13/18 22:15 Dose: 20 mg Furosemide (Lasix Tab*) 40 mg PO DAILY [facility] Last Admin: 04/14/18 09:11 Dose: 40 mg Guaifenesin/Dextromethorphan (Robitussin Dm*) 5 ml PO Q4H PRN PRN Reason: COUGH Last Admin: 04/14/18 09:06 Dose: 5 ml Levofloxacin/Dextrose (Levaquin 500 Mg Ivpremix(*)) 500 mg in 100 mls @ 100 mls /hr IVPB Q24H [facility] Insulin Glargine (Lantus(*)) 34 units SUBCUT 1500 [facility] Last Admin: 04/14/18 14:03 Dose: 34 units Insulin Human Lispro (Humalog*) 0 units SUBCUT FS ACHS ICU [facility]; Protocol Last Admin: 04/14/18 12:37 Dose: 9 units Magnesium Oxide (Magox 400 Tab*) 400 mg PO BID [facility] Metoprolol Tartrate (Lopressor Tab*) 50 mg PO BID [facility] Last Admin: 04/14/18 09:14 Dose: 50 mg Mometasone Furoate/Formoterol Fumar (Dulera 200/5 Mdi*) 2 puff INH BID [facility] Last Admin: 04/14/18 07:11 Dose: 2 puff Multivitamins/Minerals (Theragran/Minerals Tab*) 1 tab PO DAILY [facility] Last Admin: 04/14/18 09:11 Dose: 1 tab Nystatin (Nystatin Suspension*) 200,000 units PO QID [facility] Last Admin: 04/14/18 12:37 Dose: 200,000 units Polyethylene Glycol/Electrolytes (Miralax*) 17 gm PO DAILY PRN PRN Reason: CONSTIPATION Last Admin: 04/08/18 08:43 Dose: 17 gm Polyvinyl Alcohol (Polyvinyl Alcohol 1.4% Opth*) 1 drop BOTH EYES Q2H PRN PRN Reason: DRY EYE Prednisone (Deltasone Tab*) 5 mg PO DAILY [facility] Last Admin: 04/14/18 09:09 Dose: 5 mg Spironolactone (Aldactone Tab*) 25 mg PO DAILY [facility] Last Admin: 04/14/18 09:10 Dose: 25 mg Tiotropium [place] (Spiriva Cap.Inh*) 1 cap INH DAILY [facility] Last Admin: 04/14/18 07:11 Dose: 1 cap Trazodone HCl (Desyrel Tab*) 50 mg PO BEDTIME [facility] Last Admin: 04/13/18 22:15 Dose: 50 mg Additional Medications: Did stop standing ambien [facility] Vital Signs - 8 hr 04/14/18 04/14/18 04/14/18 07:13 07:38 08:00 Temperature 98.0 F Pulse Rate 70 76 Respiratory 18 18 22 Rate Blood Pressure 135/55 (mmHg) O2 Sat by Pulse 92 88 Oximetry 04/14/18 11:37 Temperature 97.6 F Pulse Rate 88 Respiratory 18 Rate Blood Pressure 116/68 (mmHg) O2 Sat by Pulse 98 Oximetry Oxygen Devices in Use Now: Nasal Cannula Appearance: Awake, obese. Using nasal canula Eyes: No Scleral Icterus, - - EOMI Ears/Nose/Mouth/Throat: NL Teeth, Lips, Gums, Mucous Membranes Moist Neck: NL Appearance and Movements; NL JVP, Trachea Midline Respiratory: Symmetrical Chest Expansion and Respiratory Effort, - - coarse rhonchi. wheezing. diminished at bases Cardiovascular: NL Sounds; No Murmurs; No JVD Abdominal: NL Sounds; No Tenderness; No Distention, - - irregularly irregular Extremities: - - left upper extremety erythema near the IV site. Will discontinue Skin: - - right upper arm phlebitis Result Diagrams: 04/12/18 06:41 04/14/18 07:59 Microbiology and Other Data: Microbiology 04/06/18 10:41 Aerobic Blood Culture - Preliminary Blood Venous No Growth Day 1 Anaerobic Blood Culture - Preliminary No Growth Day 1 04/02/18 19:37 Nasal Screen MRSA (PCR) - Final Nasal Mrsa Not Detected Influenza Types A,B Antigen - Final Specimen received for Influenza A/B Molecular testing Assess/Plan/Problems-Billing Assessment: 88 yo M PMH COPD, HFpEF (last EF >65% in 03/2018) and atrial fibrillation, recently dx SSS with PPM placed 02/2018, mild cognitive impariment at baseline, urinary retention with bladder neck stricture with recent [facility] hospitalization to 03/24/2018 who was on swing status at [facility] on 03/28-04/02 and had worsening respiratory status xfed back to [facility] on 04/02 for hypercarbic resp failure, HFpEF exacerbation, and AMS. He was in the ICU until 04/06 and remains diuresing on the floor with nightly BiPAP that he wears intermittently, ongoing respiratory acidosis and metabolic compensation as evidence by HCO3 elevated in the 40s. - Patient Problems (1) Acute respiratory failure with hypoxia Current Visit: No Status: Acute Code(s): J96.01 - ACUTE RESPIRATORY FAILURE WITH HYPOXIA SNOMED Code(s): 08591689 Comment: - Multifactorial, 2/2 combination of COPD/Cor pulomnale and CHF exacerbations - Hypercarbia concerning given increasing bicarb on daily BMP, ABG revealed compensated respiratory acidosis with metabolic alkalosis compensatory. I makenzie implement diamox 250 mg @ 2 pm started 04/13/18 and continue lasix 40 mg in am. It should help improve respiratory drive. his bicarb today 04/14/18 down to 37. will keep it today and recheck Hco3- in am and may adjust diamox dose - Continue QHS BiPAP 12/08, strong encouragement to wear, unfotunately he continues to decline - Remains on long pred taper, now at 5mg! (2) Afib Current Visit: No Status: Acute Code(s): I48.91 - UNSPECIFIED ATRIAL FIBRILLATION SNOMED Code(s): 15052074 Comment: -Follows with Dr. Titus at [facility] - Rate control with metoprolol, on telem with V paced rhythm and underlying a. fib. today - Continue Metoprolol 50 BID - 04/12, restart low dose diltiazem at 120 (home dose 360). Rate controlled at 120 mg will keep it for now as his BP is low normal - Continue Eliquis 2.5 mg bid (3) CHF (congestive heart failure) Current Visit: No Status: Acute Code(s): I50.9 - HEART FAILURE, UNSPECIFIED SNOMED Code(s): 15968466 Comment: - Resulting in acute hypercapnic resp failure - Echo with intact EF 04/02/18 and no sig. valvular abnormalities - change lasix to 40 mg daily and I placed diamox 250 mg daily @ 2 pm started and continue lasix 40 mg in am. It should help improve respiratory drive. his bicarb today 04/14/18 down to 37. will keep it today and recheck Hco3 - in am and may adjust diamox dose - Continue QHS BiPAP 12/08, strong encouragement to wear, unfotunately he continues to decline - low dose Spironolactone 25mg (home dose 50mg) - Continue to hold RANDY I (4) COPD (chronic obstructive pulmonary disease) Current Visit: No Status: Acute Code(s): J44.9 - CHRONIC OBSTRUCTIVE PULMONARY DISEASE, UNSPECIFIED SNOMED Code(s): 03055997 Comment: Not in exacerbation, hypoxemic since last admission in February, cont 02 suppplementation.On Prednisone-slow taper since 02/2018. 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 (6) DVT prophylaxis Current Visit: No Status: Acute Code(s): SJO7903 - SNOMED Code(s): 575669081 Comment: -Elikevin, resume normal dosing Status and Disposition: inpatient, add PT OT
[2018-04-14] MEDS: Levofloxacin 500 MG IVPREMIX(* 500 MG/100 ML BAG IVPB SCH (15:31)
[2018-04-14] MEDS: Magnesium Oxide TAB* 400 MG PO SCH ×2 (15:31→23:03)
[2018-04-14] MEDS: Albuterol/Ipratropium NEB.SOL* Albuterol 2.5 MG/Ipratropium 0.5 MG 3 ML INH PRN (18:14)
[2018-04-14] MEDS: Famotidine TAB* 20 MG PO SCH (23:03)
[2018-04-14] MEDS: traZODone TAB* 50 MG TAB PO SCH (23:03)
[2018-04-15] MEDS: Benzonatate CAP* 100 MG PO PRN (05:54)
[2018-04-15] MEDS: GuaiFENesin DM* 5 ML UDC PO PRN (05:54)
[2018-04-15 07:39] LABS: ABS Basophils 0 10^3/ul (0-0.2); ABS Eosinophils 0.2 10^3/ul (0-0.6); ABS Lymphocytes 0.7 10^3/ul (1.0-4.8); ABS Monocytes 0.9 10^3/ul (0-0.8); ABS Neutrophils 7.5 10^3/ul (1.5-7.7); ABS Nucleated RBC 0 10^3/ul; Eosinophil % 1.7 %; Hematocrit 31 % (42-52); Lymphocyte % 7.9 %; Mean Corpuscular HGB Conc 29 g/dl (31-36); Mean Corpuscular Hemoglobin 22 pg (27-31); Mean Corpuscular Volume 77 fL (80-94); Mean Platelet Volume 8.8 fL (7.4-10.4); Nucleated Red Blood Cells % 0; Platelet Count 160 10^3/ul (150-450); Red Blood Count 4.03 10^6/ul (4.00-5.40); Red Cell Distribution Width 25 % (10.5-15); White Blood Count 9.4 10^3/ul (3.5-10.8)
[2018-04-15 07:50] LABS: Calcium 9.2 mg/dL (8.6-10.3); Potassium 4.5 mmol/L (3.5-5.0)
[2018-04-15 07:56] LABS: BUN/Creatinine Ratio 17.3 (8-20); Phosphorus 2.5 mg/dL (2.5-5.0)
[2018-04-15] MEDS: Allopurinol TAB* 100 MG PO SCH (09:39)
[2018-04-15] MEDS: Apixaban* 2.5 MG TAB PO SCH ×2 (09:39→23:19)
[2018-04-15] MEDS: Magnesium Oxide TAB* 400 MG PO SCH ×2 (09:39→23:19)
[2018-04-15] MEDS: Atorvastatin* 10 MG TAB PO SCH (09:40)
[2018-04-15] MEDS: Calcium Carbonate CHEW TAB* 500 MG (TUMS) PO SCH ×2 (09:40→23:20)
[2018-04-15] MEDS: Multivitamins/Minerals TAB PO SCH (09:40)
[2018-04-15] MEDS: Spironolactone TAB* 25 MG PO SCH (09:40)
[2018-04-15] MEDS: Nystatin SUSPENSION* 100000 UNITS/ML 5 ML UDC PO SCH ×4 (09:40→23:21)
[2018-04-15] MEDS: Diltiazem CD CAP* 120 MG PO SCH (09:42)
[2018-04-15] MEDS: Insulin LISPRO* 1 UNITS UNIT SUBCUT SCH ×4 (09:44→23:20)
[2018-04-15] MEDS: Metoprolol Tartrate TAB* 25 MG PO SCH ×2 (09:47→23:21)
[2018-04-15] MEDS: predniSONE TAB* 5 MG PO SCH (09:51)
[2018-04-15] MEDS: Furosemide TAB* 40 MG PO SCH (09:52)
[2018-04-15] MEDS: Mometasone/Formoter 200/5 MDI INH SCH ×2 (10:29→19:48)
[2018-04-15] MEDS: Tiotropium CAP.INH* CAP.INH/18 MCG (USE ORDER SET !) INH SCH (10:29)
[2018-04-15] MEDS: Levofloxacin 500 MG IVPREMIX(* 500 MG/100 ML BAG IVPB SCH (15:54)
[2018-04-15] MEDS: acetaZOLAMIDE TAB* 250 MG PO SCH (15:54)
[2018-04-15] MEDS: Insulin GLARGINE(*) 1 UNITS UNIT SUBCUT SCH (15:55)
--- NOTE | 2018-04-15 17:31 | PN ---
Subjective Date of Service: 04/15/18 Interval History: Patient seen today. no acute disease. Feeling better. Coughing and able to bring up phelgm. No fever. He tried to use his Bipap but he could not keep it on, Vichy like choking Social History: Unchanged from Admission Past Medical History: Unchanged from Admission Objective Active Medications: Acetaminophen (Tylenol Tab*) 650 mg PO Q4H PRN PRN Reason: FEVER/PAIN Last Admin: 04/12/18 18:44 Dose: 650 mg Acetazolamide (Diamox Tab*) 250 mg PO 1400 [facility] Last Admin: 04/15/18 15:54 Dose: 250 mg Albuterol/Ipratropium (Duoneb (Albuterol 2.5 Mg/Ipratropium 0.5 Mg)) 1 neb INH Q4H PRN PRN Reason: SOB/WHEEZING Last Admin: 04/14/18 18:14 Dose: 1 neb Allopurinol (Zyloprim Tab*) 100 mg PO DAILY [facility] Last Admin: 04/15/18 09:39 Dose: 100 mg Apixaban (Eliquis*) 2.5 mg PO BID [facility] Last Admin: 04/15/18 09:39 Dose: 2.5 mg Atorvastatin Calcium (Lipitor*) 10 mg PO DAILY [facility] Last Admin: 04/15/18 09:40 Dose: 10 mg Benzonatate (Tessalon Cap*) 200 mg PO Q8H PRN PRN Reason: COUGH Last Admin: 04/15/18 05:54 Dose: 200 mg Calcium Carbonate (Tums*) 500 mg PO BID [facility] Last Admin: 04/15/18 09:40 Dose: 500 mg Device (Tiotropium Inhaler Device*) 1 each .SEE ORDER .USE w/ SPIRIVA CAPS [facility] Dextrose (D50w Syringe 50 Ml*) 12.5 gm IV PUSH .FOR FS < 60 - SS PRN PRN Reason: FS < 60 Last Admin: 04/07/18 07:59 Dose: 12.5 gm Diltiazem HCl (Cardizem Cd Cap*) 120 mg PO DAILY [facility] Last Admin: 04/15/18 09:42 Dose: 120 mg Docusate Sodium (Colace Cap*) 100 mg PO DAILY PRN PRN Reason: CONSTIPATION Last Admin: 04/08/18 08:43 Dose: 100 mg Famotidine (Pepcid Tab*) 20 mg PO DAILY@2100 [facility] Last Admin: 04/14/18 23:03 Dose: 20 mg Furosemide (Lasix Tab*) 40 mg PO DAILY [facility] Last Admin: 04/15/18 09:52 Dose: 40 mg Guaifenesin/Dextromethorphan (Robitussin Dm*) 5 ml PO Q4H PRN PRN Reason: COUGH Last Admin: 04/15/18 05:54 Dose: 5 ml Levofloxacin/Dextrose (Levaquin 500 Mg Ivpremix(*)) 500 mg in 100 mls @ 100 mls /hr IVPB Q24H [facility] Last Admin: 04/15/18 15:54 Dose: 100 mls/hr Insulin Glargine (Lantus(*)) 34 units SUBCUT 1500 [facility] Last Admin: 04/15/18 15:55 Dose: 34 units Insulin Human Lispro (Humalog*) 0 units SUBCUT FS ACHS ICU [facility]; Protocol Last Admin: 04/15/18 12:21 Dose: 6 units Magnesium Oxide (Magox 400 Tab*) 400 mg PO BID [facility] Last Admin: 04/15/18 09:39 Dose: 400 mg Metoprolol Tartrate (Lopressor Tab*) 50 mg PO BID [facility] Last Admin: 04/15/18 09:47 Dose: 50 mg Mometasone Furoate/Formoterol Fumar (Dulera 200/5 Mdi*) 2 puff INH BID [facility] Last Admin: 04/15/18 10:29 Dose: 2 puff Multivitamins/Minerals (Theragran/Minerals Tab*) 1 tab PO DAILY [facility] Last Admin: 04/15/18 09:40 Dose: 1 tab Nystatin (Nystatin Suspension*) 200,000 units PO QID [facility] Last Admin: 04/15/18 12:22 Dose: 200,000 units Polyethylene Glycol/Electrolytes (Miralax*) 17 gm PO DAILY PRN PRN Reason: CONSTIPATION Last Admin: 04/08/18 08:43 Dose: 17 gm Polyvinyl Alcohol (Polyvinyl Alcohol 1.4% Opth*) 1 drop BOTH EYES Q2H PRN PRN Reason: DRY EYE Prednisone (Deltasone Tab*) 5 mg PO DAILY [facility] Last Admin: 04/15/18 09:51 Dose: 5 mg Spironolactone (Aldactone Tab*) 25 mg PO DAILY [facility] Last Admin: 04/15/18 09:40 Dose: 25 mg Tiotropium [place] (Spiriva Cap.Inh*) 1 cap INH DAILY [facility] Last Admin: 04/15/18 10:29 Dose: 1 cap Trazodone HCl (Desyrel Tab*) 50 mg PO BEDTIME [facility] Last Admin: 04/14/18 23:03 Dose: 50 mg Additional Medications: Did stop standing ambien QHS Vital Signs - 8 hr 04/15/18 10:30 Pulse Rate 81 Respiratory 22 Rate O2 Sat by Pulse 100 Oximetry Oxygen Devices in Use Now: Nasal Cannula Appearance: Awake, obese. Using nasal canula Eyes: No Scleral Icterus, PERRLA Ears/Nose/Mouth/Throat: NL Teeth, Lips, Gums, Mucous Membranes Moist Neck: NL Appearance and Movements; NL JVP, Trachea Midline Respiratory: Symmetrical Chest Expansion and Respiratory Effort, - - coarse rhonchi. wheezing. diminished at bases Cardiovascular: NL Sounds; No Murmurs; No JVD, No Edema, - - irregularly irregular Abdominal: NL Sounds; No Tenderness; No Distention Extremities: - - Edema Neurological: Alert and Oriented x 3 Result Diagrams: 04/15/18 07:11 04/15/18 07:11 Microbiology and Other Data: Microbiology 04/06/18 10:41 Aerobic Blood Culture - Preliminary Blood Venous No Growth Day 1 Anaerobic Blood Culture - Preliminary No Growth Day 1 04/02/18 19:37 Nasal Screen MRSA (PCR) - Final Nasal Mrsa Not Detected Influenza Types A,B Antigen - Final Specimen received for Influenza A/B Molecular testing Assess/Plan/Problems-Billing Assessment: 88 yo M PMH COPD, HFpEF (last EF >65% in 03/2018) and atrial fibrillation, recently dx SSS with PPM placed 02/2018, mild cognitive impariment at baseline, urinary retention with bladder neck stricture with recent [facility] hospitalization to 03/24/2018 who was on swing status at [facility] on 03/28-04/02 and had worsening respiratory status xfed back to [facility] on 04/02 for hypercarbic resp failure, HFpEF exacerbation, and AMS. He was in the ICU until 04/06 and remains diuresing on the floor with nightly BiPAP that he wears intermittently, ongoing respiratory acidosis and metabolic compensation as evidence by HCO3 elevated in the 40s. - Patient Problems (1) Acute respiratory failure with hypoxia Current Visit: No Status: Acute Code(s): J96.01 - ACUTE RESPIRATORY FAILURE WITH HYPOXIA SNOMED Code(s): 30740518 Comment: - Multifactorial, 2/2 combination of COPD/Cor pulomnale and CHF exacerbations - Hypercarbia concerning given increasing bicarb on daily BMP, ABG revealed compensated respiratory acidosis with metabolic alkalosis compensatory. I did implement diamox 250 mg @ 2 pm started 04/13/18 and continue lasix 40 mg in am. It should help improve respiratory drive. his bicarb today 04/15/18 down to 36. will keep it today and recheck Hco3- in 2 days and may adjust diamox dose - Continue QHS BiPAP 18/, strong encouragement to wear, unfotunately he continues to decline - Remains on long pred taper, now at 5mg! (2) Afib Current Visit: No Status: Acute Code(s): I48.91 - UNSPECIFIED ATRIAL FIBRILLATION SNOMED Code(s): 83414631 Comment: -Follows with Dr. Titus at [facility] - Rate control with metoprolol, on telem with V paced rhythm and underlying a. fib. today - Continue Metoprolol 50 BID - 04/12, restart low dose diltiazem at 120 (home dose 360). Rate controlled at 120 mg will keep it for now as his BP is low normal - Continue Eliquis 2.5 mg bid (3) CHF (congestive heart failure) Current Visit: No Status: Acute Code(s): I50.9 - HEART FAILURE, UNSPECIFIED SNOMED Code(s): 65005338 Comment: - Resulting in acute hypercapnic resp failure - Echo with intact EF 04/02/18 and no sig. valvular abnormalities - change lasix to 40 mg daily and I placed diamox 250 mg daily @ 2 pm started and continue lasix 40 mg in am. It should help improve respiratory drive. his bicarb today 04/15/18 down to 36. will keep it today and recheck Hco3 - in 2 days and may adjust diamox dose - Continue QHS BiPAP 18/, strong encouragement to wear, unfotunately he continues to decline - low dose Spironolactone 25mg (home dose 50mg) - Continue to hold RANDY I (4) COPD (chronic obstructive pulmonary disease) Current Visit: No Status: Acute Code(s): J44.9 - CHRONIC OBSTRUCTIVE PULMONARY DISEASE, UNSPECIFIED SNOMED Code(s): 23313595 Comment: Not in exacerbation, hypoxemic since last admission in February, cont 02 suppplementation.On Prednisone-slow taper since 02/2018. 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 (6) DVT prophylaxis Current Visit: No Status: Acute Code(s): PKV7861 - SNOMED Code(s): 506936397 Comment: -Eliquis, resume normal dosing Status and Disposition: inpatient, add PT OT
[2018-04-15] MEDS: Famotidine TAB* 20 MG PO SCH (23:19)
[2018-04-15] MEDS: traZODone TAB* 50 MG TAB PO SCH (23:19)
[2018-04-16] MEDS: Mometasone/Formoter 200/5 MDI INH SCH ×2 (07:57→19:38)
[2018-04-16] MEDS: Tiotropium CAP.INH* CAP.INH/18 MCG (USE ORDER SET !) INH SCH (07:57)
[2018-04-16] MEDS: Furosemide TAB* 40 MG PO SCH (09:25)
[2018-04-16] MEDS: Spironolactone TAB* 25 MG PO SCH (09:25)
[2018-04-16] MEDS: Apixaban* 2.5 MG TAB PO SCH ×2 (09:25→20:37)
[2018-04-16] MEDS: Metoprolol Tartrate TAB* 25 MG PO SCH ×2 (09:25→20:38)
[2018-04-16] MEDS: Calcium Carbonate CHEW TAB* 500 MG (TUMS) PO SCH (09:25)
[2018-04-16] MEDS: Diltiazem CD CAP* 120 MG PO SCH (09:25)
[2018-04-16] MEDS: Multivitamins/Minerals TAB PO SCH (09:26)
[2018-04-16] MEDS: Magnesium Oxide TAB* 400 MG PO SCH ×2 (09:26→20:38)
[2018-04-16] MEDS: Nystatin SUSPENSION* 100000 UNITS/ML 5 ML UDC PO SCH ×4 (09:26→20:39)
[2018-04-16] MEDS: Atorvastatin* 10 MG TAB PO SCH (09:26)
[2018-04-16] MEDS: predniSONE TAB* 5 MG PO SCH (09:26)
[2018-04-16] MEDS: Allopurinol TAB* 100 MG PO SCH (09:26)
[2018-04-16] MEDS: Insulin LISPRO* 1 UNITS UNIT SUBCUT SCH ×4 (09:27→20:39)
[2018-04-16] MEDS: acetaZOLAMIDE TAB* 250 MG PO SCH (13:24)
--- NOTE | 2018-04-16 14:50 | PN ---
Subjective Date of Service: 04/16/18 Interval History: Patient seen this morning. He is still coughing and increase wheezing. Unable to bring up his phlegm. He did not use his Bipap. UC noted positive for e- coli and pseudomona;s sensitive for levaquin already on board. He is on prednisone 5 mg daily. I will escalate to po medrol 4 mg tid and will need to maintain to see if he feels better on it and than once stable may switch to lower dose and revert back to prednisone once he reach baseline. Social History: Unchanged from Admission Past Medical History: Unchanged from Admission Objective Active Medications: Acetaminophen (Tylenol Tab*) 650 mg PO Q4H PRN PRN Reason: FEVER/PAIN Last Admin: 04/12/18 18:44 Dose: 650 mg Acetazolamide (Diamox Tab*) 250 mg PO 1400 [facility] Last Admin: 04/16/18 13:24 Dose: 250 mg Albuterol/Ipratropium (Duoneb (Albuterol 2.5 Mg/Ipratropium 0.5 Mg)) 1 neb INH Q4H PRN PRN Reason: SOB/WHEEZING Last Admin: 04/14/18 18:14 Dose: 1 neb Allopurinol (Zyloprim Tab*) 100 mg PO DAILY [facility] Last Admin: 04/16/18 09:26 Dose: 100 mg Apixaban (Eliquis*) 2.5 mg PO BID [facility] Last Admin: 04/16/18 09:25 Dose: 2.5 mg Atorvastatin Calcium (Lipitor*) 10 mg PO DAILY [facility] Last Admin: 04/16/18 09:26 Dose: 10 mg Benzonatate (Tessalon Cap*) 200 mg PO Q8H PRN PRN Reason: COUGH Last Admin: 04/15/18 05:54 Dose: 200 mg Device (Tiotropium Inhaler Device*) 1 each .SEE ORDER .USE w/ SPIRIVA CAPS [facility] Dextrose (D50w Syringe 50 Ml*) 12.5 gm IV PUSH .FOR FS < 60 - SS PRN PRN Reason: FS < 60 Last Admin: 04/07/18 07:59 Dose: 12.5 gm Diltiazem HCl (Cardizem Cd Cap*) 120 mg PO DAILY [facility] Last Admin: 04/16/18 09:25 Dose: 120 mg Docusate Sodium (Colace Cap*) 100 mg PO DAILY PRN PRN Reason: CONSTIPATION Last Admin: 04/08/18 08:43 Dose: 100 mg Famotidine (Pepcid Tab*) 20 mg PO DAILY@2100 [facility] Last Admin: 04/15/18 23:19 Dose: 20 mg Furosemide (Lasix Tab*) 40 mg PO DAILY [facility] Last Admin: 04/16/18 09:25 Dose: 40 mg Guaifenesin/Dextromethorphan (Robitussin Dm*) 5 ml PO Q4H PRN PRN Reason: COUGH Last Admin: 04/15/18 05:54 Dose: 5 ml Levofloxacin/Dextrose (Levaquin 500 Mg Ivpremix(*)) 500 mg in 100 mls @ 100 mls /hr IVPB Q24H [facility] Last Admin: 04/15/18 15:54 Dose: 100 mls/hr Insulin Glargine (Lantus(*)) 38 units SUBCUT 1500 [facility] Last Admin: 04/16/18 13:25 Dose: 38 units Insulin Human Lispro (Humalog*) 0 units SUBCUT FS ACHS ICU [facility]; Protocol Last Admin: 04/16/18 13:24 Dose: 15 units Magnesium Oxide (Magox 400 Tab*) 400 mg PO BID [facility] Last Admin: 04/16/18 09:26 Dose: 400 mg Methylprednisolone (Medrol Tab*) 4 mg PO TID [facility] Metoprolol Tartrate (Lopressor Tab*) 50 mg PO BID [facility] Last Admin: 04/16/18 09:25 Dose: 50 mg Mometasone Furoate/Formoterol Fumar (Dulera 200/5 Mdi*) 2 puff INH BID [facility] Last Admin: 04/16/18 07:57 Dose: 2 puff Multivitamins/Minerals (Theragran/Minerals Tab*) 1 tab PO DAILY [facility] Last Admin: 04/16/18 09:26 Dose: 1 tab Nystatin (Nystatin Suspension*) 200,000 units PO QID [facility] Last Admin: 04/16/18 13:23 Dose: 200,000 units Polyethylene Glycol/Electrolytes (Miralax*) 17 gm PO DAILY PRN PRN Reason: CONSTIPATION Last Admin: 04/08/18 08:43 Dose: 17 gm Polyvinyl Alcohol (Polyvinyl Alcohol 1.4% Opth*) 1 drop BOTH EYES Q2H PRN PRN Reason: DRY EYE Spironolactone (Aldactone Tab*) 25 mg PO DAILY [facility] Last Admin: 04/16/18 09:25 Dose: 25 mg Tiotropium [place] (Spiriva Cap.Inh*) 1 cap INH DAILY [facility] Last Admin: 04/16/18 07:57 Dose: 1 cap Trazodone HCl (Desyrel Tab*) 50 mg PO BEDTIME [facility] Last Admin: 04/15/18 23:19 Dose: 50 mg Vital Signs - 8 hr 04/16/18 04/16/18 07:25 07:58 Temperature 97.3 F Pulse Rate 84 87 Respiratory 20 22 Rate Blood Pressure 130/42 (mmHg) O2 Sat by Pulse 97 97 Oximetry Oxygen Devices in Use Now: Nasal Cannula Appearance: Awake, increase coughing and wheezing. Increase congestions Eyes: No Scleral Icterus Ears/Nose/Mouth/Throat: NL Teeth, Lips, Gums, - - dry oral mucosa Neck: NL Appearance and Movements; NL JVP, Trachea Midline Respiratory: - - increase wheezing. Scaterred rhonchi. Transmitted upper airway breathsound. Cardiovascular: - - irregularly irregular; Edema Abdominal: NL Sounds; No Tenderness; No Distention, - - obese Extremities: - - edema Neurological: Alert and Oriented x 3 Result Diagrams: 04/15/18 07:11 04/15/18 07:11 Microbiology and Other Data: Microbiology 04/06/18 10:41 Aerobic Blood Culture - Preliminary Blood Venous No Growth Day 1 Anaerobic Blood Culture - Preliminary No Growth Day 1 04/02/18 19:37 Nasal Screen MRSA (PCR) - Final Nasal Mrsa Not Detected Influenza Types A,B Antigen - Final Specimen received for Influenza A/B Molecular testing Assess/Plan/Problems-Billing Assessment: 88 yo M PMH COPD, HFpEF (last EF >65% in 03/2018) and atrial fibrillation, recently dx SSS with PPM placed 02/2018, mild cognitive impariment at baseline, urinary retention with bladder neck stricture with recent [facility] hospitalization to 03/24/2018 who was on swing status at [facility] on 03/28-04/02 and had worsening respiratory status xfed back to [facility] on 04/02 for hypercarbic resp failure, HFpEF exacerbation, and AMS. He was in the ICU until 04/06 and remains diuresing on the floor with nightly BiPAP that he wears intermittently, ongoing respiratory acidosis and metabolic compensation as evidence by HCO3 elevated in the 40s. - Patient Problems (1) Acute respiratory failure with hypoxia Current Visit: No Status: Acute Code(s): J96.01 - ACUTE RESPIRATORY FAILURE WITH HYPOXIA SNOMED Code(s): 25634900 Comment: - Multifactorial, 2/2 combination of COPD/Cor pulomnale and CHF exacerbations - Hypercarbia concerning given increasing bicarb on daily BMP, ABG revealed compensated respiratory acidosis with metabolic alkalosis compensatory. I did implement diamox 250 mg @ 2 pm started 04/13/18 and continue lasix 40 mg in am. It should help improve respiratory drive. his bicarb 04/15/18 down to 36. will keep diamox and recheck Hco3- on 04/17/18 and may adjust diamox dose if need be. - Continue QHS BiPAP 12/08, strong encouragement to wear, unfotunately he continues to decline - Remains on long pred taper, now at 5mg! I am going to change him to medrol 4 mg tid today 04/16/18 due to increase wheezing and congestions. I will check CXR in am 04/17/18, BNP repeat on 04/17/18 and adjust his diuretics if needed. (2) Afib Current Visit: No Status: Acute Code(s): I48.91 - UNSPECIFIED ATRIAL FIBRILLATION SNOMED Code(s): 51860272 Comment: -Follows with Dr. Titus at [place] - Rate control with metoprolol, on telem with V paced rhythm and underlying a. fib. today - Continue Metoprolol 50 BID - 04/12, restarted low dose diltiazem at 120 (home dose 360). Rate controlled at 120 mg will keep it for now as his BP is low normal - Continue Eliquis 2.5 mg bid (3) CHF (congestive heart failure) Current Visit: No Status: Acute Code(s): I50.9 - HEART FAILURE, UNSPECIFIED SNOMED Code(s): 41427988 Comment: - Resulting in acute hypercapnic resp failure - Echo with intact EF (65%) on 04/02/18 and no sig. valvular abnormalities - changed lasix to 40 mg daily (from bid) and I placed diamox 250 mg daily @ 2 pm started 04/13/18 and continue lasix 40 mg in am. It should help improve respiratory drive. His bicarb 04/15/18 down to 36. will keep Diamox same dose and recheck Hco3- in 2 days 04/17/18 and may adjust diamox dose to either higher or same pending his chemistry - Continue QHS BiPAP 12/08, strong encouragement to wear, unfotunately he continues to decline - low dose Spironolactone 25mg (home dose 50mg) - Continue to hold RANDY I (4) COPD (chronic obstructive pulmonary disease) Current Visit: No Status: Acute Code(s): J44.9 - CHRONIC OBSTRUCTIVE PULMONARY DISEASE, UNSPECIFIED SNOMED Code(s): 05530544 Comment: - On Prednisone-slow taper since 02/2018. currently on 5 mg daily. He seems to be not improving from pulmnary stand of view. 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 (6) DVT prophylaxis Current Visit: No Status: Acute Code(s): [id number] - SNOMED Code(s): 786395816 Comment: -Eliquis, resume normal dosing Status and Disposition: inpatient, add PT OT
[2018-04-16] MEDS ORDERED: Insulin GLARGINE(*) 1 UNITS UNIT SUBCUT SCH (15:00)
[2018-04-16] MEDS: GuaiFENesin DM* 5 ML UDC PO SCH ×2 (17:28→23:36)
[2018-04-16] MEDS: Levofloxacin 500 MG IVPREMIX(* 500 MG/100 ML BAG IVPB SCH (17:29)
[2018-04-16] MEDS: methylPREDNISolone TAB* 4 MG PO SCH ×2 (17:30→20:38)
[2018-04-16] MEDS: traZODone TAB* 50 MG TAB PO SCH (20:37)
[2018-04-16] MEDS: Famotidine TAB* 20 MG PO SCH (20:38)
[2018-04-17] MEDS: GuaiFENesin DM* 5 ML UDC PO SCH (05:44)
[2018-04-17 07:50] LABS: BUN/Creatinine Ratio 15.7 (8-20); Calcium 9.6 mg/dL (8.6-10.3); EGFR Non-African American 48.1 (>60); Magnesium 2.2 mg/dL (1.9-2.7); Phosphorus 3.4 mg/dL (2.5-5.0)
[2018-04-17 07:59] LABS: Hematocrit 35 % (42-52); Mean Corpuscular HGB Conc 29 g/dl (31-36); Mean Corpuscular Hemoglobin 23 pg (27-31); Mean Corpuscular Volume 81 fL (80-94); Mean Platelet Volume 9.5 fL (7.4-10.4); Platelet Count 105 10^3/ul (150-450); Red Blood Count 4.32 10^6/ul (4.00-5.40); Red Cell Distribution Width 25 % (10.5-15); White Blood Count 9.4 10^3/ul (3.5-10.8)
[2018-04-17] MEDS: Mometasone/Formoter 200/5 MDI INH SCH (07:59)
[2018-04-17] MEDS: Tiotropium CAP.INH* CAP.INH/18 MCG (USE ORDER SET !) INH SCH (07:59)
[2018-04-17 08:00] LABS: Potassium 5.2 mmol/L (3.5-5.0)
--- NOTE | 2018-04-17 08:02 | PN ---
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 VS: T max 98, HR 80s-90s (fib) 100% on 2L- BP 113/60's voiding freely since padilla removed, large BM This morning, has no complaints, very limited insight to situation, frustrated with his SOB and cough still which is slow to resolve, but otherwise feeling like his fluid status is improving but still not back to baseline. He does feel he would be willing to try to wear a mask at home and as per last notes, he and declined palliative care discussions in the event he can't tolerate them. He is stable for d/c to [facility] and he is comfortable with this. Social History: Unchanged from Admission Past Medical History: Unchanged from Admission Objective Active Medications: Acetaminophen (Tylenol Tab*) 650 mg PO Q4H PRN PRN Reason: FEVER/PAIN Last Admin: 04/12/18 18:44 Dose: 650 mg Acetazolamide (Diamox Tab*) 250 mg PO 1400 [facility] Last Admin: 04/16/18 13:24 Dose: 250 mg Albuterol/Ipratropium (Duoneb (Albuterol 2.5 Mg/Ipratropium 0.5 Mg)) 1 neb INH Q4H PRN PRN Reason: SOB/WHEEZING Last Admin: 04/14/18 18:14 Dose: 1 neb Allopurinol (Zyloprim Tab*) 100 mg PO DAILY [facility] Last Admin: 04/16/18 09:26 Dose: 100 mg Apixaban (Eliquis*) 2.5 mg PO BID [facility] Last Admin: 04/16/18 20:37 Dose: 2.5 mg Atorvastatin Calcium (Lipitor*) 10 mg PO DAILY [facility] Last Admin: 04/16/18 09:26 Dose: 10 mg Benzonatate (Tessalon Cap*) 200 mg PO Q8H PRN PRN Reason: COUGH Last Admin: 04/15/18 05:54 Dose: 200 mg Device (Tiotropium Inhaler Device*) 1 each .SEE ORDER .USE w/ SPIRIVA CAPS [facility] Dextrose (D50w Syringe 50 Ml*) 12.5 gm IV PUSH .FOR FS < 60 - SS PRN PRN Reason: FS < 60 Last Admin: 04/07/18 07:59 Dose: 12.5 gm Diltiazem HCl (Cardizem Cd Cap*) 120 mg PO DAILY [facility] Last Admin: 04/16/18 09:25 Dose: 120 mg Docusate Sodium (Colace Cap*) 100 mg PO DAILY PRN PRN Reason: CONSTIPATION Last Admin: 04/08/18 08:43 Dose: 100 mg Famotidine (Pepcid Tab*) 20 mg PO DAILY@2100 [facility] Last Admin: 04/16/18 20:38 Dose: 20 mg Furosemide (Lasix Tab*) 40 mg PO DAILY [facility] Last Admin: 04/16/18 09:25 Dose: 40 mg Guaifenesin/Dextromethorphan (Robitussin Dm*) 10 ml PO Q8H [facility] Stop: 04/23/18 14:59 Last Admin: 04/17/18 05:44 Dose: 10 ml Levofloxacin/Dextrose (Levaquin 500 Mg Ivpremix(*)) 500 mg in 100 mls @ 100 mls /hr IVPB Q24H [facility] Last Admin: 04/16/18 17:29 Dose: 100 mls/hr Insulin Glargine (Lantus(*)) 38 units SUBCUT 1500 [facility] Last Admin: 04/16/18 13:25 Dose: 38 units Insulin Human Lispro (Humalog*) 0 units SUBCUT FS ACHS ICU [facility]; Protocol Last Admin: 04/16/18 20:39 Dose: 6 units Magnesium Oxide (Magox 400 Tab*) 400 mg PO BID [facility] Last Admin: 04/16/18 20:38 Dose: 400 mg Methylprednisolone (Medrol Tab*) 4 mg PO TID [facility] Last Admin: 04/16/18 20:38 Dose: 4 mg Metoprolol Tartrate (Lopressor Tab*) 50 mg PO BID [facility] Last Admin: 04/16/18 20:38 Dose: 50 mg Mometasone Furoate/Formoterol Fumar (Dulera 200/5 Mdi*) 2 puff INH BID [facility] Last Admin: 04/17/18 07:59 Dose: 2 puff Multivitamins/Minerals (Theragran/Minerals Tab*) 1 tab PO DAILY [facility] Last Admin: 04/16/18 09:26 Dose: 1 tab Nystatin (Nystatin Suspension*) 200,000 units PO QID [facility] Last Admin: 04/16/18 20:39 Dose: 200,000 units Polyethylene Glycol/Electrolytes (Miralax*) 17 gm PO DAILY PRN PRN Reason: CONSTIPATION Last Admin: 04/08/18 08:43 Dose: 17 gm Polyvinyl Alcohol (Polyvinyl Alcohol 1.4% Opth*) 1 drop BOTH EYES Q2H PRN PRN Reason: DRY EYE Spironolactone (Aldactone Tab*) 25 mg PO DAILY [facility] Last Admin: 04/16/18 09:25 Dose: 25 mg Tiotropium [place] (Spiriva Cap.Inh*) 1 cap INH DAILY [facility] Last Admin: 04/17/18 07:59 Dose: 1 cap Trazodone HCl (Desyrel Tab*) 50 mg PO BEDTIME [facility] Last Admin: 04/16/18 20:37 Dose: 50 mg Vital Signs - 8 hr 04/17/18 04/17/18 00:18 02:54 Temperature 98.5 F 97.6 F Pulse Rate 77 66 Respiratory 18 18 Rate Blood Pressure 110/71 112/40 (mmHg) O2 Sat by Pulse 100 100 Oximetry Oxygen Devices in Use Now: Nasal Cannula Appearance: Well appearing man in NAD Eyes: No Scleral Icterus, PERRLA Ears/Nose/Mouth/Throat: NL Teeth, Lips, Gums Neck: NL Appearance and Movements; NL JVP Respiratory: Symmetrical Chest Expansion and Respiratory Effort, - - Upper airway sounds rhonchorus, distant lower breath sounds but no wheezes or crackles Cardiovascular: NL Sounds; No Murmurs; No JVD, - - irreg irreg Abdominal: NL Sounds; No Tenderness; No Distention, No Hepatosplenomegaly Lymphatic: No Cervical Adenopathy Neurological: Alert and Oriented x 3 Lines/Tubes/Other Access: Clean, Dry and Intact Padilla - Removed, voiding freely Result Diagrams: 04/17/18 07:09 04/17/18 07:09 Microbiology and Other Data: Microbiology 04/06/18 10:41 Aerobic Blood Culture - Preliminary Blood Venous No Growth Day 1 Anaerobic Blood Culture - Preliminary No Growth Day 1 04/02/18 19:37 Nasal Screen MRSA (PCR) - Final Nasal Mrsa Not Detected Influenza Types A,B Antigen - Final Specimen received for Influenza A/B Molecular testing Assess/Plan/Problems-Billing Assessment: 88 yo M PMH COPD, HFpEF (last EF >65% in 03/2018) and atrial fibrillation, recently dx SSS with PPM placed 02/2018, mild cognitive impariment at baseline, urinary retention with bladder neck stricture with recent [facility] hospitalization to 03/24/2018 who was on swing status at [facility] on 03/28-04/02 and had worsening respiratory status xfed back to [facility] on 04/02 for hypercarbic resp failure, HFpEF exacerbation, and AMS. He was in the ICU until 04/06 and remains diuresing on the floor with nightly BiPAP that he wears intermittently. - Patient Problems (1) CHF (congestive heart failure) Current Visit: No Status: Acute Code(s): I50.9 - HEART FAILURE, UNSPECIFIED SNOMED Code(s): 95176877 Comment: - Resulting in acute hypercapnic resp failure - Echo with intact EF (65%) on 04/02/18 and no sig. valvular abnormalities - Lasix 40mg daily now (home dose) - On 04/14 2/2 to persistent hypercapnia chronic and reanlly compensated with Bicarb increasing to high 40's Acetazolamide was started at PO once daily which can be continued to help respiratory drive as we anticpate poor adherence to BiPAP in the future - Continue QHS BiPAP 12/08, strong encouragement to wear, unfotunately he continues to decline - low dose Spironolactone 25mg (home dose 50mg) - Continue to hold RANDY I given stable BP here, can restart as outpt (2) Afib Current Visit: No Status: Acute Code(s): I48.91 - UNSPECIFIED ATRIAL FIBRILLATION SNOMED Code(s): 52442802 Comment: -Follows with Dr. Titus at [place] - Rate control with metoprolol, on telem with V paced rhythm and underlying a. fib. today - Continue Metoprolol 50 BID - 04/12, restarted low dose diltiazem at 120 (home dose 360). Rate controlled at 120 mg will keep it for now as his BP is low normal - Continue Eliquis 2.5 mg bid (3) Acute respiratory failure with hypoxia Current Visit: No Status: Acute Code(s): J96.01 - ACUTE RESPIRATORY FAILURE WITH HYPOXIA SNOMED Code(s): 63417917 Comment: - Multifactorial, 2/2 combination of COPD/Cor pulomnale and CHF exacerbations, ? PNA - Was restarted on abx Leavquin 04/14 for decompensation, improved sig and last dose 04/18 PO - Hypercarbia concerning given increasing bicarb on daily BMP, ABG revealed compensated respiratory acidosis with metabolic alkalosis compensatory. Acetazolamide 250mg PO q day (started 04/13) may be continued for chronic hypercapnia with metabolic compensation, may be stopped by PCP in the future. - Continue QHS BiPAP 12/08, strong encouragement to wear, unfotunately he continues to decline - Remains on long pred taper, on 04/16 increase back up to medrol 4 mg tid due to increase wheezing and congestions, with improvement - Will go back up to Pred 30 q day on d/c and may need again long taper (4) Diabetes Current Visit: No Status: Acute Code(s): E11.9 - TYPE 2 DIABETES MELLITUS WITHOUT COMPLICATIONS SNOMED Code(s): 82867432 Comment: - Cont ISS , Lantus restarted at 20U QHS given hyperglycemia, now titrated at 40U, home dose is 60U (5) COPD (chronic obstructive pulmonary disease) Current Visit: No Status: Acute Code(s): J44.9 - CHRONIC OBSTRUCTIVE PULMONARY DISEASE, UNSPECIFIED SNOMED Code(s): 74233732 Comment: - On Prednisone-slow taper since 02/2018. 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 but has difficulty tolerating BIPAP at night, encouraged today - Home inhalers (6) CKD (chronic kidney disease) Current Visit: No Status: Acute Code(s): N18.9 - CHRONIC KIDNEY DISEASE, UNSPECIFIED SNOMED Code(s): 837254750 Comment: -Stage 3b, at baseline (7) Gout Current Visit: No Status: Acute Code(s): M10.9 - GOUT, UNSPECIFIED SNOMED Code(s): 97347687 Comment: Continue home allopurinol, renally dosed (8) Anemia Current Visit: Yes Status: Acute Code(s): D64.9 - ANEMIA, UNSPECIFIED SNOMED Code(s): 129799438 Comment: Anemia improving as of 04/08 -CTM, did get IV iron in house (9) Urinary retention Current Visit: No Status: Acute Code(s): R33.9 - RETENTION OF URINE, UNSPECIFIED SNOMED Code(s): 790182111 Comment: -Appreciate urology consultation; dilatation and padilla placement by Dr. Sibley 03/14/18, OK to d/c Padilla from urology standpoint, voiding freely since removal (10) Thrush, oral Current Visit: Yes Status: Resolved Code(s): B37.0 - CANDIDAL STOMATITIS SNOMED Code(s): 99691701 Comment: very mild. started nystatin. Cardiology service ordered fungal blood cx (due to recent pacer)-NEG -Problem resolved (11) DVT prophylaxis Current Visit: No Status: Acute Code(s): [id number] - SNOMED Code(s): 172609518 Comment: -Eliquis, resume normal dosing (12) Cognitive impairment Current Visit: Yes Status: Acute Code(s): R41.89 - OTH SYMPTOMS AND SIGNS W COGNITIVE FUNCTIONS AND AWARENESS SNOMED Code(s): 613569363 Comment: At baseline per today, he does get confused in the afternoon and has had trouble with memory -Persistent retention as well Status and Disposition: Stable to xfer to [facility]
[2018-04-17 08:23] LABS: ABS Basophils 0 10^3/ul (0-0.2); ABS Eosinophils 0 10^3/ul (0-0.6); ABS Lymphocytes 0.4 10^3/ul (1.0-4.8); ABS Monocytes 0.3 10^3/ul (0-0.8); ABS Neutrophils 8.6 10^3/ul (1.5-7.7); ABS Nucleated RBC 0 10^3/ul; Eosinophil % 0.2 %; Nucleated Red Blood Cells % 0; Polychromasia 1+
[2018-04-17] MEDS: Insulin LISPRO* 1 UNITS UNIT SUBCUT SCH ×2 (08:57→12:25)
[2018-04-17] MEDS: Apixaban* 2.5 MG TAB PO SCH (08:58)
[2018-04-17] MEDS: Magnesium Oxide TAB* 400 MG PO SCH (08:58)
[2018-04-17] MEDS: Nystatin SUSPENSION* 100000 UNITS/ML 5 ML UDC PO SCH ×2 (08:58→12:25)
[2018-04-17] MEDS: Furosemide TAB* 40 MG PO SCH (08:58)
[2018-04-17] MEDS: methylPREDNISolone TAB* 4 MG PO SCH (08:58)
[2018-04-17] MEDS: Multivitamins/Minerals TAB PO SCH (08:58)
[2018-04-17] MEDS: Spironolactone TAB* 25 MG PO SCH (08:59)
[2018-04-17] MEDS: Metoprolol Tartrate TAB* 25 MG PO SCH (08:59)
[2018-04-17] MEDS: Diltiazem CD CAP* 120 MG PO SCH (08:59)
[2018-04-17] MEDS: Allopurinol TAB* 100 MG PO SCH (08:59)
[2018-04-17] MEDS: Atorvastatin* 10 MG TAB PO SCH (08:59)
[2018-04-17 11:50] VITALS: BP 104/48
[2018-04-17] MEDS ORDERED: Levofloxacin TAB* 500 MG PO SCH (12:00)
[2018-04-17] MEDS: acetaZOLAMIDE TAB* 250 MG PO SCH (13:26)
--- NOTE | 2018-04-17 13:42 | DS ---
CC: Dr. Yassine Kimball DISCHARGE SUMMARY: DATE OF ADMISSION: 04/02/18 DATE OF DISCHARGE: 04/17/18 PRIMARY DIAGNOSES: 1. Hypercarbic respiratory failure. 2. Congestive heart failure exacerbation. 3. Chronic obstructive pulmonary disease exacerbation with underlying chronic obstructive pulmonary disease. SECONDARY DIAGNOSES: 1. Heart failure with preserved ejection fraction, last ejection fraction greater than 65% in March 2018. 2. Atrial fibrillation, recently diagnosed with sick sinus syndrome, status post pacemaker placement in February 2018. 3. Mild cognitive impairment at baseline. 4. Urinary retention with bladder neck stricture, status post recent dilatation by Urology. 5. Chronic obstructive pulmonary disease. 6. Diabetes. 7. Gout. 8. Anemia. 9. Chronic kidney disease stage 3B. MEDICATIONS ON DISCHARGE: As follows: 1. Acetaminophen tab 650 mg p.o. q.4 p.r.n. for pain. 2. Acetazolamide tab 250 mg p.o. once daily. 3. DuoNebs or albuterol/ipratropium 1 neb inhaled q.4 hours as needed for shortness of breath. 4. Allopurinol tab 100 mg p.o. daily. 5. Apixaban 2.5 mg p.o. b.i.d. 6. Artificial tears 1 drop in both eyes as needed for dry eye. 7. Benzonatate 200 mg p.o. q.8 p.r.n. for cough. 8. Diltiazem 120 mg p.o. daily. 9. Docusate 100 mg p.o. daily p.r.n. for constipation. 10. Famotidine 20 mg p.o. daily. 11. Furosemide 40 mg p.o. daily. 12. Guaifenesin DM 10 mL p.o. q.8 hours standing for cough until symptoms resolved. 13. Glargine 40 units subcutaneous q.h.s. 14. Sliding scale lispro based on greater than BMI sliding scale. 15. Levofloxacin 500 mg p.o. daily for an additional 2 days, to end on . 16. Magnesium oxide 400 mg p.o. b.i.d. 17. Metoprolol tartrate 50 mg p.o. b.i.d. 18. Mometasone formoterol 2 puffs inhaled b.i.d. 19. Multivitamin 1 tab p.o. daily. 20. Nystatin suspension 200,000 units p.o. daily p.r.n. for thrush. 21. Polyethylene glycol 17 g p.o. daily p.r.n. for constipation. 22. Prednisone tab 30 mg p.o. daily, to start 04/18/18 and taper as needed. 23. Spiriva inhaler 1 puff daily. 24. Spironolactone 25 mg p.o. daily. 25. Trazodone 50 mg p.o. at bedtime. 26. Simvastatin 20 mg p.o. daily. Medication changes in this hospitalization are as follows: 1. The diltiazem dose of 360 mg was discontinued in favor of 120 mg. 2. The metoprolol succinate was discontinued in favor of short-acting metoprolol tartrate 50 mg p.o. b.i.d. 3. Levaquin 500 mg p.o. daily was started on 04/14/18, to be completed . 4. Prednisone 30 mg p.o. daily was started after attempting taper in hospital with poor results, restarted on 04/17/18. Will need taper at [facility]. 5. Lisinopril 5 mg p.o. daily has been held. 6. Acetazolamide 250 mg p.o. daily as a new medication. Otherwise, no notable medication changes. HISTORY OF PRESENT ILLNESS AND HOSPITAL COURSE: The patient is an 88-year-old male with above past medical history, who had been recently admitted at [facility] from 03/14/18 to 03/24/18 with COPD and acute on chronic diastolic heart failure and AFib. He had presented at that time with shortness of breath for a month and he had also developed sick sinus syndrome with prolonged sinus pauses and a pacemaker was placed at that time. Furthermore, he had a bladder neck stricture that was dilated and was discharged on a Lua. 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 He was sent back from [place] with increased cough and concern for CHF exacerbation, hypercarbic respiratory failure, and transferred back to [place] for possible advanced airway needs. In the emergency room, he was noted to have hypercarbic respiratory failure secondary to CHF exacerbation and pulmonary edema. His vital signs were notable in the emergency room for hypotension, 89/65, otherwise fairly unremarkable. His labs were noted for pertinent hypercarbia and mild AUBREY. He was initially admitted to the ICU where he was kept on continuous BiPAP. He was ultimately transferred out of the ICU as his mental status improved on 04/07/18 and his hospital course by problem is as follows: 1. Hypercarbic respiratory failure. For his hypercarbic respiratory failure, it was multifactorial secondary to combination of COPD and heart failure exacerbations and possibly pneumonia, for COPD exacerbation, he was maintained on q.h.s. BiPAP 12/08 and needs much encouragement to continue to wear this. His hypercarbia continued to increase from a BMP standpoint with bicarb at 46. On 04/14/18, he was started on acetazolamide 250 mg p.o. daily to help increase his respiratory drive and continues on this at discharge. Continue to encourage adherence of BiPAP in the future. Of note, a palliative care discussion was held with him and his and they were not interested in discussing palliative care needs in the event he was unable to tolerate BiPAP at home and they noted they wanted to continue to try to work on finding a comfortable BiPAP plan. Furthermore, for his acute respiratory failure with hypoxia, he remains on a long prednisone taper. On 04/16/18, his prednisone was increased back up to 30 mg due to increased wheezing and congestion, he has had improvement and will need a long slow taper on discharge. Furthermore, for concern of infectious component of his acute respiratory failure with hypoxia, he was started on Levaquin on 04/14/18 and has improved significantly with his planned last dose of 04/18/18. 2. Heart failure with preserved ejection fraction with acute exacerbation. For this, he did have an echo with intact ejection fraction of 65% on 04/02/18, with no significant valvular abnormalities. He is currently on Lasix 40 mg daily and had been at b.i.d. Lasix dosing for the majority of his hospitalization until about 04/13/18. Low-dose spironolactone 25 mg was restarted. His RANDY inhibitor, lisinopril, has continued to be held given stable blood pressure here. 3. COPD exacerbation with underlying severe COPD, remains on DuoNebs p.r.n. and home inhalers, mometasone formoterol and Spiriva. As noted from above, he is on prednisone with a slow taper since February 2018, was initially tapered to 5 mg daily, but then exacerbated roughly 04/16/18 and was increased back up to prednisone 30 mg, will need monitoring of long prednisone taper on discharge. 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 BiPAP as encouraged. 4. Atrial fibrillation and sick sinus syndrome, status post pacemaker. He remains on rate control with metoprolol 50 mg b.i.d. This is changed from his home dose of succinate metoprolol 12.5 mg. He is currently in V-paced rhythm with underlying AFib, on tele. Furthermore, low-dose diltiazem 120 mg which is a change from his home dose of 360 mg will be continued on discharge. He is currently on anticoagulation for a CHADS-VASc score of greater than 3 at 2.5 mg b.i.d. 5. Diabetes. He is currently on Lantus 40 units. His home dose is 60 units and expect to continue to titrate well on prednisone. He is also on sliding scale mealtime coverage with lispro. 6. CKD stage 3B. His creatinine appears to be at baseline. 7. Gout. We continued his home allopurinol which is currently renally dosed. 8. Anemia. Anemia is improving, and stable. He did get IV iron while in the ICU as his anemia at discharge was noted to be likely iron deficient anemia and he can be continued on his oral iron at home. 9. Urinary retention. He is now voiding freely since removal of his catheter done on 04/13/18. He remained with Lua management secondary to aggressive diuresis early in hospitalization. 10. Cognitive impairment. It is at baseline per him and his . He does get confused in the afternoon and has had trouble with memory in the past. That concludes his chronic and active problems that were managed during this hospitalization. DISPOSITION AT DISCHARGE: Vitals at time of discharge were stable. His physical exam is as follows: This is a well-appearing man with a nasal cannula , in no acute distress. He has upper airway sounds that are rhonchorous with distant lower breath sounds, but no wheezes or crackles on lung exam. He has an irregularly irregular rhythm with no murmurs, rubs, or gallops. His belly is soft, nontender, nondistended. He has no cervical lymphadenopathy. He was alert and oriented x3 this morning. He has IV but no Lua. His labs on day of discharge are notable for an H and H of 10 and 35, which has been stable throughout this hospitalization and platelet count of 105, which has been stable throughout this hospitalization. White blood cell count was 9.4. His BMP is notable for a sodium of 137, potassium of 5.2 thought to be hemolyzed, chloride of 103, bicarb of 30, BUN of 22, and creatinine of 1.4, which appears to be at baseline. His point of care glucose is less than 200. Imaging done in the course of this hospitalization was Echocardiogram as noted from 04/02/18, which noted ejection fraction greater than 65, with no valvular abnormalities and a left atrium that was moderately dilated, otherwise unremarkable. He also had several chest x-rays with the last chest x-ray done 04/07/18, which showed mild cardiogenic pulmonary edema at that time and his lung exam has continued to improve since then. He will be discharged back to [facility] for swing bed status. His primary care provider, Dr. Yassine Kimball, is currently there and will be notified of this discharge as well as copied on the discharge summary. TIME SPENT: Greater than 60 minutes was spent in this discharge planning with half of that spent at the bedside in consult with the patient and his family. They had no further questions at time of discharge. THINGS TO MONITOR IN NURSING FACILITY WELL HOME: 1. For hypercarbia - continue to determine need for acetazolamide 250 mg p.o. and continue to encourage BiPAP. 2. Home medications: Determine when to restart RANDY inhibitor, determine appropriate diltiazem and metoprolol dosing. 3. Ensure stop date of Levaquin 04/18/18. For any questions, please do not hesitate to contact us to clarify notes on this discharge summary. [id number]/[facility] #: [id number] MTDD
[2018-04-17] MEDS ORDERED: Insulin GLARGINE(*) 1 UNITS UNIT SUBCUT SCH (15:00)
[2018-04-18] MEDS ORDERED: predniSONE TAB* 10 MG PO SCH (09:00)
== END 2018-04-17 15:05 | disposition swing bed (61) | DRG 291 ==
LOC: ICU 16:30 → MED 04-06 13:18
PROVIDERS: ADMIT Internal Medicine; ATTEND Internal Medicine
PROC: 5A09357 Assistance with Respiratory Ventilation, Less than 24 Consecutive Hours, Continuous Positive Airway Pressure (ICD-10-PCS; principal; 2018-04-05)
DX: I13.0 Hypertensive heart and chronic kidney disease with heart failure and stage 1 through stage 4 chronic kidney disease, or unspecified chronic kidney disease (principal); J96.22 Acute and chronic respiratory failure with hypercapnia; I50.33 Acute on chronic diastolic (congestive) heart failure; J96.21 Acute and chronic respiratory failure with hypoxia; J44.1 Chronic obstructive pulmonary disease with (acute) exacerbation; N17.9 Acute kidney failure, unspecified; E87.1 Hypo-osmolality and hyponatremia; E87.2 Acidosis; B37.0 Candidal stomatitis; Z68.41 Body mass index [BMI] 40.0-44.9, adult; E11.9 Type 2 diabetes mellitus without complications; E87.5 Hyperkalemia; D72.829 Elevated white blood cell count, unspecified; D64.9 Anemia, unspecified; I48.2 Chronic atrial fibrillation; G47.33 Obstructive sleep apnea (adult) (pediatric); R33.9 Retention of urine, unspecified; M10.9 Gout, unspecified; R41.89 Other symptoms and signs involving cognitive functions and awareness; E66.01 Morbid (severe) obesity due to excess calories; E61.1 Iron deficiency; K52.9 Noninfective gastroenteritis and colitis, unspecified; E11.22 Type 2 diabetes mellitus with diabetic chronic kidney disease; N18.3 Chronic kidney disease, stage 3 (moderate); Z82.49 Family history of ischemic heart disease and other diseases of the circulatory system; Z87.891 Personal history of nicotine dependence; Z88.1 Allergy status to other antibiotic agents; Z95.0 Presence of cardiac pacemaker; Z88.5 Allergy status to narcotic agent; E11.65 Type 2 diabetes mellitus with hyperglycemia; E11.649 Type 2 diabetes mellitus with hypoglycemia without coma
CPT/HCPCS: 36415; 36600; 71045; 80048; 80053; 80061; 81003; 81015; 82803; 82947; 83735; 83880; 84100; 84550; 85025; 85027; 85060; 87040; 87077; 87086; 87103; 87186; 87641; 93306; 94640; 94660; A9270-GY; C8929; G8978-GP-CK; G8979-GP-CI; G8987-GO-CM; G8988-GO-CJ; J1756; J1940; J1956; J2270; J7509; J7512

== ENCOUNTER 2018-08-16 12:57 | Inpatient (IN) | payer MEDICARE, BC ==
--- NOTE | 2018-08-16 13:35 | ED ---
Shortness of Breath - HPI Summary HPI Summary: The patient is an 88 y/o M presenting to [facility] with a chief complaint of sudden onset SOB starting last night. He reports that lying supine aggravates the pain , and ambulation does not worsen his symptoms. The pain kept him up all night. He visited his PCP yesterday, who has an echo scheduled for the patient tomorrow. Also, his PCP states that there was fluid buildup on his lungs shown in a CXR. He additionally c/o productive cough and BLE edema. He denies CP. He does not use O2 at home, but the O2 in the ED is helping him. No hx of CHF or COPD. - History of Current Complaint Chief Complaint: EDShortnessOfBreath Time Seen by Provider: 08/16/18 13:17 Hx Obtained From: Patient Onset/Duration: Sudden Onset, Lasting Hours - since last night, Still Present Timing: Constant Current Severity: Moderate Aggrevating Factors: Other - lying supine Alleviating Factors: Oxygen Associated Signs & Symptoms: Cough (Productive), Edema - BLE - Allergy/Home Medications Allergies/Adverse Reactions: Allergies Allergy/AdvReac Type Severity Reaction Status Date / Time cephalexin [From Keflex] AdvReac Nausea And Verified 08/16/18 13:14 Vomiting codeine AdvReac Nausea And Verified 08/16/18 13:14 Vomiting Home Medications: Home Medications Apixaban* [Eliquis*] 2.5 mg PO BID 08/16/18 [History Confirmed 08/16/18] Bumetanide TAB* [Bumex 2 MG TAB*] 2 mg PO DAILY 08/16/18 [History Confirmed ] Docusate CAP* [Colace Cap*] 100 mg PO DAILY 08/16/18 [History Confirmed 08/16/18 ] Insulin GLARGINE(*) [Lantus(*)] 30 units SUBCUT QPM 08/16/18 [History Confirmed 08/16/18] Insulin GLARGINE(*) [Lantus(*)] 40 units SUBCUT QAM 08/16/18 [History Confirmed 08/16/18] Magnesium Oxide TAB* [MagOx 400 TAB*] 400 mg PO DAILY 08/16/18 [History Confirmed 08/16/18] Metoprolol Tartrate TAB* [Lopressor TAB*] 12.5 mg PO BID 08/16/18 [History Confirmed 08/16/18] Multivitamins/Minerals TAB* [Theragran/minerals TAB*] 1 tab PO DAILY 08/16/18 [ History Confirmed 08/16/18] Mupirocin 2% CREAM* [Bactroban 2% CREAM*] 1 applic TOPICAL TID 08/16/18 [ History Confirmed 08/16/18] Nystatin CREAM* [Nystatin Cream*] 1 applic TOPICAL BID 08/16/18 [History Confirmed 08/16/18] SitaGLIPtin (NF) [Januvia (NF)] 25 mg PO DAILY 08/16/18 [History Confirmed 08/16] Tamsulosin CAP* [Flomax CAP*] 0.4 mg PO DAILY 08/16/18 [History Confirmed ] Tiotropium CAP.INH* [Spiriva CAP.INH*] 2 cap.inh INH DAILY 08/16/18 [History Confirmed 08/16/18] PMH/Surg Hx/FS Hx/Imm Hx Endocrine/Hematology History: Reports: Hx Anticoagulant Therapy, Hx Diabetes, Hx Anemia Cardiovascular History: Reports: Hx Congestive Heart Failure, Hx Hypercholesterolemia, Hx Hypertension, Hx Pacemaker/ICD - afib, Hx Peripheral Vascular Disease - by appearance, Hx Syncope, Other Cardiovascular Problems/ Disorders - sick sinus syndrome, afib, Denies: Hx Valvular Heart Disease Respiratory History: Reports: Hx Chronic Obstructive Pulmonary Disease (COPD), Hx Pulmonary Edema, Hx Seasonal Allergies, Hx Sleep Apnea Denies: Hx Asthma, Hx Pneumonia, Other Respiratory Problems/Disorders GI History: Reports: Hx Gastroesophageal Reflux Disease, Hx Irritable Bowel, Hx Ulcer, Other GI Disorders - polyps History: Reports: Hx Benign Prostatic Hyperplasia - Prostate CA, removed, Other Problems/Disorders - CKD Stage 3 Musculoskeletal History: Reports: Hx Arthritis - HANDS, SHOULDERS, KNEES, ANKLES , Hx Gout - R hand Denies: Other Musculoskeletal History Sensory History: Reports: Hx Cataracts, Hx Contacts or Glasses Denies: Hx Hearing Aid Opthamlomology History: Reports: Hx Cataracts, Hx Contacts or Glasses Neurological History: Denies: Other Neuro Impairments/Disorders Psychiatric History: Reports: Hx Anxiety, Hx Depression, Other Psychiatric Issues/Disorders - thoughts of when sick, not when feeling healthy - Cancer History Cancer Type, Location and Year: prostate, skin Hx Chemotherapy: No Hx Radiation Therapy: No - Surgical History Surgery Procedure, Year, and Place: prostatectomy, 1991, [place]. TUMOR FROM BACK, [id number], [facility]. APPENDECTOMY, [facility]. 1946. Lipoma off the neck. pacemaker Hx Anesthesia Reactions: No - Immunization History Date of Tetanus Vaccine: 2014 Date of Influenza Vaccine: 2014 Immunizations Up to Date: Yes Infectious Disease History: No Infectious Disease History: Denies: Hx Clostridium Difficile, Hx Hepatitis, Hx Human Immunodeficiency Virus (HIV), Hx of Known/Suspected MRSA, Hx Shingles, Hx Tuberculosis, Hx Known/ Suspected VRE, Hx Known/Suspected VRSA, History Other Infectious Disease, Traveled Outside the [place] in Last 30 Days - Family History Known Family History: Positive: Other, Non-Contributory Family History: No FHx anesthesia reaction - Social History Alcohol Use: Rare Alcohol Amount: once in a great while Substance Use Type: Reports: None Hx Tobacco Use: Yes Smoking Status (MU): Former Smoker Type: Cigarettes Amount Used/How Often: 2 PACKS A DAY Length of Time of Smoking/Using Tobacco: 20 Review of Systems Negative: Chest Pain Positive: Shortness Of Breath, Cough - productive Positive: Edema - BLE All Other Systems Reviewed And Are Negative: Yes Physical Exam - Summary Physical Exam Summary: VITAL SIGNS: Reviewed. GENERAL: Patient is a well-developed and obese male who is lying comfortable in the stretcher. Patient is not in any acute respiratory distress. HEAD AND FACE: No signs of trauma. No ecchymosis, hematomas or skull depressions. No sinus tenderness. EYES: PERRLA, EOMI x 2, No injected conjunctiva, no nystagmus. EARS: Hearing grossly intact. Ear canals and tympanic membranes are within normal limits. MOUTH: Oropharynx within normal limits. NECK: Supple, trachea is midline, no adenopathy, no JVD, no carotid bruit, no c- spine tenderness, neck with full ROM. CHEST: Symmetric, no tenderness at palpation LUNGS: Clear to auscultation but decreased breath sounds bilaterally. SOB at 2L O2 with Nasal saturation of 94%. No wheezing or crackles. CVS: Regular rate and rhythm, S1 and S2 present, no murmurs or gallops appreciated. ABDOMEN: Soft, non-tender. No signs of distention. No rebound no guarding, and no masses palpated. Bowel sounds are normal. EXTREMITIES: FROM in all major joints, no cyanosis or clubbing. 2+ edema in BLE. NEURO: Alert and oriented x 3. No acute neurological deficits. Speech is normal and follows commands. SKIN: Dry and warm Triage Information Reviewed: Yes Vital Signs On Initial Exam: Initial Vitals Temp Pulse Resp BP Pulse Ox 98.5 F 86 30 115/55 95 08/16/18 13:01 08/16/18 13:01 08/16/18 13:01 08/16/18 13:01 08/16/18 13:01 Vital Signs Reviewed: Yes Diagnostics - Vital Signs Vital Signs Temp Pulse Resp BP Pulse Ox 08/16/18 13:01 98.5 F 86 30 115/55 95 - Laboratory Result Diagrams: 08/17/18 04:15 08/17/18 15:05 Lab Statement: Any lab studies that have been ordered have been reviewed, and results considered in the medical decision making process. - Radiology CXR Radiology Interpretation Completed By: Radiologist Summary of Radiographic Findings: Increased interstitial edema with bilateral pleural effusions. Pacemaker leads are in place. ED physician has reviewed this report. - EKG 1317 Cardiac Rate: Other Rate - Afib at 94 BPM EKG Rhythm: Atrial Fibrillation EKG Comparison: No Significant Change - Similar to EKG taken on 03/18/2018 Summary of EKG Findings: Atrial fibrillation, No ST elevations Re-Evaluation - Re-Evaluation First Eval Re-Evaluation Time: 16:40 Change: Unchanged Comment: I spoke with the patient concerning admission based upon results. Course/Dx - Course Course Of Treatment: The patient is an 88 y/o M presenting to [facility] with a chief complaint of sudden onset SOB starting last night. He reports that lying supine aggravates the pain, and ambulation does not worsen his symptoms. The pain kept him up all night. He visited his PCP yesterday, who has an echo scheduled for the patient tomorrow. Also, his PCP states that there was fluid buildup on his lungs shown in a CXR. He additionally c/o productive cough and BLE edema. He denies CP. He does not use O2 at home, but the O2 in the ED is helping him. Past medical history significant for syncope, atrial fibrillation on Eliquis, hypokalemia, diabetes, hypertension, COPD, CHF, urinary retention, chronic kidney disease, UTIs, iron deficiency anemia, and cognitive impairment. Patient was placed in a quality assurance monitor body, IV access was obtained. EKG is an atrial fibrillation with rate controlled at 89 bpm. Chest x-ray impression: Increased interstitial edema with bilateral pleural effusions. Pacemaker leads in place. Blood work without a significant abnormality except for hemoglobin 9.2 hematocrit 30, creatinine 1.45, glucose 236, CRP 36.07, BNP 356. He seems that the patient has a chronic anemia and chronic renal insufficiency. The patient desaturates without oxygen to the upper 80s to low 90s, therefore decided to do an ABG. The pH is 7.24, PCO2 60, PO2 72 and O2 saturation 95.9 in 2 L of oxygen. He since that the patient has CHF and bilateral lower extremity edema. The patient was given Bumex in the ED. Patient w/o oxygen he desaturates to upper 80s or lower 90s. I discuss my physical exam, findings and test results with Dr. Meléndez from the hospitalist services, and she agrees to admit patient to his services. Patient is hemodynamically stable alert and oriented x 3. - Diagnoses Provider Diagnoses: CHF (congestive heart failure) - Physician Notifications Discussed Care of Patient With: Shavon Meléndez - hospitalist Time Discussed With Above Provider: 16:40 Instructed by Provider To: Other - I spoke with Dr. Meléndez concerning the results of the patient's workup; she accepts the patient for admission at this time. Discharge - Sign-Out/Discharge Documenting (check all that apply): Patient Departure - Patient will be admitted to [facility] for further care by Dr. Meléndez. Patient Received Moderate/Deep Sedation with Procedure: No - Discharge Plan Condition: Stable Disposition: ADMITTED TO [facility] - Billing Disposition and Condition Condition: STABLE Disposition: Admitted to [facility] - Attestation Statements Document Initiated by Padmini: Yes Documenting Scribe: Juana Pak MD Provider For Whom Padmini is Documenting (Include Credential): Dr. Cruzito Mcnulty MD Scribe Attestation: IJuana MD, scribed for Dr. Cruzito Mcnulty MD on 08/17/18 at 2126. Scribe Documentation Reviewed: Yes Provider Attestation: The documentation as recorded by the scribe, Juana Pak MD accurately reflects the service I personally performed and the decisions made by me, Dr. Cruzito Mcnulty MD Status of Scribe Document: Viewed
[2018-08-16 14:21] LABS: ABS Eosinophils 0.3 10^3/ul (0-0.6); ABS Lymphocytes 0.8 10^3/ul (1.0-4.8); ABS Monocytes 1.1 10^3/ul (0-0.8); ABS Neutrophils 6.9 10^3/ul (1.5-7.7); Eosinophil % 2.9 %; Hematocrit 30 % (42-52); Hemoglobin 9.2 g/dL (14.0-18.0); Lymphocyte % 8.7 %; Mean Corpuscular HGB Conc 30 g/dL (31-36); Mean Corpuscular Hemoglobin 24 pg (27-31); Mean Corpuscular Volume 78 fL (80-94); Mean Platelet Volume 7.3 fL (7.4-10.4); Nucleated Red Blood Cells % 0.1; Platelet Count 331 10^3/uL (150-450); Red Blood Count 3.91 10^6 /uL (4.18-5.48); Red Cell Distribution Width 18 % (10.5-15); White Blood Count 9.1 10^3/uL (3.5-10.8)
[2018-08-16 14:40] LABS: Troponin I 0.01 ng/mL (<0.04)
[2018-08-16 14:47] LABS: ALT 6 U/L (7-52); AST 8 U/L (13-39); Albumin 3.2 g/dL (3.2-5.2); Alkaline Phosphatase 87 U/L (34-104); Anion Gap 4 mmol/L (2-11); BUN/Creatinine Ratio 13.8 (8-20); Blood Urea Nitrogen 20 mg/dL (6-24); C Reactive Protein 36.07 mg/L (<8.01); CO2 Carbon Dioxide 27 mmol/L (22-32); Calcium 8.9 mg/dL (8.6-10.3); Chloride 108 mmol/L (101-111); Creatine Kinase 22 U/L (10-223); EGFR African American 55.8 (>60); EGFR Non-African American 46.1 (>60); Globulin 3.3 g/dL (2-4); Glucose 236 mg/dL (70-100); Potassium 4.2 mmol/L (3.5-5.0); Sodium 139 mmol/L (135-145); Total Protein 6.5 g/dL (6.4-8.9)
[2018-08-16] MEDS ORDERED: Bumetanide IV* 0.25 MG/ML 4 ML VIAL SLOW PUSH PRN (15:26)
[2018-08-16 19:43] LABS: Urine Appearance Cloudy; Urine Bilirubin Negative (Negative); Urine Blood Negative (Negative); Urine Color Yellow; Urine Glucose Negative (Negative); Urine Ketones Negative (Negative); Urine Nitrite Negative (Negative); Urine Protein Negative (Negative); Urine Specific Gravity 1.009 (1.010-1.030); Urine Urobilinogen Negative (Negative)
[2018-08-16] MEDS ORDERED: Furosemide IV* 10 MG/ML 10 ML VIAL (100 MG) IV ONE (20:12)
[2018-08-16] MEDS ORDERED: Senna TAB PO PRN (20:24)
[2018-08-16] MEDS ORDERED: Ondansetron INJ* 2 MG/ML VIAL IV PRN (20:24)
[2018-08-16] MEDS ORDERED: Albuterol/Ipratropium NEB.SOL* Albuterol 2.5 MG/Ipratropium 0.5 MG 3 ML INH PRN (20:33)
[2018-08-16] MEDS ORDERED: Albuterol 2.5 MG/3 ML NEB.SOL* (0.083%) INH PRN (20:33)
[2018-08-16] MEDS ORDERED: Dextrose 50% Syringe 50 ML* 25 GM/50 ML SYRINGE IV PUSH PRN (20:50)
[2018-08-16 20:57] LABS: Total Iron Binding Capacity 371 mcg/dL (250-450); Transferrin 265 mg/dL (203-362)
[2018-08-16 21:01] LABS: % Iron Saturation 5 % (15-55); Iron < 17 ug/dL (50-212)
[2018-08-16 21:17] LABS: Ferritin 18.7 ng/mL (24-336)
[2018-08-16 21:21] LABS: Magnesium 2.1 mg/dL (1.9-2.7)
[2018-08-16] MEDS ORDERED: Furosemide IV* 10 MG/ML VIAL (40 MG) ONE (21:30)
[2018-08-16] MEDS: Insulin GLARGINE(*) 1 UNITS UNIT SUBCUT SCH (21:39)
[2018-08-16] MEDS: Metoprolol Tartrate TAB* 25 MG PO SCH (21:49)
[2018-08-16] MEDS: Tamsulosin CAP* 0.4 MG PO SCH (21:51)
[2018-08-16] MEDS: Docusate CAP* 100 MG PO PRN (21:51)
[2018-08-16] MEDS: Apixaban* 2.5 MG TAB PO SCH (21:51)
[2018-08-16] MEDS: Nystatin CREAM* 30 GM TOPICAL SCH (21:51)
--- NOTE | 2018-08-16 22:17 | PN ---
Progress Note - Progress Note Date of Service: 08/16/18 Note: ABG minimally unchanged after BiPAP - RT adjusted settings. Alert, took his pills, easily to wake Will repeat ABG
[2018-08-16] MEDS: MUPIROCIN 2% TOPICAL SCH (22:37)
--- NOTE | 2018-08-16 23:55 | HP ---
CC: Yassine Kimball DO* HISTORY AND PHYSICAL: DATE OF ADMISSION: 08/16/18 TIME OF EVALUATION: 1999 PRIMARY CARE PHYSICIAN: Yassine Kimball DO. CHIEF COMPLAINT: Shortness of breath and chest pain. HISTORY OF PRESENT ILLNESS: This is an 88-year-old male with a past medical history of hypercapnic respiratory failure, CHF with preserved ejection fraction , and COPD who presented to the emergency room with shortness of breath and chest pain. On my arrival, the patient is in respiratory distress and unable to give an adequate history. Once he had become stabilized, I called the , who states the patient had a prolonged hospitalization back in March for respiratory issues, was in rehab, and was discharged in April. She states he has been confused on a daily basis with memory issues and his shortness of breath has been going off and on for a while; however, today, it seemed to be significantly worse. She took him to his primary care physician yesterday, , and she states they stopped the acetazolamide and started him on Bumex 2 mg and he started that this morning. This afternoon, the patient had more significant shortness of breath and chest pain, and EMS was contacted and brought him to the emergency room for further evaluation. On arrival, EMS noted him to have labored breathing, tachypneic with respiratory distress. The also states the patient has increase in 20 pounds over the past 2 weeks with decrease in appetite. He slid out of his bed about a week ago. No fevers , no cough. Otherwise, review systems is limited as the patient is not able to participate and is based on the 's interaction. She states he has not been able to tolerate BiPAP and they were trying to figure out a plan for him to be able to tolerate it at home. In the emergency room, the patient had labs and imaging. He was given Bumex 1 mg and referred to the hospital service for further evaluation. PAST MEDICAL HISTORY: 1. History of hypercarbic respiratory failure, intolerant of BiPAP at bedtime. 2. History of congestive heart failure with preserved EF. 3. COPD, on room air. 4. History of cognitive impairment. 5. History of atrial fibrillation, on anticoagulation. 6. History of sick sinus syndrome, status post pacemaker placement. 7. History of urinary retention with bladder neck structure, status post dilatation. 8. Diabetes, on insulin. 9. History of gout. 10. Anemia. 11. History of CKD stage 3. MEDICATIONS: 1. Lantus 30 units in the evening, 40 units in the morning. 2. Flomax 0.4 mg p.o. daily. 3. Multivitamin daily. 4. Magnesium oxide 400 mg daily. 5. Spiriva 2 caps inhaled daily. 6. Colace 100 mg daily. 7. Nystatin topical twice a day. 8. Bactroban topical 3 times a day. 9. Januvia 25 mg daily. 10. Eliquis 2.5 mg p.o. b.i.d. 11. Metoprolol 12.5 mg p.o. b.i.d. 12. Bumex 2 mg p.o. daily. Of note, just started today on 08/16/18. ALLERGIES: KEFLEX and CODEINE. SOCIAL HISTORY: The patient lives at home with his . Remote smoker and heavy drinker, does not currently smoke or drink now. He does have some confusion and needs assistance with his ADLs from his , but is relatively independent. Code status, I discussed this with the over the phone. She states he has a living will that states he does not want to be resuscitated, but she wants him resuscitated. We discussed this at length and she is agreeable to follow his wishes and she is going to bring the living will and to complete the MOLST form. FAMILY HISTORY: Reviewed and noncontributory. REVIEW OF SYSTEMS: Limited due to the patient's respiratory distress. PHYSICAL EXAMINATION GENERAL: The patient is in acute respiratory distress, tachypneic, and confused. VITAL SIGNS: Temp is 98.5, pulse rate is 128, respiratory rate 43, oxygen saturation 92% on 5 L of oxygen, blood pressure 130/94. HEENT: Head normocephalic. Pupils are equal and reactive, anicteric. Oropharynx: Mucous membranes are moist. NECK: Supple. No lymphadenopathy. RESPIRATORY: Poor aeration, rales throughout with increased work of breathing and tachypnea. CARDIAC: Irregularly irregular rate and rhythm, rapid, with soft systolic murmur heard throughout. ABDOMEN: Positive bowel sounds. Soft, nontender, and nondistended. Morbidly obese. EXTREMITIES: +2 pretibial edema, pitting. Distant pulses. NEUROLOGIC: The patient is alert and oriented x2, oriented to self and place. No gross focal neurologic deficits, but limited neuro exam due to his extremis. DIAGNOSTIC STUDIES/LAB DATA: Laboratory Data: White count 9.1, hemoglobin 9.2 , hematocrit 30, MCV is 78, platelets 331. Blood gas, 7.24, pCO2 of 60, pO2 of 72. Sodium 139, potassium 4.2, chloride 108, bicarb 27, BUN 20, creatinine 1.45 , glucose 236. CRP of 36. Troponins 0.01, BNP 356. UA unremarkable. Radiographic Data: Chest x-ray, increased interstitial edema with bilateral pleural effusion. Pacemaker leads are in place. EKG shows atrial fibrillation with a rate of 89. ASSESSMENT AND PLAN: This is an 88-year-old male with a past medical history of congestive heart failure; preserved ejection fraction, history of hypercapnic respiratory failure, and chronic obstructive pulmonary disease who presents to the emergency room with acute onset of shortness of breath and chest pain in the setting of a 20-pound weight gain. 1. Respiratory distress: Assessment: On my encounter, the patient remains in respiratory distress. His initial ABG earlier this afternoon showed respiratory acidosis with hypercapnic respiratory failure. I also think there is a significant component of acute decompensated congestive heart failure. No indications for infection. No pneumonia on chest x-ray. Plan: We are going to put him on BiPAP and give him 80 of Lasix. Also, concern with urinary retention with his history, Lua placed and more than 1 L of fluid came out. He may be a candidate for an indwelling Lua with his history and recurrent urinary retention issues. I am going to get a chest CT to get a better evaluation of his pleural effusion to see if he is a candidate for a thoracentesis to improve his respiratory status. We will trend his trops , get an echocardiogram, and will continue him on metoprolol. We will hold his Bumex for now and continue him on Lasix. 2. History of hypercapnic respiratory failure and chronic obstructive pulmonary disease. The patient is intolerant of BiPAP at home. This seems to be an ongoing issue for him. He has since been placed on BiPAP and is improving. We will continue his inhaler regimen. No indication for steroids at this time. 3. Microcytic anemia. The patient's H and H are low, but stable, but now with microcytic anemia. Plan: We will check a guaiac, iron studies, and repeat his labs in the morning. We will continue his Eliquis for now, but we will hold if anything changes. 4. History of atrial fibrillation. The patient's rate has since improved since the BiPAP and has been in the low 100s. We will continue him on his Lopressor and his Eliquis. Again, he did fall last week sliding out of bed. With his age and comorbidities, I would readdress and weigh the risks versus benefits of an 88-year- old on anticoagulation. 5. Diabetes. Assessment/Plan: We will continue him on his Lantus, hold his Januvia, and place him on lispro sliding scale. 6. Benign prostatic hyperplasia with history of urinary retention. As mentioned, Lua catheter placed because he has recurrent issues of urinary retention and he may need to continue to have an indwelling Lua fci. 7. FEN. We will keep him n.p.o. for now in the setting of his respiratory distress and advance the diet to diabetic diet once his respiratory status stabilizes. 8. DVT prophylaxis. The patient scores high risk, will place him on Eliquis. 9. Code status. Discussed with the the patient's living will that he would like to be a DNR. We will have the MOLST form completed. DISPOSITION: The patient at age 88 with multiple comorbidities. Patient is eligible for hospice with his hypercapnic respiratory failure, diastolic heart failure, and CKD, but the may be reluctant to proceed forward with this. PATIENT TIME: Greater than 60 minutes was spent doing the history and physical , more than half of the time was in direct patient contact and critical care time. [id number]/[facility] #: [id number] [facility]ALTH[facility]
[2018-08-17] MEDS ORDERED: Dextrose 50% Syringe 50 ML* 25 GM/50 ML SYRINGE IV PUSH PRN (00:07)
[2018-08-17] MEDS ORDERED: Insulin LISPRO* 1 UNITS UNIT SUBCUT ONE (00:07)
[2018-08-17 04:29] LABS: ABS Basophils 0.1 10^3/ul (0-0.2); ABS Eosinophils 0.2 10^3/ul (0-0.6); ABS Lymphocytes 0.6 10^3/ul (1.0-4.8); ABS Monocytes 1.4 10^3/ul (0-0.8); ABS Neutrophils 7.1 10^3/ul (1.5-7.7); Eosinophil % 1.7 %; Hematocrit 28 % (42-52); Hemoglobin 8.5 g/dL (14.0-18.0); Lymphocyte % 6.7 %; Mean Corpuscular HGB Conc 31 g/dL (31-36); Mean Corpuscular Hemoglobin 24 pg (27-31); Mean Corpuscular Volume 78 fL (80-94); Mean Platelet Volume 7.8 fL (7.4-10.4); Nucleated Red Blood Cells % 0.1; Platelet Count 324 10^3/uL (150-450); Red Blood Count 3.59 10^6 /uL (4.18-5.48); Red Cell Distribution Width 18 % (10.5-15); White Blood Count 9.3 10^3/uL (3.5-10.8)
[2018-08-17 04:49] LABS: BUN/Creatinine Ratio 14.4 (8-20); Calcium 8.5 mg/dL (8.6-10.3); EGFR African American 55.4 (>60); EGFR Non-African American 45.8 (>60); Potassium 3.8 mmol/L (3.5-5.0)
[2018-08-17] MEDS ORDERED: Perflutren Lipid Microsphere* 3 ML VIAL ONE (08:07)
[2018-08-17] MEDS: Tiotropium CAP.INH* CAP.INH/18 MCG (USE ORDER SET !) INH SCH (08:11)
[2018-08-17] MEDS ORDERED: Spiriva Inhaler DEVICE* 1 EACH DEVICE INH ONE (09:00)
[2018-08-17] MEDS ORDERED: Furosemide IV* 10 MG/ML VIAL (40 MG) IV SCH (09:00)
[2018-08-17] MEDS ORDERED: Insulin GLARGINE(*) 1 UNITS UNIT SUBCUT SCH (09:00)
--- NOTE | 2018-08-17 09:07 | ECHO ---
*[facility]* [place] [address] Fax #: [phone] Transthoracic Echocardiogram Patient: Kathy, Height: 68 in / Adam H 172.7 cm : 1930 Weight: 289.4 lb / Study Date: 08/17/2018 131.5 kg Age: 88 BP: 115 / 45 Gender: M BMI/BSA: 44.1 kg/m^2 HR: 84 bpm / 2.39 m^2 *Certified Nursing Assistant: * Mei Burns [facility] *Referring Physician: * Mell Olivier *Reading Physician: * Amy Roberts MD Indications: Congestive Heart Failure. History: Atrial fibrillation. Cerebrovascular accident. PMH: COPD exacerbation. Risk factors: Hypertension. Obese. Hyperlipidemia. PVD. Labs, prior tests, procedures, and surgery: Permanent pacemaker system implantation. Conclusions Summary: 1. Left ventricle: The cavity size is normal. There is moderate concentric hypertrophy. Systolic function is normal. The estimated ejection fraction is 60-65%. 2. Ventricular septum: There is septal flattening of the interventricular septum consistent with RV volume or pressure overload. 3. Left atrium: The atrium is moderately dilated. 4. Right atrium: The atrium is moderately dilated. 5. Mitral valve: There is trace regurgitation. 6. Aortic valve: There is trace regurgitation. 7. Tricuspid valve: There is mild regurgitation. 8. No significant changes since 04/03/2018. Study data: Transthoracic echocardiogram. Procedure: Transthoracic echocardiography was performed. Image quality was suboptimal. The study was technically limited due to body habitus. Intravenous Definity , 3 mlswas administered. Complete 2D, spectral Doppler, and color flow Doppler. Location: ICU Patient status: Inpatient. Patient room number: ICU-6. Findings Left ventricle: The cavity size is normal. There is moderate concentric hypertrophy. Systolic function is normal. The estimated ejection fraction is 60-65%. Wall motion is normal; there are no regional wall motion abnormalities. Left ventricular diastolic function parameters are indeterminate. Right ventricle: Not well visualized. The cavity size is mildly dilated. Wall thickness is mildly increased. Systolic function is low normal. Ventricular septum: There is septal flattening of the interventricular septum consistent with RV volume or pressure overload. Left atrium: The atrium is moderately dilated. Right atrium: The atrium is moderately dilated. Mitral valve: The annulus is calcified. The leaflets are mildly thickened. There is borderline evidence of stenosis. There is trace regurgitation. Aortic valve: The valve is trileaflet. The leaflets are mildly thickened. There is no evidence of stenosis. There is trace regurgitation. Tricuspid valve: Not well visualized. The leaflets are normal thickness. There is no evidence of stenosis. There is mild regurgitation. Pulmonic valve: Not well visualized. There is no evidence of stenosis. Aorta: Ascending aorta: The ascending aorta is appears normal. Aortic arch: The aortic arch is appears normal. The aortic root is not dilated. Pericardium: A prominent pericardial fat pad is present. There is no pericardial effusion. Pulmonary arteries: Not well visualized. Systemic veins: Inferior vena cava: The vessel is dilated. The respirophasic diameter changes are in the normal range (>= 50%). Measurements Left ventricle Value Ref Aortic valve Value Ref JUDY, LAX (L) 3.9 cm 4.2 - 5.8 Yue diam, ED 2.0 cm ----- ESD, LAX 2.5 cm 2.5 - 4.0 Peak v, S 1.43 m/sec ----- FS, LAX 36 % 25 - 43 VTI, S 27.6 cm ----- PW, ED, LAX (H) 1.3 cm 0.6 - 1.0 Mean grad, S 6.0 mm Hg ----- FS 36 % 25 - 43 Peak grad, S 8.0 mm Hg ----- PW, ED (H) 1.3 cm 0.6 - 1.0 LVOT/AV, VTI ratio 0.69 ----- E', lat yue, TDI (L) 9.7 cm/sec >=10.0 E/e', lat yue, 12 Mitral valve Value Ref TDI Peak E 1.13 m/sec ----- E', med yue, TDI (L) 6.8 cm/sec >=7.0 Peak A 0.01 m/sec --- -- E/e', med yue, 17 Decel time 248 ms ----- TDI PHT 171 ms ----- E', avg, TDI 8.3 cm/sec Mean grad, D 3.0 mm Hg ----- E/e', avg, TDI 14 <=14 Peak grad, D 10.0 mm Hg --- -- Peak E/A ratio 102.7 ----- LVOT Value Ref MVA, PHT 1.2 cm^2 ----- Peak taj, S 0.96 m/sec VTI, S 19.0 cm Pulmonic valve Value Ref Mean grad, S 2 mm Hg Peak v, S 0.87 m/sec ----- Peak grad, S 3.0 mm Hg ----- Ventricular septum Value Ref IVS, ED (H) 1.3 cm 0.6 - 1.0 Tricuspid valve Value Ref TR peak v 2.54 m/sec <=2.8 Right ventricle Value Ref Peak RV-RA grad, S 26 mm Hg ----- AW thickness, ED (H) 0.8 cm 0.1 - 0.5 JUDY, LAX 3.3 cm Aortic root Value Ref JUDY minor ax, A4C (H) 4.8 cm 1.9 - 3.5 Root diam 3.0 cm <4.4 mid Pressure, S 34 mm Hg Ascending aorta Value Ref AAo AP diam, S 3.4 cm ----- Left atrium Value Ref AP dim, ES (H) 4.70 cm 3.00 - Aortic arch Value Ref 4.00 Arch diam 2.9 cm ----- ML dim, A4C 5.8 cm SI dim, A4C 6.3 cm Decending aorta Value Ref Vol/bsa, ES, 1-p (H) 39 ml/m^2 12 - 37 Guzman peak taj 0.44 m/sec ----- A4C Vol/bsa, ES, A/L (H) 47 ml/m^2 16 - 34 Pulmonary artery Value Ref Pressure, S 31.0 mm Hg ----- Right atrium Value Ref SI dim, ES (H) 6.5 cm 3.4 - 5.3 Inferior vena cava Value Ref ML dim, ES, A4C (H) 5.0 cm 2.6 - 4.4 Diam 2.3 cm ----- SI dim, ES, A4C (H) 6.5 cm 3.4 - 5.3 SI dim/bsa, ES, 2.7 cm/m^2 1.8 - 3.0 A4C Estimated RAP 8 mm Hg Legend: (L) and (H) karen values outside specified reference range. Prepared and electronically signed by Amy Roberts MD 08/17/2018 09:06
[2018-08-17] MEDS ORDERED: Furosemide IV* 100 MG in NS 0.9% 100 ML* 90 ML IV SCH ×4 (10:00→18:01)
[2018-08-17] MEDS: Insulin LISPRO* 1 UNITS UNIT SUBCUT SCH ×3 (10:08→17:43)
[2018-08-17] MEDS: Metoprolol Tartrate TAB* 25 MG PO SCH ×2 (10:43→21:20)
[2018-08-17] MEDS: Potassium Chloride* LIQUID 20 MEQ/15 ML UDC PO SCH ×2 (10:44→21:19)
[2018-08-17] MEDS: Multivitamins/Minerals TAB PO SCH (10:44)
[2018-08-17] MEDS: Nystatin CREAM* 30 GM TOPICAL SCH ×2 (10:44→21:42)
[2018-08-17] MEDS: Tamsulosin CAP* 0.4 MG PO SCH (10:44)
[2018-08-17] MEDS: Magnesium Oxide TAB* 400 MG PO SCH (10:45)
[2018-08-17] MEDS: Apixaban* 2.5 MG TAB PO SCH ×2 (10:46→21:20)
[2018-08-17] MEDS: MUPIROCIN 2% TOPICAL SCH ×3 (10:47→21:18)
[2018-08-17] MEDS: Acetaminophen TAB* 325 MG PO PRN ×3 (13:47→22:06)
--- NOTE | 2018-08-17 14:35 | PN ---
Subjective Date of Service: 08/17/18 Interval History: Patient seen this morning in ICU on Bipap shortly after his ABG from this morning. He was awake, alert. responding properly to questions. at bedside. discussed with RN and Respiratory therapy. Will D/c Bipap and transition to NC titrate for sat 92% or better, and will transition to lasix drip. He is asking for diet and drinks. padilla catheter in place. no hematuria. Past Medical History: Unchanged from Admission Objective Active Medications: Acetaminophen (Tylenol Tab*) 650 mg PO Q4H PRN PRN Reason: FEVER/PAIN Last Admin: 08/17/18 13:47 Dose: 650 mg Albuterol (Ventolin 2.5 Mg/3 Ml Neb.Teresa*) 2.5 mg INH Q2H PRN PRN Reason: SOB/WHEEZING Albuterol/Ipratropium (Duoneb (Albuterol 2.5 Mg/Ipratropium 0.5 Mg)) 1 neb INH Q4H PRN PRN Reason: SOB/WHEEZING Apixaban (Eliquis*) 2.5 mg PO BID [facility] Last Admin: 08/17/18 10:46 Dose: 2.5 mg Dextrose (D50w Syringe 50 Ml*) 12.5 gm IV PUSH .FOR FS < 60 - SS PRN PRN Reason: FS < 60 Docusate Sodium (Colace Cap*) 100 mg PO BID PRN PRN Reason: CONSTIPATION Last Admin: 08/16/18 21:51 Dose: 100 mg Furosemide 100 mg/ Sodium (Chloride) 100 mls @ 5 mls/hr IV Q20H [facility]; Protocol Last Admin: 08/17/18 11:13 Dose: 5 mls/hr Insulin Glargine (Lantus(*)) 30 units SUBCUT QPM [facility] Last Admin: 08/16/18 21:39 Dose: 30 units Insulin Human Lispro (Humalog*) 0 units SUBCUT AC [facility]; Protocol Magnesium Oxide (Magox 400 Tab*) 400 mg PO DAILY [facility] Last Admin: 08/17/18 10:45 Dose: 400 mg Metoprolol Tartrate (Lopressor Tab*) 12.5 mg PO BID [facility] Last Admin: 08/17/18 10:43 Dose: 12.5 mg Multivitamins/Minerals (Theragran/Minerals Tab*) 1 tab PO DAILY [facility] Last Admin: 08/17/18 10:44 Dose: 1 tab Mupirocin (Bactroban 2 % Oint*) 1 applic TOPICAL TID [facility] Last Admin: 08/17/18 13:56 Dose: Not Given Nystatin (Nystatin Cream*) 1 applic TOPICAL BID [facility] Last Admin: 08/17/18 10:44 Dose: 1 lotion Ondansetron HCl (Zofran Inj*) 4 mg IV Q4H PRN PRN Reason: NAUSEA/VOMITING Potassium Chloride (Potassium Chloride Liquid) 20 meq PO BID [facility] Last Admin: 08/17/18 10:44 Dose: 20 meq Senna (Senokot Tab*) 1 tab PO BID PRN PRN Reason: CONSTIPATION Last Admin: 08/16/18 21:51 Dose: 1 tab Tamsulosin HCl (Flomax Cap*) 0.4 mg PO DAILY [facility] Last Admin: 08/17/18 10:44 Dose: 0.4 mg Tiotropium Sargeant (Spiriva Cap.Inh*) 1 cap INH DAILY [facility] Last Admin: 08/17/18 08:11 Dose: Not Given Vital Signs - 8 hr 08/17/18 08/17/18 08/17/18 07:00 07:01 08:00 Temperature 98.2 F Pulse Rate 94 100 88 Respiratory 20 17 26 Rate Blood Pressure 118/56 116/55 (mmHg) O2 Sat by Pulse 97 98 Oximetry 08/17/18 08/17/18 08/17/18 08:11 09:00 09:01 Temperature Pulse Rate 92 84 95 Respiratory 18 23 22 Rate Blood Pressure 124/50 (mmHg) O2 Sat by Pulse 97 98 99 Oximetry 08/17/18 08/17/18 10:00 11:50 Temperature 98.7 F Pulse Rate 101 Respiratory 35 Rate Blood Pressure 128/61 (mmHg) O2 Sat by Pulse 97 Oximetry Oxygen Devices in Use Now: Nasal Cannula Appearance: dry oral mucosa. alert. no distress. obese Eyes: No Scleral Icterus, - - EOMI, left conjunctival crust/dry does not appear to be purulent, I think dry secretion for the bipap mask and air leak probably Ears/Nose/Mouth/Throat: - - dry oral mucosa. No bruit Respiratory: - - Good air flow limited to anterior chest examinations Cardiovascular: NL Sounds; No Murmurs; No JVD Abdominal: NL Sounds; No Tenderness; No Distention, - - obese Extremities: - - edema bilateral + 3, Neurological: Alert and Oriented x 3 Result Diagrams: 08/17/18 04:15 08/17/18 04:15 Microbiology and Other Data: Microbiology 08/16/18 14:06 Aerobic Blood Culture - Preliminary Blood Venous No Growth Day 1 Anaerobic Blood Culture - Preliminary No Growth Day 1 08/16/18 14:11 Aerobic Blood Culture - Preliminary Blood Venous No Growth Day 1 Anaerobic Blood Culture - Preliminary No Growth Day 1 08/16/18 21:41 Nasal Screen MRSA (PCR) - Final Nasal Mrsa Not Detected Assess/Plan/Problems-Billing Assessment: 88 year old male admitted for acute hypercarpneic respiratory failure with respiratory acidosis mixed etiology mainly 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 He may require Bipap at night. Will see how he does today on Nasal canula - I will transition him to lasix drip 5mg/hr and to maintain urine output 60ml- 200ml per hour. Tomorrow will consider placing him on PO diuretic or continue the drip. will reassess in am (2) Afib Current Visit: No Status: Acute Code(s): I48.91 - UNSPECIFIED ATRIAL FIBRILLATION SNOMED Code(s): 35817838 Comment: - Follows with Dr. Titus at [facility] - Continue Metoprolol 12.5 mg bid - Continue Eliquis 2.5 mg bid. (3) CHF exacerbation Current Visit: No Status: Acute Code(s): I50.9 - HEART FAILURE, UNSPECIFIED SNOMED Code(s): 189237688 Comment: - He is in acute exacerbation of his chronic Diastollic heart failure - Repeat Echo 08/16/18 reveal EF 65% suggestive of diastollic failure - Recently placed on bumex as outpatient. He was on lasix 40 mg IV this morning. Given the degree of his leg edema and his CXR finding I will transition him to IV lasix drip. (4) COPD (chronic obstructive pulmonary disease) Current Visit: No Status: Acute Code(s): J44.9 - CHRONIC OBSTRUCTIVE PULMONARY DISEASE, UNSPECIFIED SNOMED Code(s): 08167687 Comment: - continue spiriva, albuterol.. I don't believe patient will need steroid at this time - Home inhalers (5) Diabetes Current Visit: No Status: Acute Code(s): E11.9 - TYPE 2 DIABETES MELLITUS WITHOUT COMPLICATIONS SNOMED Code(s): 98405432 Comment: - Cont ISS , Lantus decreased to once a day and will address pending his BG daily (6) Gout Current Visit: No Status: Acute Code(s): M10.9 - GOUT, UNSPECIFIED SNOMED Code(s): 68181371 Comment: - He was on allopurinol in March, I don't see it on his home med list today - Given his lasix drip and increase body ache, I will recheck electrolytes and uric acid. If uric acid elevated he may have acute gout flare up. Will check (7) HTN (hypertension) Current Visit: No Status: Acute Code(s): I10 - ESSENTIAL (PRIMARY) HYPERTENSION SNOMED Code(s): 65414062 Comment: - BP stable. now on lasix drip and lopressor (8) Urinary retention Current Visit: No Status: Acute Code(s): R33.9 - RETENTION OF URINE, UNSPECIFIED SNOMED Code(s): 007822503 Comment: - he did have previous history of urinary outflow obstruction as documented in his chart from 03/14/2018. " dilatation and padilla placement by Dr. Sibley 03/14/18, " - Padilla catheter in place. I will keep his padilla and will probably benefit from indewelling padilla catheter, espescially he had urinary retentions on admission (9) DVT prophylaxis Current Visit: No Status: Acute Code(s): GCV5058 - SNOMED Code(s): 505059776 Comment: - not required he is on Eliquis
[2018-08-17 15:47] LABS: BUN/Creatinine Ratio 15.4 (8-20); Calcium 8.1 mg/dL (8.6-10.3); EGFR African American 60.1 (>60); EGFR Non-African American 49.7 (>60); Magnesium 1.8 mg/dL (1.9-2.7); Phosphorus 2.5 mg/dL (2.5-5.0); Potassium 3.9 mmol/L (3.5-5.0); Uric Acid 9.6 mg/dL (4.4-7.6)
[2018-08-17] MEDS: Allopurinol TAB* 100 MG PO SCH (17:30)
[2018-08-17] MEDS: Insulin GLARGINE(*) 1 UNITS UNIT SUBCUT SCH (17:44)
[2018-08-17] MEDS: Dexamethasone TAB* 1 MG PO SCH (21:19)
[2018-08-18] MEDS: Lidocaine PATCH 5%* 1 PATCH TRANSDERM SCH ×2 (00:22→09:03)
[2018-08-18 05:10] LABS: BUN/Creatinine Ratio 16.3 (8-20); Calcium 8.1 mg/dL (8.6-10.3); EGFR African American 57.7 (>60); EGFR Non-African American 47.7 (>60); Magnesium 1.9 mg/dL (1.9-2.7); Phosphorus 3.5 mg/dL (2.5-5.0); Potassium 4.1 mmol/L (3.5-5.0)
[2018-08-18 05:30] LABS: ABS Eosinophils 0.1 10^3/ul (0-0.6); ABS Lymphocytes 0.4 10^3/ul (1.0-4.8); ABS Monocytes 2.5 10^3/ul (0-0.8); ABS Neutrophils 17.2 10^3/ul (1.5-7.7); Eosinophil % 0.3 %; Hematocrit 31 % (42-52); Lymphocyte % 2.2 %; Mean Corpuscular HGB Conc 29 g/dL (31-36); Mean Corpuscular Hemoglobin 23 pg (27-31); Mean Corpuscular Volume 78 fL (80-94); Mean Platelet Volume 7.7 fL (7.4-10.4); Platelet Count 294 10^3/uL (150-450); Red Blood Count 3.92 10^6 /uL (4.18-5.48); Red Cell Distribution Width 18 % (10.5-15); White Blood Count 20.2 10^3/uL (3.5-10.8)
[2018-08-18] MEDS: Tamsulosin CAP* 0.4 MG PO SCH (08:54)
[2018-08-18] MEDS: Insulin LISPRO* 1 UNITS UNIT SUBCUT SCH ×3 (08:54→19:28)
[2018-08-18] MEDS: Dexamethasone TAB* 1 MG PO SCH ×2 (08:55→21:57)
[2018-08-18] MEDS: Multivitamins/Minerals TAB PO SCH (08:55)
[2018-08-18] MEDS: Apixaban* 2.5 MG TAB PO SCH ×2 (08:55→21:54)
[2018-08-18] MEDS: Allopurinol TAB* 100 MG PO SCH (08:55)
[2018-08-18] MEDS: Metoprolol Tartrate TAB* 25 MG PO SCH ×2 (08:55→21:54)
[2018-08-18] MEDS: Magnesium Oxide TAB* 400 MG PO SCH (08:55)
[2018-08-18] MEDS: Potassium Chloride* LIQUID 20 MEQ/15 ML UDC PO SCH ×2 (09:03→21:57)
--- NOTE | 2018-08-18 09:23 | PN ---
Subjective Date of Service: 08/18/18 Interval History: Patient seen in ICU - 6 this morning. He feels better in term of pain, his hands and ankle less swollen. Able to tolerate movement. Willing to get out bed. Urine output ranging about 2.5 liter in 24 hrs. (less than anticipated on lasix drips). He did not require BiPap all night. Maintaining 92% and better at 4 Liters NC. Will transfer to the tele floor, out of bed and incentive spirometer ordered Past Medical History: Unchanged from Admission Objective Active Medications: Acetaminophen (Tylenol Tab*) 650 mg PO Q4H PRN PRN Reason: FEVER/PAIN Last Admin: 08/17/18 22:06 Dose: 650 mg Albuterol (Ventolin 2.5 Mg/3 Ml Neb.Teresa*) 2.5 mg INH Q2H PRN PRN Reason: SOB/WHEEZING Albuterol/Ipratropium (Duoneb (Albuterol 2.5 Mg/Ipratropium 0.5 Mg)) 1 neb INH Q4H PRN PRN Reason: SOB/WHEEZING Allopurinol (Zyloprim Tab*) 200 mg PO DAILY [facility] Last Admin: 08/18/18 08:55 Dose: 200 mg Apixaban (Eliquis*) 2.5 mg PO BID [facility] Last Admin: 08/18/18 08:55 Dose: 2.5 mg Dexamethasone (Decadron Tab*) 2 mg PO BID [facility] Last Admin: 08/18/18 08:55 Dose: 2 mg Dextrose (D50w Syringe 50 Ml*) 12.5 gm IV PUSH .FOR FS < 60 - SS PRN PRN Reason: FS < 60 Docusate Sodium (Colace Cap*) 100 mg PO BID PRN PRN Reason: CONSTIPATION Last Admin: 08/16/18 21:51 Dose: 100 mg Furosemide 100 mg/ Sodium (Chloride) 100 mls @ 9 mls/hr IV PER RATE [facility]; Protocol Insulin Glargine (Lantus(*)) 40 units SUBCUT QPM [facility] Insulin Human Lispro (Humalog*) 0 units SUBCUT AC [facility]; Protocol Last Admin: 08/18/18 08:54 Dose: 3 units Lidocaine (Lidoderm 5% Patch*) 1 patch TRANSDERM DAILY [facility] Last Admin: 08/18/18 09:03 Dose: 1 patch Magnesium Oxide (Magox 400 Tab*) 400 mg PO DAILY [facility] Last Admin: 08/18/18 08:55 Dose: 400 mg Metoprolol Tartrate (Lopressor Tab*) 12.5 mg PO BID [facility] Last Admin: 08/18/18 08:55 Dose: 12.5 mg Multivitamins/Minerals (Theragran/Minerals Tab*) 1 tab PO DAILY [facility] Last Admin: 08/18/18 08:55 Dose: 1 tab Mupirocin (Bactroban 2 % Oint*) 1 applic TOPICAL TID [facility] Last Admin: 08/17/18 21:18 Dose: 1 applic Nystatin (Nystatin Cream*) 1 applic TOPICAL BID [facility] Last Admin: 08/17/18 21:42 Dose: 1 lotion Ondansetron HCl (Zofran Inj*) 4 mg IV Q4H PRN PRN Reason: NAUSEA/VOMITING Pharmacy Profile Note (Lidocaine Patch Remove*) 1 note N/A 2100 [facility] Potassium Chloride (Potassium Chloride Liquid) 20 meq PO BID [facility] Last Admin: 08/18/18 09:03 Dose: 20 meq Senna (Senokot Tab*) 1 tab PO BID PRN PRN Reason: CONSTIPATION Last Admin: 08/16/18 21:51 Dose: 1 tab Tamsulosin HCl (Flomax Cap*) 0.4 mg PO DAILY [facility] Last Admin: 08/18/18 08:54 Dose: 0.4 mg Tiotropium [place] (Spiriva Cap.Inh*) 1 cap INH DAILY [facility] Last Admin: 08/17/18 08:11 Dose: Not Given Vital Signs - 8 hr 08/18/18 08/18/18 08/18/18 02:00 02:01 03:00 Temperature Pulse Rate 103 104 99 Respiratory 41 32 33 Rate Blood Pressure 100/65 116/69 (mmHg) O2 Sat by Pulse 93 93 Oximetry 08/18/18 08/18/18 08/18/18 03:01 03:49 04:00 Temperature 97.7 F Pulse Rate 110 Respiratory 32 39 Rate Blood Pressure 112/56 (mmHg) O2 Sat by Pulse 91 Oximetry 08/18/18 08/18/18 08/18/18 05:00 06:00 06:01 Temperature Pulse Rate 115 108 105 Respiratory 33 32 26 Rate Blood Pressure 132/61 (mmHg) O2 Sat by Pulse 92 81 90 Oximetry 08/18/18 08/18/18 06:19 07:00 Temperature Pulse Rate 106 Respiratory 30 33 Rate Blood Pressure 132/57 (mmHg) O2 Sat by Pulse 94 Oximetry Oxygen Devices in Use Now: Nasal Cannula Appearance: awake, alert. no acute distress. No fever or chills. more comfortable looking than yesterday. able to speak in full sentences Eyes: No Scleral Icterus, - Ears/Nose/Mouth/Throat: NL Teeth, Lips, Gums, Mucous Membranes Moist Neck: NL Appearance and Movements; NL JVP, Trachea Midline Respiratory: Symmetrical Chest Expansion and Respiratory Effort, Clear to Auscultation Cardiovascular: NL Sounds; No Murmurs; No JVD Abdominal: NL Sounds; No Tenderness; No Distention Extremities: - - + Edema + 2 bilateral. mild erythema no streaking Neurological: Alert and Oriented x 3 Result Diagrams: 08/18/18 04:47 08/18/18 04:47 Microbiology and Other Data: Microbiology 08/16/18 14:06 Aerobic Blood Culture - Preliminary Blood Venous No Growth Day 1 Anaerobic Blood Culture - Preliminary No Growth Day 1 08/16/18 14:11 Aerobic Blood Culture - Preliminary Blood Venous No Growth Day 1 Anaerobic Blood Culture - Preliminary No Growth Day 1 08/16/18 21:41 Nasal Screen MRSA (PCR) - Final Nasal Mrsa Not Detected Assess/Plan/Problems-Billing Assessment: 88 year old male admitted for acute hypercarpneic respiratory failure with respiratory acidosis mixed etiology mainly 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 - I will continue him to lasix drip increased to 9mg/hr day # 2 and to maintain urine output 60ml-200ml per hour. will reassess in am (2) CHF exacerbation Current Visit: No Status: Acute Code(s): I50.9 - HEART FAILURE, UNSPECIFIED SNOMED Code(s): 529507832 Comment: - He is in acute exacerbation of his chronic Diastollic heart failure - Repeat Echo 5/22/19 reveal EF 65% suggestive of diastollic failure - Recently placed on bumex as outpatient. He was on lasix 40 mg IV. Given the degree of his leg edema and his CXR finding I did transition him to IV lasix drip. day # 2 (3) Afib Current Visit: No Status: Acute Code(s): I48.91 - UNSPECIFIED ATRIAL FIBRILLATION SNOMED Code(s): 05602602 Comment: - Follows with Dr. Titus at [place] - Continue Metoprolol 12.5 mg bid - Continue Eliquis 2.5 mg bid. (4) COPD (chronic obstructive pulmonary disease) Current Visit: No Status: Acute Code(s): J44.9 - CHRONIC OBSTRUCTIVE PULMONARY DISEASE, UNSPECIFIED SNOMED Code(s): 97314178 Comment: - continue spiriva, albuterol.. I don't believe patient will need steroid at this time, but he is requiring it due to his gout flare up. - Home inhalers (5) Diabetes Current Visit: No Status: Acute Code(s): E11.9 - TYPE 2 DIABETES MELLITUS WITHOUT COMPLICATIONS SNOMED Code(s): 06155883 Comment: - Cont ISS , Lantus decreased to once a day from bid and dose. Current dose is 30 will increase to 40 now that he is on dexamethasone. and will address pending his BG daily (6) Gout Current Visit: No Status: Acute Code(s): M10.9 - GOUT, UNSPECIFIED SNOMED Code(s): 76590334 Comment: - He was on allopurinol in March, I don't see it on his home med list - Given his lasix drip and increase body ache, I did recheck uric acid up to 9. Patient state he stopped at home because he has not had any issue with gout - Started dexamethasone 2 mg bid on 08/18/18 and his pain significantly improved. Will plan to keep him for a week as his allopurinol is being introduced again (7) HTN (hypertension) Current Visit: No Status: Acute Code(s): I10 - ESSENTIAL (PRIMARY) HYPERTENSION SNOMED Code(s): 69480063 Comment: - BP stable. now on lasix drip and lopressor (8) Urinary retention Current Visit: No Status: Acute Code(s): R33.9 - RETENTION OF URINE, UNSPECIFIED SNOMED Code(s): 902771856 Comment: - he did have previous history of urinary outflow obstruction as documented in his chart from 03/14/2018. " dilatation and padilla placement by Dr. Sibley 03/14/18, " - Padilla catheter in place. I will keep his padilla and will probably benefit from indewelling padilla catheter, espescially he had urinary retentions on admission (9) DVT prophylaxis Current Visit: No Status: Acute Code(s): YNN7789 - SNOMED Code(s): 307607660 Comment: - not required he is on Eliquis
[2018-08-18] MEDS: Tiotropium CAP.INH* CAP.INH/18 MCG (USE ORDER SET !) INH SCH (10:56)
[2018-08-18] MEDS: MUPIROCIN 2% TOPICAL SCH ×3 (10:57→21:58)
[2018-08-18] MEDS: Nystatin CREAM* 30 GM TOPICAL SCH ×2 (10:57→21:59)
[2018-08-18] MEDS: Furosemide IV* 100 MG in NS 0.9% 100 ML* 90 ML IV SCH ×2 (11:30→19:24)
[2018-08-18 18:50] LABS: Calcium 8.2 mg/dL (8.6-10.3); EGFR Non-African American 45.4 (>60); Potassium 4.7 mmol/L (3.5-5.0)
[2018-08-18] MEDS ORDERED: Dextrose 50% Syringe 50 ML* 25 GM/50 ML SYRINGE IV PUSH PRN (19:14)
[2018-08-18] MEDS ORDERED: Insulin LISPRO* 1 UNITS UNIT SUBCUT ONE ×2 (19:14→19:20)
[2018-08-18] MEDS: Insulin GLARGINE(*) 1 UNITS UNIT SUBCUT SCH (19:24)
[2018-08-18] MEDS: Lidocaine Patch REMOVE* 1 NOTE MISC SCH (21:59)
[2018-08-19 06:10] LABS: CO2 Carbon Dioxide 22 mmol/L (22-32); Calcium 7.9 mg/dL (8.6-10.3); Chloride 103 mmol/L (101-111); Sodium 133 mmol/L (135-145)
[2018-08-19 06:16] LABS: BUN/Creatinine Ratio 23.6 (8-20); Blood Urea Nitrogen 35 mg/dL (6-24); EGFR African American 54.5 (>60); EGFR Non-African American 45.1 (>60); Glucose 313 mg/dL (70-100); Phosphorus 3.7 mg/dL (2.5-5.0)
[2018-08-19 06:19] LABS: Anion Gap 8 mmol/L (2-11)
[2018-08-19] MEDS: Tiotropium CAP.INH* CAP.INH/18 MCG (USE ORDER SET !) INH SCH (08:08)
[2018-08-19] MEDS: Insulin LISPRO* 1 UNITS UNIT SUBCUT SCH ×4 (08:45→23:08)
[2018-08-19] MEDS: Potassium Chloride* LIQUID 20 MEQ/15 ML UDC PO SCH (08:46)
[2018-08-19] MEDS: Lidocaine PATCH 5%* 1 PATCH TRANSDERM SCH (08:46)
[2018-08-19] MEDS: Magnesium Oxide TAB* 400 MG PO SCH (08:47)
[2018-08-19] MEDS: Apixaban* 2.5 MG TAB PO SCH ×2 (08:47→23:07)
[2018-08-19] MEDS: Multivitamins/Minerals TAB PO SCH (08:49)
[2018-08-19] MEDS: Metoprolol Tartrate TAB* 25 MG PO SCH ×2 (08:49→23:07)
[2018-08-19] MEDS: Allopurinol TAB* 100 MG PO SCH (08:50)
[2018-08-19] MEDS: Tamsulosin CAP* 0.4 MG PO SCH (08:50)
[2018-08-19 08:56] LABS: Hematocrit 32 % (42-52); Hemoglobin 9.3 g/dL (14.0-18.0); Mean Corpuscular HGB Conc 29 g/dL (31-36); Mean Corpuscular Hemoglobin 23 pg (27-31); Mean Corpuscular Volume 79 fL (80-94); Mean Platelet Volume 7.7 fL (7.4-10.4); Platelet Count 321 10^3/uL (150-450); Red Blood Count 4.12 10^6 /uL (4.18-5.48); Red Cell Distribution Width 18 % (10.5-15); White Blood Count 13.5 10^3/uL (3.5-10.8)
[2018-08-19] MEDS ORDERED: Furosemide IV* 100 MG in NS 0.9% 100 ML* 90 ML IV SCH (09:00)
[2018-08-19] MEDS: Bumetanide TAB* 2 MG PO SCH (11:05)
[2018-08-19] MEDS: Nystatin CREAM* 30 GM TOPICAL SCH ×2 (11:05→23:09)
[2018-08-19] MEDS: MUPIROCIN 2% TOPICAL SCH ×2 (11:06→15:26)
[2018-08-19] MEDS: Dexamethasone TAB* 1 MG PO SCH ×2 (11:10→23:08)
--- NOTE | 2018-08-19 15:57 | PN ---
Subjective Date of Service: 08/19/18 Interval History: Patient seen today, he was acting properly when I started my exam this morning. answering question properly, he was able to tell me if his hand are better or worse in term of his gouty arthritis, follows command by sitting up and doing my examination, however, when I started to give him instructions about being more complaint with activity (such as to be more compliant with out of bed) and more compliant with his PM Bipap (refused it at night)! all of sudden he started to act confused and claiming "I am fraud" interrupting his when she attempted to speak. Past Medical History: Unchanged from Admission Objective Active Medications: Acetaminophen (Tylenol Tab*) 650 mg PO Q4H PRN PRN Reason: FEVER/PAIN Last Admin: 08/17/18 22:06 Dose: 650 mg Albuterol (Ventolin 2.5 Mg/3 Ml Neb.Teresa*) 2.5 mg INH Q2H PRN PRN Reason: SOB/WHEEZING Albuterol/Ipratropium (Duoneb (Albuterol 2.5 Mg/Ipratropium 0.5 Mg)) 1 neb INH Q4H PRN PRN Reason: SOB/WHEEZING Allopurinol (Zyloprim Tab*) 200 mg PO DAILY [facility] Last Admin: 08/19/18 08:50 Dose: 200 mg Apixaban (Eliquis*) 2.5 mg PO BID [facility] Last Admin: 08/19/18 08:47 Dose: 2.5 mg Bumetanide (Bumex Tab*) 2 mg PO DAILY [facility] Last Admin: 08/19/18 11:05 Dose: 2 mg Dexamethasone (Decadron Tab*) 1 mg PO BID [facility] Dextrose (D50w Syringe 50 Ml*) 12.5 gm IV PUSH .FOR FS < 60 - SS PRN PRN Reason: FS < 60 Docusate Sodium (Colace Cap*) 100 mg PO BID PRN PRN Reason: CONSTIPATION Last Admin: 08/16/18 21:51 Dose: 100 mg Insulin Glargine (Lantus(*)) 40 units SUBCUT QPM [facility] Last Admin: 08/18/18 19:24 Dose: 40 units Insulin Human Lispro (Humalog*) 0 units SUBCUT ACHS [facility]; Protocol Last Admin: 08/19/18 11:48 Dose: 15 units Lidocaine (Lidoderm 5% Patch*) 1 patch TRANSDERM DAILY [facility] Last Admin: 08/19/18 08:46 Dose: 1 patch Magnesium Oxide (Magox 400 Tab*) 400 mg PO DAILY [facility] Last Admin: 08/19/18 08:47 Dose: 400 mg Metoprolol Tartrate (Lopressor Tab*) 12.5 mg PO BID [facility] Last Admin: 08/19/18 08:49 Dose: 12.5 mg Multivitamins/Minerals (Theragran/Minerals Tab*) 1 tab PO DAILY [facility] Last Admin: 08/19/18 08:49 Dose: 1 tab Nystatin (Nystatin Cream*) 1 applic TOPICAL BID [facility] Last Admin: 08/19/18 11:05 Dose: 1 lotion Ondansetron HCl (Zofran Inj*) 4 mg IV Q4H PRN PRN Reason: NAUSEA/VOMITING Pharmacy Profile Note (Lidocaine Patch Remove*) 1 note N/A 2100 [facility] Last Admin: 08/18/18 21:59 Dose: 1 note Senna (Senokot Tab*) 1 tab PO BID PRN PRN Reason: CONSTIPATION Last Admin: 08/16/18 21:51 Dose: 1 tab Tamsulosin HCl (Flomax Cap*) 0.4 mg PO DAILY [facility] Last Admin: 08/19/18 08:50 Dose: 0.4 mg Tiotropium [place] (Spiriva Cap.Inh*) 1 cap INH DAILY [facility] Last Admin: 08/19/18 08:08 Dose: 1 cap Vital Signs - 8 hr 08/19/18 08/19/18 08/19/18 08:00 08:10 11:37 Temperature 97.6 F Pulse Rate 102 92 Respiratory 20 20 18 Rate Blood Pressure 118/55 (mmHg) O2 Sat by Pulse 97 99 Oximetry Oxygen Devices in Use Now: Nasal Cannula Appearance: awake, sudden changes in mood and cognitive functions during my examinations. I suspect an element of selective behavioral changes as defense mechanism which he uses to justify his non compliance. Eyes: No Scleral Icterus, - - EOMI Ears/Nose/Mouth/Throat: - - dry oral mucosa Neck: NL Appearance and Movements; NL JVP Respiratory: Symmetrical Chest Expansion and Respiratory Effort, - - improved breath sound but diminised at bases and distant due to body habitus. Cardiovascular: NL Sounds; No Murmurs; No JVD, - - +2 edema, but decrease skin tension and less erythematous Abdominal: - - Obese, + BS Extremities: - - Edema decrease tenderness at his bilateral MCP joints, ankles, and knee Neurological: - - he was oriented to place and person but he develloped sudden changes in his mood and behavior after I was advising him firmly to be more compliant with his activity out of bed and Bipap. I suspect an element of selective behavioral changes as defense mechanism which he uses to justify his non compliance. 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 He was transferred out of ICU 08/18/18. - I will discontinue his lasix drip today 08/19/18 (completed 2 days) and I will transition him to his home dose of Bumex 2 mg daily in am and I will add 1 mg for Q PM 1700 - Patient has to be more compliant with recommendations. (out of bed, Bipap etc...) (2) CHF exacerbation Current Visit: No Status: Acute Code(s): I50.9 - HEART FAILURE, UNSPECIFIED SNOMED Code(s): 009282241 Comment: - He is in acute exacerbation of his chronic Diastollic heart failure - Repeat Echo 08/16/18 reveal EF 65% suggestive of diastollic failure - S/p Bipap weaned off to NC 3-4 liters. He was transferred out of ICU 08/18/18. - I will discontinue his lasix drip today 08/19/18 (completed 2 days) and I will transition him to his home dose of Bumex 2 mg daily in am and I will add 1 mg for Q PM 1700 - Patient has to be more compliant with recommendations. (out of bed, Bipap etc...) (3) Afib Current Visit: No Status: Acute Code(s): I48.91 - UNSPECIFIED ATRIAL FIBRILLATION SNOMED Code(s): 17241039 Comment: - Follows with Dr. Titus at [place] - Continue Metoprolol 12.5 mg bid - Continue Eliquis 2.5 mg bid. (4) COPD (chronic obstructive pulmonary disease) Current Visit: No Status: Acute Code(s): J44.9 - CHRONIC OBSTRUCTIVE PULMONARY DISEASE, UNSPECIFIED SNOMED Code(s): 95404318 Comment: - continue spiriva, albuterol.. I don't believe patient will need steroid at this time, but he is requiring it due to his gout flare up. - Home inhalers - Again the patient need to be accept and be more receptive of utilizing his Bipap (5) Diabetes Current Visit: No Status: Acute Code(s): E11.9 - TYPE 2 DIABETES MELLITUS WITHOUT COMPLICATIONS SNOMED Code(s): 82837320 Comment: - Cont ISS , Lantus decreased to once a day from bid and dose. Current dose is 30 will increase to 40 now that he is on dexamethasone. I did decrease his dexamethasone to 1 mg bid. I will anticipate his BG to improve by tomorrow, I will further defer adjustment of lantus pending his BG read in am (6) Gout Current Visit: No Status: Acute Code(s): M10.9 - GOUT, UNSPECIFIED SNOMED Code(s): 45734025 Comment: - He was on allopurinol in March, I don't see it on his home med list - uric acid up to 9, couple with pain in his wrist, ankles and knees I did start him on dexamethasone 2 mg bid on 08/17/18 and his pain significantly improved. Will plan to keep him for a week as his allopurinol is being introduced again but I will taper it to 1 mg bid as of 08/19/18 due to his hyperglycemia. another 2-3 days and it can be discontinued (7) HTN (hypertension) Current Visit: No Status: Acute Code(s): I10 - ESSENTIAL (PRIMARY) HYPERTENSION SNOMED Code(s): 39150795 Comment: - BP stable. on lopressor, and bumex (8) Urinary retention Current Visit: No Status: Acute Code(s): R33.9 - RETENTION OF URINE, UNSPECIFIED SNOMED Code(s): 631405238 Comment: - he did have previous history of urinary outflow obstruction as documented in his chart from 03/14/2018. " dilatation and padilla placement by Dr. Sibley 03/14/18, " - Padilla catheter in place. I will keep his padilla and will probably benefit from indewelling padilla catheter, espescially he had urinary retentions on admission (9) DVT prophylaxis Current Visit: No Status: Acute Code(s): TYB8124 - SNOMED Code(s): 218513507 Comment: - not required he is on Eliquis
[2018-08-19] MEDS ORDERED: Bumetanide TAB* 2 MG ONE (16:44)
[2018-08-19] MEDS: Insulin GLARGINE(*) 1 UNITS UNIT SUBCUT SCH (16:47)
[2018-08-19] MEDS ORDERED: Bumetanide TAB* 1 MG PO SCH (17:00)
[2018-08-19] MEDS: Lidocaine Patch REMOVE* 1 NOTE MISC SCH (23:09)
[2018-08-20] MEDS: Acetaminophen TAB* 325 MG PO PRN (01:44)
[2018-08-20 06:23] LABS: ABS Lymphocytes 0.4 10^3/ul (1.0-4.8); ABS Neutrophils 12.8 10^3/ul (1.5-7.7); Eosinophil % 0.3 %; Hematocrit 30 % (42-52); Hemoglobin 8.6 g/dL (14.0-18.0); Lymphocyte % 2.5 %; Mean Corpuscular HGB Conc 29 g/dL (31-36); Mean Corpuscular Hemoglobin 23 pg (27-31); Mean Corpuscular Volume 78 fL (80-94); Mean Platelet Volume 8.1 fL (7.4-10.4); Platelet Count 344 10^3/uL (150-450); Red Cell Distribution Width 18 % (10.5-15); White Blood Count 14.2 10^3/uL (3.5-10.8)
[2018-08-20 06:30] LABS: BUN/Creatinine Ratio 33.6 (8-20); Calcium 8.4 mg/dL (8.6-10.3); EGFR African American 55.4 (>60); EGFR Non-African American 45.8 (>60); Phosphorus 2.8 mg/dL (2.5-5.0); Potassium 4.1 mmol/L (3.5-5.0)
[2018-08-20] MEDS: Tiotropium CAP.INH* CAP.INH/18 MCG (USE ORDER SET !) INH SCH (07:30)
[2018-08-20] MEDS: Lidocaine PATCH 5%* 1 PATCH TRANSDERM SCH (08:45)
[2018-08-20] MEDS: Insulin LISPRO* 1 UNITS UNIT SUBCUT SCH ×4 (08:45→22:15)
[2018-08-20] MEDS: Nystatin CREAM* 30 GM TOPICAL SCH ×2 (08:45→22:15)
[2018-08-20] MEDS: Bumetanide TAB* 2 MG PO SCH (08:46)
[2018-08-20] MEDS: Allopurinol TAB* 100 MG PO SCH (08:46)
[2018-08-20] MEDS: Apixaban* 2.5 MG TAB PO SCH ×2 (08:46→22:13)
[2018-08-20] MEDS: Dexamethasone TAB* 1 MG PO SCH (08:46)
[2018-08-20] MEDS: Metoprolol Tartrate TAB* 25 MG PO SCH ×2 (08:46→22:08)
[2018-08-20] MEDS: Magnesium Oxide TAB* 400 MG PO SCH (08:47)
[2018-08-20] MEDS: Multivitamins/Minerals TAB PO SCH (08:47)
[2018-08-20] MEDS: Tamsulosin CAP* 0.4 MG PO SCH (08:47)
--- NOTE | 2018-08-20 09:39 | PN ---
Subjective Date of Service: 08/20/18 Interval History: Poorly localized pain, can't say much other than it is his "whole body." Seems mild to mod in intensity. No SSBO, cough, chest pain. No new c/o. Past Medical History: Unchanged from Admission Objective Active Medications: Acetaminophen (Tylenol Tab*) 650 mg PO Q4H PRN PRN Reason: FEVER/PAIN Last Admin: 08/20/18 01:44 Dose: 650 mg Acetaminophen (Tylenol Tab*) 650 mg PO QID [facility] Albuterol (Ventolin 2.5 Mg/3 Ml Neb.Teresa*) 2.5 mg INH Q2H PRN PRN Reason: SOB/WHEEZING Albuterol/Ipratropium (Duoneb (Albuterol 2.5 Mg/Ipratropium 0.5 Mg)) 1 neb INH Q4H PRN PRN Reason: SOB/WHEEZING Allopurinol (Zyloprim Tab*) 200 mg PO DAILY [facility] Last Admin: 08/20/18 08:46 Dose: 200 mg Apixaban (Eliquis*) 2.5 mg PO BID [facility] Last Admin: 08/20/18 08:46 Dose: 2.5 mg Bumetanide (Bumex Tab*) 2 mg PO DAILY [facility] Last Admin: 08/20/18 08:46 Dose: 2 mg Dexamethasone (Decadron Tab*) 1 mg PO DAILY [facility] Dextrose (D50w Syringe 50 Ml*) 12.5 gm IV PUSH .FOR FS < 60 - SS PRN PRN Reason: FS < 60 Docusate Sodium (Colace Cap*) 100 mg PO BID PRN PRN Reason: CONSTIPATION Last Admin: 08/16/18 21:51 Dose: 100 mg Insulin Glargine (Lantus(*)) 40 units SUBCUT QPM [facility] Last Admin: 08/19/18 16:47 Dose: 40 units Insulin Human Lispro (Humalog*) 0 units SUBCUT ACHS [facility]; Protocol Last Admin: 08/20/18 08:45 Dose: 6 units Lidocaine (Lidoderm 5% Patch*) 1 patch TRANSDERM DAILY [facility] Last Admin: 08/20/18 08:45 Dose: 1 patch Magnesium Oxide (Magox 400 Tab*) 400 mg PO DAILY [facility] Last Admin: 08/20/18 08:47 Dose: 400 mg Metoprolol Tartrate (Lopressor Tab*) 12.5 mg PO BID [facility] Last Admin: 08/20/18 08:46 Dose: 12.5 mg Multivitamins/Minerals (Theragran/Minerals Tab*) 1 tab PO DAILY [facility] Last Admin: 08/20/18 08:47 Dose: 1 tab Nystatin (Nystatin Cream*) 1 applic TOPICAL BID [facility] Last Admin: 08/20/18 08:45 Dose: 1 lotion Ondansetron HCl (Zofran Inj*) 4 mg IV Q4H PRN PRN Reason: NAUSEA/VOMITING Pharmacy Profile Note (Lidocaine Patch Remove*) 1 note N/A 2100 [facility] Last Admin: 08/19/18 23:09 Dose: 1 note Senna (Senokot Tab*) 1 tab PO BID PRN PRN Reason: CONSTIPATION Last Admin: 08/16/18 21:51 Dose: 1 tab Tamsulosin HCl (Flomax Cap*) 0.4 mg PO DAILY [facility] Last Admin: 08/20/18 08:47 Dose: 0.4 mg Tiotropium [place] (Spiriva Cap.Inh*) 1 cap INH DAILY [facility] Last Admin: 08/20/18 07:30 Dose: 1 cap Vital Signs - 8 hr 08/20/18 08/20/18 08/20/18 02:33 03:42 08:00 Temperature 97.7 F Pulse Rate 92 89 Respiratory 18 18 20 Rate Blood Pressure 111/50 (mmHg) O2 Sat by Pulse 99 95 Oximetry Oxygen Devices in Use Now: Nasal Cannula Appearance: Alert, partly up in bed. In fair spirits, looks comfortable. Eyes: No Scleral Icterus Respiratory: Symmetrical Chest Expansion and Respiratory Effort, Clear to Auscultation, Clear to Percussion Cardiovascular: NL Sounds; No Murmurs; No JVD, No Edema, - - irreg irreg Extremities: No Clubbing, Cyanosis, - - 2-3+ edema R arm Skin: No Rash or Ulcers, No Nodules or Sclerosis, - Neurological: NL Sensation - Poor bed mobility. No tremor. Cooperative. 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 Titus at [place] - Continue Metoprolol 12.5 mg bid, apixaban 2.5 mg bid. (2) CHF (congestive heart failure) Current Visit: No Status: Acute Code(s): I50.9 - HEART FAILURE, UNSPECIFIED SNOMED Code(s): 35996735 Comment: Large neg fluids balances. Will try on bumetanide 2 mg daily, follow I&PO's, weights, labs. (3) CKD (chronic kidney disease) Current Visit: No Status: Acute Code(s): N18.9 - CHRONIC KIDNEY DISEASE, UNSPECIFIED SNOMED Code(s): 949920152 Comment: -Stage 3b, at baseline Est GFR 45.8 08/20/18. (4) COPD (chronic obstructive pulmonary disease) Current Visit: No Status: Acute Code(s): J44.9 - CHRONIC OBSTRUCTIVE PULMONARY DISEASE, UNSPECIFIED SNOMED Code(s): 72195002 Comment: - continue spiriva, albuterol. NIPPV ordered, pt not fully compliant. (5) Diabetes Current Visit: No Status: Acute Code(s): E11.9 - TYPE 2 DIABETES MELLITUS WITHOUT COMPLICATIONS SNOMED Code(s): 49527501 Comment: Continue Lantus, Lispro. As DXM tapered, expect better glycemic control.
[2018-08-20] MEDS: Acetaminophen TAB* 325 MG PO SCH ×3 (12:38→22:14)
[2018-08-20] MEDS: Insulin GLARGINE(*) 1 UNITS UNIT SUBCUT SCH (18:32)
[2018-08-20] MEDS: Lidocaine Patch REMOVE* 1 NOTE MISC SCH (22:16)
[2018-08-21] MEDS: Tiotropium CAP.INH* CAP.INH/18 MCG (USE ORDER SET !) INH SCH (07:44)
[2018-08-21] MEDS ORDERED: Haloperidol INJ IV/IM* 5 MG/ML AMP IV SLOW PU PRN (07:55)
--- NOTE | 2018-08-21 08:17 | PN ---
Subjective Date of Service: 08/21/18 Interval History: Patient belligerent, paranoid, demanding to talk to the police. He refused NIPVV again, never or almost never uses it. Past Medical History: Unchanged from Admission Objective Active Medications: Acetaminophen (Tylenol Tab*) 650 mg PO Q4H PRN PRN Reason: FEVER/PAIN Last Admin: 08/20/18 01:44 Dose: 650 mg Acetaminophen (Tylenol Tab*) 650 mg PO QID [facility] Last Admin: 08/20/18 22:14 Dose: 650 mg Albuterol (Ventolin 2.5 Mg/3 Ml Neb.Teresa*) 2.5 mg INH Q2H PRN PRN Reason: SOB/WHEEZING Albuterol/Ipratropium (Duoneb (Albuterol 2.5 Mg/Ipratropium 0.5 Mg)) 1 neb INH Q4H PRN PRN Reason: SOB/WHEEZING Allopurinol (Zyloprim Tab*) 200 mg PO DAILY [facility] Last Admin: 08/20/18 08:46 Dose: 200 mg Apixaban (Eliquis*) 2.5 mg PO BID [facility] Last Admin: 08/20/18 22:13 Dose: 2.5 mg Bumetanide (Bumex Tab*) 1 mg PO DAILY [facility] Dexamethasone (Decadron Tab*) 1 mg PO DAILY [facility] Dextrose (D50w Syringe 50 Ml*) 12.5 gm IV PUSH .FOR FS < 60 - SS PRN PRN Reason: FS < 60 Docusate Sodium (Colace Cap*) 100 mg PO BID PRN PRN Reason: CONSTIPATION Last Admin: 08/16/18 21:51 Dose: 100 mg Haloperidol Lactate (Haldol Inj Iv/Im*) 0.5 mg IV SLOW PU Q2H PRN PRN Reason: AGITATION Insulin Glargine (Lantus(*)) 40 units SUBCUT QPM [facility] Last Admin: 08/20/18 18:32 Dose: 40 units Insulin Human Lispro (Humalog*) 0 units SUBCUT ACHS [facility]; Protocol Last Admin: 08/20/18 22:15 Dose: 6 units Lidocaine (Lidoderm 5% Patch*) 1 patch TRANSDERM DAILY [facility] Last Admin: 08/20/18 08:45 Dose: 1 patch Magnesium Oxide (Magox 400 Tab*) 400 mg PO DAILY [facility] Last Admin: 08/20/18 08:47 Dose: 400 mg Metoprolol Tartrate (Lopressor Tab*) 12.5 mg PO BID [facility] Last Admin: 08/20/18 22:08 Dose: 12.5 mg Multivitamins/Minerals (Theragran/Minerals Tab*) 1 tab PO DAILY [facility] Last Admin: 08/20/18 08:47 Dose: 1 tab Nystatin (Nystatin Cream*) 1 applic TOPICAL BID [facility] Last Admin: 08/20/18 22:15 Dose: 1 lotion Ondansetron HCl (Zofran Inj*) 4 mg IV Q4H PRN PRN Reason: NAUSEA/VOMITING Pharmacy Profile Note (Lidocaine Patch Remove*) 1 note N/A 2100 [facility] Last Admin: 08/20/18 22:16 Dose: 1 note Quetiapine Fumarate (Seroquel Tab*) 25 mg PO BID [facility] Senna (Senokot Tab*) 1 tab PO BID PRN PRN Reason: CONSTIPATION Last Admin: 08/16/18 21:51 Dose: 1 tab Tamsulosin HCl (Flomax Cap*) 0.4 mg PO DAILY [facility] Last Admin: 08/20/18 08:47 Dose: 0.4 mg Tiotropium [place] (Spiriva Cap.Inh*) 1 cap INH DAILY [facility] Last Admin: 08/21/18 07:44 Dose: 1 cap Vital Signs - 8 hr 08/21/18 08/21/18 08/21/18 03:49 04:33 07:31 Temperature 98.0 F 97.4 F Pulse Rate 99 102 89 Respiratory 18 20 18 Rate Blood Pressure 136/74 101/87 (mmHg) O2 Sat by Pulse 92 94 100 Oximetry Oxygen Devices in Use Now: Nasal Cannula Appearance: Alert, sitting up in bed. Somewhat agitated but otherwise looks comfortable. Eyes: No Scleral Icterus - Parnoid, denies he is in a hospital, states he wouldn 't listen to his either, only wants to talk to the police. 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 Titus at [place] - Continue Metoprolol 12.5 mg bid, apixaban 2.5 mg bid. (2) CHF (congestive heart failure) Current Visit: No Status: Acute Code(s): I50.9 - HEART FAILURE, UNSPECIFIED SNOMED Code(s): 57161737 Comment: Large neg fluid balances. Reduce bumetanide to 1 mg daily start (if patient agrees to take his meds), follow I&PO's, weights, labs. (3) CKD (chronic kidney disease) Current Visit: No Status: Acute Code(s): N18.9 - CHRONIC KIDNEY DISEASE, UNSPECIFIED SNOMED Code(s): 797101512 Comment: -Stage 3b, at baseline Est GFR 45.8 08/20/18. (4) COPD (chronic obstructive pulmonary disease) Current Visit: No Status: Acute Code(s): J44.9 - CHRONIC OBSTRUCTIVE PULMONARY DISEASE, UNSPECIFIED SNOMED Code(s): 29202012 Comment: - continue spiriva, albuterol. NIPPV ordered, pt not compliant. (5) Diabetes Current Visit: No Status: Acute Code(s): E11.9 - TYPE 2 DIABETES MELLITUS WITHOUT COMPLICATIONS SNOMED Code(s): 38984297 Comment: Continue Lantus, Lispro. As DXM tapered, expect better glycemic control. Reduce Lantus to 30 U start PM 08/21. (6) Delirium Current Visit: Yes Status: Acute Code(s): R41.0 - DISORIENTATION, UNSPECIFIED SNOMED Code(s): 2093421 Comment: Scheduled po quetiapine (?? if he will take). PRN IV haloperidol for severe agitation.
[2018-08-21] MEDS: Dexamethasone TAB* 1 MG PO SCH ×2 (10:43→12:11)
[2018-08-21] MEDS: Lidocaine PATCH 5%* 1 PATCH TRANSDERM SCH ×2 (10:43→12:20)
[2018-08-21] MEDS: Insulin LISPRO* 1 UNITS UNIT SUBCUT SCH ×4 (10:43→21:49)
[2018-08-21] MEDS: Acetaminophen TAB* 325 MG PO SCH ×4 (10:43→21:51)
[2018-08-21] MEDS: Bumetanide TAB* 2 MG PO SCH ×2 (10:43→12:10)
[2018-08-21] MEDS: Allopurinol TAB* 100 MG PO SCH ×2 (10:43→12:13)
[2018-08-21] MEDS: Apixaban* 2.5 MG TAB PO SCH ×3 (10:43→21:51)
[2018-08-21] MEDS: Nystatin CREAM* 30 GM TOPICAL SCH ×3 (10:44→22:05)
[2018-08-21] MEDS: QUEtiapine TAB* 25 MG PO SCH ×3 (10:44→21:51)
[2018-08-21] MEDS: Tamsulosin CAP* 0.4 MG PO SCH ×2 (10:44→12:13)
[2018-08-21] MEDS: Multivitamins/Minerals TAB PO SCH ×2 (10:44→12:15)
[2018-08-21] MEDS: Magnesium Oxide TAB* 400 MG PO SCH ×2 (10:44→12:15)
[2018-08-21] MEDS: Metoprolol Tartrate TAB* 25 MG PO SCH ×3 (10:44→21:51)
[2018-08-21] MEDS: Insulin GLARGINE(*) 1 UNITS UNIT SUBCUT SCH (17:21)
[2018-08-21] MEDS: Lidocaine Patch REMOVE* 1 NOTE MISC SCH (22:05)
[2018-08-22 05:50] LABS: BUN/Creatinine Ratio 36.4 (8-20); Calcium 8.7 mg/dL (8.6-10.3); EGFR African American 63.9 (>60); EGFR Non-African American 52.8 (>60); Potassium 3.9 mmol/L (3.5-5.0); Uric Acid 8.1 mg/dL (4.4-7.6)
[2018-08-22] MEDS: Tiotropium CAP.INH* CAP.INH/18 MCG (USE ORDER SET !) INH SCH (07:53)
[2018-08-22] MEDS: Insulin LISPRO* 1 UNITS UNIT SUBCUT SCH ×4 (09:03→21:31)
[2018-08-22] MEDS: Tamsulosin CAP* 0.4 MG PO SCH (09:27)
[2018-08-22] MEDS: Dexamethasone TAB* 1 MG PO SCH (09:27)
[2018-08-22] MEDS: Metoprolol Tartrate TAB* 25 MG PO SCH ×2 (09:27→21:28)
[2018-08-22] MEDS: Multivitamins/Minerals TAB PO SCH (09:28)
[2018-08-22] MEDS: QUEtiapine TAB* 25 MG PO SCH ×2 (09:28→21:29)
[2018-08-22] MEDS: Magnesium Oxide TAB* 400 MG PO SCH (09:28)
[2018-08-22] MEDS: Allopurinol TAB* 100 MG PO SCH (09:28)
[2018-08-22] MEDS: Bumetanide TAB* 2 MG PO SCH (09:29)
[2018-08-22] MEDS: Apixaban* 2.5 MG TAB PO SCH ×2 (09:29→21:29)
[2018-08-22] MEDS: Acetaminophen TAB* 325 MG PO SCH ×4 (09:30→21:29)
[2018-08-22] MEDS: Lidocaine PATCH 5%* 1 PATCH TRANSDERM SCH (09:30)
[2018-08-22] MEDS: Nystatin CREAM* 30 GM TOPICAL SCH ×2 (09:31→21:32)
--- NOTE | 2018-08-22 12:01 | PN ---
Subjective Date of Service: 08/22/18 Interval History: Pt had been taking off 02 and refusing BIPAP. He's seen with his -Sue and their daughter. He is adamant about not using BIPAP again even if he were to and MOLST was updated. Pt agrees to keeping 02 on at 4L. Past Medical History: Unchanged from Admission Objective Active Medications: Acetaminophen (Tylenol Tab*) 650 mg PO Q4H PRN PRN Reason: FEVER/PAIN Last Admin: 08/20/18 01:44 Dose: 650 mg Acetaminophen (Tylenol Tab*) 650 mg PO QID [facility] Last Admin: 08/22/18 09:30 Dose: 650 mg Albuterol (Ventolin 2.5 Mg/3 Ml Neb.Teresa*) 2.5 mg INH Q2H PRN PRN Reason: SOB/WHEEZING Albuterol/Ipratropium (Duoneb (Albuterol 2.5 Mg/Ipratropium 0.5 Mg)) 1 neb INH Q4H PRN PRN Reason: SOB/WHEEZING Last Admin: 08/22/18 07:53 Dose: 1 neb Allopurinol (Zyloprim Tab*) 200 mg PO DAILY [facility] Last Admin: 08/22/18 09:28 Dose: 200 mg Apixaban (Eliquis*) 2.5 mg PO BID [facility] Last Admin: 08/22/18 09:29 Dose: 2.5 mg Bumetanide (Bumex Tab*) 2 mg PO DAILY [facility] Dextrose (D50w Syringe 50 Ml*) 12.5 gm IV PUSH .FOR FS < 60 - SS PRN PRN Reason: FS < 60 Docusate Sodium (Colace Cap*) 100 mg PO BID PRN PRN Reason: CONSTIPATION Last Admin: 08/16/18 21:51 Dose: 100 mg Haloperidol Lactate (Haldol Inj Iv/Im*) 0.5 mg IV SLOW PU Q2H PRN PRN Reason: AGITATION Insulin Glargine (Lantus(*)) 30 units SUBCUT QPM [facility] Last Admin: 08/21/18 17:21 Dose: 30 units Insulin Human Lispro (Humalog*) 0 units SUBCUT ACHS [facility]; Protocol Last Admin: 08/22/18 09:03 Dose: Not Given Lidocaine (Lidoderm 5% Patch*) 1 patch TRANSDERM DAILY [facility] Last Admin: 08/22/18 09:30 Dose: 1 patch Magnesium Oxide (Magox 400 Tab*) 400 mg PO DAILY [facility] Last Admin: 08/22/18 09:28 Dose: 400 mg Metoprolol Tartrate (Lopressor Tab*) 12.5 mg PO BID [facility] Last Admin: 08/22/18 09:27 Dose: 12.5 mg Multivitamins/Minerals (Theragran/Minerals Tab*) 1 tab PO DAILY [facility] Last Admin: 08/22/18 09:28 Dose: 1 tab Nystatin (Nystatin Cream*) 1 applic TOPICAL BID [facility] Last Admin: 08/22/18 09:31 Dose: 1 lotion Ondansetron HCl (Zofran Inj*) 4 mg IV Q4H PRN PRN Reason: NAUSEA/VOMITING Pharmacy Profile Note (Lidocaine Patch Remove*) 1 note N/A 2100 [facility] Last Admin: 08/21/18 22:05 Dose: 1 note Prednisone (Deltasone Tab*) 40 mg PO DAILY [facility] Quetiapine Fumarate (Seroquel Tab*) 25 mg PO BID [facility] Last Admin: 08/22/18 09:28 Dose: 25 mg Senna (Senokot Tab*) 1 tab PO BID PRN PRN Reason: CONSTIPATION Last Admin: 08/16/18 21:51 Dose: 1 tab Tamsulosin HCl (Flomax Cap*) 0.4 mg PO DAILY [facility] Last Admin: 08/22/18 09:27 Dose: 0.4 mg Tiotropium [place] (Spiriva Cap.Inh*) 1 cap INH DAILY [facility] Last Admin: 08/22/18 07:53 Dose: 1 cap Vital Signs - 8 hr 08/22/18 08/22/18 08:02 08:31 Temperature 96.9 F Pulse Rate 76 98 Respiratory 18 20 Rate Blood Pressure 141/54 (mmHg) O2 Sat by Pulse 96 94 Oximetry Oxygen Devices in Use Now: Nasal Cannula Appearance: 88 yo M in nAD, aAOx2, poor historian Eyes: No Scleral Icterus, PERRLA Ears/Nose/Mouth/Throat: NL Teeth, Lips, Gums, Mucous Membranes Moist Neck: NL Appearance and Movements; NL JVP, Trachea Midline Respiratory: Symmetrical Chest Expansion and Respiratory Effort, - - crackles at b/l bases Cardiovascular: NL Sounds; No Murmurs; No JVD, RRR Abdominal: NL Sounds; No Tenderness; No Distention Lymphatic: No Cervical Adenopathy Extremities: No Clubbing, Cyanosis, - - +1 pitting pedal edema appears improved Skin: No Rash or Ulcers, No Nodules or Sclerosis Neurological: Alert and Oriented x 3, NL Muscle Strength and Tone Result Diagrams: 08/20/18 05:53 08/22/18 05:18 Microbiology and Other Data: Microbiology 08/16/18 14:06 Aerobic Blood Culture - Preliminary Blood Venous No Growth Day 1 Anaerobic Blood Culture - Preliminary No Growth Day 1 08/16/18 14:11 Aerobic Blood Culture - Preliminary Blood Venous No Growth Day 1 Anaerobic Blood Culture - Preliminary No Growth Day 1 08/16/18 21:41 Nasal Screen MRSA (PCR) - Final Nasal Mrsa Not Detected Assess/Plan/Problems-Billing Assessment: 88 year old male admitted for acute hypercarpneic respiratory failure with respiratory acidosis mixed etiology mainly 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 He was transferred out of ICU 08/18/18. - lasix drip d/c'd 08/19/18 (completed 2 days) and back to his home dose of Bumex 2 mg daily - Patient refuses BIPAP-placed in MOLST (2) Afib Comment: - Follows with Dr. Titus at [place] - Continue Metoprolol 12.5 mg bid, apixaban 2.5 mg bid. (3) CHF exacerbation Comment: - He is in acute exacerbation of his chronic Diastollic heart failure - Repeat Echo 08/16/18 reveal EF 65% suggestive of diastollic failure - S/p Bipap weaned off to NC 3-4 liters. He was transferred out of ICU 08/18/18. (4) CKD (chronic kidney disease) Comment: -Stage 3b, at baseline Est GFR 45.8 08/20/18. (5) COPD exacerbation Comment: - COPD likely d/t smoking history, though he will need formal diagnosis with PFTs as an outpt - Continue nebs, Dulera, Spiriva, IS and flutter valve - prednisone 40 mg (6) DVT prophylaxis Comment: - Eliquis (7) Diabetes Comment: Continue Lantus, Lispro. (8) Urinary retention Comment: - he did have previous history of urinary outflow obstruction as documented in his chart from 03/14/2018. " dilatation and padilla placement by Dr. Sibley 03/14/18, " - Padilla catheter in place. Pt requests it to be removed. will d/c Padilla today. As per after dialtation pt had no Padilla x 3 months till his current [facility] stay Status and Disposition: Inpatient, needs STR
[2018-08-22] MEDS: Insulin GLARGINE(*) 1 UNITS UNIT SUBCUT SCH (17:15)
[2018-08-22] MEDS: Lidocaine Patch REMOVE* 1 NOTE MISC SCH (21:32)
[2018-08-23 05:45] LABS: ABS Eosinophils 0.3 10^3/ul (0-0.6); ABS Lymphocytes 0.6 10^3/ul (1.0-4.8); ABS Neutrophils 7.4 10^3/ul (1.5-7.7); Eosinophil % 3.4 %; Hematocrit 29 % (42-52); Hemoglobin 8.5 g/dL (14.0-18.0); Lymphocyte % 6.6 %; Mean Corpuscular HGB Conc 30 g/dL (31-36); Mean Corpuscular Hemoglobin 23 pg (27-31); Mean Corpuscular Volume 78 fL (80-94); Mean Platelet Volume 7.9 fL (7.4-10.4); Nucleated Red Blood Cells % 0.1; Platelet Count 364 10^3/uL (150-450); Red Cell Distribution Width 18 % (10.5-15); White Blood Count 9.5 10^3/uL (3.5-10.8)
[2018-08-23 05:59] LABS: BUN/Creatinine Ratio 37.8 (8-20); Blood Urea Nitrogen 42 mg/dL (6-24); CO2 Carbon Dioxide 39 mmol/L (22-32); Calcium 8.7 mg/dL (8.6-10.3); Chloride 106 mmol/L (101-111); EGFR Non-African American 62.8 (>60); Glucose 166 mg/dL (70-100); Potassium 3.9 mmol/L (3.5-5.0); Sodium 144 mmol/L (135-145)
[2018-08-23] MEDS: Tiotropium CAP.INH* CAP.INH/18 MCG (USE ORDER SET !) INH SCH (08:31)
[2018-08-23] MEDS: QUEtiapine TAB* 25 MG PO SCH ×2 (08:33→21:02)
[2018-08-23] MEDS: Bumetanide TAB* 2 MG PO SCH (08:33)
[2018-08-23] MEDS: Metoprolol Tartrate TAB* 25 MG PO SCH ×2 (08:33→21:01)
[2018-08-23] MEDS: Tamsulosin CAP* 0.4 MG PO SCH (08:33)
[2018-08-23] MEDS: Lidocaine PATCH 5%* 1 PATCH TRANSDERM SCH (08:33)
[2018-08-23] MEDS: Multivitamins/Minerals TAB PO SCH (08:33)
[2018-08-23] MEDS: Insulin LISPRO* 1 UNITS UNIT SUBCUT SCH ×4 (08:33→21:30)
[2018-08-23] MEDS: Nystatin CREAM* 30 GM TOPICAL SCH ×2 (08:34→21:03)
[2018-08-23] MEDS: Apixaban* 2.5 MG TAB PO SCH ×2 (08:34→21:00)
[2018-08-23] MEDS: predniSONE TAB* 20 MG PO SCH (08:34)
[2018-08-23] MEDS: Magnesium Oxide TAB* 400 MG PO SCH (08:34)
[2018-08-23] MEDS: Acetaminophen TAB* 325 MG PO SCH ×4 (08:34→21:00)
[2018-08-23] MEDS: Allopurinol TAB* 100 MG PO SCH (08:34)
[2018-08-23] MEDS ORDERED: Furosemide IV* 10 MG/ML VIAL (40 MG) IV ONE (13:57)
--- NOTE | 2018-08-23 14:05 | PN ---
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 Pt was agitated last night-he doesn't remember it Feeling tired today. Seen with and daughter in room. continues to refuse BIPAP Family History: Unchanged from Admission Past Medical History: Unchanged from Admission Objective Active Medications: Acetaminophen (Tylenol Tab*) 650 mg PO Q4H PRN PRN Reason: FEVER/PAIN Last Admin: 08/20/18 01:44 Dose: 650 mg Acetaminophen (Tylenol Tab*) 650 mg PO QID [facility] Last Admin: 08/23/18 11:52 Dose: 650 mg Albuterol (Ventolin 2.5 Mg/3 Ml Neb.Teresa*) 2.5 mg INH Q2H PRN PRN Reason: SOB/WHEEZING Albuterol/Ipratropium (Duoneb (Albuterol 2.5 Mg/Ipratropium 0.5 Mg)) 1 neb INH Q4H PRN PRN Reason: SOB/WHEEZING Last Admin: 08/22/18 07:53 Dose: 1 neb Allopurinol (Zyloprim Tab*) 200 mg PO DAILY [facility] Last Admin: 08/23/18 08:34 Dose: 200 mg Apixaban (Eliquis*) 2.5 mg PO BID [facility] Last Admin: 08/23/18 08:34 Dose: 2.5 mg Bumetanide (Bumex Tab*) 2 mg PO DAILY [facility] Last Admin: 08/23/18 08:33 Dose: 2 mg Dextrose (D50w Syringe 50 Ml*) 12.5 gm IV PUSH .FOR FS < 60 - SS PRN PRN Reason: FS < 60 Docusate Sodium (Colace Cap*) 100 mg PO BID PRN PRN Reason: CONSTIPATION Last Admin: 08/16/18 21:51 Dose: 100 mg Haloperidol Lactate (Haldol Inj Iv/Im*) 0.5 mg IV SLOW PU Q2H PRN PRN Reason: AGITATION Insulin Glargine (Lantus(*)) 30 units SUBCUT QPM [facility] Last Admin: 08/22/18 17:15 Dose: 30 units Insulin Human Lispro (Humalog*) 0 units SUBCUT ACHS [facility]; Protocol Last Admin: 08/23/18 11:52 Dose: 9 units Lidocaine (Lidoderm 5% Patch*) 1 patch TRANSDERM DAILY [facility] Last Admin: 08/23/18 08:33 Dose: 1 patch Magnesium Oxide (Magox 400 Tab*) 400 mg PO DAILY [facility] Last Admin: 08/23/18 08:34 Dose: 400 mg Metoprolol Tartrate (Lopressor Tab*) 12.5 mg PO BID [facility] Last Admin: 08/23/18 08:33 Dose: 12.5 mg Multivitamins/Minerals (Theragran/Minerals Tab*) 1 tab PO DAILY [facility] Last Admin: 08/23/18 08:33 Dose: 1 tab Nystatin (Nystatin Cream*) 1 applic TOPICAL BID [facility] Last Admin: 08/23/18 08:34 Dose: 1 lotion Ondansetron HCl (Zofran Inj*) 4 mg IV Q4H PRN PRN Reason: NAUSEA/VOMITING Pharmacy Profile Note (Lidocaine Patch Remove*) 1 note N/A 2100 [facility] Last Admin: 08/22/18 21:32 Dose: 1 note Prednisone (Deltasone Tab*) 40 mg PO DAILY [facility] Last Admin: 08/23/18 08:34 Dose: 40 mg Quetiapine Fumarate (Seroquel Tab*) 25 mg PO BID [facility] Last Admin: 08/23/18 08:33 Dose: 25 mg Senna (Senokot Tab*) 1 tab PO BID PRN PRN Reason: CONSTIPATION Last Admin: 08/16/18 21:51 Dose: 1 tab Tamsulosin HCl (Flomax Cap*) 0.4 mg PO DAILY [facility] Last Admin: 08/23/18 08:33 Dose: 0.4 mg Tiotropium [place] (Spiriva Cap.Inh*) 1 cap INH DAILY [facility] Last Admin: 08/23/18 08:31 Dose: 1 cap Vital Signs - 8 hr 08/23/18 08/23/18 08/23/18 07:42 08:10 08:33 Temperature 97.5 F Pulse Rate 100 114 Respiratory 22 20 16 Rate Blood Pressure 159/57 (mmHg) O2 Sat by Pulse 96 93 Oximetry 08/23/18 08/23/18 08/23/18 09:00 11:34 11:35 Temperature 97.5 F 97.1 F 97.1 F Pulse Rate 100 97 97 Respiratory 20 20 20 Rate Blood Pressure 159/57 157/61 157/61 (mmHg) O2 Sat by Pulse 96 91 91 Oximetry Oxygen Devices in Use Now: Nasal Cannula Appearance: 88 yo M in NAD, lethargic, but awake , AAOx2, poor historian Eyes: No Scleral Icterus, PERRLA Ears/Nose/Mouth/Throat: NL Teeth, Lips, Gums, Mucous Membranes Moist Neck: NL Appearance and Movements; NL JVP, Trachea Midline Respiratory: Symmetrical Chest Expansion and Respiratory Effort, - - faint bibasiliar crackles Cardiovascular: NL Sounds; No Murmurs; No JVD, RRR Abdominal: NL Sounds; No Tenderness; No Distention Lymphatic: No Cervical Adenopathy Extremities: No Clubbing, Cyanosis, - - +1 pitting ankle edema Skin: No Nodules or Sclerosis, - - venous stasis skin discoloration b/l distal LE's.R ear ulceration at 3 cm , covered with eschar Neurological: NL Muscle Strength and Tone Result Diagrams: 08/23/18 05:14 08/23/18 05:14 Microbiology and Other Data: Microbiology 08/16/18 14:06 Aerobic Blood Culture - Preliminary Blood Venous No Growth Day 1 Anaerobic Blood Culture - Preliminary No Growth Day 1 08/16/18 14:11 Aerobic Blood Culture - Preliminary Blood Venous No Growth Day 1 Anaerobic Blood Culture - Preliminary No Growth Day 1 08/16/18 21:41 Nasal Screen MRSA (PCR) - Final Nasal Mrsa Not Detected Assess/Plan/Problems-Billing Assessment: 88 year old male admitted for acute hypercarpneic respiratory failure with respiratory acidosis mixed etiology mainly 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 He was transferred out of ICU 08/18/18. - lasix drip d/c'd 08/19/18 (completed 2 days) and back to his home dose of Bumex 2 mg daily - Patient refuses BIPAP-placed in MOLST -today lethargic, spoke with family about concerns for CO2 retention , but family cont to honor pt's wishes re: no BIPAP and DNI/DNR (2) Afib Comment: - Follows with Dr. Titus at [place] - Continue Metoprolol 12.5 mg bid, apixaban 2.5 mg bid. (3) CHF exacerbation Comment: - He is in acute exacerbation of his chronic Diastollic heart failure, will tx with additional Lasix IV dose today - Repeat Echo 08/16/18 reveal EF 65% suggestive of diastollic failure - S/p Bipap weaned off to NC 3-4 liters. He was transferred out of ICU 08/18/18. (4) CKD (chronic kidney disease) Comment: -Stage 3b, at baseline Est GFR 45.8 08/20/18. (5) COPD exacerbation Comment: - COPD likely d/t smoking history, though he will need formal diagnosis with PFTs as an outpt - Continue nebs, Dulera, Spiriva, IS and flutter valve - prednisone 40 mg (6) Diabetes Comment: Continue Lantus, Lispro. (7) Urinary retention Comment: - he did have previous history of urinary outflow obstruction as documented in his chart from 03/14/2018. " dilatation and padilla placement by Dr. Sibley 03/14/18, " - Padilla catheter in place. Pt requested it to be removed on 08/12/18 As per after dialtation pt had no Padilla x 3 months till his current [facility] stay (8) Anemia Comment: chronic, stable in 8-9 range for the past 2 years, stool heme+ on 08/19/18 may be related to mucosal injury in pt on Eliquis. No evidence , or h/o melena or BRBPR. Due to pt's overall resp status and deconditioning he would not be a good candidate for GD or colonoscopy (9) DVT prophylaxis Comment: - Eliquis Status and Disposition: Inpatient, needs STR
[2018-08-23] MEDS: Insulin GLARGINE(*) 1 UNITS UNIT SUBCUT SCH (17:04)
[2018-08-23] MEDS: Pantoprazole TAB * 40 MG TAB PO SCH (21:02)
[2018-08-23] MEDS: Lidocaine Patch REMOVE* 1 NOTE MISC SCH (21:10)
[2018-08-24 06:56] LABS: ABS Basophils 0.1 10^3/ul (0-0.2); ABS Eosinophils 0.1 10^3/ul (0-0.6); ABS Lymphocytes 0.7 10^3/ul (1.0-4.8); ABS Neutrophils 10.1 10^3/ul (1.5-7.7); Hematocrit 29 % (42-52); Hemoglobin 8.7 g/dL (14.0-18.0); Mean Corpuscular HGB Conc 31 g/dL (31-36); Mean Corpuscular Hemoglobin 24 pg (27-31); Mean Corpuscular Volume 77 fL (80-94); Mean Platelet Volume 7.5 fL (7.4-10.4); Nucleated Red Blood Cells % 0.1; Platelet Count 351 10^3/uL (150-450); Red Blood Count 3.68 10^6 /uL (4.18-5.48); Red Cell Distribution Width 18 % (10.5-15); White Blood Count 12.1 10^3/uL (3.5-10.8)
[2018-08-24 07:13] LABS: Potassium 3.7 mmol/L (3.5-5.0)
[2018-08-24 07:18] LABS: BUN/Creatinine Ratio 33.3 (8-20)
[2018-08-24] MEDS: Tiotropium CAP.INH* CAP.INH/18 MCG (USE ORDER SET !) INH SCH (07:32)
[2018-08-24] MEDS: Insulin LISPRO* 1 UNITS UNIT SUBCUT SCH ×4 (08:25→22:05)
[2018-08-24] MEDS: Tamsulosin CAP* 0.4 MG PO SCH (08:25)
[2018-08-24] MEDS: predniSONE TAB* 20 MG PO SCH (08:25)
[2018-08-24] MEDS: Lidocaine PATCH 5%* 1 PATCH TRANSDERM SCH (08:25)
[2018-08-24] MEDS: QUEtiapine TAB* 25 MG PO SCH ×2 (08:25→22:04)
[2018-08-24] MEDS: Acetaminophen TAB* 325 MG PO SCH ×4 (08:25→22:03)
[2018-08-24] MEDS: Multivitamins/Minerals TAB PO SCH (08:25)
[2018-08-24] MEDS: Nystatin CREAM* 30 GM TOPICAL SCH ×2 (08:26→22:06)
[2018-08-24] MEDS: Bumetanide TAB* 2 MG PO SCH (08:26)
[2018-08-24] MEDS: Pantoprazole TAB * 40 MG TAB PO SCH ×2 (08:26→22:04)
[2018-08-24] MEDS: Apixaban* 2.5 MG TAB PO SCH ×2 (08:26→22:04)
[2018-08-24] MEDS: Magnesium Oxide TAB* 400 MG PO SCH (08:26)
[2018-08-24] MEDS: Metoprolol Tartrate TAB* 25 MG PO SCH ×2 (08:26→22:04)
[2018-08-24] MEDS: Allopurinol TAB* 100 MG PO SCH (08:26)
[2018-08-24] MEDS ORDERED: Furosemide IV* 10 MG/ML 10 ML VIAL (100 MG) IV ONE (12:53)
[2018-08-24] MEDS: Albuterol/Ipratropium NEB.SOL* Albuterol 2.5 MG/Ipratropium 0.5 MG 3 ML INH SCH ×2 (13:53→19:46)
--- NOTE | 2018-08-24 15:40 | PN ---
Subjective Date of Service: 08/24/18 Interval History: Pt continues to be lethargic, but awake enough to eat well as per present by the bedside. Has no complaints. Barely awake enough to respond Family History: Unchanged from Admission Past Medical History: Unchanged from Admission Objective Active Medications: Acetaminophen (Tylenol Tab*) 650 mg PO Q4H PRN PRN Reason: FEVER/PAIN Last Admin: 08/20/18 01:44 Dose: 650 mg Acetaminophen (Tylenol Tab*) 650 mg PO QID [facility] Last Admin: 08/24/18 11:51 Dose: 650 mg Albuterol (Ventolin 2.5 Mg/3 Ml Neb.Teresa*) 2.5 mg INH Q2H PRN PRN Reason: SOB/WHEEZING Albuterol/Ipratropium (Duoneb (Albuterol 2.5 Mg/Ipratropium 0.5 Mg)) 1 neb INH Q4H PRN PRN Reason: SOB/WHEEZING Last Admin: 08/22/18 07:53 Dose: 1 neb Albuterol/Ipratropium (Duoneb (Albuterol 2.5 Mg/Ipratropium 0.5 Mg)) 1 neb INH [id number] AWAKE [facility] Last Admin: 08/24/18 13:53 Dose: 1 neb Allopurinol (Zyloprim Tab*) 200 mg PO DAILY [facility] Last Admin: 08/24/18 08:26 Dose: 200 mg Apixaban (Eliquis*) 2.5 mg PO BID [facility] Last Admin: 08/24/18 08:26 Dose: 2.5 mg Bumetanide (Bumex Tab*) 2 mg PO DAILY [facility] Last Admin: 08/24/18 08:26 Dose: 2 mg Dextrose (D50w Syringe 50 Ml*) 12.5 gm IV PUSH .FOR FS < 60 - SS PRN PRN Reason: FS < 60 Docusate Sodium (Colace Cap*) 100 mg PO BID PRN PRN Reason: CONSTIPATION Last Admin: 08/16/18 21:51 Dose: 100 mg Haloperidol Lactate (Haldol Inj Iv/Im*) 0.5 mg IV SLOW PU Q2H PRN PRN Reason: AGITATION Last Admin: 08/24/18 04:04 Dose: 0.5 mg Insulin Glargine (Lantus(*)) 40 units SUBCUT QPM [facility] Insulin Human Lispro (Humalog*) 0 units SUBCUT ACHS [facility]; Protocol Last Admin: 08/24/18 11:51 Dose: 12 units Lidocaine (Lidoderm 5% Patch*) 1 patch TRANSDERM DAILY [facility] Last Admin: 08/24/18 08:25 Dose: 1 patch Magnesium Oxide (Magox 400 Tab*) 400 mg PO DAILY [facility] Last Admin: 08/24/18 08:26 Dose: 400 mg Metoprolol Tartrate (Lopressor Tab*) 12.5 mg PO BID [facility] Last Admin: 08/24/18 08:26 Dose: 12.5 mg Multivitamins/Minerals (Theragran/Minerals Tab*) 1 tab PO DAILY [facility] Last Admin: 08/24/18 08:25 Dose: 1 tab Nystatin (Nystatin Cream*) 1 applic TOPICAL BID [facility] Last Admin: 08/24/18 08:26 Dose: 1 lotion Ondansetron HCl (Zofran Inj*) 4 mg IV Q4H PRN PRN Reason: NAUSEA/VOMITING Pantoprazole Sodium (Protonix Tab*) 40 mg PO BID [facility] Last Admin: 08/24/18 08:26 Dose: 40 mg Pharmacy Profile Note (Lidocaine Patch Remove*) 1 note N/A 2100 [facility] Last Admin: 08/23/18 21:10 Dose: 1 note Prednisone (Deltasone Tab*) 40 mg PO DAILY [facility] Last Admin: 08/24/18 08:25 Dose: 40 mg Quetiapine Fumarate (Seroquel Tab*) 25 mg PO BID [facility] Last Admin: 08/24/18 08:25 Dose: 25 mg Senna (Senokot Tab*) 1 tab PO BID PRN PRN Reason: CONSTIPATION Last Admin: 08/16/18 21:51 Dose: 1 tab Tamsulosin HCl (Flomax Cap*) 0.4 mg PO DAILY [facility] Last Admin: 08/24/18 08:25 Dose: 0.4 mg Tiotropium [place] (Spiriva Cap.Inh*) 1 cap INH DAILY [facility] Last Admin: 08/24/18 07:32 Dose: 1 cap Vital Signs - 8 hr 08/24/18 08/24/18 08/24/18 08:35 12:09 13:57 Temperature 97.4 F 97.5 F Pulse Rate 87 101 104 Respiratory 20 20 20 Rate Blood Pressure 136/56 144/51 (mmHg) O2 Sat by Pulse 97 98 95 Oximetry Oxygen Devices in Use Now: Nasal Cannula Appearance: 88 yo M in nAD, AAOx2. lethargic Eyes: No Scleral Icterus, PERRLA Ears/Nose/Mouth/Throat: NL Teeth, Lips, Gums, Mucous Membranes Moist Neck: NL Appearance and Movements; NL JVP Respiratory: Symmetrical Chest Expansion and Respiratory Effort - decreased breath sounds at b/l bases , poor inspiratory effort Cardiovascular: NL Sounds; No Murmurs; No JVD, RRR Abdominal: NL Sounds; No Tenderness; No Distention Lymphatic: No Cervical Adenopathy Extremities: No Clubbing, Cyanosis, - - +1 pitting edema b/l Skin: No Nodules or Sclerosis, - - venous staisis changes b/l LE's Neurological: NL Muscle Strength and Tone Result Diagrams: 08/24/18 06:40 08/24/18 06:40 Microbiology and Other Data: Microbiology 08/16/18 14:06 Aerobic Blood Culture - Preliminary Blood Venous No Growth Day 1 Anaerobic Blood Culture - Preliminary No Growth Day 1 08/16/18 14:11 Aerobic Blood Culture - Preliminary Blood Venous No Growth Day 1 Anaerobic Blood Culture - Preliminary No Growth Day 1 08/16/18 21:41 Nasal Screen MRSA (PCR) - Final Nasal Mrsa Not Detected Assess/Plan/Problems-Billing Assessment: 88 year old male admitted for acute hypercarpneic respiratory failure with respiratory acidosis mixed etiology mainly 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 He was transferred out of ICU 08/18/18. - lasix drip d/c'd 08/19/18 (completed 2 days) and back to his home dose of Bumex 2 mg daily - Patient refuses BIPAP-placed in [facility]. -today very lethargic and with resp acidosis on ABG. Spoke with that the treatment is limited without BIPAP that pt refuses and the CO2 retention will be likley progressive. Palliative care consult recommended to discuss hospice care to which pt's agrees. (2) Afib Comment: - Follows with Dr. Titus at [place] - Continue Metoprolol 12.5 mg bid, apixaban 2.5 mg bid. (3) CHF exacerbation Comment: - He is in acute exacerbation of his chronic diastolic heart failure, will tx with additional Lasix IV dose today - Repeat Echo 08/16/18 reveal EF 65% suggestive of diastollic failure - S/p Bipap weaned off to NC 3-4 liters. He was transferred out of ICU 08/18/18. (4) CKD (chronic kidney disease) Comment: -Stage 3b, at baseline Est GFR 45.8 08/20/18. (5) COPD exacerbation Comment: - COPD likely d/t smoking history, though he will need formal diagnosis with PFTs as an outpt - Continue nebs, Dulera, Spiriva, IS and flutter valve - prednisone 40 mg (6) Diabetes Comment: Continue Lantus, Lispro. (7) Urinary retention Comment: - he did have previous history of urinary outflow obstruction as documented in his chart from 03/14/2018. " dilatation and padilla placement by Dr. Sibley 03/14/18, " - Padilla catheter in place. Pt requested it to be removed on 08/12/18 As per after dialtation pt had no Padilla x 3 months till his current [facility] stay (8) Anemia Comment: chronic, stable in 8-9 range for the past 2 years, stool heme+ on 08/19/18 may be related to mucosal injury in pt on Eliquis. No evidence , or h/o melena or BRBPR. Due to pt's overall resp status and deconditioning he would not be a good candidate for GD or colonoscopy (9) DVT prophylaxis Comment: - Eliquis Status and Disposition: Inpatient. Nearing to comfort care. Prognosis poor
--- NOTE | 2018-08-24 16:00 | CONSULT ---
Palliative / Hospice Consult Ordering Provider: America Mendez - PCP-[place] Referal Reason: Care after the hospital. - Subjective Code Status: DNR Advance Directives Location: to call for verification - History or Present Illness History or Present Illness: 88 yo male with COPD and diastolic CHF presents to ER with CP and SOB. PMH is significant for BiPAP use at night, cognitive impairment, afib on coumadin, sick sinus syndrome s/p pacer, DM, gout, anemia, CKD stage 3. Studies; CXR- pulmonary vascular congestion, ekg-afib, echo EF 60-65% no change from 04/03/18, chest CT mod bilateral pleural effusion and bibasilar atelectasis, calcified node on thyroid and mediastinal adenopathy, doppler R leg-neg, H/H-8.7/29, BUN/ Cr 35/1.05 egfr 67, BNP 356, tprot 6.5 and alb 3.2. Pt is an ex smoker and ex heavy drinker lives with was ambulating w walker. All history is from the , daughter and medical records, pt has trouble staying alert. Pt was admitted to the ICU on BiPAP was transferred to floor once stable now is refusing BiPAP. Pt was admitted to [facility]24[facility]2018 for respiratory failure and went to [facility]. While at rehab he was sent back to [facility] for CHF & COPD exacerbation then finished his rehab at [facility]. He was sent home with VNS and PT. He was doing well at home until a few days ago when he developed SOB. Lab Values: Abnormal Lab Results 08/23/18 08/23/18 08/23/18 16:15 20:25 20:39 WBC RBC Hgb Hct MCV MCH MCHC RDW Plt Count MPV Neut % (Auto) Lymph % (Auto) [place] % (Auto) Eos % (Auto) Baso % (Auto) Absolute Neuts (auto) Absolute Lymphs (auto) Absolute Monos (auto) Absolute Eos (auto) Absolute Basos (auto) Absolute Nucleated RBC Nucleated RBC % Patient Temperature ABG pH ABG pH (Temp Correct) ABG pCO2 ABG pCO2 (Temp Corrct ABG pO2 ABG pO2 (Temp Correct ABG HCO3 ABG O2 Saturation ABG Base Excess Respiration Rate O2 Delivery Device Ventilator Type Vent Mode FiO2 Inspiratory Time PEEP Pressure Support Pressure Control EPAP IPAP BiPAP Sodium Potassium Chloride Carbon Dioxide Anion Gap BUN Creatinine Est GFR ( Amer) Est GFR (Non-Af Amer) BUN/Creatinine Ratio Glucose POC Glucose (mg/dL) 391 H > 444 H* Glucose Meter Confirm 398 H Calcium 08/24/18 08/24/18 08/24/18 06:40 06:40 07:10 WBC 12.1 H RBC 3.68 L Hgb 8.7 L Hct 29 L MCV 77 L MCH 24 L MCHC 31 RDW 18 H Plt Count 351 MPV 7.5 Neut % (Auto) 84.0 Lymph % (Auto) 6.0 [place] % (Auto) 8.5 Eos % (Auto) 1.0 Baso % (Auto) 0.5 Absolute Neuts (auto) 10.1 H Absolute Lymphs (auto) 0.7 L Absolute Monos (auto) 1.0 H Absolute Eos (auto) 0.1 Absolute Basos (auto) 0.1 Absolute Nucleated RBC 0.0 Nucleated RBC % 0.1 Patient Temperature ABG pH ABG pH (Temp Correct) ABG pCO2 ABG pCO2 (Temp Corrct ABG pO2 ABG pO2 (Temp Correct ABG HCO3 ABG O2 Saturation ABG Base Excess Respiration Rate O2 Delivery Device Ventilator Type Vent Mode FiO2 Inspiratory Time PEEP Pressure Support Pressure Control EPAP IPAP BiPAP Sodium 144 Potassium 3.7 Chloride 104 Carbon Dioxide 38 H Anion Gap 2 BUN 35 H Creatinine 1.05 Est GFR ( Amer) 81.0 Est GFR (Non-Af Amer) 67.0 BUN/Creatinine Ratio 33.3 H Glucose 133 H POC Glucose (mg/dL) 152 H Glucose Meter Confirm Calcium 9.0 08/24/18 08/24/18 11:16 13:39 WBC RBC Hgb Hct MCV MCH MCHC RDW Plt Count MPV Neut % (Auto) Lymph % (Auto) [place] % (Auto) Eos % (Auto) Baso % (Auto) Absolute Neuts (auto) Absolute Lymphs (auto) Absolute Monos (auto) Absolute Eos (auto) Absolute Basos (auto) Absolute Nucleated RBC Nucleated RBC % Patient Temperature Not Reportable ABG pH 7.29 L ABG pH (Temp Correct) Not Reportable ABG pCO2 79 H* ABG pCO2 (Temp Corrct Not Reportable ABG pO2 74 L ABG pO2 (Temp Correct Not Reportable ABG HCO3 31.9 H ABG O2 Saturation 96.2 ABG Base Excess 9.0 H Respiration Rate Not Reportable O2 Delivery Device nasal cannula Ventilator Type Not Reportable Vent Mode Not Reportable FiO2 Not Reportable Inspiratory Time Not Reportable PEEP Not Reportable Pressure Support Not Reportable Pressure Control Not Reportable EPAP Not Reportable IPAP Not Reportable BiPAP Not Reportable Sodium Potassium Chloride Carbon Dioxide Anion Gap BUN Creatinine Est GFR ( Amer) Est GFR (Non-Af Amer) BUN/Creatinine Ratio Glucose POC Glucose (mg/dL) 312 H Glucose Meter Confirm Calcium Laboratory Last Values WBC 12.1 10^3/uL (3.5-10.8) H 08/24/18 06:40 RBC 3.68 10^6 /uL (4.18-5.48) L 08/24/18 06:40 Hgb 8.7 g/dL (14.0-18.0) L 08/24/18 06:40 Hct 29 % (42-52) L 08/24/18 06:40 MCV 77 fL (80-94) L 08/24/18 06:40 MCH 24 pg (27-31) L 08/24/18 06:40 MCHC 31 g/dL (31-36) 08/24/18 06:40 RDW 18 % (10.5-15) H 08/24/18 06:40 Plt Count 351 10^3/uL (150-450) 08/24/18 06:40 MPV 7.5 fL (7.4-10.4) 08/24/18 06:40 Neut % (Auto) 84.0 % 08/24/18 06:40 Lymph % (Auto) 6.0 % 08/24/18 06:40 [place] % (Auto) 8.5 % 08/24/18 06:40 Eos % (Auto) 1.0 % 08/24/18 06:40 Baso % (Auto) 0.5 % 08/24/18 06:40 Absolute Neuts (auto) 10.1 10^3/ul (1.5-7.7) H 08/24/18 06:40 Absolute Lymphs (auto) 0.7 10^3/ul (1.0-4.8) L 08/24/18 06:40 Absolute Monos (auto) 1.0 10^3/ul (0-0.8) H 08/24/18 06:40 Absolute Eos (auto) 0.1 10^3/ul (0-0.6) 08/24/18 06:40 Absolute Basos (auto) 0.1 10^3/ul (0-0.2) 08/24/18 06:40 Absolute Nucleated RBC 0.0 10^3/ul 08/24/18 06:40 Nucleated RBC % 0.1 08/24/18 06:40 APTT 42.2 seconds (26.0-36.3) H 08/16/18 14:11 Patient Temperature Not Reportable 08/24/18 13:39 ABG pH 7.29 (7.35-7.45) L 08/24/18 13:39 ABG pH (Temp Correct) Not Reportable 08/24/18 13:39 ABG pCO2 79 mmHg (35-45) H* 08/24/18 13:39 ABG pCO2 (Temp Corrct Not Reportable 08/24/18 13:39 ABG pO2 74 mmHg (80-100) L 08/24/18 13:39 ABG pO2 (Temp Correct Not Reportable 08/24/18 13:39 ABG HCO3 31.9 mmol/L (19-31) H 08/24/18 13:39 ABG O2 Saturation 96.2 % (94.0-98.0) 08/24/18 13:39 ABG Base Excess 9.0 mmol/L (-2.0-2.0) H 08/24/18 13:39 Respiration Rate Not Reportable 08/24/18 13:39 O2 Delivery Device nasal cannula 08/24/18 13:39 Ventilator Type Not Reportable 08/24/18 13:39 Vent Mode Not Reportable 08/24/18 13:39 FiO2 Not Reportable 08/24/18 13:39 Inspiratory Time Not Reportable 08/24/18 13:39 PEEP Not Reportable 08/24/18 13:39 Pressure Support Not Reportable 08/24/18 13:39 Pressure Control Not Reportable 08/24/18 13:39 EPAP Not Reportable 08/24/18 13:39 IPAP Not Reportable 08/24/18 13:39 BiPAP Not Reportable 08/24/18 13:39 Sodium 144 mmol/L (135-145) 08/24/18 06:40 Potassium 3.7 mmol/L (3.5-5.0) 08/24/18 06:40 Chloride 104 mmol/L (101-111) 08/24/18 06:40 Carbon Dioxide 38 mmol/L (22-32) H 08/24/18 06:40 Anion Gap 2 mmol/L (2-11) 08/24/18 06:40 BUN 35 mg/dL (6-24) H 08/24/18 06:40 Creatinine 1.05 mg/dL (0.67-1.17) 08/24/18 06:40 Est GFR ( Amer) 81.0 (>60) 08/24/18 06:40 Est GFR (Non-Af Amer) 67.0 (>60) 08/24/18 06:40 BUN/Creatinine Ratio 33.3 (8-20) H 08/24/18 06:40 Glucose 133 mg/dL (70-100) H 08/24/18 06:40 POC Glucose (mg/dL) 312 mg/dL (70-100) H 08/24/18 11:16 Glucose Meter Confirm 398 mg/dL (70-100) H 08/23/18 20:39 Lactic Acid 0.9 mmol/L (0.5-2.0) 08/16/18 14:12 Uric Acid 8.1 mg/dL (4.4-7.6) H 08/22/18 05:18 Calcium 9.0 mg/dL (8.6-10.3) 08/24/18 06:40 Phosphorus 2.8 mg/dL (2.5-5.0) 08/20/18 05:53 Magnesium 2.0 mg/dL (1.9-2.7) 08/20/18 05:53 Iron < 17 ug/dL (50-212) L 08/16/18 14:11 TIBC 371 mcg/dL (250-450) 08/16/18 14:11 % Saturation 5 % (15-55) L 08/16/18 14:11 Unsat Iron Binding < 356 ug/dL 08/16/18 14:11 Transferrin 265 mg/dL (203-362) 08/16/18 14:11 Ferritin 18.7 ng/mL (24-336) L 08/16/18 14:11 Total Bilirubin 0.70 mg/dL (0.2-1.0) 08/16/18 14:11 AST 8 U/L (13-39) L 08/16/18 14:11 ALT 6 U/L (7-52) L 08/16/18 14:11 Alkaline Phosphatase 87 U/L (34-104) 08/16/18 14:11 Total Creatine Kinase 22 U/L (10-223) 08/16/18 14:11 Troponin I 0.01 ng/mL (<0.04) 08/16/18 20:47 C-Reactive Protein 36.07 mg/L (<8.01) H 08/16/18 14:11 B-Natriuretic Peptide 356 pg/mL (<=100) H 08/16/18 14:12 Total Protein 6.5 g/dL (6.4-8.9) 08/16/18 14:11 Albumin 3.2 g/dL (3.2-5.2) 08/16/18 14:11 Globulin 3.3 g/dL (2-4) 08/16/18 14:11 Albumin/Globulin Ratio 1.0 (1-3) 08/16/18 14:11 Urine Color Yellow 08/16/18 19:22 Urine Appearance Cloudy 08/16/18 19:22 Urine pH 5.0 (5-9) 08/16/18 19:22 Ur Specific [place] 1.009 (1.010-1.030) L 08/16/18 19:22 Urine Protein Negative (Negative) 08/16/18 19:22 Urine Ketones Negative (Negative) 08/16/18 19:22 Urine Blood Negative (Negative) 08/16/18 19:22 Urine Nitrate Negative (Negative) 08/16/18 19:22 Urine Bilirubin Negative (Negative) 08/16/18 19:22 Urine Urobilinogen Negative (Negative) 08/16/18 19:22 Ur Leukocyte Esterase Negative (Negative) 08/16/18 19:22 Urine Glucose Negative (Negative) 08/16/18 19:22 - Objective Active Medications: Acetaminophen (Tylenol Tab*) 650 mg PO Q4H PRN PRN Reason: FEVER/PAIN Last Admin: 08/20/18 01:44 Dose: 650 mg Acetaminophen (Tylenol Tab*) 650 mg PO QID [facility] Last Admin: 08/24/18 11:51 Dose: 650 mg Albuterol (Ventolin 2.5 Mg/3 Ml Neb.Teresa*) 2.5 mg INH Q2H PRN PRN Reason: SOB/WHEEZING Albuterol/Ipratropium (Duoneb (Albuterol 2.5 Mg/Ipratropium 0.5 Mg)) 1 neb INH Q4H PRN PRN Reason: SOB/WHEEZING Last Admin: 08/22/18 07:53 Dose: 1 neb Albuterol/Ipratropium (Duoneb (Albuterol 2.5 Mg/Ipratropium 0.5 Mg)) 1 neb INH [id number] AWAKE [facility] Last Admin: 08/24/18 13:53 Dose: 1 neb Allopurinol (Zyloprim Tab*) 200 mg PO DAILY [facility] Last Admin: 08/24/18 08:26 Dose: 200 mg Apixaban (Eliquis*) 2.5 mg PO BID [facility] Last Admin: 08/24/18 08:26 Dose: 2.5 mg Bumetanide (Bumex Tab*) 2 mg PO DAILY [facility] Last Admin: 08/24/18 08:26 Dose: 2 mg Dextrose (D50w Syringe 50 Ml*) 12.5 gm IV PUSH .FOR FS < 60 - SS PRN PRN Reason: FS < 60 Docusate Sodium (Colace Cap*) 100 mg PO BID PRN PRN Reason: CONSTIPATION Last Admin: 08/16/18 21:51 Dose: 100 mg Haloperidol Lactate (Haldol Inj Iv/Im*) 0.5 mg IV SLOW PU Q2H PRN PRN Reason: AGITATION Last Admin: 08/24/18 04:04 Dose: 0.5 mg Insulin Glargine (Lantus(*)) 40 units SUBCUT QPM [facility] Insulin Human Lispro (Humalog*) 0 units SUBCUT ACHS [facility]; Protocol Last Admin: 08/24/18 11:51 Dose: 12 units Lidocaine (Lidoderm 5% Patch*) 1 patch TRANSDERM DAILY [facility] Last Admin: 08/24/18 08:25 Dose: 1 patch Magnesium Oxide (Magox 400 Tab*) 400 mg PO DAILY [facility] Last Admin: 08/24/18 08:26 Dose: 400 mg Metoprolol Tartrate (Lopressor Tab*) 12.5 mg PO BID [facility] Last Admin: 08/24/18 08:26 Dose: 12.5 mg Multivitamins/Minerals (Theragran/Minerals Tab*) 1 tab PO DAILY [facility] Last Admin: 08/24/18 08:25 Dose: 1 tab Nystatin (Nystatin Cream*) 1 applic TOPICAL BID [facility] Last Admin: 08/24/18 08:26 Dose: 1 lotion Ondansetron HCl (Zofran Inj*) 4 mg IV Q4H PRN PRN Reason: NAUSEA/VOMITING Pantoprazole Sodium (Protonix Tab*) 40 mg PO BID [facility] Last Admin: 08/24/18 08:26 Dose: 40 mg Pharmacy Profile Note (Lidocaine Patch Remove*) 1 note N/A 2100 [facility] Last Admin: 08/23/18 21:10 Dose: 1 note Prednisone (Deltasone Tab*) 40 mg PO DAILY [facility] Last Admin: 08/24/18 08:25 Dose: 40 mg Quetiapine Fumarate (Seroquel Tab*) 25 mg PO BID [facility] Last Admin: 08/24/18 08:25 Dose: 25 mg Senna (Senokot Tab*) 1 tab PO BID PRN PRN Reason: CONSTIPATION Last Admin: 08/16/18 21:51 Dose: 1 tab Tamsulosin HCl (Flomax Cap*) 0.4 mg PO DAILY [facility] Last Admin: 08/24/18 08:25 Dose: 0.4 mg Tiotropium [place] (Spiriva Cap.Inh*) 1 cap INH DAILY [facility] Last Admin: 08/24/18 07:32 Dose: 1 cap Vital Signs: Vital Signs: Temp Pulse Resp BP Pulse Ox 97.5 F 104 22 144/51 95 08/24/18 12:09 08/24/18 13:57 08/24/18 13:57 08/24/18 12:09 08/24/18 13:57 Patient Weight: Weight 131.315 kg Intake and Output: Intake & Output 08/22/18 08/23/18 08/24/18 08/25/18 06:59 06:59 06:59 06:59 Intake Total 034 126 0034 Output Total 1999 740 700 Balance -1380 40 380 Weight 132.041 kg 133.084 kg 131.315 kg Intake: Oral 543 631 8107 Output: Urine 450 140 700 Lua 1550 600 Other: Estimated Void Small # Bowel Movements 0 2 Estimated Stool Amount Medium # Voids 2 ADLs: Meal Record Start: 08/16/18 20: 52 Freq: 09,13,18 Status: Complete Protocol: Created 08/16/18 20:52 System (Rec: 08/16/18 20:52 System [id number]) Document 08/17/18 09:00 [id number] (Rec: 08/17/18 14:33 [id number] ICU-L03) Document 08/17/18 13:00 [id number] (Rec: 08/17/18 14:53 [id number] ICU-L03) Document 08/17/18 18:00 MZE1247 (Rec: 08/17/18 19:51 [id number] ICU-C06) Document 08/18/18 09:00 ULC1183 (Rec: 08/18/18 10:52 [id number] ICU-C06) ADLs: Meal Record Start: 08/18/18 17: 42 Freq: 09,14,18 Status: Active Protocol: Created 08/18/18 17:42 [id number] (Rec: 08/18/18 17:42 [id number] TELE-C05) Document 08/18/18 19:36 TMF6620 (Rec: 08/18/18 19:36 CJW1960 TELE-C05) Document 08/19/18 09:11 [id number] (Rec: 08/19/18 09:11 [id number] TELE-M04) Document 08/19/18 12:08 RMM4923 (Rec: 08/19/18 12:08 CQT7600 TELE-C05) Document 08/19/18 14:00 COJ3668 (Rec: 08/19/18 14:25 [id number] TELE-C05) Document 08/19/18 18:00 OSJ7968 (Rec: 08/19/18 20:13 WII9241 TELE-C13) Document 08/20/18 09:00 RQH0421 (Rec: 08/20/18 10:16 OWJ4254 TELE-C13) Document 08/20/18 14:00 DAU9192 (Rec: 08/20/18 14:24 VKD7034 TELE-C13) Document 08/20/18 18:00 [id number] (Rec: 08/20/18 18:26 NIC4872 TELE-C13) Document 08/21/18 09:00 RAP9420 (Rec: 08/21/18 14:42 RXS9066 TELE-C13) Document 08/21/18 14:00 HKT4022 (Rec: 08/21/18 14:44 SSX1484 TELE-C13) Document 08/21/18 17:39 UBQ1599 (Rec: 08/21/18 17:40 XEZ5851 TELE-C10) Document 08/22/18 09:00 BCF1137 (Rec: 08/22/18 15:27 QLS0356 TELE-C11) Document 08/22/18 14:00 MDQ3377 (Rec: 08/22/18 15:26 DLE4857 TELE-C11) Document 08/22/18 18:00 HCE3955 (Rec: 08/22/18 18:38 QXO7415 TELE-C01) Document 08/23/18 09:00 YFN3868 (Rec: 08/23/18 10:23 WTH4073 TELE-C10) Document 08/23/18 14:00 AFP1516 (Rec: 08/23/18 15:12 ERW4997 TELE-C11) Document 08/23/18 17:54 RVZ5646 (Rec: 08/23/18 17:54 TELE-C11) Intake and Output Start: 08/16/18 13: 10 Freq: Status: Active Protocol: Created 08/16/18 13:10 System (Rec: 08/16/18 13:10 System EDRM-C04) Document 08/18/18 21:01 (Rec: 08/18/18 21:02 TELE-C05) Document 08/20/18 06:26 [id number] (Rec: 08/20/18 06:26 [id number] TELE-C05) Document 08/21/18 21:53 (Rec: 08/21/18 21:54 TELE-C09) Document 08/22/18 05:36 RSP9529 (Rec: 08/22/18 05:36 [id number] TELE-C11) Document 08/23/18 22:00 (Rec: 08/23/18 22:19 TELE-C11) Intake and Output Start: 08/16/18 20: 52 Freq: Q1HR Status: Complete Protocol: Created 08/16/18 20:52 System (Rec: 08/16/18 20:52 System IMG-CS84) Document 08/16/18 22:00 SYQ4057 (Rec: 08/16/18 22:10 [id number] ICU-C25) Document 08/16/18 23:00 THJ1776 (Rec: 08/16/18 23:46 [id number] ICU-C25) Document 08/16/18 23:47 MRR1896 (Rec: 08/16/18 23:50 PIY5097 ICU-C25) Document 08/17/18 01:00 ULP7422 (Rec: 08/17/18 01:33 EVY1960 ICU-C25) Document 08/17/18 02:00 DKK2373 (Rec: 08/17/18 02:34 JJU8102 ICU-C25) Document 08/17/18 03:49 DGL6530 (Rec: 08/17/18 03:55 WIG9088 ICU-C25) Document 08/17/18 05:00 KAZ7359 (Rec: 08/17/18 05:32 XJI9777 ICU-C25) Document 08/17/18 06:00 LAK2301 (Rec: 08/17/18 06:19 AVP4733 ICU-C25) Document 08/17/18 07:00 FNU1365 (Rec: 08/17/18 10:23 PCV1289 ICU-L03) Document 08/17/18 08:00 RIL7749 (Rec: 08/17/18 10:23 YKK8548 ICU-L03) Document 08/17/18 09:00 XOT7895 (Rec: 08/17/18 10:23 AUF2797 ICU-L03) Document 08/17/18 10:00 MBL8166 (Rec: 08/17/18 10:23 VPP4781 ICU-L03) Document 08/17/18 11:00 PII1720 (Rec: 08/17/18 11:23 ROB7560 ICU-L03) Document 08/17/18 12:00 MBN8066 (Rec: 08/17/18 13:58 [id number] ICU-L03) Document 08/17/18 13:00 UOA4772 (Rec: 08/17/18 13:58 KMQ9196 ICU-L03) Document 08/17/18 13:58 WSC9206 (Rec: 08/17/18 13:58 LUC2941 ICU-L03) Document 08/17/18 14:00 DHF7192 (Rec: 08/17/18 14:57 PHZ8785 ICU-L03) Document 08/17/18 15:00 SRO4403 (Rec: 08/17/18 15:10 RXA2837 ICU-L03) Document 08/17/18 16:00 ESQ9699 (Rec: 08/17/18 16:41 DTV1972 ICU-L03) Document 08/17/18 17:00 BYF0299 (Rec: 08/17/18 17:48 [id number] ICU-M27) Document 08/17/18 18:00 LRR2568 (Rec: 08/17/18 18:37 MKE3989 ICU-L03) Document 08/17/18 19:00 UYU0613 (Rec: 08/17/18 19:48 [id number] ICU-C06) Document 08/17/18 21:00 UVG1443 (Rec: 08/17/18 22:11 DQU2385 ICU-C06) Document 08/17/18 22:00 DZM9372 (Rec: 08/17/18 22:47 ICH1159 ICU-C06) Document 08/17/18 23:00 NEZ6099 (Rec: 08/17/18 23:45 YAU4101 ICU-C06) Document 08/18/18 00:00 VLX6225 (Rec: 08/18/18 00:25 [id number] ICU-C06) Document 08/18/18 01:00 ZZD1963 (Rec: 08/18/18 01:06 [id number] ICU-C06) Document 08/18/18 02:00 YZV2669 (Rec: 08/18/18 02:06 [id number] ICU-M27) Document 08/18/18 03:01 ZBC7722 (Rec: 08/18/18 03:01 SWK3403 ICU-M27) Document 08/18/18 04:00 QRR7559 (Rec: 08/18/18 04:24 MNY6316 ICU-C14) Document 08/18/18 05:00 ZOI7721 (Rec: 08/18/18 05:24 PSI7936 ICU-C14) Document 08/18/18 06:19 XJN3316 (Rec: 08/18/18 06:20 [id number] ICU-C14) Document 08/18/18 07:00 HXD2933 (Rec: 08/18/18 07:57 QLB4660 ICU-C06) Document 08/18/18 07:58 FWT4488 (Rec: 08/18/18 07:58 KZS0718 ICU-C06) Document 08/18/18 09:00 SRI5074 (Rec: 08/18/18 10:54 ICU-C06) Document 08/18/18 10:00 DXQ3935 (Rec: 08/18/18 10:54 [id number] ICU-C06) Eyes: No Scleral Icterus Ears/Nose/Mouth/Throat: NL Teeth, Lips, Gums, Mucous Membranes Moist Neck: NL Appearance and Movements; NL JVP Extremities: - - Assessment Assessment: 88 yo with hypercapnic respiratory failure secondary to COPD exacerbation and diastolic CHF who is eligible for hospice if not wearing his BiPAP - Plan Consult Plan (MU): Other Plan: Long discussion with and daughter about care after the hospital. is not able to care for pt without significant help. At this time they are okay with [facility] if he is eligible. PT has been working with the pt. We also discussed hospice information and benefits. Brochure was given. Daughter was familiar with hospice because she had used them for her in-laws. is worried about finances and is declining SNF and hospice residence as of now due to cost. Daughter is looking into private aides in order to have mom take the pt home with hospice. If pt is declined from rehab he would be eligible for hospice if he continues to not use his BiPAP with the diagnosis of COPD, diastolic CHF and hypercapnia(ABG showed CO2 of 79 today). Family is aware if pt continues to retain CO2 he will . KPS 50% PPS 40% - Time On Unit Date of Evaluation: 08/24/18 Hospice Consult Time in: 14:30 Hospice Consult Time Out: 16:00 Hospice Consult Time Total: 90 > 50% of Time Spend In Counseling or Coordinating Care: Yes
[2018-08-24] MEDS: Insulin GLARGINE(*) 1 UNITS UNIT SUBCUT SCH ×2 (17:16→18:26)
[2018-08-24] MEDS ORDERED: Insulin GLARGINE(*) 1 UNITS UNIT SUBCUT SCH (18:00)
[2018-08-24] MEDS: Lidocaine Patch REMOVE* 1 NOTE MISC SCH (22:06)
[2018-08-25] MEDS: Albuterol/Ipratropium NEB.SOL* Albuterol 2.5 MG/Ipratropium 0.5 MG 3 ML INH SCH ×3 (01:11→14:12)
[2018-08-25] MEDS: Tiotropium CAP.INH* CAP.INH/18 MCG (USE ORDER SET !) INH SCH (07:40)
[2018-08-25] MEDS: Tamsulosin CAP* 0.4 MG PO SCH (08:22)
[2018-08-25] MEDS: Acetaminophen TAB* 325 MG PO SCH ×4 (08:22→21:25)
[2018-08-25] MEDS: Metoprolol Tartrate TAB* 25 MG PO SCH ×2 (08:22→21:25)
[2018-08-25] MEDS: Lidocaine PATCH 5%* 1 PATCH TRANSDERM SCH (08:22)
[2018-08-25] MEDS: Bumetanide TAB* 2 MG PO SCH (08:22)
[2018-08-25] MEDS: predniSONE TAB* 20 MG PO SCH (08:23)
[2018-08-25] MEDS: Multivitamins/Minerals TAB PO SCH (08:23)
[2018-08-25] MEDS: Allopurinol TAB* 100 MG PO SCH (08:23)
[2018-08-25] MEDS: Pantoprazole TAB * 40 MG TAB PO SCH ×2 (08:23→21:26)
[2018-08-25] MEDS: Magnesium Oxide TAB* 400 MG PO SCH (08:23)
[2018-08-25] MEDS: Nystatin CREAM* 30 GM TOPICAL SCH ×2 (08:23→21:27)
[2018-08-25] MEDS: Apixaban* 2.5 MG TAB PO SCH ×2 (08:23→21:26)
[2018-08-25] MEDS: QUEtiapine TAB* 25 MG PO SCH ×2 (08:23→21:26)
[2018-08-25] MEDS: Insulin LISPRO* 1 UNITS UNIT SUBCUT SCH ×4 (08:25→21:26)
--- NOTE | 2018-08-25 12:06 | PN ---
Subjective Date of Service: 08/25/18 Interval History: Although pt's stated that pt is able to drink and eat without any problems , he is very difficult to arouse today and sleeping soundly during our bedside discussions. Spoke with about pt's respiratory acidosis and likely progression of lethargy as we've observed for the past 3 days. Sue (pt's ) is aware that it appear that pt may live days to weeks and called her son from [place] who will come this weekend Family History: Unchanged from Admission Past Medical History: Unchanged from Admission Objective Active Medications: Acetaminophen (Tylenol Tab*) 650 mg PO Q4H PRN PRN Reason: FEVER/PAIN Last Admin: 08/20/18 01:44 Dose: 650 mg Acetaminophen (Tylenol Tab*) 650 mg PO QID [facility] Last Admin: 08/25/18 08:22 Dose: 650 mg Albuterol (Ventolin 2.5 Mg/3 Ml Neb.Teresa*) 2.5 mg INH Q2H PRN PRN Reason: SOB/WHEEZING Albuterol/Ipratropium (Duoneb (Albuterol 2.5 Mg/Ipratropium 0.5 Mg)) 1 neb INH Q4H PRN PRN Reason: SOB/WHEEZING Last Admin: 08/22/18 07:53 Dose: 1 neb Albuterol/Ipratropium (Duoneb (Albuterol 2.5 Mg/Ipratropium 0.5 Mg)) 1 neb INH [id number] AWAKE [facility] Last Admin: 08/25/18 07:40 Dose: Not Given Allopurinol (Zyloprim Tab*) 200 mg PO DAILY [facility] Last Admin: 08/25/18 08:23 Dose: 200 mg Apixaban (Eliquis*) 2.5 mg PO BID [facility] Last Admin: 08/25/18 08:23 Dose: 2.5 mg Bumetanide (Bumex Tab*) 2 mg PO DAILY [facility] Last Admin: 08/25/18 08:22 Dose: 2 mg Dextrose (D50w Syringe 50 Ml*) 12.5 gm IV PUSH .FOR FS < 60 - SS PRN PRN Reason: FS < 60 Docusate Sodium (Colace Cap*) 100 mg PO BID PRN PRN Reason: CONSTIPATION Last Admin: 08/16/18 21:51 Dose: 100 mg Haloperidol Lactate (Haldol Inj Iv/Im*) 0.5 mg IV SLOW PU Q2H PRN PRN Reason: AGITATION Last Admin: 08/24/18 04:04 Dose: 0.5 mg Insulin Glargine (Lantus(*)) 45 units SUBCUT QPM [facility] Last Admin: 08/24/18 18:26 Dose: Not Given Insulin Human Lispro (Humalog*) 0 units SUBCUT ACHS [facility]; Protocol Last Admin: 08/25/18 08:25 Dose: 2 units Lidocaine (Lidoderm 5% Patch*) 1 patch TRANSDERM DAILY [facility] Last Admin: 08/25/18 08:22 Dose: 1 patch Magnesium Oxide (Magox 400 Tab*) 400 mg PO DAILY [facility] Last Admin: 08/25/18 08:23 Dose: 400 mg Metoprolol Tartrate (Lopressor Tab*) 12.5 mg PO BID [facility] Last Admin: 08/25/18 08:22 Dose: 12.5 mg Multivitamins/Minerals (Theragran/Minerals Tab*) 1 tab PO DAILY [facility] Last Admin: 08/25/18 08:23 Dose: 1 tab Nystatin (Nystatin Cream*) 1 applic TOPICAL BID [facility] Last Admin: 08/25/18 08:23 Dose: 1 lotion Ondansetron HCl (Zofran Inj*) 4 mg IV Q4H PRN PRN Reason: NAUSEA/VOMITING Pantoprazole Sodium (Protonix Tab*) 40 mg PO BID [facility] Last Admin: 08/25/18 08:23 Dose: 40 mg Pharmacy Profile Note (Lidocaine Patch Remove*) 1 note N/A 2100 [facility] Last Admin: 08/24/18 22:06 Dose: 1 note Prednisone (Deltasone Tab*) 40 mg PO DAILY [facility] Last Admin: 08/25/18 08:23 Dose: 40 mg Quetiapine Fumarate (Seroquel Tab*) 25 mg PO BID [facility] Last Admin: 08/25/18 08:23 Dose: 25 mg Senna (Senokot Tab*) 1 tab PO BID PRN PRN Reason: CONSTIPATION Last Admin: 08/16/18 21:51 Dose: 1 tab Tamsulosin HCl (Flomax Cap*) 0.4 mg PO DAILY [facility] Last Admin: 08/25/18 08:22 Dose: 0.4 mg Tiotropium [place] (Spiriva Cap.Inh*) 1 cap INH DAILY [facility] Last Admin: 08/25/18 07:40 Dose: Not Given Vital Signs - 8 hr 08/25/18 08/25/18 08:00 09:14 Temperature 97.4 F Pulse Rate 104 Respiratory 16 20 Rate Blood Pressure 150/45 (mmHg) O2 Sat by Pulse 100 Oximetry Oxygen Devices in Use Now: Nasal Cannula Appearance: 88 yo M in nAD, lethargic, wakes up for a second to respond to his name being called, but goes off to sleep right after Eyes: No Scleral Icterus, PERRLA Ears/Nose/Mouth/Throat: NL Teeth, Lips, Gums, Mucous Membranes Moist Neck: NL Appearance and Movements; NL JVP Respiratory: Symmetrical Chest Expansion and Respiratory Effort, - - clear upper lungs, bases distant due to poor resp effort Cardiovascular: NL Sounds; No Murmurs; No JVD Abdominal: NL Sounds; No Tenderness; No Distention Lymphatic: No Cervical Adenopathy Extremities: No Clubbing, Cyanosis, - - trace pedal edema b/l LE's -resolving Skin: No Nodules or Sclerosis Neurological: - - withdraws to pain equally in all extremities, lethargic, speech clear Result Diagrams: 08/24/18 06:40 08/24/18 06:40 Microbiology and Other Data: Microbiology 08/16/18 14:06 Aerobic Blood Culture - Preliminary Blood Venous No Growth Day 1 Anaerobic Blood Culture - Preliminary No Growth Day 1 08/16/18 14:11 Aerobic Blood Culture - Preliminary Blood Venous No Growth Day 1 Anaerobic Blood Culture - Preliminary No Growth Day 1 08/16/18 21:41 Nasal Screen MRSA (PCR) - Final Nasal Mrsa Not Detected Assess/Plan/Problems-Billing Assessment: 88 year old male admitted for acute hypercarpneic respiratory failure with respiratory acidosis mixed etiology mainly 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 He was transferred out of ICU 08/18/18. - lasix drip d/c'd 08/19/18 (completed 2 days) and back to his home dose of Bumex 2 mg daily - Patient refuses BIPAP-placed in [facility]OL[facility]. -getting increasingly more lethargic for the past 3 days and respiratory acidosis documented on ABG 08/24/18 . Spoke with that the treatment is limited without BIPAP that pt refuses and the CO2 retention will be likely progressive. Family agrees to low dose of morphine IV for comfort, but not ready for comfort care status. Palliative care consult recommended trying STR first. (2) Afib Comment: - Follows with Dr. Titus at [place] - Continue Metoprolol 12.5 mg bid, apixaban 2.5 mg bid. (3) CHF exacerbation Comment: - He was acute exacerbation of his chronic diastolic heart failure, now appears close to euvolemic, but hypercapnic now - Repeat Echo 08/16/18 reveal EF 65% suggestive of diastolic failure - S/p Bipap weaned off to NC 3-4 liters. He was transferred out of ICU 08/18/18. (4) CKD (chronic kidney disease) Comment: -Stage 3b, at baseline Est GFR 45.8 08/20/18. (5) COPD exacerbation Comment: - COPD likely d/t smoking history, though he will need formal diagnosis with PFTs as an outpt - Continue nebs, Dulera, Spiriva, IS and flutter valve - prednisone 40 mg (6) Diabetes Comment: Continue Lantus, Lispro. (7) Urinary retention Comment: - he did have previous history of urinary outflow obstruction as documented in his chart from 03/14/2018. " dilatation and padilla placement by Dr. Sibley 03/14/18, " - Padilla catheter in place. Pt requested it to be removed on 08/12/18 As per pt after dilatation pt had no Padilla x 3 months till his current [facility] stay (8) Anemia Comment: chronic, stable in 8-9 range for the past 2 years, stool heme+ on 08/19/18 may be related to mucosal injury in pt on Eliquis. No evidence , or h/o melena or BRBPR. Due to pt's overall resp status and deconditioning he would not be a good candidate for GD or colonoscopy (9) DVT prophylaxis Comment: - Eliquis Status and Disposition: Inpatient. Nearing to comfort care. Prognosis poor
[2018-08-25] MEDS: Morphine INJ* 2 MG/ML 1 ML SYRINGE (TWO MG - NEW SYRINGE VERSION) IV PRN (13:10)
[2018-08-25] MEDS ORDERED: Albuterol/Ipratropium NEB.SOL* Albuterol 2.5 MG/Ipratropium 0.5 MG 3 ML INH PRN (14:17)
[2018-08-25] MEDS: Insulin GLARGINE(*) 1 UNITS UNIT SUBCUT SCH (16:57)
[2018-08-25] MEDS: Lidocaine Patch REMOVE* 1 NOTE MISC SCH (21:38)
[2018-08-26 06:19] LABS: Calcium 8.7 mg/dL (8.6-10.3)
[2018-08-26 06:25] LABS: BUN/Creatinine Ratio 33.9 (8-20); EGFR African American 77.6 (>60); EGFR Non-African American 64.1 (>60)
[2018-08-26 06:29] LABS: ABS Eosinophils 0.1 10^3/ul (0-0.6); ABS Lymphocytes 0.8 10^3/ul (1.0-4.8); ABS Monocytes 1.2 10^3/ul (0-0.8); ABS Neutrophils 10.6 10^3/ul (1.5-7.7); Eosinophil % 1.2 %; Hematocrit 28 % (42-52); Hemoglobin 8.2 g/dL (14.0-18.0); Mean Corpuscular HGB Conc 29 g/dL (31-36); Mean Corpuscular Hemoglobin 23 pg (27-31); Mean Corpuscular Volume 79 fL (80-94); Mean Platelet Volume 8.1 fL (7.4-10.4); Platelet Count 333 10^3/uL (150-450); Red Blood Count 3.55 10^6 /uL (4.18-5.48); Red Cell Distribution Width 18 % (10.5-15); White Blood Count 12.7 10^3/uL (3.5-10.8)
[2018-08-26 06:38] LABS: Potassium 3.9 mmol/L (3.5-5.0)
[2018-08-26] MEDS: Insulin LISPRO* 1 UNITS UNIT SUBCUT SCH ×4 (07:48→22:25)
[2018-08-26] MEDS: Tiotropium CAP.INH* CAP.INH/18 MCG (USE ORDER SET !) INH SCH (08:14)
[2018-08-26] MEDS: Metoprolol Tartrate TAB* 25 MG PO SCH ×2 (09:39→23:50)
[2018-08-26] MEDS: Lidocaine PATCH 5%* 1 PATCH TRANSDERM SCH (09:39)
[2018-08-26] MEDS: Docusate CAP* 100 MG PO PRN (09:40)
[2018-08-26] MEDS: QUEtiapine TAB* 25 MG PO SCH ×2 (09:40→23:51)
[2018-08-26] MEDS: Multivitamins/Minerals TAB PO SCH (09:40)
[2018-08-26] MEDS: Magnesium Oxide TAB* 400 MG PO SCH (09:40)
[2018-08-26] MEDS: Apixaban* 2.5 MG TAB PO SCH ×2 (09:40→22:36)
[2018-08-26] MEDS: Tamsulosin CAP* 0.4 MG PO SCH (09:40)
[2018-08-26] MEDS: Bumetanide TAB* 2 MG PO SCH (09:40)
[2018-08-26] MEDS: Pantoprazole TAB * 40 MG TAB PO SCH ×2 (09:40→22:36)
[2018-08-26] MEDS: Acetaminophen TAB* 325 MG PO SCH ×4 (09:40→23:50)
[2018-08-26] MEDS: predniSONE TAB* 20 MG PO SCH (09:40)
[2018-08-26] MEDS: Allopurinol TAB* 100 MG PO SCH (09:40)
[2018-08-26] MEDS: Nystatin CREAM* 30 GM TOPICAL SCH ×2 (09:40→22:36)
[2018-08-26] MEDS: Insulin GLARGINE(*) 1 UNITS UNIT SUBCUT SCH (17:17)
--- NOTE | 2018-08-26 21:17 | PN ---
Subjective Date of Service: 08/26/18 Interval History: No overnight events. More alert and interactive today. Answers all questions and speaks in full sentences. Family History: Unchanged from Admission Past Medical History: Unchanged from Admission Objective Active Medications: Acetaminophen (Tylenol Tab*) 650 mg PO Q4H PRN PRN Reason: FEVER/PAIN Last Admin: 08/20/18 01:44 Dose: 650 mg Albuterol (Ventolin 2.5 Mg/3 Ml Neb.Teresa*) 2.5 mg INH Q2H PRN PRN Reason: SOB/WHEEZING Allopurinol (Zyloprim Tab*) 200 mg PO DAILY [facility] Last Admin: 08/26/18 09:40 Dose: 200 mg Apixaban (Eliquis*) 2.5 mg PO BID [facility] Last Admin: 08/26/18 09:40 Dose: 2.5 mg Bumetanide (Bumex Tab*) 2 mg PO DAILY [facility] Last Admin: 08/26/18 09:40 Dose: 2 mg Dextrose (D50w Syringe 50 Ml*) 12.5 gm IV PUSH .FOR FS < 60 - SS PRN PRN Reason: FS < 60 Haloperidol Lactate (Haldol Inj Iv/Im*) 0.5 mg IV SLOW PU Q2H PRN PRN Reason: AGITATION Last Admin: 08/24/18 04:04 Dose: 0.5 mg Insulin Glargine (Lantus(*)) 45 units SUBCUT QPM [facility] Last Admin: 08/26/18 17:17 Dose: 45 units Insulin Human Lispro (Humalog*) 0 units SUBCUT ACHS [facility]; Protocol Last Admin: 08/26/18 17:17 Dose: 12 units Lidocaine (Lidoderm 5% Patch*) 1 patch TRANSDERM DAILY [facility] Last Admin: 08/26/18 09:39 Dose: 1 patch Magnesium Oxide (Magox 400 Tab*) 400 mg PO DAILY [facility] Last Admin: 08/26/18 09:40 Dose: 400 mg Metoprolol Succinate (Toprol Xl Tab*) 25 mg PO BEDTIME [facility] Morphine Sulfate (Morphine Inj (Syringe))*) 1 mg IV Q4H PRN PRN Reason: disomfort Last Admin: 08/25/18 13:10 Dose: 1 mg Multivitamins/Minerals (Theragran/Minerals Tab*) 1 tab PO DAILY [facility] Last Admin: 08/26/18 09:40 Dose: 1 tab Nystatin (Nystatin Cream*) 1 applic TOPICAL BID [facility] Last Admin: 08/26/18 09:40 Dose: 1 lotion Ondansetron HCl (Zofran Inj*) 4 mg IV Q4H PRN PRN Reason: NAUSEA/VOMITING Pantoprazole Sodium (Protonix Tab*) 40 mg PO BID [facility] Last Admin: 08/26/18 09:40 Dose: 40 mg Pharmacy Profile Note (Lidocaine Patch Remove*) 1 note N/A 2100 [facility] Last Admin: 08/25/18 21:38 Dose: 1 note Prednisone (Deltasone Tab*) 40 mg PO DAILY [facility] Last Admin: 08/26/18 09:40 Dose: 40 mg Quetiapine Fumarate (Seroquel Tab*) 25 mg PO BEDTIME [facility] Senna (Senokot Tab*) 1 tab PO BID PRN PRN Reason: CONSTIPATION Last Admin: 08/16/18 21:51 Dose: 1 tab Tamsulosin HCl (Flomax Cap*) 0.4 mg PO DAILY [facility] Last Admin: 08/26/18 09:40 Dose: 0.4 mg Tiotropium [place] (Spiriva Cap.Inh*) 1 cap INH DAILY [facility] Last Admin: 08/26/18 08:14 Dose: 1 cap Vital Signs - 8 hr 08/26/18 08/26/18 15:22 19:14 Temperature 97.0 F Pulse Rate 98 Respiratory 24 20 Rate Blood Pressure 137/58 (mmHg) O2 Sat by Pulse 96 Oximetry Oxygen Devices in Use Now: Nasal Cannula Appearance: chronically ill appearing elderly men in NAD, pleasant and interactive Eyes: No Scleral Icterus Ears/Nose/Mouth/Throat: Clear Oropharnyx, Mucous Membranes Moist Respiratory: Clear to Auscultation Cardiovascular: RRR Abdominal: NL Sounds; No Tenderness; No Distention Extremities: - - 1+ edema over ankles, post-edema wrinkles over legs and arms Skin: No Rash or Ulcers Neurological: Alert and Oriented x 3 Result Diagrams: 08/26/18 05:44 08/26/18 05:44 Microbiology and Other Data: Microbiology 08/16/18 14:06 Aerobic Blood Culture - Preliminary Blood Venous No Growth Day 1 Anaerobic Blood Culture - Preliminary No Growth Day 1 08/16/18 14:11 Aerobic Blood Culture - Preliminary Blood Venous No Growth Day 1 Anaerobic Blood Culture - Preliminary No Growth Day 1 08/16/18 21:41 Nasal Screen MRSA (PCR) - Final Nasal Mrsa Not Detected Assess/Plan/Problems-Billing Assessment: 88 year old male admitted for acute hypercarpneic respiratory failure with respiratory acidosis mixed etiology mainly Acute on chronic diastollic CHF and COPD., - Patient Problems (1) Acute respiratory failure with hypercapnia Comment: Secondary to acute diastolic Heart failure and COPD. S/p Bipap weaned off to NC 3-4 liters. He was transferred out of ICU 08/18/18. - lasix drip d/c'd 08/19/18 (completed 2 days) and back to his home dose of Bumex 2 mg daily - Patient refuses BIPAP-placed in [facility]. -getting increasingly more lethargic for the past 3 days and respiratory acidosis documented on ABG 08/24/18 . Spoke with that the treatment is limited without BIPAP that pt refuses and the CO2 retention will be likely progressive. Family agrees to low dose of morphine IV for comfort, but not ready for comfort care status. Now mental status improving. Palliative care consult recommended trying STR first. (2) Afib Comment: - Follows with Dr. Titus at [place] - Continue Metoprolol 12.5 mg bid, apixaban 2.5 mg bid. (3) Anemia Comment: chronic, stable in 8-9 range for the past 2 years, stool heme+ on 08/19/18 may be related to mucosal injury in pt on Eliquis. No evidence , or h/o melena or BRBPR. Due to pt's overall resp status and deconditioning he would not be a good candidate for GD or colonoscopy (4) CHF exacerbation Comment: - He was acute exacerbation of his chronic diastolic heart failure, now appears close to euvolemic, but hypercapnic now - Repeat Echo 08/16/18 reveal EF 65% suggestive of diastolic failure - S/p Bipap weaned off to NC 3-4 liters. He was transferred out of ICU 08/18/18. - cont Bumex PO (5) CKD (chronic kidney disease) Current Visit: No Status: Acute Code(s): N18.9 - CHRONIC KIDNEY DISEASE, UNSPECIFIED SNOMED Code(s): 773546145 Comment: -Stage 3b, at baseline Est GFR 45.8 08/20/18. (6) COPD exacerbation Current Visit: No Status: Acute Code(s): J44.1 - CHRONIC OBSTRUCTIVE PULMONARY DISEASE W (ACUTE) EXACERBATION SNOMED Code(s): 967899803 Comment: - COPD likely d/t smoking history, though he will need formal diagnosis with PFTs as an outpt - Continue nebs, Dulera, Spiriva, IS and flutter valve - prednisone 40 mg (7) Diabetes Current Visit: No Status: Acute Code(s): E11.9 - TYPE 2 DIABETES MELLITUS WITHOUT COMPLICATIONS SNOMED Code(s): 00208477 Comment: Continue Lantus, Lispro. (8) Urinary retention Current Visit: No Status: Acute Code(s): R33.9 - RETENTION OF URINE, UNSPECIFIED SNOMED Code(s): 095260430 Comment: - he did have previous history of urinary outflow obstruction as documented in his chart from 03/14/2018. " dilatation and padilla placement by Dr. Sibley 03/14/18, " - Padilla catheter in place. Pt requested it to be removed on 08/12/18 As per pt after dilatation pt had no Padilla x 3 months till his current [facility] stay Status and Disposition: Inpatient. Nearing to comfort care. Prognosis poor
[2018-08-26] MEDS ORDERED: Haloperidol INJ IV/IM* 5 MG/ML AMP IV SLOW PU ONE (22:14)
[2018-08-26] MEDS: Lidocaine Patch REMOVE* 1 NOTE MISC SCH (22:36)
[2018-08-27] MEDS: Morphine INJ* 2 MG/ML 1 ML SYRINGE (TWO MG - NEW SYRINGE VERSION) IV PRN (01:51)
[2018-08-27] MEDS ORDERED: Lorazepam PYXIS KEY PRN (01:52)
[2018-08-27] MEDS ORDERED: LORazepam INJ* 2 MG/ML 1 ML VIAL IV PUSH ONE (01:52)
[2018-08-27] MEDS: Acetaminophen TAB* 325 MG PO PRN (02:06)
[2018-08-27 06:44] LABS: BUN/Creatinine Ratio 34.5 (8-20); EGFR African American 70.1 (>60); Magnesium 1.9 mg/dL (1.9-2.7); Potassium 3.6 mmol/L (3.5-5.0)
[2018-08-27] MEDS ORDERED: Magnesium Sulfate 1 GM IV* 1 GM/100 ML BAG IV ONE (08:00)
[2018-08-27] MEDS: Insulin LISPRO* 1 UNITS UNIT SUBCUT SCH ×4 (08:05→20:37)
[2018-08-27] MEDS: Tiotropium CAP.INH* CAP.INH/18 MCG (USE ORDER SET !) INH SCH (08:27)
[2018-08-27] MEDS: KCL 20 MEQ/100 ML IVPREMIX* 20 MEQ/100 ML BAG IV SCH ×2 (09:30→13:04)
[2018-08-27] MEDS: Magnesium Oxide TAB* 400 MG PO SCH (09:41)
[2018-08-27] MEDS: Allopurinol TAB* 100 MG PO SCH (09:41)
[2018-08-27] MEDS: Tamsulosin CAP* 0.4 MG PO SCH (09:41)
[2018-08-27] MEDS: Pantoprazole TAB * 40 MG TAB PO SCH ×2 (09:41→20:37)
[2018-08-27] MEDS: Apixaban* 2.5 MG TAB PO SCH ×2 (09:41→20:37)
[2018-08-27] MEDS: Bumetanide TAB* 2 MG PO SCH (09:45)
[2018-08-27] MEDS: Nystatin CREAM* 30 GM TOPICAL SCH ×2 (11:57→20:56)
[2018-08-27] MEDS: Lidocaine PATCH 5%* 1 PATCH TRANSDERM SCH (13:06)
--- NOTE | 2018-08-27 16:38 | PN ---
Subjective Date of Service: 08/27/18 Interval History: No acute overnight events. Earlier this morning was noted to be off NC and with SaO2 in 70s%, and pt more confused. ABG at that time with improved CO2 from prior (79 -> 71), BMP with worsened bicarb (36 -> 43). Pt back to yesterday's baseline, by my interview. Denies complaints. 1 day off with date. Interactive with family. Family History: Unchanged from Admission Past Medical History: Unchanged from Admission Objective Active Medications: Acetaminophen (Tylenol Tab*) 650 mg PO Q4H PRN PRN Reason: FEVER/PAIN Last Admin: 08/27/18 02:06 Dose: 650 mg Albuterol (Ventolin 2.5 Mg/3 Ml Neb.Teresa*) 2.5 mg INH Q2H PRN PRN Reason: SOB/WHEEZING Allopurinol (Zyloprim Tab*) 200 mg PO DAILY [facility] Last Admin: 08/27/18 09:41 Dose: 200 mg Apixaban (Eliquis*) 2.5 mg PO BID [facility] Last Admin: 08/27/18 09:41 Dose: 2.5 mg Bumetanide (Bumex Tab*) 1 mg PO DAILY [facility] Last Admin: 08/27/18 09:45 Dose: 1 mg Dextrose (D50w Syringe 50 Ml*) 12.5 gm IV PUSH .FOR FS < 60 - SS PRN PRN Reason: FS < 60 Insulin Glargine (Lantus(*)) 45 units SUBCUT QPM [facility] Last Admin: 08/26/18 17:17 Dose: 45 units Insulin Human Lispro (Humalog*) 0 units SUBCUT ACHS [facility]; Protocol Last Admin: 08/27/18 13:05 Dose: 3 units Lidocaine (Lidoderm 5% Patch*) 1 patch TRANSDERM DAILY [facility] Last Admin: 08/27/18 13:06 Dose: Not Given Magnesium Oxide (Magox 400 Tab*) 400 mg PO DAILY [facility] Last Admin: 08/27/18 09:41 Dose: 400 mg Metoprolol Succinate (Toprol Xl Tab*) 25 mg PO BEDTIME [facility] Miscellaneous (Ativan Pyxis [place]) 1 ea N/A .ATIVAN IV BARNES PRN PRN Reason: PYXIS BARNES Morphine Sulfate (Morphine Inj (Syringe))*) 1 mg IV Q4H PRN PRN Reason: disomfort Last Admin: 08/27/18 01:51 Dose: 1 mg Nystatin (Nystatin Cream*) 1 applic TOPICAL BID [facility] Last Admin: 08/27/18 11:57 Dose: Not Given Pantoprazole Sodium (Protonix Tab*) 40 mg PO BID [facility] Last Admin: 08/27/18 09:41 Dose: 40 mg Pharmacy Profile Note (Lidocaine Patch Remove*) 1 note N/A 2100 [facility] Last Admin: 08/26/18 22:36 Dose: 1 note Quetiapine Fumarate (Seroquel Tab*) 25 mg PO BEDTIME [facility] Senna (Senokot Tab*) 1 tab PO BID PRN PRN Reason: CONSTIPATION Last Admin: 08/16/18 21:51 Dose: 1 tab Tamsulosin HCl (Flomax Cap*) 0.4 mg PO DAILY [facility] Last Admin: 08/27/18 09:41 Dose: 0.4 mg Tiotropium [place] (Spiriva Cap.Inh*) 1 cap INH DAILY [facility] Last Admin: 08/27/18 08:27 Dose: 1 cap Oxygen Devices in Use Now: Nasal Cannula Appearance: chronically ill appearing, tired but alert and interactive, AOx3 Ears/Nose/Mouth/Throat: Clear Oropharnyx, - - dry mucous membranes Neck: NL Appearance and Movements; NL JVP Respiratory: Symmetrical Chest Expansion and Respiratory Effort, - - clear anteriorly Cardiovascular: RRR Abdominal: NL Sounds; No Tenderness; No Distention Extremities: - - trace edema over ankles, post-diuresis wrinkles over arms and legs Skin: No Rash or Ulcers Result Diagrams: 08/26/18 05:44 08/27/18 06:13 Microbiology and Other Data: Microbiology 08/16/18 14:06 Aerobic Blood Culture - Preliminary Blood Venous No Growth Day 1 Anaerobic Blood Culture - Preliminary No Growth Day 1 08/16/18 14:11 Aerobic Blood Culture - Preliminary Blood Venous No Growth Day 1 Anaerobic Blood Culture - Preliminary No Growth Day 1 08/16/18 21:41 Nasal Screen MRSA (PCR) - Final Nasal Mrsa Not Detected Assess/Plan/Problems-Billing Assessment: 88 year old male admitted for acute hypercarpneic respiratory failure with respiratory acidosis mixed etiology mainly Acute on chronic diastollic CHF and COPD., - Patient Problems (1) Acute respiratory failure with hypercapnia Comment: Secondary to acute diastolic Heart failure and COPD. S/p Bipap weaned off to NC 3-4 liters. He was transferred out of ICU 08/18/18. Lasix drip d/c'd (completed 2 days) and back to his home dose of Bumex 2 mg daily. - Patient refuses BIPAP-placed in [facility]. - More lethargic from baseline and with respiratory acidosis. Spoke with that the treatment is limited without BIPAP that pt refuses and the CO2 retention will be likely progressive. Family agrees to low dose of morphine IV for comfort, but not ready for comfort care status. Now mental status improving. - Palliative care consult recommended trying STR first. - decrease Bumex to 1mg given pre-renal on BMP and dry on exam - s/p prednisone burst (2) CHF exacerbation Comment: Acute exacerbation of chronic diastolic heart failure, now appears close to euvolemic, but hypercapnic now. Repeat Echo 08/16/18 reveal EF 65% suggestive of diastolic failure. - S/p Bipap weaned off to NC 3-4 liters. He was transferred out of ICU 08/18/18. - cont Bumex PO, replete KCl prn (3) COPD exacerbation Comment: COPD likely d/t smoking history, though he will need formal diagnosis with PFTs as an outpt - Continue nebs, Dulera, Spiriva, IS and flutter valve - s/p pred burst (4) Afib Comment: - Follows with Dr. Titus at [place] - Continue Metoprolol 25mg daily, apixaban 2.5 mg bid. (5) Anemia Comment: chronic, stable in 8-9 range for the past 2 years, stool heme+ on 08/19/18 may be related to mucosal injury in pt on Eliquis. No evidence , or h/o melena or BRBPR. Due to pt's overall resp status and deconditioning he would not be a good candidate for GD or colonoscopy (6) CKD (chronic kidney disease) Comment: Stage 3b, at baseline (7) Diabetes Comment: Continue Lantus, Lispro. (8) Urinary retention Comment: History of urinary outflow obstruction as documented in his chart from 03/14/2018. " dilatation and padilla placement by Dr. Sibley 03/14/18, " - Padilla removed per pt request 08/12/18 Status and Disposition: Inpatient. Initially nearing comfort care but improving, poss STR?
[2018-08-27] MEDS: Insulin GLARGINE(*) 1 UNITS UNIT SUBCUT SCH (17:52)
[2018-08-27] MEDS: Lidocaine Patch REMOVE* 1 NOTE MISC SCH (20:56)
[2018-08-27] MEDS ORDERED: QUEtiapine TAB* 25 MG PO SCH (21:00)
[2018-08-27] MEDS ORDERED: Metoprolol Succinate XL TAB* 25 MG PO SCH (21:00)
[2018-08-28] MEDS ORDERED: Ondansetron ODT TAB* 4 MG SL PRN (02:44)
[2018-08-28] MEDS: Morphine INJ* 2 MG/ML 1 ML SYRINGE (TWO MG - NEW SYRINGE VERSION) IV PRN (03:01)
[2018-08-28] MEDS: Acetaminophen TAB* 325 MG PO PRN (03:05)
--- NOTE | 2018-08-28 04:17 | PN ---
Progress Note - Progress Note Date of Service: 08/28/18 Note: Patient more confused and somnolent with periods of hypoxia. Initially on oxymask. On arrival to bedside patient was on BiPAP per orders that were in place from 08/19. Though notes and updated MOLST form state no BiPAP or CPAP. BiPAP removed and patient placed on oxymask. Spoke with to confirm his wishes and she agreed he did not want BiPAP. Discussed my concern for his respiratory status and that he may not recover from this and that his may be imminent. She understands and will be arriving in soon to be with him. Will follow up CXR and ABG that was originally ordered. ADDENDUM ABG: Worsening respiratory acidosis and son at bedside. Discussed prognosis grim and that was imminent. They want him to be comfortable. Discussed comfort measures. They have requested a panel maker as well. Attempting to move him to a private room.
[2018-08-28 04:53] VITALS: BP 126/70
[2018-08-28] MEDS: Bumetanide TAB* 2 MG PO SCH (07:32)
[2018-08-28] MEDS: Tamsulosin CAP* 0.4 MG PO SCH (07:32)
[2018-08-28] MEDS: Magnesium Oxide TAB* 400 MG PO SCH (07:32)
[2018-08-28] MEDS: Allopurinol TAB* 100 MG PO SCH (07:32)
[2018-08-28] MEDS: Apixaban* 2.5 MG TAB PO SCH (07:32)
[2018-08-28] MEDS: Pantoprazole TAB * 40 MG TAB PO SCH (07:32)
[2018-08-28] MEDS: Insulin LISPRO* 1 UNITS UNIT SUBCUT SCH (07:51)
[2018-08-28] MEDS: Morphine ORAL CONCENTRATE* 5 MG/0.25 ML ORAL.SYRIN PO PRN ×3 (08:29→15:15)
[2018-08-28] MEDS: Nystatin CREAM* 30 GM TOPICAL SCH (08:44)
[2018-08-28] MEDS: Lidocaine PATCH 5%* 1 PATCH TRANSDERM SCH (08:44)
[2018-08-28] MEDS: Tiotropium CAP.INH* CAP.INH/18 MCG (USE ORDER SET !) INH SCH (08:44)
[2018-08-28] MEDS: Atropine 1% (ORAL/SL)* 15 ML BTL SL PRN ×2 (12:12→13:46)
--- NOTE | 2018-08-28 12:13 | PN ---
Subjective Date of Service: 08/28/18 Interval History: Family made patient comfort measures overnight. Patient resting and has been resting all morning per family at bedside. Family has no questions. Nursing reports that patient with shallow breathing earlier this morning after administration of prn morphine. Family History: Unchanged from Admission Past Medical History: Unchanged from Admission Objective Active Medications: Albuterol (Ventolin 2.5 Mg/3 Ml Neb.Teresa*) 2.5 mg INH Q2H PRN PRN Reason: SOB/WHEEZING Atropine Sulfate (Atropine 1% (Oral/Sl)*) 2 drop SL Q2H PRN PRN Reason: Terminal Secretions Dextrose (D50w Syringe 50 Ml*) 12.5 gm IV PUSH .FOR FS < 60 - SS PRN PRN Reason: FS < 60 Lidocaine (Lidoderm 5% Patch*) 1 patch TRANSDERM DAILY [facility] Last Admin: 08/28/18 08:44 Dose: Not Given Miscellaneous (Ativan Pyxis Steiner) 1 ea N/A .ATIVAN IV STEINER PRN PRN Reason: PYXIS STEINER Morphine Sulfate (Morphine Inj (Syringe))*) 1 mg IV Q4H PRN PRN Reason: disomfort Last Admin: 08/28/18 03:01 Dose: 1 mg Morphine Sulfate (Morphine Oral Concentrate*) 5 mg PO Q2H PRN PRN Reason: Pain or Dyspnea Last Admin: 08/28/18 08:29 Dose: 5 mg Nystatin (Nystatin Cream*) 1 applic TOPICAL BID [facility] Last Admin: 08/28/18 08:44 Dose: Not Given Ondansetron HCl (Zofran Odt Tab*) 4 mg SL Q6H PRN PRN Reason: NAUSEA/VOMITING Last Admin: 08/28/18 03:01 Dose: 4 mg Pharmacy Profile Note (Lidocaine Patch Remove*) 1 note N/A 2100 [facility] Last Admin: 08/27/18 20:56 Dose: Not Given Quetiapine Fumarate (Seroquel Tab*) 25 mg PO BEDTIME [facility] Last Admin: 08/27/18 20:37 Dose: 25 mg Senna (Senokot Tab*) 1 tab PO BID PRN PRN Reason: CONSTIPATION Last Admin: 08/16/18 21:51 Dose: 1 tab Vital Signs - 8 hr 08/28/18 08/28/18 08/28/18 04:23 04:33 08:29 Pulse Rate 106 Respiratory 40 40 Rate O2 Sat by Pulse 96 Oximetry 08/28/18 11:38 Pulse Rate Respiratory 40 Rate O2 Sat by Pulse Oximetry Oxygen Devices in Use Now: OxyMask Appearance: Elderly, obese male, laying in hospital bed, tachypneic; children and at bedside Ears/Nose/Mouth/Throat: Clear Oropharnyx, - - Mucous membranes dry Neck: NL Appearance and Movements; NL JVP Respiratory: Symmetrical Chest Expansion and Respiratory Effort, Clear to Auscultation, - - Tachypneic Cardiovascular: NL Sounds; No Murmurs; No JVD, RRR Skin: No Rash or Ulcers Neurological: - - Patient does not alert to touch or voice, resting comfortably Result Diagrams: 08/26/18 05:44 08/27/18 06:13 Microbiology and Other Data: Microbiology 08/16/18 14:06 Aerobic Blood Culture - Preliminary Blood Venous No Growth Day 1 Anaerobic Blood Culture - Preliminary No Growth Day 1 08/16/18 14:11 Aerobic Blood Culture - Preliminary Blood Venous No Growth Day 1 Anaerobic Blood Culture - Preliminary No Growth Day 1 08/16/18 21:41 Nasal Screen MRSA (PCR) - Final Nasal Mrsa Not Detected Assess/Plan/Problems-Billing Assessment: 88 year old male admitted for acute hypercarpneic respiratory failure with respiratory acidosis mixed etiology mainly Acute on chronic diastollic CHF and COPD. Comfort measures only as of 08/28/18. - Patient Problems (1) Acute respiratory failure with hypercapnia Current Visit: Yes Status: Acute Code(s): J96.02 - ACUTE RESPIRATORY FAILURE WITH HYPERCAPNIA SNOMED Code(s): 516564174 Comment: -Secondary to acute diastolic Heart failure and COPD. S/p Bipap weaned off to NC 3-4 liters. He was transferred out of ICU 08/18/18. Lasix drip d/c'd 08/19/18 (completed 2 days) and back to his home dose of Bumex 2 mg daily. - Patient refuses BIPAP-placed in MOLST. - palliative care saw patient 08/24 - patient now comfort measures, see below (2) Comfort measures only status Current Visit: Yes Status: Acute Code(s): Z51.5 - ENCOUNTER FOR PALLIATIVE CARE SNOMED Code(s): 52599341984620 Comment: -continue prn suctioning, atropine, morphine, ativan (3) DNR (do not resuscitate) Current Visit: Yes Status: Acute Status and Disposition: Comfort care, not safe for transportation at this time.
--- NOTE | 2018-08-28 23:25 | DS ---
CC: Dr. Kimball * SUMMARY: DATE OF ADMISSION: 08/16/18 DATE OF : 08/28/18 PROVIDER: ARIANA Baker. ATTENDING PHYSICIAN: Marcela Valdes DO * (dictated by ARIANA Baker). PRIMARY CARE PROVIDER: Dr. Kimball. PRIMARY DIAGNOSIS: 1. Acute respiratory failure with hypercapnia. 2. Diastolic congestive heart failure exacerbation. SECONDARY DIAGNOSES: 1. Chronic obstructive pulmonary disease exacerbation. 2. History of respiratory failure with hypercapnia. 3. Congestive heart failure with preserved ejection fraction. 4. Chronic obstructive pulmonary disease. 5. Atrial fibrillation. 6. Sick sinus syndrome. 7. Diabetes mellitus type 2. DISCHARGE MEDICATIONS: None. CONTINUED HOME MEDICATIONS: None. HISTORY OF PRESENT ILLNESS/HOSPITAL COURSE: Adam Chavez was an 88-year-old white male with past medical history significant for a history of respiratory failure with hypercapnia, heart failure with preserved ejection fraction, COPD, atrial fibrillation, who presented to the emergency department on 08/16/18 due to shortness of breath and chest pain. Please see the history and physical exam by Dr. Olivier from this date for further information. The patient was originally placed on BiPAP during his hospital stay. During his stay, he then refused BiPAP and CPAP and his MOLST was updated. He initially on 08/22/18 was not interested in hospice and was trying to see how his status continued without BiPAP. Palliative Care was consulted on 08/24/18 and met with the patient and his family. On date of , the patient was comfortable and sleeping at the time of evaluation. His and 3 children were at bedside. Review of system was unable to be completed as the patient was not responding to voice or touch after the time of , but this was prior to time of . On the day of discharge, the patient's family members had no questions and medical billing assistant was not called. PHYSICAL EXAMINATION: After time of : General: White obese male, lying in hospital bed, family at bedside. ENT: Mucous membranes moist. Cardio : Heart signs absent. Respiratory: Breath sounds absent. No respirations. Neuro: Nonresponsive. DISCHARGE PLAN: Not applicable. CONDITION ON DISCHARGE: . DISPOSITION: . TIME SPENT: Approximately 30 minutes was spent on this discharge. Approximately half this time was spent at bedside. ARIANA BAKER [id number]/[facility] #: [id number] [facility]
== END 2018-08-28 15:25 | disposition expired | DRG 291 ==
LOC: ED 12:57 → ICU 20:24 → MEDTELE 08-18 09:12 → MED 08-26 23:30
PROVIDERS: ADMIT Pediatrics; ATTEND Hospitalist
PROC: 5A09357 Assistance with Respiratory Ventilation, Less than 24 Consecutive Hours, Continuous Positive Airway Pressure (ICD-10-PCS; principal; 2018-08-16)
DX: I13.0 Hypertensive heart and chronic kidney disease with heart failure and stage 1 through stage 4 chronic kidney disease, or unspecified chronic kidney disease (principal); J96.02 Acute respiratory failure with hypercapnia; I50.33 Acute on chronic diastolic (congestive) heart failure; Z68.41 Body mass index [BMI] 40.0-44.9, adult; J44.1 Chronic obstructive pulmonary disease with (acute) exacerbation; E87.2 Acidosis; E78.00 Pure hypercholesterolemia, unspecified; E11.51 Type 2 diabetes mellitus with diabetic peripheral angiopathy without gangrene; I49.5 Sick sinus syndrome; I48.91 Unspecified atrial fibrillation; J30.2 Other seasonal allergic rhinitis; G47.30 Sleep apnea, unspecified; N18.3 Chronic kidney disease, stage 3 (moderate); M19.042 Primary osteoarthritis, left hand; M19.041 Primary osteoarthritis, right hand; M19.012 Primary osteoarthritis, left shoulder; M19.011 Primary osteoarthritis, right shoulder; M19.072 Primary osteoarthritis, left ankle and foot; M19.071 Primary osteoarthritis, right ankle and foot; M10.9 Gout, unspecified; E11.22 Type 2 diabetes mellitus with diabetic chronic kidney disease; E11.36 Type 2 diabetes mellitus with diabetic cataract; D63.1 Anemia in chronic kidney disease; E66.9 Obesity, unspecified; N40.1 Benign prostatic hyperplasia with lower urinary tract symptoms; G31.84 Mild cognitive impairment of uncertain or unknown etiology; R59.0 Localized enlarged lymph nodes; R33.8 Other retention of urine; F41.9 Anxiety disorder, unspecified; Z51.5 Encounter for palliative care; Z66 Do not resuscitate; Z90.79 Acquired absence of other genital organ(s); Z95.0 Presence of cardiac pacemaker; Z88.1 Allergy status to other antibiotic agents; Z88.5 Allergy status to narcotic agent; Z85.828 Personal history of other malignant neoplasm of skin; Z85.46 Personal history of malignant neoplasm of prostate; Z87.891 Personal history of nicotine dependence
CPT/HCPCS: 36415; 36600; 71045; 71046; 71250; 80048; 80053; 81003; 82272; 82550; 82728; 82803; 82947; 83540; 83550; 83605; 83735; 83880; 84100; 84132; 84484; 84550; 85025; 85027; 85730; 86140; 87040; 87641; 93005; 93306; 94640; 94660; 99285; A9270-GY; C8929; G8978-GP-CM; G8979-GP-CK; G8987-GO-CM; G8988-GO-CK; J1630; J1815; J1940; J2060; J2270; J3475; J3480; J7512